=== PATIENT | male | born 1940 | race Caucasian/White ===

== ENCOUNTER 2021-12-01 11:57 | Emergency (ER) | payer OTHER, MEDICARE, SELFPAY ==
[2021-12-01 12:32] VITALS: BP 112/58; PULSE 70; RESP 20; TEMP 36.2; O2SAT 93
--- NOTE | 2021-12-01 13:30 | W.ED.WOUNDLC ---
HPI - Wound/Laceration General: Chief Complaint: Wound/Laceration Stated Complaint: BIG BOIL ON HIS BACK Time Seen by Provider: 12/01/21 14:09 History of Present Illness: HPI narrative: [facility] his back that is inflamed. Associated symptoms: Denies chills, fever(s), nausea or vomiting Review of Systems Const: Denies: fever(s), chills or body aches Eyes: Denies: change in vision or blurry vision ENMT: Denies: throat pain or nasal congestion Card: Denies: chest pain or dyspnea on exertion Resp: Denies: dyspnea, productive cough or non-productive cough GI: Denies: abdominal pain, nausea or vomiting : Denies: difficulty urinating Musc: Denies: extremity pain Skin/Breast: Reports: erythema, skin tenderness, skin swelling (Patient fell about 3 days ago striking left side his back and then cysts go) and other (Complaint cyst pain and drainage); Denies: rash Neuro: Denies: headache(s) Psych: Denies: anxiety or depression Hua/Lymph: Denies: easy bruising PFSH ED PFSH: Medical History DDD (degenerative disc disease) HTN (hypertension) Surgical History H/O colonoscopy 2020 H/O removal of cyst x 2 History of appendectomy Family History Father Cancer Mother Lung disease Denies family history of Anesthesia complication Bleeding disorder Social History Smoking and tobacco status: former smoker Quit status (tobacco): has quit using tobacco Year quit tobacco: 2020 - 2PPD x 70 Years Alcohol intake: never Lives independently: Yes Household members: children Marital status: / service: Yes Current occupational status: retired and disabled History of recent travel: No Current gender identity: Male Physical Exam Const: COMMON NORMALS: no acute distress GENERAL APPEARANCE: cooperative Resp: COMMON NORMALS: normal respiratory effort Extremity: COMMON NORMALS: full ROM Skin: OTHER: I&D of sebaceous cyst left upper back after lidocaine and sterile Betadine prep large amount of cystic material was drained from the wound and packed with 1 inch gauze. Cellulitis extends down to the left upper arm and is tender. Procedures Abscess I/D Site: upper extremity Side (if applicable): left Local Anesthetic: lidocaine 1% Amount of anesthesia used (mL): 4 Technique: incised with #11 blade Amount of fluid expressed (mL): 12 Irrigation: Yes Packing used?: iodoform Course Vital Signs: Vital signs: Vital Signs Temperature 97.1 F L 12/01/21 12:32 Pulse Rate 70 12/01/21 12:32 Respiratory Rate 20 H 12/01/21 12:32 Blood Pressure 112/58 12/01/21 12:32 Pulse Oximetry 93 12/01/21 12:32 MDM - Wound/Laceration MDM Narrative: Medical decision making narrative: Brief history and physical exam was performed as part of the triage process. Due to current ED wait time patient will be placed in waiting room until a room becomes available. Explained to patient he/she will be seen in order of severity. Patient is currently safe to wait in the waiting room until we can get them placed. Patient informed that if condition worsens at any time to please let the front end loader driver know. Discharge Plan Discharge Patient Disposition: Home Clinical Impression: Abscess Condition: Stable Prescriptions: New clindamycin HCl 300 mg capsule 300 mg PO Q8H 7 Days Qty: 21 RF: 0 hydrocodone-acetaminophen 5-325 mg tablet 1 tab PO TID PRN (Reason: pain) Qty: 14 RF: 0 No Action cetirizine [Zyrtec] 10 mg tablet 10 mg PO DAILY RF: 0 cyclobenzaprine 10 mg tablet 10 mg PO TID PRN (Reason: muscle spasm) RF: 0 gabapentin 300 mg capsule 300 mg PO TID PRN (Reason: pain) RF: 0 ghsruexj-soigue-YQ-thonzonium 3.3-3-10-0.5 mg/mL drops,suspension 4 drop EAR-BOTH TID RF: 0 lisinopril-hydrochlorothiazide 10-12.5 mg tablet 1 tab PO DAILY RF: 0 metformin 500 mg tablet 500 mg PO DAILY RF: 0 simvastatin 80 mg tablet 80 mg PO DAILY RF: 0 tamsulosin 0.4 mg capsule 0.4 mg PO DAILY RF: 0 varenicline 1 mg tablet 1 mg PO BID RF: 0 fluticasone propionate 50 mcg/actuation spray,suspension 1 spray INTRANASAL DAILY RF: 0 aspirin [Adult Aspirin Regimen] 81 mg tablet,delayed release (DR/EC) 81 mg PO TID PRN (Reason: pain) RF: 0 acetaminophen [Tylenol Extra Strength] 500 mg tablet 500 mg PO Q6H PRNRF: 0 Spiriva with HandiHaler 18 mcg capsule, w/inhalation device 1 cap INHALATION DAILY 30 Days Qty: 60 RF: 3 cephalexin [Keflex] 500 mg capsule 500 mg PO TID Qty: 21 RF: 0 Discharge Orders: Discharge ED (Routine); Ordered 12/01/21 Ordered By: Davidson Olmedo Referrals: Yara Phelps MD [Primary Care Provider] - Discharge Diet: Usual diet Discharge Activity: Resume usual activity Patient Instructions: Abscess Incision and Drainage (DC) Activity Restrictions/Additional Instructions: Follow-up with medical provider as directed. Take medications as prescribed. Return to the ER or your medical provider if condition worsens. Please read and understand discharge instructions. If any questions ask please. Pull out packing in 2 days. Return here to the ER if worsening symptoms. Coding Level of Care Code ED Ceramics Engineer for April Maagna
[2021-12-01] MEDS: lidocaine 1% INJ 20 mL INTRADERMA (14:13)
[2021-12-01] MEDS: HYDROcodone-acetaminophen 5-325 mg Tablet 1 TAB PO (14:33)
== END 2021-12-01 14:39 | disposition home or self-care (01) ==
PROVIDERS: Emergency Provider Nurse Practitioner Family; PCP Family Medicine
DX: L02.212 Cutaneous abscess of back [any part, except buttock and flank] (principal); Z79.84 Long term (current) use of oral hypoglycemic drugs; Z79.82 Long term (current) use of aspirin
CPT/HCPCS: 10060; 99283

== ENCOUNTER → 2021-12-22 08:15 | Outpatient (BNVA) | payer OTHER, MEDICARE, SELFPAY | PROVIDERS: PCP Family Medicine; Referring Provider Family Medicine; Visit Provider Internal Medicine | DX: E11.9 Type 2 diabetes mellitus without complications (principal); D35.00 Benign neoplasm of unspecified adrenal gland; I10 Essential (primary) hypertension; Z87.891 Personal history of nicotine dependence; Z79.84 Long term (current) use of oral hypoglycemic drugs | CPT/HCPCS: 99204 ==

== ENCOUNTER 2023-05-24 08:09 | Outpatient (CLI) | payer OTHER, SELFPAY ==
--- NOTE | 2023-05-24 08:17 | CT_ITS ---
WS: [id number] CT ABDOMEN AND PELVIS WITH CONTRAST HISTORY: PAIN IN LOWER ABDOMEN/possible hernia. TECHNIQUE: Imaging performed of the abdomen and pelvis with IV contrast. Single phase imaging of the abdomen. Coronal and sagittal reformats are submitted. All CT scans at [facility] use at [address] one of these dose optimization techniques: automated exposure control; mA and/or kV adjustment per patient size (includes targeted exams where dose is matched to clinical indication); or iterative re construction. IV CONTRAST: Omnipaque 350; 100 mL IV. Oral contrast: Yes. DLP: 800.37 mGy.cm COMPARISON: 09/19/[address] Lower thorax: Lung bases are clear. Heart is normal size. No hiatal hernia. Liver/biliary system: Normal size with no intrahepatic dilatation. Gallbladder: Normal. No gallstones or wall thickening. No pericholecystic fluid. Pancreas: Normal size pancreas and pancreatic duct. No adjacent inflammation. Spleen: Normal size spleen. No mass or infarct. Adrenal glands: Normal RIGHT adrenal gland. Mild thickening and lobulation of the LEFT adrenal gland similar to prior studies. Right kidney: Normal. Left kidney: Normal size kidney. Nonobstructing calcification in the superior pole. Superior pole 14 mm cyst. Aorta: Atherosclerosis. No aneurysm. Mild atherosclerosis at the origin of the SMA and celiac axis wi th no stenosis. Lymphadenopathy: None. Free fluid: None. GI tract: Normal stomach and small bowel. Mild diffuse constipation. Tortuous loops of colon with no obstruction. Prior appendectomy. Mild distal diverticula burden without acute diverticulitis. Abdominal wall: Mild thinning of the abdominal wall musculature. There is a very small fat-containing umbilical hernia. No inguinal hernia. There is a small soft tissue nodule measuring 11 mm in the pos terior inferior RIGHT lower thorax. Probably a small sebaceous cyst or epidermoid. No additional subc utaneous nodules. Pelvis: No free fluid or adenopathy within the pelvis. Bones: Osteopenia. CT/CT abdomen pelvis w con* [id number] IMPRESSION: 1. No acute abdominal or pelvic abnormalities. 2. Small fat-containing umbilical hernia. 3. Mild diffuse constipation with no obstruction. 4. Mild diverticular burden without acute diverticulitis. 5. Stable mild thickening of the LEFT adrenal gland superior pole LEFT renal c yst. 6. Prior appendectomy.
[2023-05-24] MEDS: iohexol 350 mg/mL 500 mL Btl (per mL) PO (09:30)
[2023-05-24] MEDS: iohexol 350 mg/mL 500 mL Btl (per mL) IV (09:45)
== END 2023-05-24 08:10 | disposition home or self-care (01) ==
PROVIDERS: PCP Family Medicine; Visit Provider Family Medicine
DX: K42.9 Umbilical hernia without obstruction or gangrene (principal); K59.09 Other constipation; R59.0 Localized enlarged lymph nodes; Z90.89 Acquired absence of other organs
CPT/HCPCS: 74177; Q9967

== ENCOUNTER → 2023-08-03 14:40 | Outpatient (BNVA) | payer OTHER, SELFPAY | PROVIDERS: PCP Family Medicine; Referring Provider Family Medicine; Visit Provider Dermatology | DX: L81.4 Other melanin hyperpigmentation (principal); D18.01 Hemangioma of skin and subcutaneous tissue; L57.8 Other skin changes due to chronic exposure to nonionizing radiation; D48.5 Neoplasm of uncertain behavior of skin; L57.0 Actinic keratosis; L72.0 Epidermal cyst; D17.1 Benign lipomatous neoplasm of skin and subcutaneous tissue of trunk | CPT/HCPCS: 11102; 17000; 99203 ==

== ENCOUNTER 2023-09-01 16:16 | Emergency (ER) | payer OTHER, SELFPAY ==
[2023-09-01 16:26] VITALS: BP 154/77; PULSE 55; RESP 16; TEMP 36.3; O2SAT 93
--- NOTE | 2023-09-01 16:46 | XR_ITS ---
WS: [id number] EXAMINATION: XR hip RT 2-3V wo/w pel* [id number] REASON FOR EXAM: pain COMPARISON: None available. ORDER DATE: 09/01/2023 4:46 PM TECHNIQUE: Frontal internal/external rotation views of the right hip were obtained. X-RAY FINDINGS: There are no fractures or dislocations. Normal motion with internal/external rotation is present. Mild degenerative changes with symmetric appearing joint space narrowing of each hip.. IMPRESSION: 1. No fractures or dislocations of the right hip. 2. Normal motion with internal/external rotation.
[2023-09-01 16:51] VITALS: BP 126/76; PULSE 65; RESP 18; O2SAT 92
--- NOTE | 2023-09-01 17:04 | W.ED.EXTPRO ---
Documented by User: Shlomo Peres DO 09/02/23 16:31 HPI - Extremity Problem General: Chief complaint: Extremity Injury, Lower Stated complaint: right hip pain Time Seen by Provider: 09/01/23 16:39 Source: patient Mode of arrival: ambulatory History of Present Illness: 83-year-old male presents emergency room complaining of right hip pain he bent over and felt a posterior right hip popping sensation with pain he denies any fevers sweats or chills. No fall no specific injury. He states pain radiates into his groin at times. Not had any fever sweats chills no dysuria urgency or frequency. He was seen for to the [place] clinic and given steroids. MD Complaint: joint pain Onset (ago): minute(s) Pain Consistency: constant Location: right Quality: sharp Relieving factors: nothing Exacerbating factors: nothing Associated symptoms: Deny chest pain, fever(s) or rash Review of Systems Const: Denies: fever(s), chills, body aches, change in appetite, fatigue or malaise ENMT: Denies: throat pain, ear or mastoid pain, nasal discharge or nasal congestion Card: Denies: chest pain, edema, dyspnea on exertion or orthopnea Resp: Denies: dyspnea, productive cough or non-productive cough GI: Denies: abdominal pain, nausea, vomiting, hematemesis, coffee ground emesis, diarrhea, constipation, bloating, hematochezia or melena : Denies: flank pain, dysuria, urinary frequency or urinary urgency Musc: Reports: joint pain Skin/Breast: Denies: rash or pruritus PFSH ED PFSH: Medical History DDD (degenerative disc disease) HTN (hypertension) Surgical History H/O colonoscopy 2020 H/O removal of cyst x 2 History of appendectomy Family History Father Cancer Mother Lung disease Denies family history of Anesthesia complication Bleeding disorder Social History Smoking and tobacco status: former smoker Quit status (tobacco): has quit using tobacco Year quit tobacco: 2019 - 2PPD x 70 Years Alcohol intake: never Substance/Drug Use: never Lives independently: Yes Household members: children Marital status: / service: Yes Current occupational status: retired and disabled Do you think of yourself as: Straight/Heterosexual Current gender identity: Male Physical Exam Const: GENERAL APPEARANCE: cooperative and comfortable ORIENTATION/CONSCIOUSNESS: Yes awake, Yes oriented to person, Yes oriented to place and Yes oriented to time HENMT: COMMON NORMALS: normocephalic, atraumatic and hearing grossly normal bilaterally HEAD & SCALP: normocephalic and atraumatic Resp: COMMON NORMALS: normal respiratory effort, No retractions, No use of accessory muscles and clear to auscultation bilaterally AUSCULTATION: clear to auscultation bilaterally Cardio: COMMON NORMALS: regular rate, regular rhythm and No murmurs present (Cardio) RATE: regular rate RHYTHM: regular rhythm GI: COMMON NORMALS: Soft to palpation and No hepatosplenomegaly present AUSCULTATION: Yes normoactive bowel sounds PALPATION: Yes Soft to palpation, No Tenderness to palpation present (GI), No Guarding due to palpation present (GI) and Yes No hepatosplenomegaly present Extremity: COMMON NORMALS: normal to inspection, capillary refill normal, no clubbing, cyanosis or edema, no calf tenderness and no pedal edema Neuro: SENSORIUM/ORIENTATION: Yes oriented to person, Yes oriented to place and Yes oriented to time Skin: COMMON NORMALS: no rashes or lesions noted GENERAL SKIN EXAM: no rashes or lesions noted Course Vital Signs: Vital signs: Vital Signs Temperature 97.4 F L 09/01/23 16:26 Pulse Rate 50 L 09/01/23 19:15 Respiratory Rate 16 09/01/23 19:15 Blood Pressure 159/109 09/01/23 19:15 Pulse Oximetry 92 09/01/23 19:15 Oxygen Delivery Me thod Room Air 09/01/23 17:05 MDM - Extremity (Nontraumatic) Medical Decision Making Leukocytosis due to the oral steroids. He is complaining of pain whenever he walks x-rays not show any acute fracture we will CT hip laboratory tests are otherwise unremarkable. Care signed out to Dr. Minor at change of shift. See final notes for diagnosis and disposition. Medical Records I reviewed the patient's medical records. Lab Data I reviewed the patient's lab results. 09/01/23 17:00 09/01/23 17:[address] 09/01/23 18:14 IMPRESSION: No acute bony abnormalities. Laboratory Results WBC 13.48 10^3/uL (3.29-11.43) H 09/01/23 17:00 RBC 4.75 10^6/uL (3.85-5.65) 09/01/23 17:00 Hgb 14.30 g/dL (11.27-16.99) 09/01/23 17:00 Hct 43.3 % (37-53) 09/01/23 17:00 MCV 91.2 fl (82-101) 09/01/23 17:00 MCH 30.1 pg (27-33) 09/01/23 17:00 MCHC 33.0 g/dL (30-55) 09/01/23 17:00 RDW 14.0 % (12.1-15.1) 09/01/23 17:00 Plt Count 171 10^3/cmm (157-399) 09/01/23 17:00 MPV 12.8 fL (7.4-10.4) H 09/01/23 17:00 Neut % (Auto) 78.5 % 09/01/23 17:00 Lymph % (Auto) 12.8 % 09/01/23 17:00 [place] % (Auto) 5.8 % 09/01/23 17:00 Eos % (Auto) 2.1 % 09/01/23 17:00 Baso % (Auto) 0.4 % 09/01/23 17:00 Neut # (Auto) 10.59 10^3/uL (1.8-7.7) H 09/01/23 17:00 Lymph # (Auto) 1.7 10^3/uL (0.8-4.8) 09/01/23 17:00 [place] # (Auto) 0.8 10^3/uL (0.2-0.9) 09/01/23 17:00 Eos # (Auto) 0.3 10^3/uL (0.0-0.8) 09/01/23 17:00 Baso # (Auto) 0.1 10^3/uL (0.0-0.1) 09/01/23 17:00 Nucleated RBC % (auto) 0 % 09/01/23 17:00 Nucleated RBCs # 0.0 /100WBC 09/01/23 17:00 Sodium 138 mmol/L (136-145) 09/01/23 17:00 Potassium 4.6 mmol/L (3.5-5.1) 09/01/23 17:00 Chloride 103 mmol/L (98-107) 09/01/23 17:00 Carbon Dioxide 23 mmol/L (22-29) 09/01/23 17:00 Anion Gap 16.6 (5-19) 09/01/23 17:00 BUN 32 mg/dL (8-23) H 09/01/23 17:00 Creatinine 1.5 mg/dL (0.7-1.2) H 09/01/23 17:00 GFR Calculation Not Reportable 09/01/23 17:00 Glucose 115 mg/dL (65-115) 09/01/23 17:00 Calculated Osmolality 294 mOsm/kg (285-295) 09/01/23 17:00 Calcium 8.7 mg/dL (8.5-10.5) 09/01/23 17:00 Total Bilirubin 0.3 mg/dL (0.15-1.2) 09/01/23 17:00 AST 11 U/L (0-40) 09/01/23 17:00 ALT 14 U/L (0-41) 09/01/23 17:00 Alkaline Phosphatase 46 U/L (40-130) 09/01/23 17:00 Total Protein 6.6 g/dL (6.6-8.7) 09/01/23 17:00 Albumin 4.1 g/dL (3.5-5.2) 09/01/23 17:00 Globulin 2.5 g/dL (1.3-4.6) 09/01/23 17:00 Discharge Plan Discharge Patient Disposition: Home Clinical Impression: Hip pain, right Condition: Stable Prescriptions: New hydrocodone-acetaminophen 5-325 mg tablet 1 tab PO Q6H PRN (Reason: pain) Qty: 14 0RF No Action cetirizine [Zyrtec] 10 mg tablet 10 mg PO DAILY cyclobenzaprine 10 mg tablet 10 mg PO TID PRN (Reason: muscle spasm) gabapentin 300 mg capsule 300 mg PO TID PRN (Reason: pain) cxyimehh-ouslbq-SF-thonzonium 3.3-3-10-0.5 mg/mL drops,suspension 4 drop EAR-BOTH TID lisinopril-hydrochlorothiazide 10-12.5 mg tablet 1 tab PO DAILY metformin 500 mg tablet 500 mg PO DAILY tamsulosin 0.4 mg capsule 0.4 mg PO DAILY varenicline 1 mg tablet 1 mg PO BID fluticasone propionate 50 mcg/actuation spray,suspension 1 spray INTRANASAL DAILY Rx Instructions: administer into each nostril acetaminophen [Tylenol Extra Strength] 500 mg tablet 500 mg PO Q6H PRN Spiriva with HandiHaler 18 mcg capsule, w/inhalation device 1 cap INHALATION DAILY 30 Days Qty: 60 3RF Rx Instructions: puncture 1 cap using device; one dose = 2 inhalations aspirin [Adult Aspirin Regimen] 81 mg tablet,delayed release (DR/EC) 81 mg PO DAILY simvastatin 80 mg tablet 40 mg PO DAILY cephalexin [Keflex] 500 mg capsule 500 mg PO TID Qty: 21 0RF hydrocodone-acetaminophen 5-325 mg tablet 1 tab PO TID PRN (Reason: pain) Qty: 14 0RF Discharge Orders: Discharge ED (Routine); Ordered 09/01/23 Ordered By: Marce Minor Referrals: Yara Phelps MD [Primary Care Provider] - Discharge Diet: Advance as tolerated Discharge Activity: Resume usual activity Patient Instructions: Hip Pain (ED) Coding Level of Care Code ED School Boat Driver for Chg Fwd Documented by User: Marce Minor MD 09/01/23 19:24 HPI - Extremity Problem General: Chief complaint: Extremity Injury, Lower Stated complaint: right hip pain Time Seen by Provider: 09/01/23 16:39 PFSH ED PFSH: Medical History DDD (degenerative disc disease) HTN (hypertension) Surgical History H/O colonoscopy 2019 H/O removal of cyst x 2 History of appendectomy Family History Father Cancer Mother Lung disease Denies family history of Anesthesia complication Bleeding disorder Social History Smoking and tobacco status: former smoker Quit status (tobacco): has quit using tobacco Year quit tobacco: 2019 - 2PPD x 70 Years Alcohol intake: never Substance/Drug Use: never Lives independently: Yes Household members: children Marital status: / service: Yes Current occupational status: retired and disabled Do you think of yourself as: Straight/Heterosexual Current gender identity: Male Course Vital Signs: Vital signs: Vital Signs Temperature 97.4 F L 09/01/23 16:26 Pulse Rate 50 L 09/01/23 19:15 Respiratory Rate 16 09/01/23 19:15 Blood Pressure 159/109 09/01/23 19:15 Pulse Oximetry 92 09/01/23 19:15 Oxygen Delivery Me thod Room Air 09/01/23 17:05 MDM - Extremity (Nontraumatic) Medical Decision Making Leukocytosis due to the oral steroids. He is complaining of pain whenever he walks x-rays not show any acute fracture we will CT hip laboratory tests are otherwise unremarkable. Care signed out to Dr. Minor at change of shift. See final notes for diagnosis and disposition. Patient CT scan here is normal he has been ambulatory he is stable for discharge he is to follow-up his PCP and return if worsening he understands agrees with plan. Lab Data 09/01/23 17:00 09/01/23 17:[address] 09/01/23 18:14 IMPRESSION: No acute bony abnormalities. Laboratory Results WBC 13.48 10^3/uL (3.29-11.43) H 09/01/23 17:00 RBC 4.75 10^6/uL (3.85-5.65) 09/01/23 17:00 Hgb 14.30 g/dL (11.27-16.99) 09/01/23 17:00 Hct 43.3 % (37-53) 09/01/23 17:00 MCV 91.2 fl (82-101) 09/01/23 17:00 MCH 30.1 pg (27-33) 09/01/23 17:00 MCHC 33.0 g/dL (30-55) 09/01/23 17:00 RDW 14.0 % (12.1-15.1) 09/01/23 17:00 Plt Count 171 10^3/cmm (157-399) 09/01/23 17:00 MPV 12.8 fL (7.4-10.4) H 09/01/23 17:00 Neut % (Auto) 78.5 % 09/01/23 17:00 Lymph % (Auto) 12.8 % 09/01/23 17:00 [place] % (Auto) 5.8 % 09/01/23 17:00 Eos % (Auto) 2.1 % 09/01/23 17:00 Baso % (Auto) 0.4 % 09/01/23 17:00 Neut # (Auto) 10.59 10^3/uL (1.8-7.7) H 09/01/23 17:00 Lymph # (Auto) 1.7 10^3/uL (0.8-4.8) 09/01/23 17:00 [place] # (Auto) 0.8 10^3/uL (0.2-0.9) 09/01/23 17:00 Eos # (Auto) 0.3 10^3/uL (0.0-0.8) 09/01/23 17:00 Baso # (Auto) 0.1 10^3/uL (0.0-0.1) 09/01/23 17:00 Nucleated RBC % (auto) 0 % 09/01/23 17:00 Nucleated RBCs # 0.0 /100WBC 09/01/23 17:00 Sodium 138 mmol/L (136-145) 09/01/23 17:00 Potassium 4.6 mmol/L (3.5-5.1) 09/01/23 17:00 Chloride 103 mmol/L (98-107) 09/01/23 17:00 Carbon Dioxide 23 mmol/L (22-29) 09/01/23 17:00 Anion Gap 16.6 (5-19) 09/01/23 17:00 BUN 32 mg/dL (8-23) H 09/01/23 17:00 Creatinine 1.5 mg/dL (0.7-1.2) H 09/01/23 17:00 GFR Calculation Not Reportable 09/01/23 17:00 Glucose 115 mg/dL (65-115) 09/01/23 17:00 Calculated Osmolality 294 mOsm/kg (285-295) 09/01/23 17:00 Calcium 8.7 mg/dL (8.5-10.5) 09/01/23 17:00 Total Bilirubin 0.3 mg/dL (0.15-1.2) 09/01/23 17:00 AST 11 U/L (0-40) 09/01/23 17:00 ALT 14 U/L (0-41) 09/01/23 17:00 Alkaline Phosphatase 46 U/L (40-130) 09/01/23 17:00 Total Protein 6.6 g/dL (6.6-8.7) 09/01/23 17:00 Albumin 4.1 g/dL (3.5-5.2) 09/01/23 17:00 Globulin 2.5 g/dL (1.3-4.6) 09/01/23 17:00 All radiology interpretation(s) finalized by discharge Discharge Plan Discharge Patient Disposition: Home Clinical Impression: Hip pain, right Condition: Stable Prescriptions: New hydrocodone-acetaminophen 5-325 mg tablet 1 tab PO Q6H PRN (Reason: pain) Qty: 14 0RF No Action cetirizine [Zyrtec] 10 mg tablet 10 mg PO DAILY cyclobenzaprine 10 mg tablet 10 mg PO TID PRN (Reason: muscle spasm) gabapentin 300 mg capsule 300 mg PO TID PRN (Reason: pain) kzworjad-ezimkp-SU-thonzonium 3.3-3-10-0.5 mg/mL drops,suspension 4 drop EAR-BOTH TID lisinopril-hydrochlorothiazide 10-12.5 mg tablet 1 tab PO DAILY metformin 500 mg tablet 500 mg PO DAILY tamsulosin 0.4 mg capsule 0.4 mg PO DAILY varenicline 1 mg tablet 1 mg PO BID fluticasone propionate 50 mcg/actuation spray,suspension 1 spray INTRANASAL DAILY Rx Instructions: administer into each nostril acetaminophen [Tylenol Extra Strength] 500 mg tablet 500 mg PO Q6H PRN Spiriva with HandiHaler 18 mcg capsule, w/inhalation device 1 cap INHALATION DAILY 30 Days Qty: 60 3RF Rx Instructions: puncture 1 cap using device; one dose = 2 inhalations aspirin [Adult Aspirin Regimen] 81 mg tablet,delayed release (DR/EC) 81 mg PO DAILY simvastatin 80 mg tablet 40 mg PO DAILY cephalexin [Keflex] 500 mg capsule 500 mg PO TID Qty: 21 0RF hydrocodone-acetaminophen 5-325 mg tablet 1 tab PO TID PRN (Reason: pain) Qty: 14 0RF Discharge Orders: Discharge ED (Routine); Ordered 09/01/23 Ordered By: Marce Minor Referrals: Yara Phelps MD [Primary Care Provider] - Discharge Diet: Advance as tolerated Discharge Activity: Resume usual activity Patient Instructions: Hip Pain (ED) Coding Level of Care Code ED School Boat Driver for April Magana
[2023-09-01 17:05] VITALS: BP 126/76; PULSE 59; RESP 18; O2SAT 95
[2023-09-01 18:01] LABS: Basophils # 0.1 10^3/uL (0.0-0.1); Basophils % 0.4 %; Eosinophils # 0.3 10^3/uL (0.0-0.8); Eosinophils % 2.1 %; Hematocrit 43.3 % (37-53); Lymphocytes # 1.7 10^3/uL (0.8-4.8); Lymphocytes % 12.8 %; Mean Corpuscular Hemoglobin 30.1 pg (27-33); Mean Corpuscular Volume 91.2 fl (82-101); Mean Platelet Volume 12.8 fL (7.4-10.4); Monocytes # 0.8 10^3/uL (0.2-0.9); Monocytes % 5.8 %; Neutrophils # 10.59 10^3/uL (1.8-7.7); Neutrophils % 78.5 %; Nucleated Red Blood Cells % 0 %; Platelet Count 171 10^3/cmm (157-399); Red Blood Count 4.75 10^6/uL (3.85-5.65); White Blood Count 13.48 10^3/uL (3.29-11.43)
[2023-09-01 18:12] LABS: Alanine Aminotransferase 14 U/L (0-41); Albumin Level 4.1 g/dL (3.5-5.2); Alkaline Phosphatase 46 U/L (40-130); Anion Gap 16.6 (5-19); Aspartate Amino Transferase 11 U/L (0-40); Blood Urea Nitrogen 32 mg/dL (8-23); Calcium 8.7 mg/dL (8.5-10.5); Carbon Dioxide 23 mmol/L (22-29); Chloride 103 mmol/L (98-107); Globulin 2.5 g/dL (1.3-4.6); Glucose 115 mg/dL (65-115); Osmolality Calculated 294 mOsm/kg (285-295); Potassium 4.6 mmol/L (3.5-5.1); Sodium 138 mmol/L (136-145); Total Bilirubin 0.3 mg/dL (0.15-1.2); Total Protein 6.6 g/dL (6.6-8.7)
--- NOTE | 2023-09-01 18:14 | CTR_ITS ---
PROCEDURE INFORMATION: Exam: CT Right Lower Extremity Without Contrast, Hip Exam date and time: 09/01/2023 6:22 PM Age: 83 years old Clinical indication: Pain; Hip; Right TECHNIQUE: Imaging protocol: CT of the right lower extremity without contrast was performed. Exam focused on the hip. Radiation optimization: All CT scans at this facility use at least one of these dose optimization techniques: automated exposure control; mA and/or kV adjustment per patient size (includes targeted exams where dose is matched to clinical indication); or iterative reconstruction. REPORTING DATA: Count of CT and Cardiac NM exams in prior 12 months: This patient has received [address] and 0 known cardiac nuclear medicine studies in the 12 months prior to the current study. COMPARISON: CR XR hip RT 2-3V wo/w pel* [id number] 09/01/2023 5:01 PM RADIATION DOSE METRICS: Total DLP (mGy-cm): 553.43 FINDINGS: Bones/joints: Normal. No acute fracture or dislocation. Joint surfaces are fairly well preserved. No malalignment. Soft tissues: No significant joint effusion or soft tissue swelling.. Other findings: Small fat containing right inguinal hernia. CT/CT hip RT wo con* [id number] IMPRESSION: No acute bony abnormalities.
[2023-09-01] MEDS: HYDROcodone-acetaminophen 5-325 mg Tablet 1 TAB PO (18:29)
[2023-09-01 19:15] VITALS: BP 159/109; PULSE 50; RESP 16; O2SAT 92
== END 2023-09-01 19:20 | disposition home or self-care (01) ==
PROVIDERS: Family Medicine; Emergency Provider Emergency Medicine; PCP Family Medicine
DX: M25.551 Pain in right hip (principal); Z79.82 Long term (current) use of aspirin; Z79.84 Long term (current) use of oral hypoglycemic drugs; I10 Essential (primary) hypertension; Z87.891 Personal history of nicotine dependence
CPT/HCPCS: 73502; 73700; 80053; 85025; 99284

== ENCOUNTER → 2023-09-07 09:23 | Outpatient (BNVA) | payer OTHER, SELFPAY | PROVIDERS: PCP Family Medicine; Referring Provider Family Medicine; Visit Provider Specialist | DX: R22.31 Localized swelling, mass and lump, right upper limb | CPT/HCPCS: 20612; 73110; 99203 ==

== ENCOUNTER → 2023-09-27 14:05 | Outpatient (BNVA) | payer OTHER, SELFPAY | PROVIDERS: PCP Family Medicine; Visit Provider Orthopaedic Surgery | DX: M51.36 Other intervertebral disc degeneration, lumbar region (principal); M43.26 Fusion of spine, lumbar region | CPT/HCPCS: 72110; 99204 ==

== ENCOUNTER 2023-10-05 10:33 | Outpatient (CLI) | payer OTHER, SELFPAY ==
--- NOTE | 2023-10-05 11:00 | MR_ITS ---
WS: [id number] EXAMINATION: MR wrist RT wo con* [id number] ORDER DATE: 10/05/2023 10:54 AM COMPARISON: None. HISTORY: cyst on right wrist CONTRAST: None. TECHNIQUE: Axial T1, axial T2 fat sat, coronal T1, coronal proton density fat sat, coronal STIR, noel nal 3D, and sagittal T1 performed. FINDINGS: Some images degraded by motion artifact. Palpable marker along the radial styloid. No suspicious lesions directly deep to the palpable marker. However, adjacent to the palpable marker along the dorsal wrist there is an ovoid subcutaneous lipom a along the dorsal distal radius measuring 1.7 x 1.6 x 1.5 cm. Normal bone marrow signal in the underlying radial styloid. No distal radial fractures. Subchondral c ystic change along the carpal bones. Normal scapholunate interval. Normal carpal tunnel. 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 Moderate degenerative arthritis at the fi rst [facility]MC and STT. Normal scaphoid. Normal lunate. No acute carpal fractures. IMPRESSION: 1. Ovoid subcutaneous lipoma along the dorsal distal radius directly adjacent to the palpable porsha er measuring 1.7 x 1.6 x 1.5 cm. 2. No other suspicious lesions near the palpable marker. 3. No other acute findings.
== END 2023-10-05 10:34 | disposition home or self-care (01) ==
LOC: RAD 10:33
PROVIDERS: PCP Family Medicine; Visit Provider Specialist
DX: D17.21 Benign lipomatous neoplasm of skin and subcutaneous tissue of right arm (principal)
CPT/HCPCS: 73221

== ENCOUNTER → 2023-10-12 08:47 | Outpatient (BNVA) | payer OTHER, SELFPAY | PROVIDERS: PCP Family Medicine; Visit Provider Specialist | DX: R22.31 Localized swelling, mass and lump, right upper limb (principal) | CPT/HCPCS: 99213 ==

== ENCOUNTER 2024-01-02 16:57 | Emergency (ER) | payer OTHER, SELFPAY ==
[2024-01-02 17:04] VITALS: BP 148/75; PULSE 57; RESP 16; TEMP 36.5; O2SAT 95; BMI 34.0
--- NOTE | 2024-01-02 19:00 | XRR_ITS ---
PROCEDURE INFORMATION: Exam: XR Chest Exam date and time: 01/02/2024 7:04 PM Age: 83 years old Clinical indication: Other: Bradycardia TECHNIQUE: Imaging protocol: Radiologic exam of the chest. Views: 1 view. COMPARISON: CT lung screening [id number] 07/22/2020 8:44 AM FINDINGS: Lungs: Both lungs demonstrate chronic interstitial coarsening. No lung mass or infiltrate. Pleural spaces: Unremarkable. No pleural effusion. No pneumothorax. Pleural calcifications are noted in the right base. Heart/Mediastinum: Unremarkable. No cardiomegaly. Bones/joints: Unremarkable. XR/XR chest 1V portable [id number] IMPRESSION: I see no acute abnormality.
--- NOTE | 2024-01-02 19:30 | W.ED.WEAKNES ---
HPI - Weakness General: Chief complaint: Weakness Stated complaint: sent over by [place], swollen legs and feet Time Seen by Provider: 01/02/24 19:01 History of Present Illness: Patient presents to the ER with complaints of bilateral lower extremity swelling. Patient was sent over here from the [place] for swelling in his heart. Patient is on sure why. Patient had an EKG over to [place] that showed sinus bradycardia with incomplete right bundle branch block. Patient says his feet been swelling for about 2 weeks now the first couple days they would go down at night but be swollen throughout the day but here lately they have not been going down at all. Patient denies being on any diuretic or having any heart problems. Patient does admit to smoking about a half a pack per day for about the last 70+ years. Review of Systems General: Reports: 10 or more systems reviewed and unremarkable except in HPI and below PFSH ED PFSH: Medical History HTN (hypertension) DDD (degenerative disc disease) Surgical History H/O removal of cyst x 2 H/O colonoscopy 2019 History of appendectomy Family History Father Cancer Mother Lung disease Denies family history of Anesthesia complication Bleeding disorder Social History Smoking and tobacco/nicotine status: current every day tobacco/nicotine user Quit status (tobacco/nicotine): has quit using Year quit tobacco: 2020 - 2PPD x 70 Years Alcohol intake: never Substance/Drug Use: never Lives independently: Yes Household members: children Marital status: / service: Yes Current occupational status: retired and disabled Do you think of yourself as: Straight/Heterosexual Current gender identity: Male Physical Exam Const: COMMON NORMALS: no acute distress, average body habitus, patient oriented x3, no limitations, healthy appearing, alert and well nourished HENMT: COMMON NORMALS: normocephalic, atraumatic, hearing grossly normal bilaterally, external ears normal, moist oral mucous membranes and oropharynx normal HEAD & SCALP: normocephalic and atraumatic EXTERNAL EAR: Yes external ears normal Neck/C-Spine: COMMON NORMALS: full ROM, no lymphadenopathy, supple, no meningeal signs, no JVD and Thyroid normal THYROID: Thyroid normal Chest: COMMONS NORMALS: normal inspection of the chest and normal palpation of entire chest wall Resp: COMMON NORMALS: normal respiratory effort, No retractions, No use of accessory muscles and clear to auscultation bilaterally AUSCULTATION: clear to auscultation bilaterally Cardio: COMMON NORMALS: no JVD, regular rate, regular rhythm, S1 normal heart sound present, S2 normal heart sound present, No gallops present (Cardio), No clicks present (Cardio), No murmurs present (Cardio) and No rub (Cardio) RATE: regular rate RHYTHM: regular rhythm HEART SOUNDS: S1 normal heart sound present and S2 normal heart sound present GI: COMMON NORMALS: Normal to inspection, nondistended, normoactive bowel sounds present, Soft to palpation, non-tender and No hepatosplenomegaly present PALPATION: Yes Soft to palpation and Yes No hepatosplenomegaly present Extremity: NARRATIVE EXTREMITY EXAM: 1-2+ pitting edema bilateral lower extremities Neuro: COMMON NORMALS: patient oriented x3 SENSORIUM/ORIENTATION: Yes alert MENINGEAL SIGNS: Yes no meningeal signs Course Vital Signs: Vital signs: Vital Signs Temperature 97.7 F 01/02/24 21:12 Pulse Rate 53 L 01/02/24 21:12 Respiratory Rate 16 01/02/24 21:12 Blood Pressure 152/69 01/02/24 21:12 Pulse Oximetry 94 01/02/24 21:12 Oxygen Delivery Me thod Room Air 01/02/24 17:04 MDM - Weakness Medical Decision Making Lab work was obtained that included CBC CMP magnesium phosphorus BNP urinalysis. All of which were essentially benign. Chest x-ray showed no acute abnormality. Patient was given 20 mg Lasix p.o. which diuresed the patient well. Patient be discharged home on 20 mg Lasix for the next 5 days. Patient should follow-up with his PCP within the next 7 to 10 days for further evaluation and treatment. Differential Diagnosis Unlikely acute myocardial infarction, anemia, hypoglycemia, hypothyroidism, rhabdomyolysis, sepsis or dehydration Medical Records I reviewed the patient's medical records. Lab Data I reviewed the patient's lab results. 01/02/24 19:13 01/02/24 19:13 Radiology Impressions Chest X-Ray 01/02/24 19:00 IMPRESSION: I see no acute abnormality. Laboratory Results WBC 10.88 10^3/uL (3.29-11.43) 01/02/24 19:13 RBC 4.38 10^6/uL (3.85-5.65) 01/02/24 19:13 Hgb 13.20 g/dL (11.27-16.99) 01/02/24 19:13 Hct 42.1 % (37-53) 01/02/24 19:13 MCV 96.1 fl (82-101) 01/02/24 19:13 MCH 30.1 pg (27-33) 01/02/24 19:13 MCHC 31.4 g/dL (30-55) 01/02/24 19:13 RDW 13.4 % (12.1-15.1) 01/02/24 19:13 Plt Count 167 10^3/cmm (157-399) 01/02/24 19:13 MPV 13.1 fL (7.4-10.4) H 01/02/24 19:13 Neut % (Auto) 68.2 % 01/02/24 19:13 Lymph % (Auto) 20.7 % 01/02/24 19:13 [place] % (Auto) 7.5 % 01/02/24 19:13 Eos % (Auto) 2.8 % 01/02/24 19:13 Baso % (Auto) 0.5 % 01/02/24 19:13 Neut # (Auto) 7.43 10^3/uL (1.8-7.7) 01/02/24 19:13 Lymph # (Auto) 2.3 10^3/uL (0.8-4.8) 01/02/24 19:13 [place] # (Auto) 0.8 10^3/uL (0.2-0.9) 01/02/24 19:13 Eos # (Auto) 0.3 10^3/uL (0.0-0.8) 01/02/24 19:13 Baso # (Auto) 0.1 10^3/uL (0.0-0.1) 01/02/24 19:13 Nucleated RBC % (auto) 0 % 01/02/24 19:13 Nucleated RBCs # 0.0 /100WBC 01/02/24 19:13 Sodium 141 mmol/L (136-145) 01/02/24 19:13 Potassium 4.7 mmol/L (3.5-5.1) 01/02/24 19:13 Chloride 105 mmol/L (98-107) 01/02/24 19:13 Carbon Dioxide 25 mmol/L (22-29) 01/02/24 19:13 Anion Gap 15.7 (5-19) 01/02/24 19:13 BUN 26 mg/dL (8-23) H 01/02/24 19:13 Creatinine 1.2 mg/dL (0.7-1.2) 01/02/24 19:13 GFR Calculation Not Reportable 01/02/24 19:13 Glucose 107 mg/dL (65-115) 01/02/24 19:13 Calculated Osmolality 297 mOsm/kg (285-295) H 01/02/24 19:13 Calcium 9.0 mg/dL (8.5-10.5) 01/02/24 19:13 Phosphorus 4.2 mg/dL (2.5-4.5) 01/02/24 19:13 Magnesium 2.2 mg/dL (1.7-2.3) 01/02/24 19:13 Total Bilirubin 0.2 mg/dL (0.15-1.2) 01/02/24 19:13 AST 15 U/L (0-40) 01/02/24 19:13 ALT 14 U/L (0-41) 01/02/24 19:13 Alkaline Phosphatase 51 U/L (40-130) 01/02/24 19:13 NT-Pro-B Natriuret Pep 99 pg/mL (0-450) 01/02/24 19:13 Total Protein 6.8 g/dL (6.6-8.7) 01/02/24 19:13 Albumin 3.9 g/dL (3.5-5.2) 01/02/24 19:13 Globulin 2.9 g/dL (1.3-4.6) 01/02/24 19:13 Urine Color Yellow (Yellow) 01/02/24 20:17 Urine Appearance Clear (CLEAR) 01/02/24 20:17 Urine pH 5 (5-7) 01/02/24 20:17 Ur Specific [place] 1.020 (1.005-1.030) 01/02/24 20:17 Urine Protein Neg (Negative) 01/02/24 20:17 Urine Glucose (UA) Norm (Normal) 01/02/24 20:17 Urine Ketones Negative (Negative) 01/02/24 20:17 Urine Blood Neg (Negative) 01/02/24 20:17 Urine Nitrate Negative (Negative) 01/02/24 20:17 Urine Bilirubin Neg (Negative) 01/02/24 20:17 Urine Urobilinogen Neg mg/dL (Negative) 01/02/24 20:17 Ur Leukocyte Esterase Negative (Negative) 01/02/24 20:17 All radiology interpretation(s) finalized by discharge Discharge Plan Discharge Patient Disposition: Home Clinical Impression: Bilateral edema of lower extremity Condition: Stable Prescriptions: New Lasix 20 mg tablet 20 mg PO DAILY Qty: 5 0RF No Action cetirizine [Zyrtec] 10 mg tablet 10 mg PO DAILY cyclobenzaprine 10 mg tablet 10 mg PO TID PRN (Reason: muscle spasm) gabapentin 300 mg capsule 300 mg PO TID PRN (Reason: pain) [id number]-[id number]-DI-thonzonium 3.3-3-10-0.5 mg/mL drops,suspension 4 drop EAR-BOTH TID lisinopril-hydrochlorothiazide 10-12.5 mg tablet 1 tab PO DAILY metformin 500 mg tablet 500 mg PO DAILY tamsulosin 0.4 mg capsule 0.4 mg PO DAILY varenicline 1 mg tablet 1 mg PO BID fluticasone propionate 50 mcg/actuation spray,suspension 1 spray INTRANASAL DAILY Rx Instructions: administer into each nostril acetaminophen [Tylenol Extra Strength] 500 mg tablet 500 mg PO Q6H PRN Spiriva with HandiHaler 18 mcg capsule, w/inhalation device 1 cap INHALATION DAILY 30 Days Qty: 60 3RF Rx Instructions: puncture 1 cap using device; one dose = 2 inhalations aspirin [Adult Aspirin Regimen] 81 mg tablet,delayed release (DR/EC) 81 mg PO DAILY simvastatin 80 mg tablet 40 mg PO DAILY hydrocodone-acetaminophen 5-325 mg tablet 1 tab PO Q6H PRN (Reason: pain) Qty: 14 0RF Discharge Orders: Discharge ED (Routine); Ordered 01/02/24 Ordered By: Fernando De La Fuente Referrals: Yara Phelps MD [Primary Care Provider] - 1 week Patient Instructions: Leg Edema (ED) Activity Restrictions/Additional Instructions: Your workup in ER did not show any acute cause of your edema, it showed your kidneys and your heart are doing well. You were given Lasix which is a diuretic to help you urinate off the excess fluid. Please take 1 pill every day for the next 5 days. Please follow-up with your family practice physician within the next 7 to 10 days for further evaluation and treatment. Coding Level of Care Code ED Bed Bug Exterminator for April Magana
[2024-01-02 19:54] LABS: Basophils # 0.1 10^3/uL (0.0-0.1); Basophils % 0.5 %; Eosinophils # 0.3 10^3/uL (0.0-0.8); Eosinophils % 2.8 %; Hematocrit 42.1 % (37-53); Lymphocytes # 2.3 10^3/uL (0.8-4.8); Lymphocytes % 20.7 %; Mean Corpuscular HGB Conc 31.4 g/dL (30-55); Mean Corpuscular Hemoglobin 30.1 pg (27-33); Mean Corpuscular Volume 96.1 fl (82-101); Mean Platelet Volume 13.1 fL (7.4-10.4); Monocytes # 0.8 10^3/uL (0.2-0.9); Monocytes % 7.5 %; Neutrophils # 7.43 10^3/uL (1.8-7.7); Neutrophils % 68.2 %; Nucleated Red Blood Cells % 0 %; Platelet Count 167 10^3/cmm (157-399); Red Blood Count 4.38 10^6/uL (3.85-5.65); Red Cell Distribution Width 13.4 % (12.1-15.1); White Blood Count 10.88 10^3/uL (3.29-11.43)
[2024-01-02 20:07] LABS: Alanine Aminotransferase 14 U/L (0-41); Albumin Level 3.9 g/dL (3.5-5.2); Alkaline Phosphatase 51 U/L (40-130); Anion Gap 15.7 (5-19); Aspartate Amino Transferase 15 U/L (0-40); Blood Urea Nitrogen 26 mg/dL (8-23); Carbon Dioxide 25 mmol/L (22-29); Chloride 105 mmol/L (98-107); Globulin 2.9 g/dL (1.3-4.6); Glucose 107 mg/dL (65-115); Magnesium 2.2 mg/dL (1.7-2.3); NT Pro B Type Natriuretic Pept 99 pg/mL (0-450); Osmolality Calculated 297 mOsm/kg (285-295); Phosphorus 4.2 mg/dL (2.5-4.5); Potassium 4.7 mmol/L (3.5-5.1); Sodium 141 mmol/L (136-145); Total Bilirubin 0.2 mg/dL (0.15-1.2); Total Protein 6.8 g/dL (6.6-8.7)
[2024-01-02] MEDS: FUROsemide 20 mg Tablet PO (20:23)
[2024-01-02 20:25] VITALS: BP 152/69; PULSE 53; RESP 16; O2SAT 94
[2024-01-02 20:39] LABS: Add Urine Microscopic? NO; Charge for UA Resulting for Rev
[2024-01-02 20:49] LABS: Bilirubin Urine Neg (Negative); Blood Urine Neg (Negative); Glucose Urine UA Norm (Normal); Ketones Urine Negative (Negative); Leukocyte Esterase Urine Negative (Negative); Nitrate Urine Negative (Negative); Protein Urine Neg (Negative); Urine Appearance Clear (CLEAR); Urine Color Yellow (Yellow); Urobilinogen Urine Neg (Negative); pH Urine 5 (5-7)
[2024-01-02 21:12] VITALS: BP 152/69; PULSE 53; RESP 16; TEMP 36.5; O2SAT 94
== END 2024-01-02 21:13 | disposition home or self-care (01) ==
PROVIDERS: Emergency Medicine; Emergency Provider Emergency Medicine; PCP Family Medicine
DX: R60.0 Localized edema (principal); Z79.82 Long term (current) use of aspirin; Z79.84 Long term (current) use of oral hypoglycemic drugs; I10 Essential (primary) hypertension; Z72.0 Tobacco use
CPT/HCPCS: 36415; 71045; 80053; 81003; 83735; 83880; 84100; 85025; 99284

== ENCOUNTER 2024-02-03 10:07 | Outpatient (CLI) | payer OTHER, SELFPAY ==
--- NOTE | 2024-02-03 10:18 | USCV_ITS ---
Brandon Villareal Age: 83 Gender: M : 1940 Exam Date: 02/03/2024 10:45 Ordering Phys: Radha Tsang APRN Technologist: Guillermo Benitez [place]am Location[place] [facility] [place]: edema BP: 136 / 72 HR: Rhythm: Sinus Technical Quality: Poor MEASUREMENTS (Male / Female) Normal Values 2D ECHO LVOT Diameter 2.1 cm LV Ejection Fraction MOD 2C 66.4 % LV Ejection Fraction 2C AL 65.3 % LA Diameter 3.9 cm RA Systolic Volume 4C AL 27.9 ml RA Systolic Volume 4C MOD 27.6 ml Aorta at Sinotubular Diameter 2.6 cm IVC Diameter 1.8 cm M-MODE LA Ao Ratio MM 0.7 AV Cusp Separation MM 3.1 cm DOPPLER AV Peak Velocity 181.0 cm/s LVOT Peak Velocity 173.0 cm/s AV Area Cont Eq vti 2.9 cm squared AV Area Cont Eq pk 3.2 cm squared MV Peak Velocity 96.0 cm/s MV Area PHT 2.5 cm squared Mitral E to A Ratio 0.7 TV Peak Velocity 144.0 cm/s TR Peak Velocity 160.0 cm/s TR Peak Gradient 10.2 mmHg TR Mean Velocity 122.0 cm/s TR Mean Gradient 6.5 mmHg TR Velocity Time Integral 26.5 cm PV Peak Velocity 98.0 cm/s RV Ejection Time 0.3 s FINDINGS Left Ventricle Poor quality study. Apical view is the only reasonable view. The ventricle appears normal in size and function in this view. Ejection fraction is probably within normal limits. No obvious wall motion disturbances noted in the apical view. Grade 1 diastolic dysfunction. Right Ventricle Normal right ventricular size and systolic function. Normal right ventricular systolic pressure. Right Atrium The right atrium is normal in size. Left Atrium The left atrium is normal in size. Mitral Valve Mitral valve not well visualized. No mitral valve regurgitation. Aortic Valve Structurally normal trileaflet aortic valve. Aortic valve not well visualized. Mild aortic valve regurgitation. No aortic valve stenosis. Tricuspid Valve Tricuspid valve not well visualized. Pulmonic Valve Pulmonic valve not well visualized. Pericardium Small pericardial effusion. Echocardiographic findings suggest a non hemodynamically significant pericardial effusion. Aorta Aorta not well visualized. IVC Inferior vena cava not visualized. CONCLUSIONS Poor quality study. Apical view is the only reasonable view. The ventricle appears normal in size and function in this view. Ejection fraction is probably within normal limits. No obvious wall motion disturbances noted in the apical view. Grade 1 diastolic dysfunction. Structurally normal trileaflet aortic valve. Aortic valve not well visualized. Mild aortic valve regurgitation. No aortic valve stenosis. Small pericardial effusion. Echocardiographic findings suggest a non hemodynamically significant pericardial effusion. Previous study June 07, 2017. 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 Otherwise no change. Dr. Richar Torres MD (Electronically Signed) Final Date: 03 February 2024 14:52 S
== END 2024-02-03 10:08 | disposition home or self-care (01) ==
LOC: RAD 10:07
PROVIDERS: PCP Family Medicine; Visit Provider Nurse Practitioner Family
DX: I35.1 Nonrheumatic aortic (valve) insufficiency (principal); R60.0 Localized edema
CPT/HCPCS: 93306

== ENCOUNTER 2024-05-02 08:33 | Inpatient (IN) | payer OTHER, SELFPAY ==
[2024-05-02] VITALS (10 sets, daily range): BP systolic 94–147; BP diastolic 50–75; PULSE 62–98; RESP 8–18; TEMP 36.7–36.8; O2SAT 93–96; BMI 34.0; BMI 31.9
--- NOTE | 2024-05-02 09:10 | PC.PHAR ---
PT IS [facility] FOR MED LIST 05/02/24 9:10AM
--- NOTE | 2024-05-02 09:12 | ED_ITS ---
HPI - GI Bleed 2 General: Chief complaint: GI Bleed Stated complaint: discolored stool Time Seen by Provider: 05/02/24 08:59 Source: patient Mode of arrival: ambulatory Limitations: no limitations History of Present Illness: This patient comes to the emergency department from his home this morning because he is concerned about dark tarry stools. He states he did a stupid thing over the weekend. He states his sciatic nerve and lower back were acting up and he states he took a handful of Aleve and acetaminophen and gabapentin took improve his symptoms. He states he was [facility] yesterday and was given a prescription for steroids but he has not taken those until this morning. He denies any history of taking any blood thinners or anticoagulants. He denies any bleeding disorders in the past. He denies any stomach issues. He states this morning he had dark black sticky stool. He denies any nausea vomiting lightheadedness chest pain shortness of breath etc. He does not use tobacco. Associated symptoms: Denies abdominal pain, chills, easy bruising, fever(s), headache(s), nausea, rash, syncope or vomiting Review of Systems 2 Const: Denies: fever(s) or chills ENMT: Denies: throat pain Card: Denies: chest pain, palpitations, syncope or pre-syncope Resp: Denies: dyspnea, productive cough or non-productive cough GI: Reports: melena; Denies: abdominal pain, nausea or vomiting : Denies: flank pain, difficulty urinating or dysuria Musc: Reports: back pain; Denies: neck pain, extremity pain or extremity swelling Skin/Breast: Denies: rash Neuro: Denies: headache(s), numbness in extremities or weakness in extremities Hua/Lymph: Denies: easy bruising or easy bleeding PFSH ED 2 PFSH: Medical History HTN (hypertension) DDD (degenerative disc disease) Surgical History H/O removal of cyst x 2 H/O colonoscopy 2020 History of appendectomy Family History Father Cancer Mother Lung disease Denies family history of Anesthesia complication Bleeding disorder Social History Smoking and tobacco/nicotine status: current every day tobacco/nicotine user Quit status (tobacco/nicotine): has quit using Year quit tobacco: 2020 - 2PPD x 70 Years Alcohol intake: never Substance/Drug Use: never Lives independently: Yes Household members: children Marital status: / service: Yes Current occupational status: retired and disabled Do you think of yourself as: Straight/Heterosexual Current gender identity: Male Physical Exam 2 Narrative: EXAM NARRATIVE: He is alert appears to be in no acute distress. Appears to be stated age. He is cooperative Const: COMMON NORMALS: no acute distress and patient oriented x3 GENERAL APPEARANCE: cooperative and comfortable NUTRITIONAL APPEARANCE: overweight HENMT: COMMON NORMALS: normocephalic, Normal nasal mucous membranes and turbinates present, moist oral mucous membranes and oropharynx normal HEAD & SCALP: normocephalic FACE & SINUS: normal facial exam, sinuses nontender and face symmetric NOSE: Normal nasal mucous membranes and turbinates present Eye: COMMON NORMALS: Equal, round and reactive pupils present, EOMs intact bilaterally and conjunctivae normal CONJUNCTIVA: Yes conjunctivae normal P UPIL: Yes Equal, round and reactive pupils present Neck/C-Spine: COMMON NORMALS: full ROM, no lymphadenopathy and no JVD Chest: COMMONS NORMALS: normal inspection of the chest Resp: COMMON NORMALS: normal respiratory effort, No retractions and No use of accessory muscles AUSCULTATION: wheezes (A few scattered expiratory wheezes) Cardio: COMMON NORMALS: no JVD, regular rate, No murmurs present (Cardio) and Peripheral pulses 2+ throughout RATE: regular rate PERIPHERAL PULSES: P eripheral pulses 2+ throughout GI: COMMON NORMALS: Normal to inspection, nondistended, normoactive bowel sounds present, Soft to palpation and non-tender INSPECTION: Yes central obesity PALPATION: Yes Soft to palpation RECTAL EXAM: Yes visual inspection normal, Yes Abnormal stool present Abnormal stool details: black stool and Yes heme positive stool : COMMON NORMALS: Yes no CVA tenderness BLADDER/KIDNEY EXAM: Yes no CVA tenderness Back/Pelvis: COMMON NORMALS: no CVA tenderness, thoracic and lumbar spine normal to inspection, no thoracic nor lumbar tenderness and thoraco-lumbar ROM normal Extremity: COMMON NORMALS: normal to inspection, full ROM and no pedal edema Neuro: COMMON NORMALS: patient oriented x3, moves all extremities, no focal motor deficits and no sensory deficits noted Skin: COMMON NORMALS: no rashes or lesions noted and turgor normal GENERAL SKIN EXAM: no rashes or lesions noted and turgor normal Course 2 Reevaluation(s): Reevaluation #1: Patient has dropped his hemoglobin from his usual baseline. He also has a leukocytosis which is unclear as to etiology. Will go ahead and obtain chest x- ray and urinalysis but the patient is afebrile and has no complaints and suggest acute infection at this time. It could represent demargination but will do due diligence. Time: 10:30 Consultations: Consultation #1: Discussed with Dr. Jaramillo who agrees patient will be placed in a observation status Time: 10:31 Consultation #2: Spoke with Dr. Odell for endoscopy support and he agrees to consult Time: 10:34 Vital Signs: Vital signs: Vital Signs Temperature 98.1 F 05/02/24 08:53 Pulse Rate 62 05/02/24 09:29 Respiratory Rate 8 L 05/02/24 08:53 Blood Pressure 122/52 05/02/24 09:29 Pulse Oximetry 93 05/02/24 09:29 Oxygen Delivery Me thod Room Air 05/02/24 09:29 MDM - GI Bleed Medical Decision Making This patient presented to the emergency department because of concerns about possible bleeding from his stomach. He states he took Aleve over the weekend because of low back pain and then he noted dark tarry stools this morning. No prior history of gastrointestinal bleed. No antiplatelet agents or anticoagulants at this time. He smokes cigarettes but does not use alcohol. Clinical examination reveals me and hemodynamically stable and in no acute distress. His clinical exam was otherwise remarkable for some mild wheezing but nontender abdomen his rectal examination revealed melanotic stool which was guaiac positive. Laboratories and an blood banking were obtained and he was given proton pump inhibitors. It was noted that his hemoglobin had fallen from his usual level of hemoglobin down to a level of 10.8. Not requiring acute transfusion but will need to be placed in observation for serial hemoglobins, continue proton pump inhibitors, possible upper endoscopy. Medical Records I reviewed the patient's medical records. Prior hemoglobin and renal function Lab Data I reviewed the patient's lab results. 05/02/24 09:30 05/02/24 09:30 Laboratory Results WBC 19.03 10^3/uL (3.29-11.43) H 05/02/24 09:30 RBC 3.51 10^6/uL (3.85-5.65) L 05/02/24 09:30 Hgb 10.80 g/dL (11.27-16.99) L 05/02/24 09:30 Hct 33.6 % (37-53) L 05/02/24 09:30 MCV 95.7 fl (82-101) 05/02/24 09:30 MCH 30.8 pg (27-33) 05/02/24 09:30 MCHC 32.1 g/dL (30-55) 05/02/24 09:30 RDW 14.8 % (12.1-15.1) 05/02/24 09:30 Plt Count 166 10^3/cmm (157-399) 05/02/24 09:30 MPV 13.3 fL (7.4-10.4) H 05/02/24 09:30 Neut % (Auto) 87.4 % 05/02/24 09:30 Lymph % (Auto) 7.5 % 05/02/24 09:30 [place] % (Auto) 3.8 % 05/02/24 09:30 Eos % (Auto) 0.2 % 05/02/24 09:30 Baso % (Auto) 0.3 % 05/02/24 09:30 Neut # (Auto) 16.61 10^3/uL (1.8-7.7) H 05/02/24 09:30 Lymph # (Auto) 1.4 10^3/uL (0.8-4.8) 05/02/24 09:30 [place] # (Auto) 0.7 10^3/uL (0.2-0.9) 05/02/24 09:30 Eos # (Auto) 0.0 10^3/uL (0.0-0.8) 05/02/24 09:30 Baso # (Auto) 0.1 10^3/uL (0.0-0.1) 05/02/24 09:30 Nucleated RBC % (auto) 0 % 05/02/24 09:30 Nucleated RBCs # 0.0 /100WBC 05/02/24 09:30 Sodium 139 mmol/L (136-145) 05/02/24 09:30 Potassium 4.5 mmol/L (3.5-5.1) 05/02/24 09:30 Chloride 104 mmol/L (98-107) 05/02/24 09:30 Carbon Dioxide 24 mmol/L (22-29) 05/02/24 09:30 Anion Gap 15.5 (5-19) 05/02/24 09:30 BUN 60 mg/dL (8-23) H 05/02/24 09:30 Creatinine 1.2 mg/dL (0.7-1.2) 05/02/24 09:30 GFR Calculation Not Reportable 05/02/24 09:30 Glucose 184 mg/dL (65-115) H 05/02/24 09:30 Calculated Osmolality 310 mOsm/kg (285-295) H 05/02/24 09:30 Calcium 9.7 mg/dL (8.5-10.5) 05/02/24 09:30 Total Bilirubin 0.3 mg/dL (0.15-1.2) 05/02/24 09:30 AST 19 U/L (0-40) 05/02/24 09:30 ALT 12 U/L (0-41) 05/02/24 09:30 Alkaline Phosphatase 62 U/L (40-130) 05/02/24 09:30 Total Protein 6.4 g/dL (6.6-8.7) L 05/02/24 09:30 Albumin 3.7 g/dL (3.5-5.2) 05/02/24 09:30 Globulin 2.7 g/dL (1.3-4.6) 05/02/24 09:30 XR interpretation done by ED provider, pending radiology final review Discharge Plan Discharge Patient Disposition: Placed in Observation Clinical Impression: Upper gastrointestinal hemorrhage Condition: Stable Prescriptions: No Action cetirizine [Zyrtec] 10 mg tablet 10 mg PO DAILY gabapentin 300 mg capsule 600 mg PO TID PRN (Reason: pain) lisinopril-hydrochlorothiazide 10-12.5 mg tablet 1 tab PO DAILY metformin 500 mg tablet 500 mg PO DAILY tamsulosin 0.4 mg capsule 0.4 mg PO DAILY fluticasone propionate 50 mcg/actuation spray,suspension 1 spray INTRANASAL DAILY Rx Instructions: administer into each nostril acetaminophen [Tylenol Extra Strength] 500 mg tablet 500 mg PO Q6H PRN (Reason: Pain) Spiriva with HandiHaler 18 mcg capsule, w/inhalation device 1 cap INHALATION DAILY 30 Days Qty: 60 3RF Rx Instructions: puncture 1 cap using device; one dose = 2 inhalations aspirin [Adult Aspirin Regimen] 81 mg tablet,delayed release (DR/EC) 81 mg PO DAILY simvastatin 80 mg tablet 40 mg PO DAILY methocarbamol 500 mg Tablet 500 mg PO TID Advair Diskus 100-50 mcg/dose Blister With Device 1 inh INHALATION BID methylprednisolone 4 mg tablets,dose pack See Rx Instructions .ROUTE .COMPLEX Rx Instructions: TAKE PER PACKAGE INSTRUCTIONS albuterol sulfate 90 mcg/actuation Hfa Aerosol Inhaler 1 inh INHALATION QID PRN (Reason: Shortness Of Breath) cholecalciferol (vitamin D3) 25 mcg (1,000 unit) Tablet 25 mcg PO DAILY Referrals: Yara Phelps MD [Primary Care Provider] - Coding Level of Care Code ED Machine Operator Picker for April Magana
[2024-05-02 09:45] LABS: Basophils # 0.1 10^3/uL (0.0-0.1); Basophils % 0.3 %; Eosinophils % 0.2 %; Hematocrit 33.6 % (37-53); Lymphocytes # 1.4 10^3/uL (0.8-4.8); Lymphocytes % 7.5 %; Mean Corpuscular HGB Conc 32.1 g/dL (30-55); Mean Corpuscular Hemoglobin 30.8 pg (27-33); Mean Corpuscular Volume 95.7 fl (82-101); Mean Platelet Volume 13.3 fL (7.4-10.4); Monocytes # 0.7 10^3/uL (0.2-0.9); Monocytes % 3.8 %; Neutrophils # 16.61 10^3/uL (1.8-7.7); Neutrophils % 87.4 %; Nucleated Red Blood Cells % 0 %; Platelet Count 166 10^3/cmm (157-399); Red Blood Count 3.51 10^6/uL (3.85-5.65); Red Cell Distribution Width 14.8 % (12.1-15.1); White Blood Count 19.03 10^3/uL (3.29-11.43)
[2024-05-02 09:59] LABS: Slide Review Slide Review Perform
[2024-05-02] MEDS: pantoprazole 40 mg SDV IVP ×3 (09:59→20:59)
[2024-05-02 10:09] LABS: Alanine Aminotransferase 12 U/L (0-41); Albumin Level 3.7 g/dL (3.5-5.2); Alkaline Phosphatase 62 U/L (40-130); Anion Gap 15.5 (5-19); Aspartate Amino Transferase 19 U/L (0-40); Blood Urea Nitrogen 60 mg/dL (8-23); Calcium 9.7 mg/dL (8.5-10.5); Carbon Dioxide 24 mmol/L (22-29); Chloride 104 mmol/L (98-107); Creatinine Clr Calc Pharmacy 57.4638; Globulin 2.7 g/dL (1.3-4.6); Glucose 184 mg/dL (65-115); Osmolality Calculated 310 mOsm/kg (285-295); Potassium 4.5 mmol/L (3.5-5.1); Sodium 139 mmol/L (136-145); Total Bilirubin 0.3 mg/dL (0.15-1.2); Total Protein 6.4 g/dL (6.6-8.7)
--- NOTE | 2024-05-02 10:29 | XR_ITS ---
WS: [id number] XR chest 1V portable [id number] REASON FOR EXAM: leukocytosis FINDINGS: The chest is unchanged compared to 01/02/2024. Moderate tortuosity of the thoracic aorta. The heart is at the upper limits of normal in size. Calcified granulomas disease in both hemithoraces. No acute pulmonary parenchymal or pleural abnormality. 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 Moderate degenerative spondylosis in the mid and l ower thoracic spine. XR/XR chest 1V portable [id number] IMPRESSION: Stable chest with no acute abnormality.
--- NOTE | 2024-05-02 11:23 | P.HP_ITS ---
Providers/Chief Complaint 2 Admitting Physician: Abdullahi Jaramillo MD, hospitalist Primary Care Provider: Yara Phelps MD Chief Complaint: discolored stool History of Present Illness Brandon Villareal is a 83 year old male presenting to the emergency department with complaints of dark tarry stool this morning. He reports he has had abdominal pain over the last 24 hours mainly in his epigastric area. It seems a little bit better after pain medicine. For the last 4 to 5 days he was having sciatic pain in his back radiating down his right leg. He has had this before, and has been taking some Aleve for this. He reports he has been nauseous but not vomited. He reports no bright red blood in his stool. He denies any prior history of GI bleed. He denies any cough, fever, dysuria. Review of Systems 2 General: Reports: 10 or more systems reviewed and unremarkable except in HPI and below Card: Denies: chest pain Resp: Denies: dyspnea GI: Reports: abdominal pain, nausea and melena; Denies: vomiting or hematochezia Medications/Allergies Home Medications Medication Instructions Recorded Confirmed Last Taken Type acetaminophen 500 mg tablet 500 mg PO Q6H PRN Pain 09/25/20 05/02/24 Unknown History (Tylenol Extra Strength) cetirizine 10 mg tablet (Zyrtec) 10 mg PO DAILY 09/25/20 05/02/24 05/02/24 History fluticasone propionate 50 1 spray intranasal DAILY 09/25/20 05/02/24 05/02/24 History mcg/actuation nasal spray,suspension gabapentin 300 mg capsule 600 mg PO TID PRN pain 09/25/20 05/02/24 Unknown History lisinopril 10 1 tab PO DAILY 09/25/20 05/02/24 05/02/24 History mg-hydrochlorothiazide 12.5 mg tablet metformin 500 mg tablet 500 mg PO DAILY 09/25/20 05/02/24 05/02/24 History tamsulosin 0.4 mg capsule 0.4 mg PO DAILY 09/25/20 05/02/24 05/02/24 History tiotropium bromide 18 mcg capsule 1 cap inhalation DAILY 30 days #60 09/25/20 05/02/24 05/01/24 Rx with inhalation device (Spiriva inhalations with HandiHaler) aspirin 81 mg tablet,delayed 81 mg PO DAILY pain 12/22/21 05/02/24 05/02/24 History release (Adult Aspirin Regimen) simvastatin 80 mg tablet 40 mg PO DAILY 12/22/21 05/02/24 05/01/24 History albuterol sulfate 90 mcg/actuation 1 inh inhalation QID PRN Shortness 05/02/24 05/02/24 Unknown History aerosol inhaler Of Breath cholecalciferol (vitamin D3) 25 25 mcg PO DAILY 05/02/24 05/02/24 05/02/24 History mcg (1,000 unit) tablet fluticasone 100 mcg-salmeterol 50 1 inh inhalation BID 05/02/24 05/02/24 05/02/24 History mcg/dose blistr powdr for inhalation (Advair Diskus) methocarbamol 500 mg tablet 500 mg PO TID 05/02/24 05/02/24 05/02/24 History methylprednisolone 4 mg tablets in See Rx Instructions .Route .COMPLEX 05/02/24 05/02/24 05/02/24 History a dose pack Allergies Allergy/AdvReac Type Severity Reaction Status Date / Time metoprolol Allergy Unknown Verified 01/02/24 17:04 shrimp Allergy ALGY-Anaphy Verified 01/02/24 17:04 laxis PFSH Acute 2 PFSH: Medical History (Updated 05/02/24 @ 11:36 by Abdullahi Jaramillo MD) BPH (benign prostatic hyperplasia) Hyperlipidemia Chronic back pain COPD (chronic obstructive pulmonary disease) Diabetes type 2, controlled HTN (hypertension) DDD (degenerative disc disease) Surgical History H/O removal of cyst x 2 H/O colonoscopy 2019 History of appendectomy Family History Father Cancer Mother Lung disease Denies family history of Anesthesia complication Bleeding disorder Social History Smoking and tobacco/nicotine status: current every day tobacco/nicotine user Quit status (tobacco/nicotine): has quit using Year quit tobacco: 2020 - 2PPD x 70 Years Alcohol intake: never Substance/Drug Use: never Lives independently: Yes Household members: children Marital status: / service: Yes Current occupational status: retired and disabled Do you think of yourself as: Straight/Heterosexual Current gender identity: Male Vitals/I&O/Wt Last Vital Signs Temp 98.1 F 05/02/24 08:53 Pulse 62 05/02/24 09:29 Resp 8 L 05/02/24 08:53 BP 122/52 05/02/24 09:29 Pulse Ox 93 05/02/24 09:29 O2 Del Method Room Air 05/02/24 09:29 Weight last 48 hrs Weight 104.326 kg Physical Exam 2 Narrative: General exam demonstrates white male, complaining of some upper abdominal pain, in no distress HEENT: Atraumatic normocephalic. Oropharynx clear. Neck is supple no lymphadenopathy thyromegaly Cardiovascular regular in rhythm without murmur Lungs diffuse bilateral expiratory wheezes Abdomen is tender epigastric area and upper abdomen. No obvious rebound. Positive bowel sounds. exam was deferred Extremities trace edema bilaterally Skin no rash Neuro no obvious focal deficits. Data 05/02/24 09:30 05/02/24 09:30 Other Labs: LFTs are normal Albumin and calcium are normal I have ordered a lipase Urinalysis has been ordered Have ordered a CT abdomen and pelvis with contrast Chest x-ray reviewed no obvious infiltrate. A&P Assessment and plan (1) GI bleed: Patient with significant GI bleed. Hemoglobin is dropped 2 points from baseline. Protonix 40 mg IV every 12 hours Surgery consult for possible endoscopy Fluid hydration Secondary to abdominal pain and leukocytosis check CT abdomen pelvis with contrast Repeat hemoglobin in 4 hours N.p.o. except medications initially Hold antihypertensives (2) Acute blood loss anemia: See above (3) Leukocytosis: Patient with significant leukocytosis Check chest x-ray and urinalysis May be secondary to GI bleeding but will also check CT abdomen pelvis secondary to pain Repeat CBC tomorrow (4) COPD (chronic obstructive pulmonary disease): Encourage not smoking Budesonide twice daily DuoNeb as needed Plan Diabetes mellitus. Sliding scale insulin. Other medical problems as outlined the past medical history Full code SCDs for DVT prophylaxis. Anticoagulation contraindicated secondary to GI bleed Attestations 2 Medical Necessity Statement*: Will require greater than 2 midnight stay for evaluation and treatment of GI bleeding with acute blood loss anemia and significant leukocytosis Coding Level of Care Code Acute Code for [facility] Fwd Diagnoses GI bleed K92.2 Acute blood loss anemia D62 Leukocytosis D72.829 COPD (chronic obstructive pulmonary disease) J44.9
--- NOTE | 2024-05-02 11:23 | CT_ITS ---
WS: [id number] CT ABDOMEN AND PELVIS WITH CONTRAST HISTORY: abdominal pain, GI bleed, leukocytosis TECHNIQUE: Imaging performed of the abdomen and pelvis with IV contrast. Single phase imaging of the abdomen. Coronal and sagittal reformats are submitted. All CT scans at [facility] use at [address] one of these dose optimization techniques: automated exposure control; mA and/or kV adjustment per patient size (includes targeted exams where dose is matched to clinical indication); or iterative re construction. IV CONTRAST: Omnipaque 350; 100 mL IV. Oral contrast: Yes DLP: 932.89 mGy.cm COMPARISON: 05/24/2023 Lower thorax: Lung bases are clear. Pleural plaque along the RIGHT diaphragm. Heart is normal size. N o hiatal hernia. Liver/biliary system: Normal size with no intrahepatic dilatation. Normal portal vein. Gallbladder: Normal. No gallstones or wall thickening. No pericholecystic fluid. Pancreas: Normal size pancreas. No duct dilatation. There are a few calcifications at the uncinate pr ocess related to prior episodes of pancreatitis most likely. Spleen: Normal size spleen. No mass or infarct. Adrenal glands: Normal RIGHT adrenal gland. Mildly lobulated thickened LEFT adrenal gland measures 12 x 21 mm most consistent with an adenoma. Similar findings noted on a prior CT of 05/24/2023. Right kidney: Normal. Left kidney: No obstruction. Cortical cyst 1.2 cm upper pole. Nonobstructing 5 mm calcification super ior renal pelvis. Mild perinephric stranding with no obstruction. Aorta: Moderate atherosclerosis small amount of calcification at the origin of the mesenteric arterie s. No thrombus in the mesenteric arteries. Lymphadenopathy: Small benign-appearing central mesenteric lymph nodes. Free fluid: None. GI tract: Normally distended stomach. Abnormal duodenal C-loop. There is marked wall thickening with narrowing of the lumen through the first and second portions of the duodenum. Asymmetric edema in the wall of the lumen appears greatest along the medial curvature. There is a small amount of adjacent f at stranding. There is a small ulceration in the second portion of the duodenum. There is no perforat ion evident. No abscess. Remaining small bowel is negative. Prior appendectomy. A few scattered diver ticula. No blush like area of enhancement to suggest an area of active extravasation. There is increa sed density within portions of the GI tract which may be medicinal. Abdominal wall: Fat containing umbilical hernia. Pelvis: No free fluid or adenopathy within the pelvis. Patent inguinal canals containing fat only. Bones: Osteopenia. No destructive bone lesions. CT/CT abdomen pelvis w con* [id number] IMPRESSION: 1. Abnormal first and second portions of the duodenum. Narrowing of the lumen with a focal ulceration and submucosal edema. Consistent with an acute duodenal ulcer. No perforation or free fluid. 2. No active GI tract extravasation or active hemorrhage. 3. No obstruction. 4. RIGHT diaphragmatic pleural plaque. 5. LEFT adrenal adenoma.
[2024-05-02] MEDS: iohexol 350 mg/mL 500 mL Btl (per mL) IV (11:41)
[2024-05-02 11:48] LABS: Add Urine Microscopic? NO; Charge for UA Resulting for Rev
[2024-05-02 12:04] LABS: Bilirubin Urine Neg (Negative); Blood Urine Neg (Negative); Glucose Urine UA Norm (Normal); Ketones Urine Negative (Negative); Leukocyte Esterase Urine Negative (Negative); Nitrate Urine Negative (Negative); Protein Urine Neg (Negative); Specific Gravity, Urine 1.015 (1.005-1.030); Urine Appearance Clear (CLEAR); Urine Color Yellow (Yellow); Urobilinogen Urine Norm (Negative); pH Urine 5 (5-7)
[2024-05-02 12:24] LABS: Lipase 50 U/L (13-60); Thyroid Stimulating Hormone 1.75 uIU/mL (0.27-4.20)
[2024-05-02 13:16] LABS: Hematocrit 32.6 % (37-53)
[2024-05-02] MEDS: sodium chloride 0.9% 1,000 ML 100 ML IV ×2 (13:21→23:33)
[2024-05-02 13:25] LABS: Glucose Point of Care 151 mg/dL (70-110)
[2024-05-02] MEDS: methocarbamol 500 mg Tablet PO ×2 (15:56→20:50)
[2024-05-02 17:09] LABS: Glucose Point of Care 139 mg/dL (70-110)
--- NOTE | 2024-05-02 17:52 | P.CONIM_ITS ---
Providers/Reason For Consult 2 Consulting Physician/Specialty*: Dr. Masoud Odell, DO/General surgery Reason for Consult*: Acute blood loss anemia, melena Attending Physician: Abdullahi Jaramillo MD Primary Care Provider: Yara Phelps MD History of Present Illness History of Present Illness Brandon Villareal is a 83 year old male who presented to the hospital with a 1 day history of black tarry stools. He reports that he was having some mild periumbilical abdominal pain earlier that did not radiate. Nothing seems to make the pain better or worse. That pain has resolved. He occasionally gets heartburn but does not take any medication for this at home. He does endorse some nausea but no emesis. Denies any hematochezia. Current hemoglobin is below his baseline Review of Systems 2 General: Reports: 10 or more systems reviewed and unremarkable except in HPI and below Medications/Allergies Home Medications Medication Instructions Recorded Confirmed Last Taken Type acetaminophen 500 mg tablet 500 mg PO Q6H PRN Pain 09/25/20 05/02/24 Unknown History (Tylenol Extra Strength) cetirizine 10 mg tablet (Zyrtec) 10 mg PO DAILY 09/25/20 05/02/24 05/02/24 History fluticasone propionate 50 1 spray intranasal DAILY 09/25/20 05/02/24 05/02/24 History mcg/actuation nasal spray,suspension gabapentin 300 mg capsule 600 mg PO TID PRN pain 09/25/20 05/02/24 Unknown History lisinopril 10 1 tab PO DAILY 09/25/20 05/02/24 05/02/24 History mg-hydrochlorothiazide 12.5 mg tablet metformin 500 mg tablet 500 mg PO DAILY 09/25/20 05/02/24 05/02/24 History tamsulosin 0.4 mg capsule 0.4 mg PO DAILY 09/25/20 05/02/24 05/02/24 History tiotropium bromide 18 mcg capsule 1 cap inhalation DAILY 30 days #60 09/25/20 05/02/24 05/01/24 Rx with inhalation device (Spiriva inhalations with HandiHaler) aspirin 81 mg tablet,delayed 81 mg PO DAILY pain 12/22/21 05/02/24 05/02/24 History release (Adult Aspirin Regimen) simvastatin 80 mg tablet 40 mg PO DAILY 01/05/02/24 05/01/24 History albuterol sulfate 90 mcg/actuation 1 inh inhalation QID PRN Shortness 05/02/24 05/02/24 Unknown History aerosol inhaler Of Breath cholecalciferol (vitamin D3) 25 25 mcg PO DAILY 05/02/24 05/02/24 05/02/24 History mcg (1,000 unit) tablet fluticasone 100 mcg-salmeterol 50 1 inh inhalation BID 05/02/24 05/02/24 05/02/24 History mcg/dose blistr powdr for inhalation (Advair Diskus) methocarbamol 500 mg tablet 500 mg PO TID 05/02/24 05/02/24 05/02/24 History methylprednisolone 4 mg tablets in See Rx Instructions .Route .COMPLEX 05/02/24 05/02/24 05/02/24 History a dose pack Allergies Allergy/AdvReac Type Severity Reaction Status Date / Time hydrocortisone Allergy ADR-Numbnes Verified 05/02/24 16:26 s metoprolol Allergy Unknown Verified 01/02/24 17:04 oxycodone Allergy ADR-Numbnes Verified 05/02/24 16:26 s shrimp Allergy ALGY-Anaphy Verified 01/02/24 17:04 laxis Current Medications Generic Name Dose Route Start Last Admin Trade Name Freq PRN Reason Stop Dose Admin Sodium Chloride 1,000 mls @ 100 mls/hr 05/02/24 12:43 05/02/24 13:21 Sodium Chloride 0.9% IV 100 mls/hr .Q10H STEFANI Administration Insulin Human Lispro 0 unit 05/02/24 12:43 05/02/24 13:22 Insulin Lispro 100 Unit/1 Ml SUBCUT Not Given WM&BEDTIME STEFANI Protocol Methocarbamol 500 mg 05/02/24 15:00 05/02/24 15:56 Methocarbamol 500 Mg Tablet PO 500 mg TID STEFANI Administration PFSH Acute 2 PFSH: Medical History BPH (benign prostatic hyperplasia) Hyperlipidemia Chronic back pain COPD (chronic obstructive pulmonary disease) Diabetes type 2, controlled HTN (hypertension) DDD (degenerative disc disease) Surgical History H/O removal of cyst x 2 H/O colonoscopy 2020 History of appendectomy Family History Father Cancer Mother Lung disease Denies family history of Anesthesia complication Bleeding disorder Social History Smoking and tobacco/nicotine status: current every day tobacco/nicotine user Quit status (tobacco/nicotine): has quit using Year quit tobacco: 2020 - 2PPD x 70 Years Alcohol intake: never Substance/Drug Use: never Lives independently: Yes Household members: children Marital status: / service: Yes Current occupational status: retired and disabled Do you think of yourself as: Straight/Heterosexual Current gender identity: Male Vitals/I&O/Wt Last Vital Signs Temp 98.3 F 05/02/24 16:00 Pulse 98 05/02/24 16:00 Resp 16 05/02/24 16:00 BP 109/56 05/02/24 16:00 Pulse Ox 93 05/02/24 16:00 O2 Del Method Room Air 05/02/24 16:00 Weight last 48 hrs Weight 220 lb Weight 230 lb Physical Exam 2 Narrative: General : Patient is well developed , no acute distress, oriented x3 Head : Normal cephalic, a-traumatic. Ears : Pinnae and external canal are normal. Hearing is normal. Eyes : PERRLA, Sclera and injection are normal. No conjunctival discharge. Nose : Mucous membranes are without erythema. Throat : buccal mucosa is normal, gums are without significant recession or hypertrophy. Lungs : Equal chest rise bilaterally, no use of accessory muscles, trachea is midline. Cor : Rate and rhythm are normal. Abdomen : Soft, ND, NT, no g/r/m Extremities : No edema, no cyanosis or clubbing, dorsalis pedis pulses are present bilaterally, non-tender to palpation of calves. Upper extremities are normal bilaterally. Back : non-tender to palpation, no CVA tenderness. Neuro : CN II - XII intact, Upper and lower extremities have equal and full strength Data 05/03/24 03:18 05/03/24 03:18 A&P Assessment and plan (1) Upper gastrointestinal hemorrhage: (2) Acute blood loss anemia: Plan IV Protonix twice daily N.p.o. after midnight Possible endoscopy tomorrow. Dr. Benalcazar will be covering and therefore taking over care May add sucralfate after possible endoscopy Medical management per hospitalist Coding Level of Care Code 71335 Diagnoses Upper gastrointestinal hemorrhage K92.2 Acute blood loss anemia D62
[2024-05-02] MEDS: budesonide 0.5 mg/2 mL Neb INHALATION (19:49)
[2024-05-02 20:37] LABS: Glucose Point of Care 114 mg/dL (70-110)
[2024-05-02] MEDS: HYDROcodone-acetaminophen 5-325 mg Tablet 1 TAB PO (20:47)
[2024-05-03] VITALS (33 sets, daily range): BP systolic 73–116; BP diastolic 37–70; PULSE 66–93; RESP 12–27; TEMP 36.1–36.6; O2SAT 2–100
[2024-05-03 02:29] LABS: Glucose Point of Care 154 mg/dL (70-110)
[2024-05-03 03:27] LABS: Basophils % 0.2 %; Eosinophils # 0.1 10^3/uL (0.0-0.8); Eosinophils % 0.8 %; Lymphocytes # 1.8 10^3/uL (0.8-4.8); Lymphocytes % 10.5 %; Mean Corpuscular HGB Conc 31.4 g/dL (30-55); Mean Corpuscular Hemoglobin 30.8 pg (27-33); Mean Corpuscular Volume 98.2 fl (82-101); Mean Platelet Volume 12.7 fL (7.4-10.4); Monocytes # 1.1 10^3/uL (0.2-0.9); Monocytes % 6.4 %; Neutrophils # 13.49 10^3/uL (1.8-7.7); Neutrophils % 80.8 %; Nucleated Red Blood Cells % 0 %; Platelet Count 134 10^3/cmm (157-399); Red Blood Count 2.24 10^6/uL (3.85-5.65)
[2024-05-03 03:48] LABS: Alanine Aminotransferase 10 U/L (0-41); Albumin Level 2.7 g/dL (3.5-5.2); Alkaline Phosphatase 33 U/L (40-130); Anion Gap 16.2 (5-19); Aspartate Amino Transferase 9 U/L (0-40); Carbon Dioxide 21 mmol/L (22-29); Chloride 112 mmol/L (98-107); Globulin 1.8 g/dL (1.3-4.6); Glucose 129 mg/dL (65-115); Magnesium 1.8 mg/dL (1.7-2.3); Osmolality Calculated 326 mOsm/kg (285-295); Potassium 5.2 mmol/L (3.5-5.1); Sodium 144 mmol/L (136-145); Total Bilirubin 0.2 mg/dL (0.15-1.2); Total Protein 4.5 g/dL (6.6-8.7)
[2024-05-03 03:50] LABS: Creatinine Clr Calc Pharmacy 44.9799
[2024-05-03 03:51] LABS: Blood Urea Nitrogen 86 mg/dL (8-23)
[2024-05-03] MEDS: sodium chloride 0.9% 100 mL Bag 50 ML IV ×3 (04:38→12:13)
[2024-05-03 06:25] LABS: Glucose Point of Care 166 mg/dL (70-110)
[2024-05-03] MEDS: pantoprazole 40 mg SDV IVP (08:10)
[2024-05-03] MEDS: ipratropium-albuterol 3 mL Neb INHALATION (08:14)
[2024-05-03] MEDS: budesonide 0.5 mg/2 mL Neb INHALATION (08:14)
[2024-05-03] MEDS: sodium chloride 0.9% 250 ML 999 ML IV (08:31)
--- NOTE | 2024-05-03 08:33 | CT_ITS ---
WS: [id number] CT ABDOMEN AND PELVIS NONCONTRAST HISTORY: abdominal pain, bleeding TECHNIQUE: Imaging performed through the abdomen and pelvis. Coronal and sagittal reformats are submi tted. All CT scans at [facility] use at least one of these dose optimization techniques: auto mated exposure control; mA and/or kV adjustment per patient size (includes targeted exams where dose is matched to clinical indication); or iterative reconstruction. DLP: 969.85 mGy.cm COMPARISON: 05/02/2024 Lower thorax: RIGHT diaphragmatic calcification and pleural plaque. Heart remains normal size with in creased pericardial fat. Liver: Normal size liver. No mass or bile duct dilatation. Gallbladder: Increased attenuation about the gallbladder from vicarious excretion of contrast obtaine d on the prior day. No bile duct dilatation. Pancreas: Normal size and attenuation. Normal pancreatic duct. No pancreatitis or mass. Spleen: Normal. Adrenal glands: Normal RIGHT adrenal gland. Lobulated LEFT adrenal gland is stable. Right kidney: Mild perinephric stranding. No obstruction. Left kidney: Mild perinephric stranding with no obstruction. Nonobstructing calcification and upper p ole cyst are stable. Aorta: Mild atherosclerosis abdominal aorta with no aneurysm. No free fluid, intraperitoneal air or significant lymphadenopathy. GI tract: Reidentified is a first and second duodenal wall edema with luminal narrowing and adjacent inflammation. There is a small focal ulceration. No perforation. The lumen does appear slightly more narrow there may be slightly more edema centrally. There is no adjacent fluid collection or perforati on. Numerous distal colonic diverticula. There are areas of scattered increased density within the co cherri which may be from prior medicinal tablets. No obvious areas of increased attenuation suggesting a cute blood. Abdominal wall: Negative. No hernia. Pelvis: No free fluid or adenopathy. Patent inguinal canals. Osseous structures: Osteopenia. CT/CT abdomen pelvis wo con [id number] IMPRESSION: 1. No peritoneal free air or perforation of the recently described duodenal ul cer. 2. Continued edema with luminal narrowing involving the first and second porti ons of the duodenum. 3. Sigmoid diverticulosis without acute diverticulitis.
--- NOTE | 2024-05-03 09:04 | PC.NURSE ---
Pt here from Med Surg. IV noted to the left AC.
--- NOTE | 2024-05-03 09:23 | PM.MISC ---
Miscellaneous Note Purpose of Documentation: Update on patient care Note: Patient showing downtrending the hemoglobin and also hemodynamic changes including low blood pressure, has received blood transfusion of 2 units. Abdominal pain slightly increased but abdominal examination remains benign. A CT scan of the abdomen pelvis was obtained this morning to rule out perforation. He is negative for free air in the abdomen. With these findings my recommendation will be urgent transfer to higher level of care for IR embolization of possible bleeding from the GDA at the level of the duodenum, as this will be extremely challenging to do endoscopically without the availability of a GI team and a therapeutic endoscope.
--- NOTE | 2024-05-03 10:17 | PC.NURSE ---
son at bedside updated on status and plans to ship. son took walker and belongings with him.
[2024-05-03 10:25] LABS: Hematocrit 22.6 % (37-53)
[2024-05-03] MEDS: sodium chloride 0.9% 1,000 ML 125 ML IV (10:42)
[2024-05-03 10:47] LABS: Anion Gap 17.1 (5-19); Calcium 7.8 mg/dL (8.5-10.5); Carbon Dioxide 20 mmol/L (22-29); Chloride 113 mmol/L (98-107); Creatinine Clr Calc Pharmacy 40.0205; Glucose 191 mg/dL (65-115); Osmolality Calculated 336 mOsm/kg (285-295); Potassium 5.1 mmol/L (3.5-5.1); Sodium 145 mmol/L (136-145)
[2024-05-03] MEDS: piperacillin-tazobactam 3.375 GM in sodium chloride 0.9% (plus) 50 ML IV (10:49)
--- NOTE | 2024-05-03 10:54 | PC.NURSE ---
belongings found left in the cafeteria (this includes walker, clothing, phone, and operator vacuum) the belongings were returned to the patient room in ICU
[2024-05-03 10:56] LABS: Blood Urea Nitrogen 98 mg/dL (8-23)
[2024-05-03] MEDS: norepinephrine 4 MG/250 ML BAG 7.5 MG IV (11:14)
--- NOTE | 2024-05-03 11:38 | PM.TDS ---
Transfer Summary Providers Date of Admission: 05/02/24 11:27 Date of Discharge/Transfer: 05/03/24 Attending Provider at Admission: Abdullahi Jaramillo MD Attending Provider at Transfer: Abdullahi Jaramillo MD Primary Care Provider: Yara Phelps MD Transfer Plans: Anticipated date of transfer: 05/03/24. Diagnoses at Discharge Discharge Diagnosis (1) Upper gastrointestinal hemorrhage: Status: Acute (2) Acute blood loss anemia: Status: Acute Reason for Visit Reason for Visit discolored stool Hospital Course Hospital Course Patient is an 83-year-old white male who presented to the hospital with GI bleeding originally black and tarry stools and a hemoglobin of 10.8. He had previously been taking some naproxen for chronic back pain. He had abdominal pain and a CT was done demonstrating a likely duodenal ulcer with possible edema versus stricture in the first and second portions of the duodenum. He was given Protonix 80 mg IV, placed on the floor for serial hemoglobins and close monitoring. Surgery was consulted for possible EGD. Repeat hemoglobin was around 10.5, and patient remained stable until that night when her reports that he started having more stool, dark with blood around it. Repeat hemoglobin was 6.9. Patient was noted to be hypotensive. When I visited the patient in the morning he was having more abdominal pain. He had received 1 unit of packed red blood cells. I ordered another unit of blood. Hemoglobin was 7.1 in between the first and second unit of blood. I gave him a bolus of fluids and moved into the ICU. I initiated Zosyn as white count was elevated and he was having more abdominal pain. Repeat noncontrast CT demonstrated no perforation. Norepinephrine initiated for significant hypotension. I discussed with surgery his clinical course and they recommended transfer for GI services for possible complicated intervention for bleeding, possible need for interventional radiology. I discussed the case with Dr. Virgil Garcia who graciously accepted patient in transfer. I discussed risks of transfer with the patient. Plan on transfusing another unit of blood and route for transfer. Patient's questions were answered, and he agreed with the plan. Physical Exam Narrative: General exam no distress Neck is supple Cardiovascular regular rate and rhythm, occasional premature beat Lungs a few expiratory wheezes Abdomen is soft but tender in the epigastric area. Extremities no sinus clubbing edema. TS Data Studies Completed and Pending Pending at discharge Category Date Time Status Leukocyte Reduced RBC Routine Lab 05/03/24 04:12 Results Type and Screen Routine Lab 05/02/24 09:30 Results Completed Studies During Hospitalization Category Date Time Status CT abdomen pelvis w con* [id number] Stat Cat Scan 05/02/24 11:[address] abdomen pelvis wo con [id number] Stat Cat Scan 05/03/24 08:33 Completed XR chest 1V portable [id number] Stat Exams 05/02/24 10:29 Completed Laboratory Last Values WBC 16.70 10^3/uL (3.29-11.43) H 05/03/24 03:18 RBC 2.24 10^6/uL (3.85-5.65) L 05/03/24 03:18 Hgb 7.10 g/dL (11.27-16.99) L 05/03/24 09:55 Hct 22.6 % (37-53) L 05/03/24 09:55 MCV 98.2 fl (82-101) 05/03/24 03:18 MCH 30.8 pg (27-33) 05/03/24 03:18 MCHC 31.4 g/dL (30-55) 05/03/24 03:18 RDW 15.0 % (12.1-15.1) 05/03/24 03:18 Plt Count 134 10^3/cmm (157-399) L 05/03/24 03:18 MPV 12.7 fL (7.4-10.4) H 05/03/24 03:18 Neut % (Auto) 80.8 % 05/03/24 03:18 Lymph % (Auto) 10.5 % 05/03/24 03:18 [place] % (Auto) 6.4 % 05/03/24 03:18 Eos % (Auto) 0.8 % 05/03/24 03:18 Baso % (Auto) 0.2 % 05/03/24 03:18 Neut # (Auto) 13.49 10^3/uL (1.8-7.7) H 05/03/24 03:18 Lymph # (Auto) 1.8 10^3/uL (0.8-4.8) 05/03/24 03:18 [place]ard # (Auto) 1.1 10^3/uL (0.2-0.9) H 05/03/24 03:18 Eos # (Auto) 0.1 10^3/uL (0.0-0.8) 05/03/24 03:18 Baso # (Auto) 0.0 10^3/uL (0.0-0.1) 05/03/24 03:18 Nucleated RBC % (auto) 0 % 05/03/24 03:18 Nucleated RBCs # 0.0 /100WBC 05/03/24 03:18 PT 15.60 SECONDS (12.1-14.9) H 05/03/24 09:55 INR 1.20 (0.8-1.2) 05/03/24 09:55 Sodium 145 mmol/L (136-145) 05/03/24 09:55 Potassium 5.1 mmol/L (3.5-5.1) 05/03/24 09:55 Chloride 113 mmol/L (98-107) H 05/03/24 09:55 Carbon Dioxide 20 mmol/L (22-29) L 05/03/24 09:55 Anion Gap 17.1 (5-19) 05/03/24 09:55 BUN 98 mg/dL (8-23) H* 05/03/24 09:55 Creatinine 1.7 mg/dL (0.7-1.2) H 05/03/24 09:55 GFR Calculation Not Reportable 05/03/24 09:55 Glucose 191 mg/dL (65-115) H 05/03/24 09:55 POC Glucose 166 mg/dL (70-110) H 05/03/24 06:22 Calculated Osmolality 336 mOsm/kg (285-295) H 05/03/24 09:55 Calcium 7.8 mg/dL (8.5-10.5) L 05/03/24 09:55 Magnesium 1.8 mg/dL (1.7-2.3) 05/03/24 03:18 Total Bilirubin 0.2 mg/dL (0.15-1.2) 05/03/24 03:18 AST 9 U/L (0-40) 05/03/24 03:18 ALT 10 U/L (0-41) 05/03/24 03:18 Alkaline Phosphatase 33 U/L (40-130) L 05/03/24 03:18 Total Protein 4.5 g/dL (6.6-8.7) L D 05/03/24 03:18 Albumin 2.7 g/dL (3.5-5.2) L 05/03/24 03:18 Globulin 1.8 g/dL (1.3-4.6) 05/03/24 03:18 Lipase 50 U/L (13-60) 05/02/24 09:30 TSH 1.75 uIU/mL (0.27-4.20) 05/02/24 09:30 Urine Color Yellow (Yellow) 05/02/24 11:35 Urine Appearance Clear (CLEAR) 05/02/24 11:35 Urine pH 5 (5-7) 05/02/24 11:35 Ur Specific [place] 1.015 (1.005-1.030) 05/02/24 11:35 Urine Protein Neg (Negative) 05/02/24 11:35 Urine Glucose (UA) Norm (Normal) 05/02/24 11:35 Urine Ketones Negative (Negative) 05/02/24 11:35 Urine Blood Neg (Negative) 05/02/24 11:35 Urine Nitrate Negative (Negative) 05/02/24 11:35 Urine Bilirubin Neg (Negative) 05/02/24 11:35 Urine Urobilinogen Norm mg/dL (Negative) 05/02/24 11:35 Ur Leukocyte Esterase Negative (Negative) 05/02/24 11:35 Blood Type A Positive 05/02/24 09:30 Rho(D) Type Rh positive 05/02/24 09:30 Antibody Screen Negative 05/02/24 09:30 Crossmatch See Detail 05/02/24 09:30 Radiology Impressions Chest X-Ray 05/02/24 10:29 IMPRESSION: Stable chest with no acute abnormality. Abdomen/Pelvis CT 05/03/24 08:33 IMPRESSION: 1. No peritoneal free air or perforation of the recently described duodenal ulcer. 2. Continued edema with luminal narrowing involving the first and second portions of the duodenum. 3. Sigmoid diverticulosis without acute diverticulitis. Recent Clincial Data Last Vital Signs Temp 97.7 F 05/03/24 10:17 Pulse 74 05/03/24 11:15 Resp 21 H 05/03/24 11:15 BP 74/48 05/03/24 11:15 Pulse Ox 98 05/03/24 11:15 O2 Del Method Nasal Cannula 05/03/24 11:15 O2 Flow Rate 3 05/03/24 11:15 Vital Signs Temp Pulse Resp BP Pulse Ox O2 Del Method O2 Flow Rate 05/03/24 11:15 74 21 H 74/48 98 Nasal Cannula 3 05/03/24 11:00 76 18 97/37 98 Nasal Cannula 3 05/03/24 10:45 79 13 81/41 98 Nasal Cannula 3 05/03/24 10:30 81 22 H 85/52 94 Nasal Cannula 3 05/03/24 10:17 97.7 F 71 22 H 81/41 96 05/03/24 10:15 85 19 H 73/51 97 Nasal Cannula 3 05/03/24 10:02 97.3 F L 90 19 H 73/51 95 05/03/24 10:01 97.3 F L 90 19 H 73/51 95 05/03/24 10:00 93 27 H 84/39 95 Nasal Cannula 3 05/03/24 09:46 97.0 F L 86 84/39 05/03/24 09:45 81 12 77/38 95 Nasal Cannula 3 05/03/24 09:30 97.0 F L 84 18 78/60 97 Nasal Cannula 3 05/03/24 09:15 83 19 H 101/49 95 Room Air 05/03/24 09:05 91 15 101/49 98 Room Air 05/03/24 08:00 97.9 F 83 16 95/59 96 Nasal Cannula 05/03/24 08:00 91 18 96 Nasal Cannula 2 05/03/24 07:15 97.9 F 86 20 H 95/59 95 05/03/24 06:15 97.8 F 78 20 H 93/64 2 L 05/03/24 05:15 979 F H 91 116/70 94 05/03/24 05:00 97.7 F 77 20 H 100/63 05/03/24 04:40 97.9 F 75 18 104/65 95 05/03/24 04:00 97.6 F 76 18 97/59 95 05/03/24 02:40 98/56 05/03/24 02:00 102/56 05/02/24 23:50 102/50 Intake & Output/Weight 05/01/24 05/02/24 05/03/24 05/04/24 06:59 06:59 06:59 06:59 Intake Total 1240 / 1240 1600.000 / 1600.000 Output Total 500 / 500 Balance 740 / 740 1600.000 / 1600.000 Weight 101.514 kg Vitals Last Vital Signs Temp 97.7 F 05/03/24 10:17 Pulse 74 05/03/24 11:15 Resp 21 H 05/03/24 11:15 BP 74/48 05/03/24 11:15 Pulse Ox 98 05/03/24 11:15 O2 Del Method Nasal Cannula 05/03/24 11:15 O2 Flow Rate 3 05/03/24 11:15 TS Medications Medications Hydrocodone Bitart/Acetaminophen (Hydrocodone-Acetaminophen 5-325 Mg Tablet) 1 tab PO Q6H PRN PRN Reason: MODERATE PAIN Last Admin: 05/02/24 20:47 Dose: 1 tab Albuterol/Ipratropium (Ipratropium-Albuterol 3 Ml Neb) 3 ml INHALATION Q6H.RESP PRN PRN Reason: SHORTNESS OF BREATH Last Admin: 05/03/24 08:14 Dose: 3 ml Atorvastatin Calcium (Atorvastatin 40 Mg Tablet) 20 mg PO DAILY STEFANI Last Admin: 05/03/24 10:11 Dose: Not Given Budesonide (Budesonide 0.5 Mg/2 Ml Neb) 0.5 mg INHALATION BID.RESPIRATORY STEFANI Last Admin: 05/03/24 08:14 Dose: 0.5 mg Cetirizine HCl (Cetirizine 10 Mg Tablet) 10 mg PO DAILY STEFANI Last Admin: 05/03/24 10:11 Dose: Not Given Glucagon (Glucagon 1 Mg/Ml Kit 1 Ml) 1 mg IM ONCE PRN; Protocol PRN Reason: Adult Acute Hypoglycemia Nursing Prot. Dextrose (D5w) 500 mls @ 0 mls/hr IV ONCE PRN; Protocol PRN Reason: Adult Acute Hypoglycemia Prot Dextrose (D10w) 125 mls @ 750 mls/hr IV PRN PRN; Protocol PRN Reason: Adult Acute Hypoglycemia Nursing Protocol Dextrose (D10w) 250 mls @ 1,000 mls/hr IV PRN PRN; Protocol PRN Reason: Adult Acute Hypoglycemia Nursing Protocol Sodium Chloride (Sodium Chloride 0.9%) 1,000 mls @ 125 mls/hr IV .Q8H STEFANI Last Admin: 05/03/24 10:42 Dose: 125 mls/hr Sodium Chloride (Sodium Chloride 0.9%) 1,000 mls @ 30 mls/hr IV .Q24H ONE Stop: 05/04/24 06:29 Last Admin: 05/03/24 10:43 Dose: Not Given Piperacillin Sod/Tazobactam (Sod 3.375 gm/ Sodium Chloride) 50 mls @ 12.5 mls/hr IV Q8H [facility] Last Admin: 05/03/24 10:49 Dose: 12.5 mls/hr Norepinephrine Bitartrate (Levophed) 4 mg in 250 mls @ 0 mls/hr IV .Q0M [facility]; Protocol Last Admin: 05/03/24 11:14 Dose: 2 mcg/min, 7.5 mls/hr Insulin Human Lispro (Insulin Lispro 100 Unit/1 Ml) 0 unit SUBCUT WM&BEDTIME [facility]; Protocol Last Admin: 05/03/24 07:48 Dose: Not Given Methocarbamol (Methocarbamol 500 Mg Tablet) 500 mg PO TID [facility] Last Admin: 05/03/24 08:12 Dose: Not Given Morphine Sulfate (Morphine 4 Mg/Ml Sdv 1 Ml) 2 mg IVP Q4H PRN PRN Reason: SEVERE PAIN Ondansetron HCl (Ondansetron 2 Mg/Ml Sdv 2 Ml) 4 mg IVP Q6H PRN PRN Reason: vomiting, or N/V if npo Pantoprazole Sodium (Pantoprazole 40 Mg Sdv) 40 mg IVP Q12H [facility] Last Admin: 05/03/24 08:10 Dose: 40 mg Sodium Chloride (Sodium Chloride 0.9% 100 Ml Bag) 50 ml IV PRN PRN PRN Reason: Blood transfusion prime and flush Stop: 05/04/24 08:22 Tamsulosin HCl (Tamsulosin 0.4 Mg Capsule) 0.4 mg PO DAILY [facility] Last Admin: 05/03/24 10:12 Dose: Not Given Discontinued Medications Piperacillin Sod/Tazobactam (Sod / Sodium Chloride) 50 mls @ 0 mls/hr [id number] CONT [facility]; Protocol Sodium Chloride (Sodium Chloride 0.9%) 250 mls @ 999 mls/hr IV .Q16M [facility] Last Admin: 05/03/24 09:32 Dose: Not Given Sodium Chloride (Sodium Chloride 0.9% (100 Ml)) Confirm Administered Dose 100 mls @ as directed .ROUTE .STK-MED ONE Stop: 05/03/24 09:43 Last Admin: 05/03/24 10:54 Dose: Not Given Iohexol (Iohexol 350 Mg/Ml 500 Ml Btl (Per Ml)) 0 ml IV ONCE ONE Stop: 05/02/24 11:42 Last Admin: 05/02/24 11:41 Dose: 100 ml Lidocaine HCl (Lidocaine 1% Inj 10 Ml (Per Ml)) 0.1 ml INTRADERMA ONCE ONE Stop: 05/03/24 06:46 Last Admin: 05/03/24 10:12 Dose: Not Given Oxycodone HCl (Oxycodone 5 Mg Ir Tab/Cap) 5 mg PO Q6H PRN PRN Reason: SEVERE PAIN Pantoprazole Sodium (Pantoprazole 40 Mg Sdv) 40 mg IVP ONCE ONE Stop: 05/02/24 09:10 Last Admin: 05/02/24 09:59 Dose: 40 mg Pantoprazole Sodium (Pantoprazole 40 Mg Sdv) 40 mg IVP ONCE ONE Stop: 05/02/24 10:37 Last Admin: 05/02/24 11:35 Dose: 40 mg Sodium Chloride (Sodium Chloride 0.9% 100 Ml Bag) 50 ml IV PRN PRN PRN Reason: Blood transfusion prime and flush Stop: 05/04/24 04:12 Last Admin: 05/03/24 10:49 Dose: 50 ml Allergies hydrocortisone Allergy (Verified 05/02/24 16:26) ADR-Numbness metoprolol Allergy (Verified 01/02/24 17:04) Unknown oxycodone Allergy (Verified 05/02/24 16:26) ADR-Numbness shrimp Allergy (Verified 01/02/24 17:04) ALGY-Anaphylaxis Home Medications acetaminophen 500 mg tablet (Tylenol Extra Strength) 500 mg PO Q6H PRN Pain 09/25/20 [History Confirmed 05/02/24] cetirizine 10 mg tablet (Zyrtec) 10 mg PO DAILY 09/25/20 [History Confirmed 05/02/24] fluticasone propionate 50 mcg/actuation nasal spray,suspension 1 spray intranasal DAILY 09/25/20 [History Confirmed 05/02/24] gabapentin 300 mg capsule 600 mg PO TID PRN pain 09/25/20 [History Confirmed 05/02/24] lisinopril 10 mg-hydrochlorothiazide 12.5 mg tablet 1 tab PO DAILY 09/25/20 [History Confirmed 05/02/24] metformin 500 mg tablet 500 mg PO DAILY 09/25/20 [History Confirmed 05/02/24] tamsulosin 0.4 mg capsule 0.4 mg PO DAILY 09/25/20 [History Confirmed 05/02/24] tiotropium bromide 18 mcg capsule with inhalation device (Spiriva with HandiHaler) 1 cap inhalation DAILY 30 days #60 inhalations 09/25/20 [Rx Confirmed 05/02/24] aspirin 81 mg tablet,delayed release (Adult Aspirin Regimen) 81 mg PO DAILY pain 12/22/21 [History Confirmed 05/02/24] simvastatin 80 mg tablet 40 mg PO DAILY 12/22/21 [History Confirmed 05/02/24] albuterol sulfate 90 mcg/actuation aerosol inhaler 1 inh inhalation QID PRN Shortness Of Breath 05/02/24 [History Confirmed 05/02/24] cholecalciferol (vitamin D3) 25 mcg (1,000 unit) tablet 25 mcg PO DAILY 05/02/24 [History Confirmed 05/02/24] fluticasone 100 mcg-salmeterol 50 mcg/dose blistr powdr for inhalation (Advair Diskus) 1 inh inhalation BID 05/02/24 [History Confirmed 05/02/24] methocarbamol 500 mg tablet 500 mg PO TID 05/02/24 [History Confirmed 05/02/24] methylprednisolone 4 mg tablets in a dose pack See Rx Instructions .Route .COMPLEX 05/02/24 [History Confirmed 05/02/24] Discharge Plan Discharge Condition: Stable Prescriptions: No Action cetirizine [Zyrtec] 10 mg tablet 10 mg PO DAILY gabapentin 300 mg capsule 600 mg PO TID PRN (Reason: pain) lisinopril-hydrochlorothiazide 10-12.5 mg tablet 1 tab PO DAILY metformin 500 mg tablet 500 mg PO DAILY tamsulosin 0.4 mg capsule 0.4 mg PO DAILY fluticasone propionate 50 mcg/actuation spray,suspension 1 spray INTRANASAL DAILY Rx Instructions: administer into each nostril acetaminophen [Tylenol Extra Strength] 500 mg tablet 500 mg PO Q6H PRN (Reason: Pain) Spiriva with HandiHaler 18 mcg capsule, w/inhalation device 1 cap INHALATION DAILY 30 Days Qty: 60 3RF Rx Instructions: puncture 1 cap using device; one dose = 2 inhalations aspirin [Adult Aspirin Regimen] 81 mg tablet,delayed release (DR/EC) 81 mg PO DAILY simvastatin 80 mg tablet 40 mg PO DAILY methocarbamol 500 mg Tablet 500 mg PO TID Advair Diskus 100-50 mcg/dose Blister With Device 1 inh INHALATION BID methylprednisolone 4 mg tablets,dose pack See Rx Instructions .ROUTE .COMPLEX Rx Instructions: TAKE PER PACKAGE INSTRUCTIONS albuterol sulfate 90 mcg/actuation Hfa Aerosol Inhaler 1 inh INHALATION QID PRN (Reason: Shortness Of Breath) cholecalciferol (vitamin D3) 25 mcg (1,000 unit) Tablet 25 mcg PO DAILY Discharge Orders: Transfer Out of Facility (Order); Ordered 05/03/24 Ordered By: Abdullahi Jaramillo Referrals: Yara Phelps MD [Primary Care Provider] - Patient Instructions: GI Discharge Instructions, Opioid Safety Transfer Attestations Time Spent in Transfer Care: critical care time Critical Care Time (min): 77 Quality Metrics Clinical Quality Measures [ No reported AMI, CVA or VTE this stay] Coding Level of Care Code Critical Care >/= 30 minutes Critical care time (in minutes): 77 The high probability of a clinically significant, sudden or life threatening deterioration, as referenced in this documentation, required my full and direct attention, intervention and personal management. The critical care time shown is in addition to time spent performing any reported separately billable procedures and includes the following: [x] Data and vital sign review and interpretation [x] Patient assessment, examination and intervention [x] Medication orders and management [x] Patient/Family updates as able [x] Care Coordination and Documentation. Diagnoses Upper gastrointestinal hemorrhage K92.2 Acute blood loss anemia D62
--- NOTE | 2024-05-03 11:54 | PC.NURSE ---
report called to Radha Rodriguez to Peter Francisco RN. 2nd unit prbc complete.
[2024-05-03 12:22] LABS: Glucose Point of Care 176 mg/dL (70-110)
--- NOTE | 2024-05-03 12:35 | PC.NURSE ---
pt transferred to [facility] via air [facility]. 1 unit prbc is currently infusing and 1 unit was sent with the patient in cooler. Levophed running at 2 mcg at this time.
--- NOTE | 2024-05-03 12:39 | PC.NURSE ---
Peter at [facility] updated on pt leaving. v/s and current status reported.
--- NOTE | 2024-05-03 12:53 | PC.NURSE ---
pt transferred to [facility]
== END 2024-05-03 12:45 | disposition short-term general hospital (02) | DRG 378 ==
LOC: ER 10:36 → MEDSURG 11:56 → ICU 05-03 09:02
PROVIDERS: Anesthesiology; Admitting Provider Internal Medicine; Emergency Provider Emergency Medicine; PCP Family Medicine; Visit Provider Internal Medicine
DX: K92.2 Gastrointestinal hemorrhage, unspecified (principal); D62 Acute posthemorrhagic anemia; M54.9 Dorsalgia, unspecified; G89.29 Other chronic pain; Z79.1 Long term (current) use of non-steroidal anti-inflammatories (NSAID); I95.9 Hypotension, unspecified; D72.829 Elevated white blood cell count, unspecified; N40.0 Benign prostatic hyperplasia without lower urinary tract symptoms; E78.5 Hyperlipidemia, unspecified; J44.9 Chronic obstructive pulmonary disease, unspecified; E11.9 Type 2 diabetes mellitus without complications; Z79.84 Long term (current) use of oral hypoglycemic drugs; I10 Essential (primary) hypertension; Z72.0 Tobacco use; Z79.82 Long term (current) use of aspirin
CPT/HCPCS: 36415; 36416; 36430; 71045; 74176; 74177; 80048; 80053; 81003; 82962; 83690; 83735; 84443; 85014; 85018; 85025; 85610; 86850; 86900; 86920; 94640; 96374; 96376; 99285; C9113; J2543; J7030; J7050; J7626; P9016; Q9967

== ENCOUNTER → 2024-05-08 09:14 | Outpatient (BNVA) | payer OTHER, SELFPAY | PROVIDERS: PCP Family Medicine; Visit Provider Podiatrist Foot & Ankle Surgery | DX: E11.42 Type 2 diabetes mellitus with diabetic polyneuropathy; G62.9 Polyneuropathy, unspecified; Q82.8 Other specified congenital malformations of skin; Z79.84 Long term (current) use of oral hypoglycemic drugs | CPT/HCPCS: 73630; 99203 ==

== ENCOUNTER → 2024-08-03 09:26 | Outpatient (BNVA) | payer OTHER, SELFPAY | PROVIDERS: PCP Family Medicine; Visit Provider Nurse Practitioner Family | DX: D18.01 Hemangioma of skin and subcutaneous tissue (principal); L81.4 Other melanin hyperpigmentation; L57.8 Other skin changes due to chronic exposure to nonionizing radiation; L72.0 Epidermal cyst; L57.0 Actinic keratosis | CPT/HCPCS: 17000; 99213 ==

== ENCOUNTER 2025-04-20 17:13 | Emergency (ER) | payer OTHER, SELFPAY ==
[2025-04-20 17:22] VITALS: BP 126/55; PULSE 51; RESP 20; TEMP 36.6; O2SAT 96
--- NOTE | 2025-04-20 17:35 | CTR_ITS ---
PROCEDURE INFORMATION: Exam: CT Lumbar Spine Without Contrast Exam date and time: 04/20/2025 5:42 PM Age: 84 years old Clinical indication: Low back pain; Additional info: Lower back pain TECHNIQUE: Imaging protocol: Computed tomography of the lumbar spine without contrast. Radiation optimization: All CT scans at this facility use at least one of these dose optimization techniques: automated exposure control; mA and/or kV adjustment per patient size (includes targeted exams where dose is matched to clinical indication); or iterative reconstruction. COMPARISON: CR XR lumbar spine min 4V [id number] 27/09/2023 14:06 RADIATION DOSE METRICS: Total DLP (mGy-cm): 923.7 FINDINGS: Bones/joints: Diffuse generalized decreased bone density is seen consistent with osteopenia. No discrete compressive changes or discrete linear areas of decreased density as to indicate fracture. Note is made of exuberant bridging spurring along the right anterolateral aspect of the lower visualized thoracolumbar region. Coronal reconstructions best demonstrate minimal convexity of the lumbar spine being directed to the right. Sagittal reconstructions demonstrate relative alignment. L1-L2: Mild generalized posterior disc bulging with slight preservation of posterior disc concavity. Disc prominence is slightly greater on the right than the left but does not appear to involve the right L1 root at the foraminal level. Mild degenerative facet changes result in mild canal narrowing at this level. L2-L3: Mild bilateral degenerative facet changes with mild bwsl-ymdgzxy-ewwu-right posterior disc bulging result in mild canal narrowing here. The foramina are relatively intact/patent. L3-L4: Moderate broad-based disc/spur is seen slightly eccentric to the left with [id number] bilateral degenerative facet changes resulting in saqjsuqw-dv-pyszxp canal stenosis. Moderate bilateral foraminal narrowing due degenerative changes is present. L4-L5: Markedly severe central posterior spur/disc and degenerative facet findings resulting in markedly severe canal stenosis. Suspected right lateral disc protrusion is present which would involve the right L4 root. This is noted to best effect on image 93 of series 3. L5-S1: Mild posterior disc bulging is seen with moderate degenerative facet changes and mild generalized canal and bilateral foraminal narrowing. Soft tissues: Right pleural-based calcification consistent with remote pleurisy. Punctate left upper pole renal calcification with no evidence of obstruction. Additional abdominopelvic changes as described in the abdominopelvic CT report from this day. CT/CT lumbar spine wo con* [id number] IMPRESSION: 1. Right L4-L5 disc protrusion involving the right L4 root. 2. No acute osseous CT findings; however, due to the presence of prominent osteopenia (see also below) if difficulties persist an MRI is suggested for your consideration to exclude occult compressive changes. 3. Generalized decreased bone density and rare fine trabecular density likely due to osteopenia; however, a myelomatous process can not be excluded and correlation to exclude proteinuria is suggested. 4. 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
--- NOTE | 2025-04-20 17:35 | CTR_ITS ---
PROCEDURE INFORMATION: Exam: CT Abdomen And Pelvis Without Contrast Exam date and time: 04/20/2025 5:42 PM Age: 84 years old Clinical indication: Pain; Other: Low back, tay flank; Additional info: Lower back pain, eval for stone TECHNIQUE: Imaging protocol: Computed tomography of the abdomen and pelvis without contrast. Radiation optimization: All CT scans at this facility use at least one of these dose optimization techniques: automated exposure control; mA and/or kV adjustment per patient size (includes targeted exams where dose is matched to clinical indication); or iterative reconstruction. COMPARISON: CT abdomen pelvis wo con [id number] 05/03/2024 08:46 RADIATION DOSE METRICS: Total DLP (mGy-cm): 923.7 FINDINGS: Diaphragm: Lower chest: Again seen is a prominent pleural-based area of calcification most suggestive of remote pleurisy. Lobulation of the diaphragm is also seen bilaterally. Liver: Normal and unchanged. No mass. Gallbladder and biliary ducts: Normal. No calcified stones. No ductal dilation. Pancreas: Mildly atrophic. No ductal dilation. Spleen: Unchanged in configuration. No splenomegaly. Adrenal glands: Right adrenal gland is normal. Slight lobulated prominence of the left adrenal gland unchanged compared to 05/03/2025. No mass. Kidneys and ureters: Right kidney unchanged no evidence of obstruction. Left kidney upper pole 3.5 mm calcification, unchanged. Left kidney cortical renal cyst smaller in size than prior study. No hydronephrosis. Stomach and bowel: Resolution of the previously seen edema involving the 1st and 2nd portions of the duodenal sweep. No obstruction. No mucosal thickening. Appendix: The appendix is not visualized. There are no pericecal inflammatory changes present. Intraperitoneal space: Unremarkable. No free air. No significant fluid collection. Vasculature: Moderately prominent atherosclerotic calcifications of the great vessels of the abdomen and pelvis.. No abdominal aortic aneurysm. Lymph nodes: Unremarkable. No enlarged lymph nodes. Urinary bladder: Mild thickening of the bladder wall is noted. Reproductive: Unremarkable as visualized. Bones/joints: Multilevel osteoarthritic spinal canal stenosis markedly prominent at L4-L5 followed by to lesser degrees at L3-L4 and L5-S1 (please see LS spine CT report). No acute fracture. Soft tissues: Mild bilateral inguinal hernias containing only normal lipomatous soft tissue CT/CT abdomen pelvis wo con [id number] IMPRESSION: 1. Unchanged left upper pole renal stone with no evidence of obstruction. 2. Nonspecific mild bladder wall thickening question chronic change versus cystitis. 3. Diverticulosis with no radiographic evidence of diverticulitis. 4. Marked osteoarthritic/degenerative LS spine changes with significant multilevel degrees of canal stenoses (please see LS spine CT report). 5. Additional chronic changes, as described above.
[2025-04-20 17:55] VITALS: RESP 18; O2SAT 98
[2025-04-20] MEDS: ketorolac 30 mg/mL INJ IM (17:55)
[2025-04-20] MEDS: morphine 4 mg/mL SDV 1 mL IM ×2 (17:55→21:15)
--- NOTE | 2025-04-20 17:56 | PC.NURSE ---
pt wants to hold on Methocarbamol 1,500mg until able to sit up
[2025-04-20 17:58] VITALS: BP 127/46; PULSE 68; RESP 25; O2SAT 99
[2025-04-20] MEDS: methocarbamol 750 mg Tablet 1500 MG PO (18:12)
[2025-04-20 18:41] LABS: Bilirubin Urine Negative (Negative); Blood Urine Negative (Negative); Glucose Urine UA Negative (Normal); Ketones Urine Negative (Negative); Leukocyte Esterase Urine Negative (Negative); Nitrate Urine Negative (Negative); Protein Urine Negative (Negative); Specific Gravity, Urine 1.022 (1.005-1.030); Urine Appearance Clear (CLEAR); Urine Color Yellow (Yellow); Urobilinogen Urine 0.2 mg/dL (Negative)
[2025-04-20 18:46] LABS: Bacteria Urine None Seen /hpf; Hyaline Casts Urine 1.21 /lpf; RBC Urine 0-2 /hpf (0-2); Squamous Epithelial Cell Urine 0-5 /hpf (0-5); WBC Urine 0-5 /hpf (0-5)
--- NOTE | 2025-04-20 19:38 | W.ED.BACK ---
HPI - Back Pain/Injury General: Chief Complaint: Back Pain/Injury Stated Complaint: back & right hip pain Time Seen by Provider: 04/20/25 17:28 History of Present Illness: 84-year-old male with chronic DJD of the spine is presenting with 2 weeks of lower back pain rating to his right lower extremity, he states he has seen chiropractor multiple times for this pain, yesterday he [facility] who presents with persistent pain. He denies any fevers or chills he denies any numbness or motor weakness bowel or bladder incontinence. He states he has chronic pain and this is similar to his chronic pain but worse over the last couple of weeks, he also reports some radiation of pain to bilateral testicles. He denies any abdominal pain no urinary symptoms no nausea no vomiting no hematuria. No previous history of kidney stones. He takes Tylenol at home. He was prescribed steroids yesterday as well. Related Data Home Medications ?Medication ?Instructions ?Recorded ?Confirmed acetaminophen 500 mg tablet 500 mg PO Q6H PRN Pain 09/25/20 09/17/24 (Tylenol Extra Strength) cetirizine 10 mg tablet (Zyrtec) 10 mg PO DAILY 09/25/20 09/17/24 fluticasone propionate 50 1 spray intranasal DAILY 09/25/20 09/17/24 mcg/actuation nasal spray,suspension gabapentin 300 mg capsule 600 mg PO TID PRN pain 09/25/20 09/17/24 lisinopril 10 1 tab PO DAILY 09/25/20 09/17/24 mg-hydrochlorothiazide 12.5 mg tablet metformin 500 mg tablet 500 mg PO DAILY 09/25/20 09/17/24 tamsulosin 0.4 mg capsule 0.4 mg PO DAILY 09/25/20 09/17/24 aspirin 81 mg tablet,delayed 81 mg PO DAILY pain 12/22/21 09/17/24 release (Adult Aspirin Regimen) simvastatin 80 mg tablet 40 mg PO DAILY 12/22/21 09/17/24 albuterol sulfate 90 mcg/actuation 1 inh inhalation QID PRN Shortness 05/02/24 09/17/24 aerosol inhaler Of Breath cholecalciferol (vitamin D3) 25 25 mcg PO DAILY 05/02/24 09/17/24 mcg (1,000 unit) tablet fluticasone 100 mcg-salmeterol 50 1 inh inhalation BID 05/02/24 09/17/24 mcg/dose blistr powdr for inhalation (Advair Diskus) methocarbamol 500 mg tablet 500 mg PO TID 05/02/24 09/17/24 methylprednisolone 4 mg tablets in See Rx Instructions .Route .COMPLEX 05/02/24 09/17/24 a dose pack Previous Rx's ?Medication ?Instructions ?Recorded tiotropium bromide 18 mcg capsule 1 cap inhalation DAILY 30 days #60 09/25/20 with inhalation device (Spiriva inhalations with HandiHaler) diabetic shoes w/ custom inserts #1 ea 05/23/24 diabetic shoes with 3 inserts #1 ea 09/17/24 methocarbamol 500 mg tablet 500 mg PO QID #30 tabs 04/20/25 Allergies Allergy/AdvReac Type Severity Reaction Status Date / Time hydrocortisone Allergy ADR-Numbnes Verified 09/17/24 10:24 s metoprolol Allergy Unknown Verified 09/17/24 10:24 oxycodone Allergy ADR-Numbnes Verified 09/17/24 10:24 s shrimp Allergy ALGY-Anaphy Verified 09/17/24 10:24 laxis Review of Systems Narrative: Const: no fever, no chills Skin: no rashes Eyes: denies blurry vision ENMT: denies nasal congestion, throat pain Card: no chest pain, no palpitations, no edema Resp: no shortness of breath, no cough GI: no abdominal pain, no nausea, no vomiting, no diarrhea : no urinary frequency, no urgency, no dysuria, no flank pain Musc: no neck pain, + back pain, no extremity pain Neuro: no headache(s), no confusion, no numbness, no motor weakness PFSH ED PFSH: Medical History BPH (benign prostatic hyperplasia) Hyperlipidemia Chronic back pain COPD (chronic obstructive pulmonary disease) Diabetes type 2, controlled HTN (hypertension) DDD (degenerative disc disease) Surgical History H/O removal of cyst x 2 H/O colonoscopy 2020 History of appendectomy Family History Father Cancer Mother Lung disease Denies family history of Anesthesia complication Bleeding disorder Social History Smoking and tobacco/nicotine status: current every day tobacco/nicotine user Quit status (tobacco/nicotine): has quit using Year quit tobacco: 2020 - 2PPD x 70 Years Alcohol intake: never Substance/Drug Use: never Lives independently: Yes Household members: children Marital status: / service: Yes Current occupational status: retired and disabled Do you think of yourself as: Straight/Heterosexual Current gender identity: Male Physical Exam Narrative: EXAM NARRATIVE: GEN: well-appearing, in no acute distress Head: normocephalic, atraumatic Eyes: pupils, equal, round and reactive to light, extraocular movements are intact, no conjunctival redness or discharge. Ears: external ears are normal. Nose: Normal nares. Mouth and throat: MMM. Normal gums, mucosa, palate. NECK: Supple, with no masses. CV: RRR, no m/r/g. LUNGS: CTAB, no w/r/c. ABD: Soft, NT/ND, NBS, no masses or organomegaly. : Normal penile and testicular and scrotal exam no testicular tenderness, no groin masses or skin changes. SKIN: Warm, well perfused. No skin rashes or abnormal lesions. MSK: No CVA tenderness bilaterally, no midline C or T spine tenderness, bilateral straight leg raise is negative, extremity exam unremarkable including distally and neurovascularly intact with good DP PT pulses cap refill and warmth no skin changes and otherwise MSK exam is unremarkable, no deformity, no tenderness, normal ROM, no edema NEURO: alert and oriented x 3, normal speech, no motor or sensory deficits, no focal neuro deficits. PSYCH: Good Judgment. Pleasant, cooperative. appropriate mood. Course Vital Signs: Vital signs: Vital Signs Temperature 97.8 F 04/20/25 17:22 Pulse Rate 68 04/20/25 17:58 Respiratory Rate 25 H 04/20/25 17:58 Blood Pressure 127/46 04/20/25 17:58 Pulse Oximetry 99 04/20/25 17:58 Oxygen Delivery Me thod Room Air 04/20/25 17:22 MDM - Back Pain/Injury Medical Decision Making Patient is presenting with acute on chronic lower back pain consistent with musculoskeletal etiology and likely sciatica with likely associated muscle spasm. Given radiation of pain to scrotum will evaluate for possible kidney stone. CT scan was performed that demonstrates no renal stone disease no ureterolithiasis no obstruction, there is some bladder wall thickening however urinalysis is negative no UTI. CT further demonstrates chronic DJD changes but no acute bony pathology. Patient was reexamined after being administered IM Toradol, Robaxin for pain he feels markedly improved and is now comfortable. States the pain is almost completely resolved. He is stable and comfortable with discharge and outpatient follow-up. Return precautions discussed. Labs Radiology Impressions Abdomen/Pelvis CT 04/20/25 17:35 IMPRESSION: 1. Unchanged left upper pole renal stone with no evidence of obstruction. 2. Nonspecific mild bladder wall thickening question chronic change versus cystitis. 3. Diverticulosis with no radiographic evidence of diverticulitis. 4. Marked osteoarthritic/degenerative LS spine changes with significant multilevel degrees of canal stenoses (please see LS spine CT report). 5. Additional chronic changes, as described above. Lumbar Spine CT 04/20/25 17:35 IMPRESSION: 1. Right L4-L5 disc protrusion involving the right L4 root. 2. No acute osseous CT findings; however, due to the presence of prominent osteopenia (see also below) if difficulties persist an MRI is suggested for your consideration to exclude occult compressive changes. 3. Generalized decreased bone density and rare fine trabecular density likely due to osteopenia; however, a myelomatous process can not be excluded and correlation to exclude proteinuria is suggested. 4. 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 Laboratory Results Urine Color Yellow (Yellow) 04/20/25 18:31 Urine Appearance Clear (CLEAR) 04/20/25 18:31 Urine pH 5.0 (5-7) 04/20/25 18:31 Ur Specific [place] 1.022 (1.005-1.030) 04/20/25 18:31 Urine Protein Negative (Negative) 04/20/25 18:31 Urine Glucose (UA) Negative (Normal) 04/20/25 18:31 Urine Ketones Negative (Negative) 04/20/25 18:31 Urine Blood Negative (Negative) 04/20/25 18:31 Urine Nitrate Negative (Negative) 04/20/25 18:31 Urine Bilirubin Negative (Negative) 04/20/25 18:31 Urine Urobilinogen 0.2 mg/dL (Negative) 04/20/25 18:31 Ur Leukocyte Esterase Negative (Negative) 04/20/25 18:31 Urine RBC 0-2 /hpf (0-2) 04/20/25 18:31 Urine WBC 0-5 /hpf (0-5) 04/20/25 18:31 Ur Squamous Epith Cells 0-5 /hpf (0-5) 04/20/25 18:31 Amorphous Sediment Not Reportable 04/20/25 18:31 Urine Bacteria None seen /hpf (NONE) 04/20/25 18:31 Hyaline Casts 1.21 /lpf 04/20/25 18:31 All radiology interpretation(s) finalized by discharge Discharge Plan Discharge Patient Disposition: Home Clinical Impression: Lumbar radiculopathy Condition: Stable Prescriptions: New methocarbamol 500 mg tablet 500 mg PO QID Qty: 30 0RF No Action cetirizine [Zyrtec] 10 mg tablet 10 mg PO DAILY gabapentin 300 mg capsule 600 mg PO TID PRN (Reason: pain) lisinopril-hydrochlorothiazide 10-12.5 mg tablet 1 tab PO DAILY metformin 500 mg tablet 500 mg PO DAILY tamsulosin 0.4 mg capsule 0.4 mg PO DAILY fluticasone propionate 50 mcg/actuation spray,suspension 1 spray INTRANASAL DAILY Rx Instructions: administer into each nostril acetaminophen [Tylenol Extra Strength] 500 mg tablet 500 mg PO Q6H PRN (Reason: Pain) Spiriva with HandiHaler 18 mcg capsule, w/inhalation device 1 cap INHALATION DAILY 30 Days Qty: 60 3RF Rx Instructions: puncture 1 cap using device; one dose = 2 inhalations aspirin [Adult Aspirin Regimen] 81 mg tablet,delayed release (DR/EC) 81 mg PO DAILY simvastatin 80 mg tablet 40 mg PO DAILY (DME) diabetic shoes with 3 inserts See Rx Instructions .Route .MEDSUPPLY Qty: 1 0RF Rx Instructions: As directed to the anika lester (KEN) diabetic shoes w/ custom inserts See Rx Instructions .Route .MEDSUPPLY Qty: 1 0RF Rx Instructions: As directed by the anika lester [id number] methocarbamol 500 mg Tablet 500 mg PO TID Advair Diskus 100-50 mcg/dose Blister With Device 1 inh INHALATION BID methylprednisolone 4 mg tablets,dose pack See Rx Instructions .ROUTE .COMPLEX Rx Instructions: TAKE PER PACKAGE INSTRUCTIONS albuterol sulfate 90 mcg/actuation Hfa Aerosol Inhaler 1 inh INHALATION QID PRN (Reason: Shortness Of Breath) cholecalciferol (vitamin D3) 25 mcg (1,000 unit) Tablet 25 mcg PO DAILY Discharge Orders: Discharge ED (Routine); Ordered 04/20/25 Ordered By: Matthew Prater Referrals: Yara Phelps MD [Primary Care Provider, Family Practice] Patient Instructions: Sciatica (ED) Print Language: Occitan Coding Level of Care Code ED Government Documents Librarian for April Magana
[2025-04-20 21:15] VITALS: RESP 18
[2025-04-20 21:27] VITALS: BP 133/63; PULSE 45; RESP 18; O2SAT 95
== END 2025-04-20 21:27 | disposition home or self-care (01) ==
PROVIDERS: Emergency Provider Emergency Medicine; PCP Family Medicine
DX: M54.16 Radiculopathy, lumbar region (principal); M47.9 Spondylosis, unspecified
CPT/HCPCS: 72131; 74176; 81001; 96372; 99284; J1885; J2270; J9999

== ENCOUNTER → 2025-05-14 10:45 | Outpatient (BNVA) | payer OTHER, SELFPAY | PROVIDERS: PCP Family Medicine; Visit Provider Podiatrist Foot & Ankle Surgery | DX: E11.42 Type 2 diabetes mellitus with diabetic polyneuropathy (principal); L60.3 Nail dystrophy; E11.8 Type 2 diabetes mellitus with unspecified complications; G62.9 Polyneuropathy, unspecified; Q82.8 Other specified congenital malformations of skin; R60.9 Edema, unspecified; Z79.84 Long term (current) use of oral hypoglycemic drugs | CPT/HCPCS: 11721; 99213 ==

== ENCOUNTER 2025-06-12 19:14 | Emergency (ER) | payer OTHER, SELFPAY ==
--- OUTSIDE RECORDS SUMMARY | 2025-06-12 06:45 | XMS_ITS | Continuity of Care Document ---
Author Name [facility] Organization [facility] Care Team Providers Care Services Tech Name Role Phone [facility] Unavailable Unavailable Problems Combined list of problems from Department of Defense and Veterans Affairs facilities. It does not include entries that were removed or entered in error. Problem Status Onset Date Problem Type Date of Resolution Comments Source Abdominal pain Active Condition Apr Entered By: BARBRA REYES Comment: Constipation and musculoskeletal strain.Jul 13, 2023 Entered By: BARBRA REYES Comment: ct scan negative 04/2023 [place] [facility] Acute blood loss anemia Active Condition [place] [facility] Benign essential hypertension (SNOMED CT 1338832) Active Condition [place] [facility] Chronic kidney disease Active Condition Jan 30, 2024 Entered By: BARBRA REYES Comment: nephrologyFeb 10, 2024 Entered By: BARBRA REYES Comment: gladis declines nephrology consult [place] [facility] Chronic low back pain Active Condition [place] [facility] COPD - Chronic Obstructive Pulmonary Disease (SCT 60071761) Active Condition [place] [facility] Current every day smoker (SNOMED CT 330701659) Active Condition Jul 15, 2021 Entered By: BARBRA REYES Comment: ct screeng = copd, no masses 06/2021 [place] [facility] Diabetes Mellitus Type 2 ([facility] [id number]) Active Condition [place] [facility] Dysuria Active Condition [place] [facility] Foot pain Active Condition [place] [facility] Ganglion of wrist Active Condition Se p 2022 Entered By: BARBRA REYES Comment: Right [place] [facility] Gout Active Condition [facility] Hearing loss (SNOMED CT 39361783) Active Condition [place] [facility] Herpes zoster (SNOMED CT 2379215) Active Condition [place] [facility] History of appendectomy Active Condition [place] [facility] HLD - Hyperlipidemia (SNOMED CT 81059402) Active Condition [place] [facility] Low Back Pain (SCT 582216692) Active Condition Aug 26, 2023 Entered By: BARBRA REYES Comment: ct scan negative 04/2023Oct 2022 Entered By: BARBRA REYES Comment: chronic pain declined [place] [facility] Lumbosacral Radiculopathy (SCT 4703441) Active Condition Mar 16, 2021 Entered By: BARBRA REYES Comment: bilateral lower extremities a disabilityApr 2020 Entered By: BARBRA REYES Comment: stenosis of spine radiculopathy, degenerative disc disease lumbar spine and sacroiliac jointsApr 2020 Entered By: BARBRA REYES Comment: abnormal gait guarded so leans to the right side uses four-legged cane, antalgic gait, slow deliberate guarded movementsApr 2020 Entered By: BARBRA REYES Comment: sciatic nerve partial paralysis bilaterally.Mar 16, 2021 Entered By: BARBRA REYES Comment: peripheral nerve condition neuropathy [place] [facility] Osteoarthritis (SCT [id number]) - Osteoarthrosis, unspecified whether generalized Active Condition April 12, 2023 Entered By: BARBRA REYES Comment: ciprodex 0.3% - 0.1% ear drops suspension, 4 gtts to affected ear bid 7 to 10 days, may use prn for swelling / drainage [place] [facility] Otitis Externa (SCT 0466242) Active Condition April 12, 2023 Entered By: BARBRA REYES Comment: right - consult entMay 2022 Entered By: BARBRA REYES Comment: per ENT 02/23/2022 = chroninc bilateral otits externa = triamcinolone cream for eczematous otits externa flaresMay 2022 Entered By: BARBRA REYES Comment: to use ciprodex to right ear as prescribed and also use PRN if canals swelling flares in future, and fu PRN [place] [facility] Peripheral arterial occlusive disease Active Condition Jul 15 Entered By: BARBRA REYES Comment: us gabriela 04/2021 [place] [facility] Peripheral neuropathy Active Condition [place] [facility] Right hip pain Active Condition Aug 282022 Entered By: BARBRA REYES Comment: seen in ED....hydrocodone [place] [facility] Standard chest X-ray abnormal Active Condition May 05, 2023 Entered By: BARBRA REYES Comment: Calcifications hemidiaphragm possible asbestos exposure , suspect overlap pulmonary vessel versus mild possible infiltrate. Will get repeat chest x-rayMay 24, 2025 Entered By: BARBRA REYES Comment: same again seen [place] [facility] Thoracic aortic aneurysm without rupture Active Condition Oct 18, 2022 Entered By: BARBRA REYES Comment: Descending 3.5 cm, on LDCT 06/2022. [place] [facility] Upper GI hemorrhage Active Condition May 21, 2024 Entered By: BARBRA REYES Comment: bleeding ulcer [place] [facility] Verruca plantaris Active Condition 2023 Entered By: BARBRA REYES Comment: biltaeral [place] [facility] Diagnosis: ICD-10-CM Z02.89 Encounter for other administrative examinations Active Diagnosis [facility] Diagnosis: ICD-10-CM M54.50 Low back pain, unspecified Active Diagnosis [facility] Diagnosis: ICD-10-CM R60.9 Edema, unspecified Active Diagnosis [facility] Diagnosis: ICD-10-CM J44.1 Chronic obstructive pulmonary disease w (acute) exacerbation Active Diagnosis [facility] Diagnosis: ICD-10-CM J44.9 Chronic obstructive pulmonary disease, unspecified Active Diagnosis [facility] Diagnosis: ICD-10-CM M54.17 Radiculopathy, lumbosacral region Active Diagnosis [facility] Diagnosis: ICD-10-CM J01.10 Acute frontal sinusitis, unspecified Active Diagnosis [facility] Diagnosis: ICD-10-CM J01.90 Acute sinusitis, unspecified Active Diagnosis [facility] Diagnosis: ICD-10-CM M54.59 Other low back pain Active Diagnosis [facility] Diagnosis: ICD-10-CM Z13.5 Encounter for screening for eye and ear disorders Active Diagnosis [place] [facility] Diagnosis: ICD-10-CM Z00.01 Encounter for general adult medical exam w abnormal findings Active Diagnosis [place] [facility] Diagnosis: ICD-10-CM Z23 Encounter for immunization Active Diagnosis [place] [facility] Diagnosis: ICD-10-CM L08.9 Local infection of the skin and subcutaneous tissue, unsp Active Diagnosis [facility] [place] Diagnosis: ICD-10-CM L02.212 Cutaneous abscess of back [any part, except buttock] Active Diagnosis [place] [place] [facility] Diagnosis: ICD-10-CM L72.3 Sebaceous cyst Active Diagnosis [place] [place] [facility] Diagnosis: ICD-10-CM M79.604 Pain in right leg Active Diagnosis [facility] [place] Diagnosis: ICD-10-CM M54.16 Radiculopathy, lumbar region Active Diagnosis [place] [place] [facility] Diagnosis: ICD-10-CM R51.9 Headache, unspecified Active Diagnosis [facility] Diagnosis: ICD-10-CM R06.00 Dyspnea, unspecified Active Diagnosis [facility] Diagnosis: ICD-10-CM L98.9 Disorder of the skin and subcutaneous tissue, unspecified Active Diagnosis [facility] [place] [facility] Diagnosis: ICD-10-CM B07.9 Viral wart, unspecified Active Diagnosis [facility] Diagnosis: ICD-10-CM M10.9 Gout, unspecified Active Diagnosis [place] [place] [facility] Diagnosis: ICD-10-CM M79.674 Pain in right toe(s) Active Diagnosis [facility] [place] Diagnosis: ICD-10-CM Z01.30 Encounter for exam of blood pressure w/o abnormal findings Active Diagnosis [facility] [place] Diagnosis: ICD-10-CM R60.0 Localized edema Active Diagnosis [facility] [place] Diagnosis: ICD-10-CM R21 Rash and other nonspecific skin eruption Active Diagnosis [facility] [place] Diagnosis: ICD-10-CM N49.2 Inflammatory disorders of scrotum Active Diagnosis [facility] Diagnosis: ICD-10-CM M79.644 Pain in right finger(s) Active Diagnosis [facility] Medications Combined list of outpatient medications from Department of Defense and Veterans Affairs facilities.Medications provided include 1) outpatient medications from the last 15 months, and 2) patient-reported medications. Medication Details Route Status Patient Instructions Prescription Expires Prescription Number Last Dispense Date Ordering Provider Order Date Order Qty Source ACETAMINOPH EN 500MG TAB TAKE TWO TABLETS BY MOUTH THREE TIMES A DAY NEEDED ORAL ACTIVE MICHAEL REYES 2020 [place] [facility] ALBUTEROL 100MCG/IPRA TROPIUM BR 20MCG/SPRAY INHALER,ORA L,4GM INHALE 1 PUFF BY ORAL INHALATI ON FOUR TIMES A DAY DIRECTED FOR COPD RESPIR ATORY (INHAL ATION) ACTIVE 04/16/2026 [id number] 5 LAMAR LUNDBERG [address] [place] [address] [facility] ALBUTEROL SO4 90MCG/ACTUA T (CFC-F) INHL,ORAL,8 .5GM INHALE 1 PUFF BY ORAL INHALATI ON FOUR TIMES A DAY NEEDED FOR COPD SHAKE WELL. RINSE MOUTHPIE CE FREQUENT LY TO PREVENT CLOGGING . RESPIR ATORY (INHAL ATION) ACTIVE 01/16/2026 [id number] 5 MICHAEL REYES [address] [place] [address] [facility] ALLOPURINOL 100MG TAB TAKE ONE-HALF TABLET BY MOUTH ONCE A DAY FOR GOUT TAKE WITH PLENTY OF WATER. ORAL ACTIVE 05/02/2026 [id number] 5 LAMAR LUNDBERGTEMarina G [address] [place] [address] [facility] ALLOPURINOL 100MG TAB TAKE ONE-HALF TABLET BY MOUTH ONCE A DAY FOR GOUT TAKE WITH PLENTY OF WATER. ORAL DISCONT INUED 02/28/2025 [id number] 5 LAMAR LUNDBERGTEMarina Bey [address] [place] [address] [facility] ASPIRIN 81MG TAB,CHEWABL E CHEW AND SWALLOW FOUR TABLETS BY MOUTH ONCE A DAY ORAL ACTIVE MICHAEL REYES 2020 [place] [facility] AZELASTINE HCL 137MCG/SPRA Y INHL,NASAL, 30ML SPRAY 1 SPRAY IN NOSTRIL( S) TWICE A DAY FOR ALLERGIC RHINITIS *PRIME BEFORE USE* NASAL ACTIVE 04/16/2026 [id number] 5 LAMAR LUNDBERG [address] [place] [address] [place] [facility] CETIRIZINE HCL 10MG TAB TAKE ONE TABLET BY MOUTH ONCE A DAY FOR ALLERGY SYMPTOMS . ORAL DISCONT INUED BY PROVIDE R 10/16/2025 [id number] MICHAEL REYES [address] [place] [address] [facility] CETIRIZINE HCL 10MG TAB TAKE ONE TABLET BY MOUTH ONCE A DAY FOR ALLERGY SYMPTOMS . ORAL DISCONT INUED 09/19/2025 [id number] 4 MICHAEL REYES R [address] [place] [address] [facility] CETIRIZINE HCL 10MG TAB TAKE ONE TABLET BY MOUTH ONCE A DAY FOR ALLERGY SYMPTOMS . ORAL DISCONT INUED 10/17/2024 [id number] 4 MICHAEL REYES [address] [place] [address] [facility] CHOLECALCIF CORNELIUS 25MCG (1,000UNIT) TAB TAKE THREE TABLETS BY MOUTH ONCE A DAY FOR VITAMIN D DEFICIEN CY ORAL SUSPEND ED 09/08/2025 [id number] 5 MICHAEL REYES [address] [place] [address] [facility] CHOLECALCIF CORNELIUS 25MCG (1,000UNIT) TAB TAKE THREE TABLETS BY MOUTH ONCE A DAY FOR VITAMIN D DEFICIEN CY ORAL DISCONT INUED 08/12/2025 [id number] 5 MICHAEL REYES [address] [place] [address] [facility] CHOLECALCIF CORNELIUS 25MCG (1,000UNIT) TAB TAKE THREE TABLETS BY MOUTH ONCE A DAY FOR VITAMIN D DEFICIEN CY ORAL DISCONT INUED 06/04/2025 [id number] 5 MICHAEL REYES [address] [place] [address] [place] [facility] CHOLECALCIF CORNELIUS 25MCG (1,000UNIT) TAB TAKE THREE TABLETS BY MOUTH ONCE A DAY FOR VITAMIN D DEFICIEN CY ORAL DISCONT INUED 04/08/2025 [id number] 5 MICHAEL REYES [address] [place] [address] [facility] CHOLECALCIF CORNELIUS 25MCG (1,000UNIT) TAB TAKE THREE TABLETS BY MOUTH ONCE A DAY FOR VITAMIN D DEFICIEN CY ORAL DISCONT INUED 01/08/2025 [id number] 4 AMYMICHAEL Erin Negron 2023 300 [facility] CHOLECALCIF CORNELIUS 25MCG (1,000UNIT) TAB TAKE THREE TABLETS BY MOUTH ONCE A DAY FOR VITAMIN D DEFICIEN CY ORAL DISCONT INUED 07/01/2024 [id number] 4 MICHAEL REYES 2023 300 [facility] CIPROFLOXAC IN HCL 0.3%/DEXAME THASONE 0.1% SUSP,OTIC INSTILL 4 DROPS IN TO AFFECTED EAR(S) TWICE A DAY FOR BACTERIA L INFECTIO N SHAKE WELL. FOR USE IN THE EAR(S) ONLY. AURICU LAR (OTIC) ACTIVE 11/01/2025 [id number] 4 MICHAEL REYES 2023 7.5 [facility] FEXOFENADIN E HCL 180MG TAB TAKE ONE TABLET BY MOUTH EVERY MORNING FOR ALLERGIC RHINITIS ORAL SUSPEND ED 10/18/2025 [id number] 5 AMYMICHAEL Erin Negron 2023 90 [facility] FLUTICASONE 100MCG/SALM ETEROL 50MCG INHL,ORAL,D ISKUS,60 INHALE 1 INHALATI ON ORAL INHALATI ON TWICE A DAY FOR COPD (OPEN DISKUS; CLICK ONLY ONCE; MAY INHALE TWICE TO COMPLETE DOSE; CLOSE WHEN FINISHED ) RINSE MOUTH AND SPIT AFTER EACH USE. RESPIR ATORY (INHAL ATION) DISCONT INUED (EDIT) 10/18/2025 [id number] 4 AMYMICHAEL Erin Negron 2023 3 [place] [facility] FLUTICASONE 250MCG/SALM ETEROL 50MCG INHL,ORAL,D ISKUS,60 INHALE 1 INHALATI ON BY ORAL INHALATI ON TWICE A DAY FOR COPD (OPEN DISKUS; CLICK ONLY ONCE; MAY INHALE TWICE TO COMPLETE DOSE; CLOSE WHEN FINISHED ) RINSE MOUTH AND SPIT AFTER EACH USE. RESPIR ATORY (INHAL ATION) ACTIVE 04/16/2026 [id number] 5 LUNDBERG,LAMAR ISTEL G 2024 3 [facility] FLUTICASONE PROPIONATE 50MCG/SPRAY SOLN,NASAL, 16GM INSTILL 1 SPRAY IN NOSTRIL( S) ONCE A DAY FOR ALLERGIE S (MUST BE USED DIRECTED FOR MINIMUM OF 21 DAYS TO PROVIDE ADEQUATE BENEFITS ) NASAL ACTIVE 10/24/2025 [id number] 5 MICHAEL REYES 2024 3 [facility] FLUTICASONE PROPIONATE 50MCG/SPRAY SOLN,NASAL, 16GM INSTILL 1 SPRAY IN NOSTRIL( S) ONCE A DAY FOR ALLERGIE S (MUST BE USED DIRECTED FOR MINIMUM OF 21 DAYS TO PROVIDE ADEQUATE BENEFITS ) NASAL DISCONT INUED 12/19/2024 [id number] 4 MICHAEL REYES 2023 3 [facility] FUROSEMIDE 20MG TAB TAKE ONE TABLET BY MOUTH EVERY MORNING FOR FLUID RETENTIO N (EDEMA) ORAL ACTIVE 12/19/2025 [id number] 5 LAMAR LUNDBERG ISTEL G 2024 90 [facility] FUROSEMIDE 20MG TAB TAKE ONE TABLET BY MOUTH EVERY MORNING FOR FLUID RETENTIO N (EDEMA) ORAL DISCONT INUED 01/09/2025 [id number] LAMAR LUNDBERG ISTEL G 2023 90 [facility] GABAPENTIN 300MG CAP TAKE THREE CAPSULES BY MOUTH THREE TIMES A DAY FOR NERVE PAIN ORAL DISCONT INUED BY PROVIDE R 10/18/2025 [id number] 5 MICHAEL REYES 2023 810 [facility] GABAPENTIN 300MG CAP TAKE TWO CAPSULES BY MOUTH THREE TIMES A DAY FOR PAIN ORAL DISCONT INUED (EDIT) 07/06/2025 [id number] 4 MICHAEL REYES 2023 540 [facility] HYDROCHLORO THIAZIDE 12.5MG/KANDIS NOPRIL 10MG TAB TAKE 1 TABLET BY MOUTH EVERY MORNING FOR HEART OR BLOOD PRESSURE ORAL ACTIVE 07/07/2025 [id number] 5 MICHAEL REYES 2023 90 [facility] HYDROCHLORO THIAZIDE 12.5MG/KANDIS NOPRIL 10MG TAB TAKE 1 TABLET BY MOUTH EVERY MORNING FOR HEART OR BLOOD PRESSURE ORAL DISCONT INUED 06/13/2024 [id number] 4 MICHAEL REYES 2022 90 [facility] HYDROPHILIC (EQV AQUAPHOR) OINT,TOP APPLY LIGHTLY TO AFFECTED AREA(S) ONCE A DAY FOR SKIN CARE (EXTERNA L USE ONLY) TOPICA L ACTIVE 04/16/2026 [id number] TOÑOKR ISTEL G 2024 454 [facility] IPRATROPIUM BR 0.03% SOLN,SPRAY, NASAL USE 1 SPRAY INTO NOSTRIL( S) THREE TIMES A DAY FOR ALLERGIC RHINITIS NASAL ACTIVE 10/18/2025 [id number] 4 MICHAEL REYES 2023 30 [facility] LIDOCAINE 5% OINT,TOP APPLY SPARINGL Y TO AFFECTED AREA(S) THREE TIMES A DAY NEEDED FOR PAIN TOPICA L PROVIDE R HOLD 10/18/2025 [id number] 5 MICHAEL REYES 2023 105 [facility] LIDOCAINE 5% PATCH APPLY 1 PATCH TO SKIN SITE ONCE A DAY NEEDED FOR LOCAL ANESTHES IA APPLY PATCH AND PRESS FIRMLY FOR 10-15 SECONDS. KEEP ON FOR 12 HOURS THEN REMOVE PATCH FOR 12 HOURS. TRANSD ERMAL ACTIVE 05/28/2026 [id number] 5 MICHAEL REYES 2024 30 [facility] MENTHOL/MET HYL SALICYLATE (10-15%) LOW CONC. CREAM,TOP APPLY SPARINGL Y TO AFFECTED AREA(S) THREE TIMES A DAY FOR PAIN (EXTERNA L USE ONLY) TOPICA L ACTIVE 10/18/2025 [id number] 4 MICHAEL REYES 2023 270 [facility] METFORMIN HCL 500MG 24HR TAB,SA TAKE ONE TABLET BY MOUTH ONCE A DAY FOR BLOOD SUGAR CONTROL. TAKE WITH FOOD. AVOID ALCOHOL. DISCONTI NUE BEFORE GETTING XRAY DYE. ORAL ACTIVE 05/16/2026 [id number] MICHAEL REYES 2024 90 [facility] METFORMIN HCL 500MG 24HR TAB,SA TAKE ONE TABLET BY MOUTH ONCE A DAY FOR BLOOD SUGAR CONTROL. TAKE WITH FOOD. AVOID ALCOHOL. DISCONTI NUE BEFORE GETTING XRAY DYE. ORAL DISCONT INUED 01/30/2026 [id number] 5 MICHAEL REYES R 2024 30 [facility] METFORMIN HCL 500MG 24HR TAB,SA TAKE ONE TABLET BY MOUTH ONCE A DAY FOR BLOOD SUGAR CONTROL. TAKE WITH FOOD. AVOID ALCOHOL. DISCONTI NUE BEFORE GETTING XRAY DYE. ORAL DISCONT INUED 01/17/2025 [id number] 5 MICHAEL REYES 2024 30 [facility] METFORMIN HCL 500MG 24HR TAB,SA TAKE ONE TABLET BY MOUTH ONCE A DAY FOR BLOOD SUGAR CONTROL. TAKE WITH FOOD. AVOID ALCOHOL. DISCONTI NUE BEFORE GETTING XRAY DYE. ORAL DISCONT INUED 11/16/2024 [id number] 4 MICHAEL REYES 2023 30 [facility] METFORMIN HCL 500MG 24HR TAB,SA TAKE ONE TABLET BY MOUTH ONCE A DAY FOR BLOOD SUGAR CONTROL. TAKE WITH FOOD. AVOID ALCOHOL. DISCONTI NUE BEFORE GETTING XRAY DYE. ORAL DISCONT INUED 11/14/2024 [id number] 4 MICHAEL REYES 2023 30 [facility] METFORMIN HCL 500MG 24HR TAB,SA TAKE ONE TABLET BY MOUTH ONCE A DAY FOR BLOOD SUGAR CONTROL. TAKE WITH FOOD. AVOID ALCOHOL. DISCONTI NUE BEFORE GETTING XRAY DYE. ORAL DISCONT INUED 10/17/2024 [id number] 4 MICHAEL REYES 2023 30 [facility] METHOCARBAM OL 500MG TAB TAKE 1 TABLET BY MOUTH THREE TIMES A DAY NEEDED FOR MUSCLE SPASM ORAL DISCONT INUED (EDIT) 10/17/2024 [id number] 4 MICHAEL REYES 2022 90 [place] [facility] METHOCARBAM OL 750MG TAB TAKE 2 TABLETS BY MOUTH THREE TIMES A DAY NEEDED FOR MUSCLE SPASM ORAL ACTIVE 06/11/2026 [id number] 5 LUNDBERG,LAMAR ISTEL G 2024 90 [facility] METHOCARBAM OL 750MG TAB TAKE 1 TABLET BY MOUTH THREE TIMES A DAY NEEDED FOR MUSCLE SPASM ORAL DISCONT INUED (EDIT) 04/25/2026 [id number] 5 MICHAEL REYES R [address] [place] [address] [facility] METHOCARBAM OL 750MG TAB TAKE 1 TABLET BY MOUTH THREE TIMES A DAY NEEDED FOR MUSCLE SPASM ORAL DISCONT INUED BY PROVIDE R 05/01/2025 [id number] MICHAEL REYES R [address] [place] [address] [facility] MICONAZOLE NITRATE 2% PWDR,TOP APPLY LIBERALL Y TO AFFECTED AREA(S) THREE TIMES A DAY FOR INFECTIO N. FOR TOPICAL USE ONLY. TOPICA L 01/18/2025 [id number] 4 FLORENTINO ENAMORADO 2023 180 [facility] MONTELUKAST NA 10MG TAB TAKE ONE TABLET BY MOUTH EVERY EVENING FOR ALLERGIC RHINITIS ORAL SUSPEND ED 04/16/2026 [id number] 5 LUNDBERGLAMAR ISTEL G [address] [place] [address] [facility] PANTOPRAZOL E NA 40MG TAB,EC TAKE ONE TABLET BY MOUTH EVERY MORNING BEFORE A MEAL FOR GASTROES OPHAGEAL REFLUX DISEASE TAKE 30 MINUTES BEFORE MEAL(S) ORAL DISCONT INUED BY PROVIDE R 06/07/2025 [id number] 4 MICHAEL REYES R 2023 90 [facility] POTASSIUM CHLORIDE 20MEQ TAB,SA (DISPERSIBL E) TAKE ONE TABLET BY MOUTH EVERY OTHER DAY FOR POTASSIU M SUPPLEME NTATION TAKE WITH FOOD ORAL ACTIVE 10/18/2025 [id number] 5 MICHAEL REYES R 2023 45 [facility] POTASSIUM CHLORIDE 20MEQ TAB,SA (DISPERSIBL E) TAKE ONE TABLET BY MOUTH ONCE A DAY FOR CELSO Handy SUPPLEME NTATION TAKE WITH FOOD ORAL DISCONT INUED (EDIT) 01/09/2025 [id number] 4 LAMAR LUNDBERGMarina G 2023 90 [facility] PREGABALIN 100MG CAP,ORAL TAKE ONE CAPSULE BY MOUTH TWICE A DAY FOR NERVE PAIN *MAY CAUSE DROWSINE SS* ORAL ACTIVE 11/09/2025 [id number] 5 MICHAEL REYES 2024 60 [facility] SILDENAFIL CITRATE 50MG TAB TAKE ONE-HALF TABLET BY MOUTH ONE HOUR PRIOR TO SEXUAL ACTIVITY FOR ERECTILE DYSFUNCT ION NEEDED - LIMIT 6 DOSES PER 30 DAYS ORAL ACTIVE 05/14/2026 [id number] 5 MICHAEL REYES 2024 9 [facility] SIMVASTATIN 80MG TAB TAKE ONE-HALF TABLET BY MOUTH EVERY EVENING TO LOWER CHOLESTE ROL (REPORT ANY MUSCLE PAIN OR WEAKNESS ) THIS TABLET IS TO BE CUT IN HALF FOR YOUR DOSE ORAL ACTIVE 10/16/2025 [id number] MICHAEL REYES 2023 45 [facility] SIMVASTATIN 80MG TAB TAKE ONE-HALF TABLET BY MOUTH EVERY EVENING TO LOWER CHOLESTE ROL (REPORT ANY MUSCLE PAIN OR WEAKNESS ) THIS TABLET IS TO BE CUT IN HALF FOR YOUR DOSE ORAL DISCONT INUED 07/07/2025 [id number] 4 MICHAEL REYES 2023 45 [facility] SIMVASTATIN 80MG TAB TAKE ONE-HALF TABLET BY MOUTH EVERY EVENING TO LOWER CHOLESTE ROL (REPORT ANY MUSCLE PAIN OR WEAKNESS ) THIS TABLET IS TO BE CUT IN HALF FOR YOUR DOSE ORAL DISCONT INUED 06/13/2024 [id number] 4 MICHAEL REYES 2022 45 [facility] TAMSULOSIN HCL 0.4MG CAP TAKE TWO CAPSULES BY MOUTH ONCE A DAY APPROXIM ATELY 30 MINUTES AFTER THE SAME MEAL EACH DAY (FOR PROSTATE ) ORAL ACTIVE 06/11/2026 [id number] 5 MICHAEL REYES 2024 180 [facility] TAMSULOSIN HCL 0.4MG CAP TAKE TWO CAPSULES BY MOUTH ONCE A DAY APPROXIM ATELY 30 MINUTES AFTER THE SAME MEAL EACH DAY (FOR PROSTATE ) ORAL DISCONT INUED 05/26/2025 [id number] 5 MICHAEL REYES R 2023 180 [facility] TRAMADOL HCL 50MG TAB TAKE 2 TABLETS BY MOUTH ONCE A DAY FOR PAIN ORAL SUSPEND ED 12/11/2025 [id number] LAMAR LUNDBERG ISTEMarina G 2024 60 [facility] TRAMADOL HCL 50MG TAB TAKE 1 TABLET BY MOUTH ONCE A DAY NEEDED TO USE FOR SEVERE PAIN ONLY ORAL DISCONT INUED 11/09/2025 [id number] 5 MICHAEL REYES 2024 30 [facility] TRAMADOL HCL 50MG TAB TAKE 2 TABLETS BY MOUTH ONCE A DAY FOR PAIN ORAL DISCONT INUED (EDIT) 12/11/2025 [id number] 5 LAMAR LUNDBERG ISTEL G 2024 90 [facility] Allergies, Adverse Reactions, Alerts Combined list of allergies from Department of Defense and Veterans Affairs facilities. It does not include entries that were removed or entered in error. Substance Category Reaction Severity Reaction type Status Date Reported Comments Source INFLUENZA VACCINE Propensity to adverse reactions to drug (finding) Dizziness, Syncope active 6 [facility] METOPROLOL Propensity to adverse reactions to drug (finding) Swollen ankle region MODERATE active 6 [facility] SHELLFISH Propensity to adverse reactions to food (finding) Anaphylaxis active 1 [facility] Immunizations Combined list of available immunizations from the Department of Defense and Veterans Affairs facilities. Immunization Series Date Given Administered By Site Reaction Lot Number CVX Code Drug Assistant Plant Controller Status Comments Source INFLUENZA, HIGH-DOSE, TRIVALENT, PF 2023 NAKIA MORA LEFT DELTO ID [id number] 135 complet ed [facility] INFLUENZA, HIGH-DOSE, QUADRIVALENT, PF 2 2022 197 complet ed HISTORICA L INFORMATI ON - FROM OTHER REGISTRY, [facility] COVID-19 (MODERNA), MRNA, LNP-S, BIVALENT, PF, 50 MCG/0.5 ML OR 25MCG/0.25 ML DOSE 3 2021 229 complet ed HISTORICA L INFORMATI ON - FROM OTHER REGISTRY, [facility] INFLUENZA VACCINE, QUADRIVALENT, ADJUVANTED 2021 205 complet ed [facility] PNEUMOCOCCAL POLYSACCHARID E PPV23 2 2021 33 complet ed HISTORICA L INFORMATI ON - FROM OTHER REGISTRY, [facility] TDAP 2 2021 115 complet ed HISTORICA L INFORMATI ON - FROM OTHER REGISTRY, [facility] COVID-19 (MODERNA), MRNA, LNP-S, PF, 100 MCG/0.5ML DOSE OR 50 MCG/0.25ML DOSE 2 2021 207 complet ed HISTORICA [facility]I ON - FROM OTHER REGISTRY, [facility] COVID-19 (MODERNA), MRNA, LNP-S, PF, 100 MCG/0.5ML DOSE OR 50 MCG/0.25ML DOSE 1 2020 207 complet ed [facility]FORMATI ON - FROM OTHER REGISTRY, [facility] INFLUENZA, SPLIT VIRUS, TRIVALENT, PRESERVATIVE 1 2020 141 complet ed [facility] INFORMATI ON - FROM OTHER REGISTRY, [facility] COVID-19 (MODERNA), MRNA, LNP-S, PF, 100 MCG OR 50 MCG DOSE [address] [facility] COVID-19 (MODERNA), MRNA, LNP-S, PF, 100 MCG OR 50 MCG DOSE 1 2020 207 complet ed [facility] INFLUENZA, INJECTABLE, QUADRIVALENT, PRESERVATIVE FREE 2019 150 complet ed [facility] INFLUENZA, INJECTABLE, QUADRIVALENT, PRESERVATIVE FREE 2018 150 complet ed [facility] INFLUENZA, INJECTABLE, QUADRIVALENT, PRESERVATIVE FREE 2017 150 complet ed [facility] TDAP 1 2015 115 complet ed HISTORICA L INFORMATI ON - FROM OTHER REGISTRY, [facility] INFLUENZA, SEASONAL, INJECTABLE, PRESERVATIVE FREE 2015 140 complet ed [place] [facility] PNEUMOCOCCAL CONJUGATE PCV 13 1 2015 133 complet ed HISTORICA L INFORMATI ON - FROM OTHER REGISTRY, [facility] INFLUENZA, SEASONAL, INJECTABLE, PRESERVATIVE FREE 2014 140 complet ed [place] [facility] INFLUENZA, SEASONAL, INJECTABLE, PRESERVATIVE FREE 2013 140 complet ed [facility] INFLUENZA, UNSPECIFIED FORMULATION [address] marr office [facility] TDAP [address] [facility] Results Combined list of recent chemistry, hematology and other laboratory results from Department of [employer] and [employer], ranging from 15 months to all on record, depending upon the facility. Order Name Results Value Reference Range Date Interpretation Specimen Comments Source DRUG SCREEN URINE-inh ouse (PB) METHADONE [PRESENCE] IN URINE Negative 05/09 Specimen Type: URINE No comment entered. Ordering Provider: BARBRA REYES Report Released Date/Time: May 09, 2025 03:17 PM Reporting Lab: [place] [facility] [address] [place] [address] Performing Lab: [place] [facility] [address] [place] [address] [facility] DRUG SCREEN URINE-inh ouse (PB) OPIATES [PRESENCE] IN URINE BY SCREEN METHOD Negative 05/09 Specimen Type: URINE No comment entered. Ordering Provider: BARBRA REYES Report Released Date/Time: May 09, 2025 03:17 PM Reporting Lab: [place] [facility] [address] [place] [address] Performing Lab: [place] [facility] [address] [place] [address] [facility] DRUG SCREEN URINE-inh ouse (PB) COCAINE [PRESENCE] IN URINE Negative 05/09 Specimen Type: URINE No comment entered. Ordering Provider: BARBRA REYES Report Released Date/Time: May 09, 2025 03:17 PM Reporting Lab: [place] [facility] [address] [place] [address] Performing Lab: [place] [facility] [address] [place] [address] [facility] DRUG SCREEN URINE-inh ouse (PB) TETRAHYDROC ANNABINOL [PRESENCE] IN URINE BY SCREEN METHOD Negative 05/09 Specimen Type: URINE No comment entered. Ordering Provider: BARBRA REYES Report Released Date/Time: May 09, 2025 03:17 PM Reporting Lab: [place] [facility] [address] [place] [address] Performing Lab: [place] [facility] [address] [place] [address] [facility] DRUG SCREEN URINE-inh ouse (PB) BENZODIAZEP DULCE [PRESENCE] IN URINE BY SCREEN METHOD Negative 05/09 Specimen Type: URINE No comment entered. Ordering Provider: BARBRA REYES Report Released Date/Time: May 09, 2025 03:17 PM Reporting Lab: [place] [facility] [address] [place] [address] Performing Lab: [place] [facility] [address] [place] [address] [facility] DRUG SCREEN URINE-inh ouse (PB) AMPHETAMINE [PRESENCE] IN URINE BY SCREEN METHOD Negative 05/09 Specimen Type: URINE No comment entered. Ordering Provider: BARBRA REYES Report Released Date/Time: May 09, 2025 03:17 PM Reporting Lab: [place] [facility] [address] [place] [address] Performing Lab: [place] [facility] [address] [place] [address] [facility] DRUG SCREEN URINE-inh ouse (PB) CREATININE [MASS/VOLUM E] IN URINE 94.88 mg/dL 05/09 Specimen Type: URINE No comment entered. Ordering Provider: BARBRA REYES Report Released Date/Time: May 09, 2025 03:17 PM Reporting Lab: [place] [facility] [address] [place] [address] Performing Lab: [place] [facility] [address] [place] [address] [facility] DRUG SCREEN URINE-inh ouse (PB) OXYCODONE CUTOFF [MASS/VOLUM E] IN URINE FOR SCREEN METHOD Negative 05/09 Specimen Type: URINE No comment entered. Ordering Provider: BARBRA REYES Report Released Date/Time: May 09, 2025 03:17 PM Reporting Lab: [place] [facility] [address] [place] [address] Performing Lab: [place] [facility] [address] [place] [address] [facility] DRUG SCREEN URINE-inh ouse (PB) BUPRENORPHI NE [PRESENCE] IN URINE Negative ng/mL 05/09 Specimen Type: URINE No comment entered. Ordering Provider: BARBRA REYES Report Released Date/Time: May 09, 2025 03:17 PM Reporting Lab: [place] [facility] [address] [place] [address] Performing Lab: [place] [facility] [address] [place] [address] [facility] DRUG SCREEN URINE-inh ouse (PB) ETHANOL [MASS/VOLUM E] IN URINE <10mg/dL 0 - 20 05/09 L Specimen Type: URINE No comment entered. Ordering Provider: BARBRA REYES Report Released Date/Time: May 09, 2025 03:17 PM Reporting Lab: [place] [facility] [address] [place] [phone] Performing Lab: [place] [facility] [address] [place] [address] [place] [address] [facility] DRUG SCREEN URINE-inh ouse (PB) FENTANYL [PRESENCE] IN URINE Negative ng/mL 05/09 Specimen Type: URINE No comment entered. Ordering Provider: BARBRA REYES Report Released Date/Time: May 09, 2025 03:17 PM Reporting Lab: [place] [facility] [address] [facility] [address] Performing Lab: [place] [facility] [address] [facility] [address] [facility] CYSTATIN C EGFR PANELS (STL-PB-M A) CYSTATIN C [MASS/VOLUM E] IN SERUM OR PLASMA 2.12 mg/L 0.57 - 1.80 10/17 H Specimen Type: PLASMA Comment: Choice of which of the reported eGFR values to use depends on the clinical situation. For example, for patients with severe muscle wasting or reduced muscle mass, eGFR calculated using the 2011 cystatin equation may be preferred. Ordering Provider: BARBRA REYES Report Released Date/Time: Oct 18, 2024 12:49 PM Reporting Lab: [facility] [address] [facility] [address] Performing Lab: [place] [address] [facility] [address] [facility] CYSTATIN C EGFR PANELS (STL-PB-M A) CKD-EPI CYSTATIN C (2011) 26.2 60 10/17 Specimen Type: PLASMA Comment: Choice of which of the reported eGFR values to use depends on the clinical situation. For example, for patients with severe muscle wasting or reduced muscle mass, eGFR calculated using the 2011 cystatin equation may be preferred. Ordering Provider: BARBRA REYES Report Released Date/Time: Oct 18, 2024 12:49 PM Reporting Lab: [facility] [address] [facility] [address] Performing Lab: [facility] [address] [facility] [address] [facility] CYSTATIN C EGFR PANELS (STL-PB-M A) CKD-EPI CREAT-CYSC (2020) 36.7 60 10/17 Specimen Type: PLASMA Comment: Choice of which of the reported eGFR values to use depends on the clinical situation. For example, for patients with severe muscle wasting or reduced muscle mass, eGFR calculated using the 2011 cystatin equation may be preferred. Ordering Provider: BARBRA REYES Report Released Date/Time: Oct 18, 2024 12:49 PM Reporting Lab: [facility] [address] [facility] [address] Performing Lab: [facility] [address] [facility] [address] [place] [address] CYSTATIN C EGFR PANELS (STL-PB-M A) CREATININE [MASS/VOLUM E] IN SERUM OR PLASMA 1.36 mg/dL 0.7 - 1.3 10/17 H Specimen Type: PLASMA Comment: Choice of which of the reported eGFR values to use depends on the clinical situation. For example, for patients with severe muscle wasting or reduced muscle mass, eGFR calculated using the 2012 cystatin equation may be preferred. Ordering Provider: BARBRA REYES Report Released Date/Time: Oct 18, 2024 12:49 PM Reporting Lab: [place] [address] [place] [id number] Performing Lab: [place] [address] [facility] [id number] [place] [address] B12 COBALAMIN (VITAMIN B12) [MASS/VOLUM E] IN SERUM OR PLASMA 429 pg/mL 213 - 816 10/17 Specimen Type: SERUM No comment entered. Ordering Provider: BARBRA REYES Report Released Date/Time: Oct 17, 2024 06:33 AM Reporting Lab: [place] [facility] [address] [place] [facility] [address] Performing Lab: [place] [facility] [address] [place] [address] [facility] CBC LEUKOCYTES [#/VOLUME] IN BLOOD BY AUTOMATED COUNT 11.7 10*3/uL 3.6 - 11.2 10/17 H Specimen Type: BLOOD Comment: MPV Suspect Result. Interpret result with other clinical findings. See PLT Smear Estimate. Ordering Provider: BARBRA REYES Report Released Date/Time: Oct 17, 2024 06:33 AM Reporting Lab: [place] [facility] [address] [place] [address] Performing Lab: [place] [facility] [address] [place] [address] [facility] CBC ERYTHROCYTE S [#/VOLUME] IN BLOOD BY AUTOMATED COUNT 4.60 10*6/uL 4.10 - 5.70 10/17 Specimen Type: BLOOD Comment: MPV Suspect Result. Interpret result with other clinical findings. See PLT Smear Estimate. Ordering Provider: BARBRA REYES Report Released Date/Time: Oct 17, 2024 06:33 AM Reporting Lab: [place] [facility] [address] [place] [address] Performing Lab: [place] [facility] [address] [place] [address] [facility] CBC HEMOGLOBIN [MASS/VOLUM E] IN BLOOD 13.1 g/dL 13.1 - 16.8 10/17 Specimen Type: BLOOD Comment: MPV Suspect Result. Interpret result with other clinical findings. See PLT Smear Estimate. Ordering Provider: BARBAR REYES Report Released Date/Time: Oct 17, 2024 06:33 AM Reporting Lab: [place] [facility] [address] [place] [phone] Performing Lab: [place] [facility] [address] [place] [address] [facility] CBC HEMATOCRIT [VOLUME FRACTION] OF BLOOD 42.5 38.2 - 48.4 10/17 Specimen Type: BLOOD Comment: MPV Suspect Result. Interpret result with other clinical findings. See PLT Smear Estimate. Ordering Provider: BARBRA REYES Report Released Date/Time: Oct 17, 2024 06:33 AM Reporting Lab: [place] [facility] [address] [place] [address] Performing Lab: [place] [facility] [address] [place] [phone] [facility] CBC MCV [ENTITIC VOLUME] BY AUTOMATED COUNT 92.4 fL 80.0 - 100.0 10/17 Specimen Type: BLOOD Comment: MPV Suspect Result. Interpret result with other clinical findings. See PLT Smear Estimate. Ordering Provider: BARBRA REYES Report Released Date/Time: Oct 17, 2024 06:33 AM Reporting Lab: [place] [facility] [address] [place] [address] Performing Lab: [place] [facility] [address] [place] [address] [facility] CBC MCH [ENTITIC MASS] BY AUTOMATED COUNT 28.5 pg 27.0 - 34.0 10/17 Specimen Type: BLOOD Comment: MPV Suspect Result. Interpret result with other clinical findings. See PLT Smear Estimate. Ordering Provider: BARBRA REYES Report Released Date/Time: Oct 17, 2024 06:33 AM Reporting Lab: [place] [facility] [address] [place] [address] Performing Lab: [place] [facility] [address] [place] [phone] [facility] CBC MCHC [MASS/VOLUM E] BY AUTOMATED COUNT 30.8 g/dL 33.0 - 36.0 10/17 L Specimen Type: BLOOD Comment: MPV Suspect Result. Interpret result with other clinical findings. See PLT Smear Estimate. Ordering Provider: BARBRA REYES Report Released Date/Time: Oct 17, 2024 06:33 AM Reporting Lab: [place] [facility] [address] [place] [address] Performing Lab: [place] [facility] [address] [place] [id number] [facility] CBC PLATELETS [#/VOLUME] IN BLOOD BY AUTOMATED COUNT 169 10*3/uL 150 - 400 10/17 Specimen Type: BLOOD Comment: MPV Suspect Result. Interpret result with other clinical findings. See PLT Smear Estimate. Ordering Provider: BARBRA REYES Report Released Date/Time: Oct 17, 2024 06:33 AM Reporting Lab: [place] [facility] [address] [place] [address] Performing Lab: [place] [facility] [address] [place] [address] [facility] CBC PLATELET MEAN VOLUME [ENTITIC VOLUME] IN BLOOD BY AUTOMATED COUNT >13.0fL 7.5 - 11.2 10/17 H Specimen Type: BLOOD Comment: MPV Suspect Result. Interpret result with other clinical findings. See PLT Smear Estimate. Ordering Provider: BARBRA REYES Report Released Date/Time: Oct 17, 2024 06:33 AM Reporting Lab: [place] [facility] [address] [place] [address] Performing Lab: [place] [facility] [address] [place] [address] [facility] CBC ERYTHROCYTE DISTRIBUTIO N WIDTH [RATIO] BY AUTOMATED COUNT 16.9 11.8 - 15.1 10/17 H Specimen Type: BLOOD Comment: MPV Suspect Result. Interpret result with other clinical findings. See PLT Smear Estimate. Ordering Provider: BARBRA REYES Report Released Date/Time: Oct 17, 2024 06:33 AM Reporting Lab: [place] [facility] [address] [place] [address] Performing Lab: [place] [facility] [address] [place] [address] [facility] CBC LYMPHOCYTES /100 LEUKOCYTES IN BLOOD BY AUTOMATED COUNT 15.0 10/17 Specimen Type: BLOOD Comment: MPV Suspect Result. Interpret result with other clinical findings. See PLT Smear Estimate. Ordering Provider: BARBRA REYES Report Released Date/Time: Oct 17, 2024 06:33 AM Reporting Lab: [place] [facility] [address] [place] [address] Performing Lab: [place] [facility] [address] [place] [address] [facility] CBC MONOCYTES/1 00 LEUKOCYTES IN BLOOD BY AUTOMATED COUNT 5.9 10/17 Specimen Type: BLOOD Comment: MPV Suspect Result. Interpret result with other clinical findings. See PLT Smear Estimate. Ordering Provider: BARBRA REYES Report Released Date/Time: Oct 17, 2024 06:33 AM Reporting Lab: [place] [facility] [address] [place] [address] Performing Lab: [place] [facility] [address] [place] [address] [facility] CBC NEUTROPHILS /100 LEUKOCYTES IN BLOOD BY AUTOMATED COUNT 75.7 10/17 Specimen Type: BLOOD Comment: MPV Suspect Result. Interpret result with other clinical findings. See PLT Smear Estimate. Ordering Provider: BARBRA REYES Report Released Date/Time: Oct 17, 2024 06:33 AM Reporting Lab: [place] [facility] [address] [place] [address] Performing Lab: [place] [facility] [address] [place] [address] [facility] CBC EOSINOPHILS /100 LEUKOCYTES IN BLOOD BY AUTOMATED COUNT 2.7 10/17 Specimen Type: BLOOD Comment: MPV Suspect Result. Interpret result with other clinical findings. See PLT Smear Estimate. Ordering Provider: BARBRA REYES Report Released Date/Time: Oct 17, 2024 06:33 AM Reporting Lab: [place] [facility] [address] [place] [address] Performing Lab: [place] [facility] [address] [place] [address] [facility] CBC BASOPHILS/1 00 LEUKOCYTES IN BLOOD BY AUTOMATED COUNT 0.4 10/17 Specimen Type: BLOOD Comment: MPV Suspect Result. Interpret result with other clinical findings. See PLT Smear Estimate. Ordering Provider: BARBRA REYES Report Released Date/Time: Oct 17, 2024 06:33 AM Reporting Lab: [place] [facility] [address] [place] [address] Performing Lab: [place] [facility] [address] [place] [address] [facility] CBC LYMPHOCYTES [#/VOLUME] IN BLOOD BY AUTOMATED COUNT 1.75 10*3/uL 0.77 - 4.50 10/17 Specimen Type: BLOOD Comment: MPV Suspect Result. Interpret result with other clinical findings. See PLT Smear Estimate. Ordering Provider: BARBRA REYES Report Released Date/Time: Oct 17, 2024 06:33 AM Reporting Lab: [place] [facility] [address] [place] [address] Performing Lab: [place] [facility] [address] [place] [address] [facility] CBC MONOCYTES [#/VOLUME] IN BLOOD BY AUTOMATED COUNT 0.69 10*3/uL 0.19 - 0.8 10/17 Specimen Type: BLOOD Comment: MPV Suspect Result. Interpret result with other clinical findings. See PLT Smear Estimate. Ordering Provider: BARBRA REYES Report Released Date/Time: Oct 17, 2024 06:33 AM Reporting Lab: [place] [facility] [address] [place] [address] Performing Lab: [place] [facility] [address] [place] [address] [facility] CBC NEUTROPHILS [#/VOLUME] IN BLOOD BY AUTOMATED COUNT 8.85 10*3/uL 2.10 - 8.00 10/17 H Specimen Type: BLOOD Comment: MPV Suspect Result. Interpret result with other clinical findings. See PLT Smear Estimate. Ordering Provider: BARBRA REYES Report Released Date/Time: Oct 17, 2024 06:33 AM Reporting Lab: [place] [facility] [address] [place] [address] Performing Lab: [place] [facility] [address] [place] [address] [facility] CBC EOSINOPHILS [#/VOLUME] IN BLOOD BY AUTOMATED COUNT 0.32 10*3/uL 0.00 - 0.60 10/17 Specimen Type: BLOOD Comment: MPV Suspect Result. Interpret result with other clinical findings. See PLT Smear Estimate. Ordering Provider: ABRBRA REYES Report Released Date/Time: Oct 17, 2024 06:33 AM Reporting Lab: [place] [facility] [address] [place] [phone] Performing Lab: [place] [facility] [address] [place] [address] [facility] CBC BASOPHILS [#/VOLUME] IN BLOOD BY AUTOMATED COUNT 0.05 10*3/uL 0.00 - 0.20 10/17 Specimen Type: BLOOD Comment: MPV Suspect Result. Interpret result with other clinical findings. See PLT Smear Estimate. Ordering Provider: BARBRA REYES Report Released Date/Time: Oct 17, 2024 06:33 AM Reporting Lab: [place] [facility] [address] [place] [address] Performing Lab: [place] [facility] [address] [place] [address] [facility] CBC PLATELETS RETICULATED /100 PLATELETS IN BLOOD BY AUTOMATED COUNT 16.2 1.0 - 7.0 10/17 H Specimen Type: BLOOD Comment: MPV Suspect Result. Interpret result with other clinical findings. See PLT Smear Estimate. Ordering Provider: BARBRA REYES Report Released Date/Time: Oct 17, 2024 06:33 AM Reporting Lab: [place] [facility] [address] [place] [phone] Performing Lab: [place] [facility] [address] [place] [address] [facility] CBC IMMATURE GRANULOCYTE S/100 LEUKOCYTES IN BLOOD BY AUTOMATED COUNT 0.3 10/17 Specimen Type: BLOOD Comment: MPV Suspect Result. Interpret result with other clinical findings. See PLT Smear Estimate. Ordering Provider: BARBRA REYES Report Released Date/Time: Oct 17, 2024 06:33 AM Reporting Lab: [place] [facility] [address] [place] [phone] Performing Lab: [place] [facility] [address] [place] [address] [facility] CBC IMMATURE GRANULOCYTE S [#/VOLUME] IN BLOOD BY AUTOMATED COUNT 0.04 10*3/uL 0.00 - 0.05 10/17 Specimen Type: BLOOD Comment: MPV Suspect Result. Interpret result with other clinical findings. See PLT Smear Estimate. Ordering Provider: BARBRA REYES Report Released Date/Time: Oct 17, 2024 06:33 AM Reporting Lab: [place] [facility] [address] [place] [phone] Performing Lab: [place] [facility] [address] [place] [address] [facility] CHOLESTER OL PANEL (PB) CHOLESTEROL [MASS/VOLUM E] IN SERUM OR PLASMA 130 mg/dL 0 - 200 10/17 Specimen Type: PLASMA No comment entered. Ordering Provider: BARBRA REYES Report Released Date/Time: Oct 17, 2024 06:33 AM Reporting Lab: [place] [facility] [address] [place] [address] Performing Lab: [place] [facility] [address] [place] [address] [facility] CHOLESTER OL PANEL (PB) TRIGLYCERID E [MASS/VOLUM E] IN SERUM OR PLASMA 144 mg/dL 0 - 150 10/17 Specimen Type: PLASMA No comment entered. Ordering Provider: BARBRA REYES Report Released Date/Time: Oct 17, 2024 06:33 AM Reporting Lab: [place] [facility] [address] [place] [address] Performing Lab: [place] [facility] [address] [place] [address] [facility] CHOLESTER OL PANEL (PB) CHOLESTEROL IN LDL [MASS/VOLUM E] IN SERUM OR PLASMA BY CALCULATION 67.2 mg/dL 10/17 Specimen Type: PLASMA No comment entered. Ordering Provider: BARBRA REYES Report Released Date/Time: Oct 17, 2024 06:33 AM Reporting Lab: [place] [facility] [address] [place] [address] Performing Lab: [place] [facility] [address] [place] [id number] [facility] CHOLESTER OL PANEL (PB) CHOLESTEROL IN HDL [MASS/VOLUM E] IN SERUM OR PLASMA 34.0 mg/dL 40 10/17 L Specimen Type: PLASMA No comment entered. Ordering Provider: BARBRA REYES Report Released Date/Time: Oct 17, 2024 06:33 AM Reporting Lab: [place] [facility] [address] [place] [address] Performing Lab: [place] [facility] [address] [place] [address] [facility] CHOLESTER OL PANEL (PB) CHOLESTEROL IN HDL/CHOLEST CORNELIUS.TOTAL [MASS RATIO] IN SERUM OR PLASMA 26.2 25 10/17 Specimen Type: PLASMA No comment entered. Ordering Provider: BARBRA REYES Report Released Date/Time: Oct 17, 2024 06:33 AM Reporting Lab: [place] [facility] [address] [place] [address] Performing Lab: [place] [facility] [address] [place] [address] [facility] COMPREHEN SIVE METABOLIC PANEL CREATININE [MASS/VOLUM E] IN SERUM OR PLASMA 1.42 mg/dL 0.7 - 1.3 10/17 H Specimen Type: PLASMA No comment entered. Ordering Provider: BARBRA REYES Report Released Date/Time: Oct 17, 2024 06:33 AM Reporting Lab: [place] [facility] [address] [place] [address] Performing Lab: [place] [facility] [address] [place] [address] [facility] COMPREHEN SIVE METABOLIC PANEL UREA NITROGEN [MASS/VOLUM E] IN SERUM OR PLASMA 38 mg/dL 9 - 25 10/17 H Specimen Type: PLASMA No comment entered. Ordering Provider: BARBRA REYES Report Released Date/Time: Oct 17, 2024 06:33 AM Reporting Lab: [place] [facility] [address] [place] [id number] Performing Lab: [place] [facility] [address] [place] [address] [facility] COMPREHEN SIVE METABOLIC PANEL GLUCOSE [MASS/VOLUM E] IN SERUM OR PLASMA 151 mg/dL 72 - 99 10/17 H Specimen Type: PLASMA No comment entered. Ordering Provider: BARBRA REYES Report Released Date/Time: Oct 17, 2024 06:33 AM Reporting Lab: [place] [facility] [address] [place] [id number] Performing Lab: [place] [facility] [address] [place] [address] [facility] COMPREHEN SIVE METABOLIC PANEL SODIUM [MOLES/VOLU ME] IN SERUM OR PLASMA 139 meq/L 136 - 145 10/17 Specimen Type: PLASMA No comment entered. Ordering Provider: BARBRA REYES Report Released Date/Time: Oct 17, 2024 06:33 AM Reporting Lab: [place] [facility] [address] [place] [address] Performing Lab: [place] [facility] [address] [place] [address] [facility] COMPREHEN SIVE METABOLIC PANEL POTASSIUM [MOLES/VOLU ME] IN SERUM OR PLASMA 4.4 meq/L 3.5 - 5 10/17 Specimen Type: PLASMA No comment entered. Ordering Provider: BARBRA REYES Report Released Date/Time: Oct 17, 2024 06:33 AM Reporting Lab: [place] [facility] [address] [place] [address] Performing Lab: [place] [facility] [address] [place] [address] [facility] COMPREHEN SIVE METABOLIC PANEL CHLORIDE [MOLES/VOLU ME] IN SERUM OR PLASMA 105 meq/L 98 - 107 10/17 Specimen Type: PLASMA No comment entered. Ordering Provider: BARBRA REYES Report Released Date/Time: Oct 17, 2024 06:33 AM Reporting Lab: [place] [facility] [address] [place] [address] Performing Lab: [place] [facility] [address] [place] [address] [facility] COMPREHEN SIVE METABOLIC PANEL CARBON DIOXIDE, TOTAL [MOLES/VOLU ME] IN SERUM OR PLASMA 24 meq/L 22 - 31 10/17 Specimen Type: PLASMA No comment entered. Ordering Provider: BARBRA REYES Report Released Date/Time: Oct 17, 2024 06:33 AM Reporting Lab: [place] [facility] [address] [place] [address] Performing Lab: [place] [facility] [address] [place] [address] [facility] COMPREHEN SIVE METABOLIC PANEL CALCIUM [MASS/VOLUM E] IN SERUM OR PLASMA 9.0 mg/dL 8.4 - 10.4 10/17 Specimen Type: PLASMA No comment entered. Ordering Provider: BARBRA REYES Report Released Date/Time: Oct 17, 2024 06:33 AM Reporting Lab: [place] [facility] [address] [place] [address] Performing Lab: [place] [facility] [address] [place] [address] [facility] COMPREHEN SIVE METABOLIC PANEL PROTEIN [MASS/VOLUM E] IN SERUM OR PLASMA 6.8 g/dL 6 - 8.6 10/17 Specimen Type: PLASMA No comment entered. Ordering Provider: BARBRA REYES Report Released Date/Time: Oct 17, 2024 06:33 AM Reporting Lab: [place] [facility] [address] [place] [address] Performing Lab: [place] [facility] [address] [place] [address] [facility] COMPREHEN SIVE METABOLIC PANEL ALBUMIN [MASS/VOLUM E] IN SERUM OR PLASMA 4.0 g/dL 3.4 - 5 10/17 Specimen Type: PLASMA No comment entered. Ordering Provider: BARBRA REYES Report Released Date/Time: Oct 17, 2024 06:33 AM Reporting Lab: [place] [facility] [address] [place] [address] Performing Lab: [place] [facility] [address] [place] [address] [facility] COMPREHEN SIVE METABOLIC PANEL BILIRUBIN.T OTAL [MASS/VOLUM E] IN SERUM OR PLASMA 0.4 mg/dL 0.2 - 1.2 10/17 Specimen Type: PLASMA No comment entered. Ordering Provider: BARBRA REYES Report Released Date/Time: Oct 17, 2024 06:33 AM Reporting Lab: [place] [facility] [address] [place] [address] Performing Lab: [place] [facility] [address] [place] [address] [facility] COMPREHEN SIVE METABOLIC PANEL ALKALINE PHOSPHATASE [ENZYMATIC ACTIVITY/VO LUME] IN SERUM OR PLASMA 64 U/L 40 - 150 10/17 Specimen Type: PLASMA No comment entered. Ordering Provider: BARBRA REYES Report Released Date/Time: Oct 17, 2024 06:33 AM Reporting Lab: [place] [facility] [address] [place] [address] Performing Lab: [place] [facility] [address] [place] [address] [facility] COMPREHEN SIVE METABOLIC PANEL ASPARTATE AMINOTRANSF ERASE [ENZYMATIC ACTIVITY/VO LUME] IN SERUM OR PLASMA 19 U/L 5 - 34 10/17 Specimen Type: PLASMA No comment entered. Ordering Provider: BARBRA REYES Report Released Date/Time: Oct 17, 2024 06:33 AM Reporting Lab: [place] [facility] [address] [place] [address] Performing Lab: [place] [facility] [address] [place] [address] [facility] COMPREHEN SIVE METABOLIC PANEL ALANINE AMINOTRANSF ERASE [ENZYMATIC ACTIVITY/VO LUME] IN SERUM OR PLASMA 21 U/L 8 - 40 10/17 Specimen Type: PLASMA No comment entered. Ordering Provider: BARBRA REYES Report Released Date/Time: Oct 17, 2024 06:33 AM Reporting Lab: [place] [facility] [address] [place] [address] Performing Lab: [place] [facility] [address] [place] [address] [facility] COMPREHEN SIVE METABOLIC PANEL GLOMERULAR FILTRATION RATE/1.73 SQ M.PREDICTED [VOLUME RATE/AREA] IN SERUM, PLASMA OR BLOOD BY CREATININE- BASED FORMULA (CKD-EPI 2020) 49 10/17 Specimen Type: PLASMA No comment entered. Ordering Provider: BARBRA REYES Report Released Date/Time: Oct 17, 2024 06:33 AM Reporting Lab: [place] [facility] [address] [place] [address] Performing Lab: [place] [facility] [address] [place] [address] [facility] HGA1C HEMOGLOBIN A1C/HEMOGLO BIN.TOTAL IN BLOOD 6.8 4.0 - 6.0 10/17 H Specimen Type: BLOOD No comment entered. Ordering Provider: BARBRA REYES Report Released Date/Time: Oct 17, 2024 06:33 AM Reporting Lab: [place] [facility] [address] [place] [address] Performing Lab: [place] [facility] [address] [place] [address] [facility] TSH (MA-PB) THYROTROPIN [UNITS/VOLU ME] IN SERUM OR PLASMA 0.909 u[IU]/mL 0.47 - 5 10/17 Specimen Type: SERUM No comment entered. Ordering Provider: BARBRA REYES Report Released Date/Time: Oct 17, 2024 06:33 AM Reporting Lab: [place] [facility] [address] [place] [address] Performing Lab: [place] [facility] [address] [place] [address] [facility] URIC ACID URATE [MASS/VOLUM E] IN SERUM OR PLASMA 8.4 mg/dL 3.5 - 7.2 10/17 H Specimen Type: PLASMA No comment entered. Ordering Provider: BARBRA REYES Report Released Date/Time: Oct 17, 2024 06:33 AM Reporting Lab: [place] [facility] [address] [place] [address] Performing Lab: [place] [facility] [address] [place] [address] [facility] VITAMIN D, 25-HYDROX Y 25-HYDROXYV ITAMIN D3 [MASS/VOLUM E] IN SERUM OR PLASMA 100.4 ng/mL 30 - 96 10/17 H Specimen Type: SERUM No comment entered. Ordering Provider: BARBRA REYES Report Released Date/Time: Oct 17, 2024 06:33 AM Reporting Lab: [place] [facility] [address] [place] [address] Performing Lab: [place] [facility] [address] [place] [id number] [facility] Vital Signs Combined list of inpatient and outpatient Vital Signs from Department of Defense and Veterans Affairs, ranging from 12 months to all on record, depending upon the facility. Vital Sign Value Date Comments Source SYSTOLIC BLOOD PRESSURE 117 06/10/2025 10:52:00 [place] [facility] DIASTOLIC BLOOD PRESSURE 71 06/10/2025 10:52:00 [facility] [place] [facility] TEMPERATURE 97.9 06/10/2025 10:52:00 [place] [facility] PULSE 74 06/10/2025 10:52:00 [place] [facility] SYSTOLIC BLOOD PRESSURE 115 06/05/2025 10:09:00 [facility] [place] [facility] DIASTOLIC BLOOD PRESSURE 66 06/05/2025 10:09:00 [place] [facility] PULSE OXIMETRY 93 % 06/05/2025 10:09:00 [facility] [place] [facility] WEIGHT 227.0 06/05/2025 10:09:00 [place] [facility] BMI 33 kg/m2 06/05/2025 10:09:00 [place] [facility] PAIN 5 06/05/2025 10:09:00 [place] [facility] TEMPERATURE 97.8 06/05/2025 10:09:00 [place] [facility] PULSE 67 06/05/2025 10:09:00 [place] [facility] RESPIRATION 18 06/05/2025 10:09:00 [place] [facility] SYSTOLIC BLOOD PRESSURE 128 05/24/2025 15:40:00 [place] [facility] DIASTOLIC BLOOD PRESSURE 61 05/24/2025 15:40:00 [place] [facility] TEMPERATURE 97.5 05/24/2025 15:40:00 [place] [facility] PULSE 66 05/24/2025 15:40:00 [place] [facility] SYSTOLIC BLOOD PRESSURE 94 05/09/2025 13:59:46 [place] [facility] DIASTOLIC BLOOD PRESSURE 60 05/09/2025 13:59:46 [place] [facility] PULSE OXIMETRY 94 05/09/2025 13:59:46 [facility] [place] [facility] WEIGHT 223.1 05/09/2025 13:59:46 [place] [facility] BMI 32 kg/m2 05/09/2025 13:59:46 [place] [facility] TEMPERATURE 97.5 05/09/2025 13:59:46 [place] [facility] PULSE 110 05/09/2025 13:59:46 [place] [facility] RESPIRATION 22 05/09/2025 13:59:46 [place] [facility] SYSTOLIC BLOOD PRESSURE 96 05/07/2025 12:17:25 [place] [facility] DIASTOLIC BLOOD PRESSURE 56 05/07/2025 12:17:25 [facility] PULSE OXIMETRY 95 05/07/2025 12:17:25 [facility] [place] [facility] WEIGHT 221.7 05/07/2025 12:17:25 [place] [facility] BMI 32 kg/m2 05/07/2025 12:17:25 [place] [facility] TEMPERATURE 98.5 05/07/2025 12:17:25 [place] [facility] PULSE 88 05/07/2025 12:17:25 [facility] RESPIRATION 18 05/07/2025 12:17:25 [facility] Encounters Combined list of: 1) Encounters from Department of Veterans Affairs facilities going backup to the last 18 months, not all VA inpatient encounters are included; 2) Encounters from the Department of Defense facilities going backup to 280 months. Location Location Details Encounter Type Encounter Number Reason For Visit Attending Provider ADM Date DC Date Status Disposition Source [facility] OFF/OP EST MARCH X REQ PHY/QHP [id number] Diagnos is: ICD-10- CM M79.644 Pain in right finger( s) CUSTRED,TO RRI J 12/22 [facility] Outpatient Encounter [id number] 01/02 [facility] OFF/OP EST MARCH X REQ PHY/QHP [id number] Diagnos is: ICD-10- CM R60.0 Localiz ed edema CUSTRED,TO RRI J 01/02 [facility] OFFICE O/P EST MOD 30 MIN [id number] Diagnos is: ICD-10- CM R60.0 Localiz ed edema SAM LUNDBERG G 01/02 [facility] OFF/OP EST MAY X REQ PHY/QHP [id number] Diagnos is: ICD-10- CM R60.9 Edema, unspeci fied MORA,AN VANDANA D 01/03 [facility] OFFICE O/P EST MOD 30 MIN [id number] Diagnos is: ICD-10- CM J44.9 Chronic obstruc tive pulmona ry disease , unspeci fied SAM LUNDBERG G 01/03 [facility] Outpatient Encounter [id number] ALLIE,AP RIL L 01/03 [facility] OFF/OP EST MAY X REQ PHY/QHP [id number] Diagnos is: ICD-10- CM R60.9 Edema, unspeci fied CUSTRED,TO RRI J 01/09 [facility] Outpatient Encounter [id number] 01/17 [facility] [place] [facility] Outpatient Encounter [id number] EFRAIN,TIN A F 01/18 [place] [facility] OFF/OP EST MAY X REQ PHY/QHP [id number] Diagnos is: ICD-10- CM N49.2 Inflamm atory disorde rs of scrotum MORA,AN VANDANA D 01/20 [facility] OFFICE O/P EST MOD 30 MIN [id number] Diagnos is: ICD-10- CM R21 Rash and other nonspec ific skin eruptio n SAM LUNDBERG G 01/20 [facility] OFF/OP EST MAY X REQ PHY/QHP [id number] Diagnos is: ICD-10- CM R60.0 Localiz ed edema MORA,AN VANDANA D 01/23 [facility] Outpatient Encounter [id number] [facility] OFF/OP EST MAY X REQ PHY/QHP [id number] Diagnos is: ICD-10- CM Z01.30 Encount er for exam of blood pressur e w/o abnorma l finding s CUSTRED,TO RRI J 02/01 [facility] Outpatient Encounter [id number] 02/02 [facility] Out[facility] Encounter [id number] 02/06 [facility] [place] [facility] Outpatient Encounter [id number] 02/14 [place] [facility] Outpatient Encounter [id number] 02/16 [facility] Outpatient Encounter [id number] 02/20 [facility] [place] [facility] Outpatient Encounter [id number] 02/20 [place] [facility] EST MAY X REQ PHY/QHP [id number] Diagnos is: ICD-10- CM M79.674 Pain in right toe(s) CUSTRED,TO RRI J 02/27 [facility] Outpatient Encounter [id number] CUSTRED,TO I J 02/27 [facility] OFFICE O/P EST LOW 20 MIN [id number] Diagnos is: ICD-10- CM M10.9 Gout, unspeci fied SAM LUNDBERG G 02/27 [facility] Outpatient Encounter [id number] 03/07 [facility] Outpatient Encounter [id number] 03/09 [facility] EST MAY X REQ PHY/QHP [id number] Diagnos is: ICD-10- CM B07.9 Viral wart, unspeci fied TANESHA JOHN 04/17 [facility] OFF/OP EST MAY X REQ PHY/QHP [id number] Diagnos is: ICD-10- CM M54.50 Low back pain, unspeci fied CUSTRED,TO RRI J 04/30 [facility] Outpatient Encounter [id number] 05/02 [facility] En[facility] [id number] HEENA KELLEY 05/02 [facility] JENNIFER MARCOS [facility] Outpatient Encounter [id number] TRUDY COOPER 05/07 DEBORAHErin AGNES AR [facility] Outpatient Encounter [id number] 05/08 [facility]OP EST MARCH X REQ PHY/QHP [id number] Diagnos is: ICD-10- CM L98.9 Disorde r of the skin and subcuta neous tissue, unspeci fied [facility]ING 05[facility]09 [facility] OFF/OP EST MARCH X REQ PHY/QHP [id number] Diagnos is: ICD-10- CM R06.00 Dyspnea , unspeci fied CUSTRED,TO RRI J 05/17 [facility] OFF/OP EST MARCH X REQ PHY/QHP [id number] Diagnos is: ICD-10- CM R51.9 Headach e, unspeci fied CUSTRED,TO RRI J 05/23 [facility] OFF/OP EST MARCH X REQ PHY/QHP [id number] Diagnos is: ICD-10- CM M54.50 Low back pain, unspeci fied CUSTRED,TO RRI J 05/30 [facility] OFFICE O/P NEW LOW 30 MIN [id number] [id number] Diagnos is: ICD-10- CM M54.16 Radicul opathy, lumbar region SOULEYMANE CERDA 06/25 [facility] Outpatient Encounter [id number] 07/25 [facility]J 3-4 [place] [id number] Diagnos is: ICD-10- CM M54.59 Other low back pain SOULEYMANE CERDA ASE TALIB 07/27 [facility] Outpatient Encounter [id number] 08/02 [facility] Outpatient Encounter [id number] 08/03 [facility] MANJ 3-4 [place] [id number] Diagnos is: ICD-10- CM M54.59 Other low back pain SOULEYMANE CERDA ASE TALIB 08/10 [facility] Outpatient Encounter [id number] 08[facility]21 [facility] X REQ PHY/QHP [id number] Diagnos is: ICD-10- CM M79.604 Pain in right leg CUSTRED,TO RRI J 08/22 [facility] Outpatient Encounter [id number] BARBRA REYES 08/25 [facility] Outpatient Encounter [id number] 08/27 [facility] OFF[facility]OP EST MAY X REQ PHY/QHP [id number] Diagnos is: ICD-10- CM L72.3 Sebaceo us cyst CUSTRED,TO RRI J 08/30 [facility] [place] [facility] Outpatient Encounter [id number] 09/03 [place] [facility] OFF/OP EST MAY X REQ PHY/QHP [id number] Diagnos is: ICD-10- CM L72.3 Sebaceo us cyst CUSTRED,TO RRI J 09/07 [facility] OFFICE O/P EST SF 10 MIN [id number] Diagnos is: ICD-10- CM L02.212 Cutaneo us abscess of back [any part, except buttock ] Paige ENAMORADO 09/07 [facility] Outpatient Encounter [id number] 09/07 [facility] REQ PHY/QHP [id number] Diagnos is: ICD-10- CM L08.9 Local infecti on of the skin and subcuta neous tissue, unsp MORA,AN VANDANA D 09/11 [facility] OFFICE O/P EST MOD 30 MIN [id number] Diagnos is: ICD-10- CM L08.9 Local infecti on of the skin and subcuta neous tissue, unsp SAM LUNDBERG G 09/11 [facility]ER [facility] Outpatient Encounter [id number] 09/13 NICA ALARCON [facility] Outpatient Encounter [id number] 09/13 [facility] OFF/OP EST MARCH X REQ PHY/QHP [id number] Diagnos is: ICD-10- CM Z23 Encount er for immuniz ation MORA,AN VANDANA D 09[facility]13 [facility] MOD 30 MIN [id number] Diagnos is: ICD-10- CM Z00.01 Encount er for general adult medical exam w abnorma l finding s BARBRA REYES R 10/17 [facility] FEE [id number] Diagnos is: ICD-10- CM Z00.01 Encount er for general adult medical exam w abnorma l finding s BARBRA REYES R 10/17 [facility] FUNDUS PHOTOGRAPH Y W/I&R [id number] Diagnos is: ICD-10- CM Z13.5 Encount er for screeni ng for eye and ear disorde rs ROSARI RENETTA M 10/17 [facility] [place] [facility] IMG RTA DETC/MNTR DS PHY/QHP [id number] [id number] Diagnos is: ICD-10- CM Z13.5 Encount er for screeni ng for eye and ear disorde rs JITENDRA MILTON N 10/17 [place] [facility] Outpatient Encounter [id number]18 [facility] Outpatient Encounter [id number] 10/26 [facility] Out[facility] Encounter [id number] 10/29 [facility] Outpatient Encounter [id number] 11/22 [facility] Outpatient Encounter [id number] 12/17 [facility] [place] [facility] Outpatient Encounter [id number] 01/14 [place] [facility] Outpatient Encounter [id number] 01/16 [facility] [place] [facility] Outpatient Encounter [id number] 01/29 [place] [facility] CHIROPRACT MANJ XTRSPINL 1/> [id number] Diagnos is: ICD-10- CM M54.59 Other low back pain SOULEYMANE CERDA ASE TALIB 04/05 [facility] OFF/OP EST MARCH X REQ PHY/QHP [id number] Diagnos is: ICD-10- CM J01.90 Acute sinusit is, unspeci fied CUSTRED,TO RRI J 04/15 [facility] OFFICE O/P EST MOD 30 MIN [id number] Diagnos is: ICD-10- CM J01.10 Acute frontal sinusit is, unspeci fied SAM LUNDBERG G 04/15 [facility] OFF/OP EST MARCH X REQ PHY/QHP [id number] 119 Diagnos is: ICD-10- CM M54.50 Low back pain, unspeci fied MORA,AN VANDANA D 04/19 [facility] OFFICE O/P EST MOD 30 MIN [id number] Diagnos is: ICD-10- CM M54.17 Radicul opathy, lumbosa cral region SAM LUNDBERG G 04[facility]19 [facility]/O NJX 1 OR 2 [facility] [id number] 395 Diagnos is: ICD-10- CM M54.50 Low back pain, unspeci fied BERNIE,NICOLE CHRISTIANO A 04/19 [facility] Outpatient Encounter [id number] 04/23 [facility] [place] [facility] Outpatient Encounter [id number] [id number] 04/23 [place] [facility] Outpatient Encounter [id number] HEENA KELLEY RIL L 04/23 [facility] [place] [facility] Outpatient Encounter [id number] [id number] 04/24 [place] [facility] [place] [facility] Outpatient Encounter [id number] 04/24 [place] [facility] Outpatient Encounter [id number] LINDSEY PARIKH IE L 04/25 [facility] Outpatient Encounter [id number] [id number] 04/25 [facility] OFF/OP EST MAY X REQ PHY/QHP 20680-0.65 [id number] Diagnos is: ICD-10- CM M54.50 Low back pain, unspeci fied BERNARDO RENTERIA R 05/02 [facility] OFFICE O/P EST LOW 20 MIN [id number] Diagnos is: ICD-10- CM M54.50 Low back pain, unspeci fied HERR,LAISHA ER E III 05/02 [facility] OFF/OP EST MAY X REQ PHY/QHP [id number] Diagnos is: ICD-10- CM M54.17 Radicul opathy, lumbosa cral region Jessica KING COLLIN 05/07 [facility] OFF[facility] O/P EST HI 40 MIN [id number] Diagnos is: ICD-10- CM M54.17 Radicul opathy, lumbosa cral region BARBRA REYES 05/09 [place] [facility] [place] [facility] MTMS BY PHARM APPLICATIONS CONSULTANT 15 MIN [id number] [id number] Diagnos is: ICD-10- CM M54.50 Low back pain, unspeci fied LEON GREGORIO 05/14 [place] [facility] OFF/OP EST MAY X REQ PHY/QHP [id number] Diagnos is: ICD-10- CM J44.9 Chronic obstruc tive pulmona ry disease , unspeci fied CUSTRED,TO RRI J 05/24 [facility] OFFICE O/P EST MOD 30 MIN [id number] Diagnos is: ICD-10- CM J44.1 Chronic obstruc tive pulmona ry disease w (acute) exacerb ation SAM LUNDBERG G 05/24 [facility] [facility] OFFICE O/P EST MOD 30 MIN [id number] Diagnos is: ICD-10- CM M54.50 Low back pain, unspeci fied SAM LUNDBERGL G 06/05 [facility] OFF/OP EST MAY X REQ PHY/QHP [id number] Diagnos is: ICD-10- CM R60.9 Edema, unspeci fied CUSTRED,TO RRI J 06/10 [place] [facility] [place] [facility] OFF[place] O/P EST LOW 20 MIN [id number] Diagnos is: ICD-10- CM M54.50 Low back pain, unspeci fiSAM Gutierrez G 06/10 [facility] Outpatient Encounter [id number] 06/10 [facility] [place] [facility] Outpatient Encounter [id number] 06/10 [place] [facility] FAC[facility] FEE [id number] Diagnos is: ICD-10- CM Z02.89 Encount er for other adminis trative examANNIE Soto 06/11 [facility] Outpatient Encounter [id number] Diagnos is: ICD-10- CM Z02.89 Encount er for other adminis trative examANNIE Soto 06/11 [facility] Social History Combined list of available smoking, tobacco, and other social history from Department of Defense and Veterans Affairs facilities. Social History Type Response Date Comment Sourc e Tobacco smoking status NHIS VA-TOBACCO USE EVERY DAY CIGARETTES 10/17/2024 [facility] History of tobacco use VA-TOBACCO NEVER USED OTHER TYPE 10/17/2024 [facility] History of tobacco use VA-TOBACCO USER E VERY DAY 10/17/2023 [facility] History of tobacco use TOBACCO MEDS OFFE RED BUT DECLINED 10/18/2022 [facility] History of tobacco use VA-TOBACCO FORMER USER 04/19/2022 [facility] History of tobacco use TOBACCO MEDS OFFE RED BUT DECLINED 04/21/2021 [facility] History of tobacco use VA-TOBACCO USER E VERY DAY 01/19/2021 [facility] History of tobacco use TOBACCO MEDS OFFE RED BUT DECLINED 06/10/2020 [facility] History of tobacco use VA-TOBACCO QUIT < 1 YEAR 04/16/2019 [facility] History of tobacco use TOBACCO USER OFFE RED MEDS 08/22/2018 [facility] History of tobacco use TOBACCO USER OFFE RED MEDS 11/10/2017 [facility] History of tobacco use TOBACCO OFFERED [facility] 11/11/2016 [facility] History of tobacco use TOBACCO OFFERED P T MEDS (PROVIDER) 05/10/2016 [facility] History of tobacco use TOBACCO OFFERED P T MEDS (PROVIDER) 12/11/2015 [facility] History of tobacco use TOBACCO OFFERED P T MEDS (PROVIDER) 05/14/2015 [facility] History of tobacco use TOBACCO OFFERED P T MEDS (PROVIDER) 08/19/2014 [facility] History of tobacco use TOBACCO OFFERED P T MEDS (PROVIDER) 09/11/2013 [facility] Plan of Care List of future care activities from [facility] facilities. Additional future care activities may be listed in the Assessment and Plan section. Date/Time Care Activity Care Activity Detail Facili ty 06/27/2025 AMBULATORY - MEDICINE AMBULATORY - MEDICI JOYCE UNGER [facility] Advance Directives List of completed, amended, or rescinded Advance Directives on record at [facility] facilities. An actual copy of the Directive is not included. Date Advance Directive Provider Source 09/13/2013 ADVANCE DIRECTIVE DISCUSSION JENNY MENESES [facility]
--- OUTSIDE RECORDS SUMMARY | 2025-06-12 08:27 | XMS_ITS ---
Author Name [facility] [place] Organization [facility] [place] Address [address] [place] [address] Care Team Providers Care Playground Director Name Role Phone LUTHERMICHAEL WayE Primary Care Provider Unavailabl e Insurance Providers: All historical and current Section Date Range: From patient's date of to the date document was created. This section includes the names of all active insurance providers for the patient. Insurance Provider Type of Coverage Plan Name Start of Policy Coverage End of Policy Coverage Group Number Member ID Insurance Provider's Telephone Number Policy Wasserman's Name Patient's Relationship to Policy Wasserman MEDICARE (WNR) MEDICARE (M) PART A Apr 28, 2007 PART A [id number] LENABERNARDO MUELLER PATIENT MEDICARE (WNR) MEDICARE (M) PART B Apr 28, 2007 PART B [id number] LENABERNARDO MUELLER PATIENT MEDICARE (WNR) MEDICARE (M) PART A Apr 28, 2007 PART A [id number] LENACHUNG MUELLER SR PATIENT MEDICARE (WNR) MEDICARE (M) PART A Apr 28, 2007 PART A [id number] [phone] LENABERNARDO MUELLER PATIENT MEDICARE (WNR) MEDICARE (M) PART B Apr 28, 2007 PART B [id number] [phone] LENAERVINBERNARDO KODAK PATIENT MEDICARE (WNR) MEDICARE (M) PART A Apr 28, 2007 PART A [id number] [phone] BERNARDO BRISCOE PATIENT MEDICARE (WNR) MEDICARE (M) PART B Apr 28, 2007 PART B [id number] [phone] BERNARDO BRISCOE PATIENT Selected Encounter This section includes the information on record at [place] for the Encounter. Date/Time Encounter Type Encounter Description Reason Pro vider Source Jun 12, 2025 01:27 PM Outpatient Encounter ADMIN PAT ACTIVTIES (MASNONCT) IHE Encounter Template Text not used by [place] Plan of Treatment: Future Appointments (+ 6 months) and Future Tests (+/- 45 days) The Plan of Treatment section includes future care activities for the patient from all [place] treatmentfacilities. This section includes future appointments and future orders which are active, pending or scheduled. Future Appointments This section includes appointments that were scheduled to occur 6 months from the date of the Encounter, up to a maximum of 20 appointments. The data comes from all [place] treatment [facility]. Appointment Date/Time Appointment Type Appointme nt Facility Name Jun 27, 2025 12:30 PM AMBULATORY - MEDICINE [facility] [facility] Oct 02, 2025 09:00 AM AMBULATORY - MEDICINE [facility] Oct 16, 2025 10:00 AM AMBULATORY - MEDICINE [facility] Oct 16, 2025 10:01 AM AMBULATORY - MEDICINE [facility] Active, Pending, and Scheduled Orders This section includes a listing of several types of active, pending, and scheduled orders, including clinic medications orders, diagnostic test orders, procedure orders and consult orders; where the start date of the order is 45 days before the date of the Encounter or 45 days after the date of theEncounter. The data comes from all [facility]. Test Date/Time Test Type Test Details Facility Name Jun 10, 2025 07:47 AM Consult Order PROSTHETIC S REQUEST - OUTPT [id number] Cons Insurance Claims Adjuster's Choice [facility] Advance Directives: All historical and current Section Date Range: From patient's date of to the date document was created. This section includes ALL of a patient's completed or amended [place] Advance and Rescinded Directives. The entries below indicate that a directive exists for the patient, but an actual copy is not included with this document. The data comes from all [place] facilities. Date Advance Directives Provider Source Sep 13, 2013 ADVANCE DIRECTIVE DISCUSSION JENNY MENESES [facility] Radiology Reports: +/- 30 days of the encounter Radiology Reports For cases when an order for radiology services may have been completed prior to the date of the Encounter, the report list includes the Radiology Reports that were completed up to 30 days before dateof the Encounter. For cases when an order for radiology services may have been completed after the date of the Encounter, the report list also includes the Radiology Reports that were completed up to30 days after date of the Encounter. The data comes from all [place] treatment facilities. Date/Time Radiology Report Provider Source May 24, 2025 03:28 PM CHEST X-RAY, 2 VIE WS: CHUNG BRISCOE [id number] -[id number] M Exm Date: MAY 24, 2025@15:28 Req Phys: DESIREE LUNDBERG Pat Loc: [facility] PACT DELTA MARY (Req'g L Img Loc: [facility] [place] Service: [place] [address] (Case [id number] COMPLETE) CHEST X-RAY, 2 VIEWS (RAD Detailed) CPT:13687 Reason for Study: crackles throughout lung pimentel Clinical History: Report Status: Verified Date Reported: MAY 24, 2025 Date Verified: MAY 24, 2025 Incubator Machine Operator E-Sig: Report: Chest 2 views. HISTORY: Crackles throughout lung pimentel, woke up today with increased shortness of breath, smoker DATE: 05/24/2025 COMPARISON: 04/13/2017 FINDINGS: Lungs hyperinflated with emphysematous changes. Scarring both lower lung pimentel and lung bases similar previous study. No definite infiltrates. There are no effusions. 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 There is mild bilateral pleural thickening heart at the upper limits of normal in size. Plaque thoracic aorta. Degenerative changes thoracic spine. Impression: 1. COPD with mild bilateral pleural thickening 2. Scarring both lower lung pimentel and lung bases 3. 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 Findings similar to previous study Primary Interpreting Staff: ISMAEL DALAL, RADIOLOGIST (Incubator Machine Operator, no e-sig) /ISMAEL Walker [facility] Encounter Notes: All associated encounter notes This section contains the clinical notes associated to the Encounter. Date/Time Encounter Note(s) Provider Source Jun 12, 2025 01:27 PM ADMINISTRATIVE NOT E: LOCAL TITLE: ADMINISTRATIVE NOTE PB STANDARD TITLE: ADMINISTRATIVE NOTE DATE OF NOTE: JUN 12, 2025@13:27 ENTRY DATE: JUN 12, 2025@13:27:09 AUTHOR: SUYAPA TRACEY EXP COSIGNER: URGENCY: STATUS: COMPLETED [place] cancelled appointment on 06/12/25 with [facility]. Attempted to contact [place] by phone to reschedule. There was no answer, left voicemail requesting return call. Mailed letter. /rosemary/ Rhina Lopez [facility] Signed: 06/12/2025 13:28 SUYAPA TRACEY [facility]
[2025-06-12 19:26] VITALS: BP 99/50; PULSE 71; RESP 18; TEMP 36.6; O2SAT 91; BMI 32.8
--- OUTSIDE RECORDS SUMMARY | 2025-06-12 19:30 | XMS_ITS | Clinical Summary ---
[facility] Organization [facility] Address [address] Attn: Epic Prelude ADT [place] [id number] Care Team Providers Care Teacher Assistant Name Role Phone Yara Phelps MD Primary Care Provider [phone] Allergies Active Allergy Reactions Criticality Noted Date Comments Hydrocortisone Other (See Comments) 05/03/2024 numbness Metoprolol Unknown 05/03/2024 Oxycodone Other (See Comments) 05/03/2024 numbness Shrimp Anaphylaxis High 05/03/2024 Medications pantoprazole (PROTONIX) 40 mg Tablet, Delayed Release (E.C.) Take 1 Tablet (40 mg) by mouth daily. 30 Tablet 1 05/06/2024 Active Active Problems Problem Noted Date Diagnosed Date DEMETRIS (acute kidney injury) 05/04/2024 COPD (chronic obstructive pulmonary disease) 05/2024 Hemorrhagic shock 05/04/2024 Acute blood loss anemia 05/03/2024 GI bleed 05/03/2024 Encounters Date Type Department Care Team Description 04/30/2025 External Device Data [facility] ABSTRACTION Provider, Abstract from Last 3 Months Social History Tobacco Use Types Packs/Day Years Used Date Smoking Tobacco: Never Assessed Sex and Gender Information Value Date Recorded Sex Assigned at Not on file Legal Sex Male 12:07 PM REHABILITATION LIAISON Gender Identity Not on file Sexual Orientation Not on file Last Filed Vital Signs Vital Sign Reading Time Taken Comments Blood Pressure 128/49 05/06/2024 8:15 AM CDT Pulse 81 05/06/2024 8:25 AM CDT Temperature 36.5 C (97.7 F) 05/06/2024 8:15 AM CDT Respiratory Rate 20 05/06/2024 8:25 AM CDT Oxygen Saturation 98% 05/06/2024 8:25 AM CDT Inhaled Oxygen Concentration - - Weight 104.6 kg (230 lb 8 oz) 05/06/2024 4:00 AM CDT Height 176.5 cm (5' 9.5 ) 05/03/2024 1:00 PM CDT Body Mass Index 33.55 05/03/2024 1:00 PM CDT Plan of Treatment Health Maintenance Due Date Last Done Comments DIABETES ANNUAL FOOT EXAM 1960 DIABETES ANNUAL RETINAL EXAM 1960 DIABETES MICROALBUMIN ANNUAL SCREEN 1960 LDL CHOLESTEROL ANNUAL 1960 ZOSTER VACCINE (1 of 2) 1992 RSV VACCINE (60+ or ) (1 - 1-dose 75+ series) 2017 COVID-19 Vaccine (2023-2 5 season) 2024 11/03/2022, 04/14/2022, 09/24/2021, Additional history exists DIABETES HBA1C Q 6 MONTHS 10/18/2024 04/17/2024 INFLUENZA VACCINE (#1) 2025 3, 09/10/2022, 09/04/2021, Additional history exists DTAP/TDAP/TD VACCINES (4 - T d or Tdap) 04/19/2032 04/19/2022, 10/19/2016, 09/06/2011 PNEUMOCOCCAL VACCINE 50+ YEARS Completed 04/19/2022 , 05/10/2016 Insurance ACCESS [facility] [place] [employer] Advance Directives For more information, please contact: [phone] * Full Code (Latest Code Status on File) Date Activated Date Inactivated Comments 05/03/2024 2:10 PM 05/06/2024 3:09 PM * Default Full Code - Needs Discussion Date Activated Date Inactivated Comments 05/03/2024 1:43 PM 05/03/2024 2:10 PM Care Teams Teacher Assistant Relationship Specialty Start Date End Date Yara Phelps MD [address] [place] [phone] PCP - General Family Practice 05/07/24
--- NOTE | 2025-06-12 19:31 | ECG_ITS ---
[facility]: 2025-06-12 Pat Name: Brandon Villareal Department: Room: Gender: Male Cargo Bracer: : 1940 Requested By: Gemma Gray Order Number: [id number] Julio MD: Pancho Wilson M.D. Measurements Intervals [place] Rate: 67 P: 85 HI: 203 QRS: -66 QRSD: 101 T: 85 QT: 367 QTc: 388 Interpretive Statements SINUS RHYTHM WITH OCCASIONAL VENTRICULAR PREMATURE COMPLEXES LEFT AXIS DEVIATION [QRS AXIS < -30] LOW QRS VOLTAGE IN PRECORDIAL LEADS [QRS DEFLECTION < 1.0 mV IN CHEST LEADS] PATTERN CONSISTENT WITH PULMONARY DISEASE No previous ECG available for comparison Electronically Signed On 06-15-2025 14:14:40 CDT by Pancho Wilson M.D. [email or web address]
[2025-06-12 20:13] LABS: Hematocrit 40.4 % (37-53); Hemoglobin 13.10 g/dL (11.27-16.99); Mean Corpuscular HGB Conc 32.4 g/dL (30-55); Mean Corpuscular Hemoglobin 30.4 pg (27-33); Mean Corpuscular Volume 93.7 fl (82-101); Nucleated Red Blood Cells % 0 %; Platelet Count 133 10^3/cmm (157-399); Red Blood Count 4.31 10^6/uL (3.85-5.65); White Blood Count 13.81 10^3/uL (3.29-11.43)
[2025-06-12 20:37] LABS: Alanine Aminotransferase 17 U/L (0-41); Albumin Level 3.6 g/dL (3.5-5.2); Alkaline Phosphatase 63 U/L (40-130); Anion Gap 21.7 (5-19); Aspartate Amino Transferase 14 U/L (0-40); Blood Urea Nitrogen 64 mg/dL (8-23); Calcium 8.7 mg/dL (8.5-10.5); Carbon Dioxide 23 mmol/L (22-29); Chloride 98 mmol/L (98-107); Creatinine Clr Calc Pharmacy 34.4580; Globulin 2.6 g/dL (1.3-4.6); Glucose 170 mg/dL (65-115); Lipase 78 U/L (13-60); Osmolality Calculated 310 mOsm/kg (285-295); Potassium 3.7 mmol/L (3.5-5.1); Sodium 139 mmol/L (136-145); Total Protein 6.2 g/dL (6.6-8.7)
[2025-06-12 20:38] LABS: Lactic Sepsis W/Reflex 3.4 mmol/L (0.5-2.2)
[2025-06-12 21:00] LABS: Slide Review Slide Review Perform
[2025-06-12 21:29] VITALS: BP 121/50; PULSE 62; RESP 18; O2SAT 91
[2025-06-12 21:50] LABS: Reflex Lactate Order REFLEX LACTIC ORDERD
[2025-06-12 22:00] VITALS: BP 107/54; PULSE 57; O2SAT 93
--- NOTE | 2025-06-12 22:10 | CTR_ITS ---
PROCEDURE INFORMATION: Exam: CT Abdomen And Pelvis Without Contrast Exam date and time: 06/12/2025 11:02 PM Age: 85 years old Clinical indication: Abdominal pain; Localized; Right lower quadrant (rlq); Prior surgery; Surgery date: 6+ months; Surgery type: Appendectomy, bleeding ulcer repair; Additional info: Rlq pain, HX of appendectomy, ann TECHNIQUE: Imaging protocol: Computed tomography of the abdomen and pelvis without contrast. Radiation optimization: All CT scans at this facility use at least one of these dose optimization techniques: automated exposure control; mA and/or kV adjustment per patient size (includes targeted exams where dose is matched to clinical indication); or iterative reconstruction. COMPARISON: CT abdomen pelvis con [id number] 04/20/2025 5:42 PM RADIATION DOSE METRICS: Total DLP (mGy-cm): 845.8 FINDINGS: Lungs: Redemonstration of right lung base pleural-based calcification. Liver: Normal. No mass. Gallbladder and biliary ducts: Normal. No calcified stones. No ductal dilation. Pancreas: Normal. No ductal dilation. Spleen: Normal. No splenomegaly. Adrenal glands: Normal. No mass. Kidneys and ureters: Nonobstructing calculus in the superior pole of the left kidney. No hydronephrosis. Stomach and bowel: Colonic diverticulosis. No bowel obstruction. Appendix: No secondary signs of acute appendicitis. Intraperitoneal space: Unremarkable. No free air. No significant fluid collection. Vasculature: Abdominal aorta atherosclerosis without evidence of aneurysm. Lymph nodes: Unremarkable. No enlarged lymph nodes. Urinary bladder: Unremarkable as visualized. Reproductive: Unremarkable as visualized. Bones/joints: Degenerative changes of the visualized spine. Soft tissues: Fat containing inguinal hernias. Small fat containing umbilical hernia. CT/CT abdomen pelvis con [id number] IMPRESSION: No acute intra-abdominal or intrapelvic process. Incidental/chronic findings as above.
[2025-06-12 22:15] LABS: Glucose Urine UA Negative (Normal); Nitrate Urine Negative (Negative); Specific Gravity, Urine 1.010 (1.005-1.030)
[2025-06-12 22:30] VITALS: BP 105/64; PULSE 62; O2SAT 94
[2025-06-12 23:15] VITALS: BP 98/55; PULSE 60; O2SAT 90
--- NOTE | 2025-06-12 23:25 | W.ED.ABDPA2 ---
HPI - Abdominal Pain General: Chief Complaint: Abdominal Pain Stated Complaint: Light headed Pain in R middle ABD Time Seen by Provider: 06/12/25 21:23 History of Present Illness: 85-yo M with prior bleeding ulcer and remote appendectomy presents with 2 days of abdominal bloating and RLQ ?pop? followed by two black, tarry stools. Onset was after overeating white beans; abdomen became distended ?like a basketball? and pain was severe until two self-limited episodes of emesis. Currently denies pain, nausea, or need for analgesia/anti-emetics. Reports transient RLQ pain while traveling home today that improved with manual pressure. No reported inability to pass flatus. Denies anticoagulant use except daily baby ASA. No known recent trauma or hospitalization. Waiting 2 days to seek care due to other appointments. Review of systems otherwise negative. Related Data Home Medications ?Medication ?Instructions ?Recorded ?Confirmed acetaminophen 500 mg tablet 500 mg PO Q6H PRN Pain 09/25/20 05/14/25 (Tylenol Extra Strength) cetirizine 10 mg tablet (Zyrtec) 10 mg PO DAILY 09/25/20 05/14/25 fluticasone propionate 50 1 spray intranasal DAILY 09/25/20 05/14/25 mcg/actuation nasal spray,suspension gabapentin 300 mg capsule 600 mg PO TID PRN pain 09/25/20 05/14/25 lisinopril 10 1 tab PO DAILY 09/25/20 05/14/25 mg-hydrochlorothiazide 12.5 mg tablet metformin 500 mg tablet 500 mg PO DAILY 09/25/20 05/14/25 tamsulosin 0.4 mg capsule 0.4 mg PO DAILY 09/25/20 05/14/25 aspirin 81 mg tablet,delayed 81 mg PO DAILY pain 12/22/21 05/14/25 release (Adult Aspirin Regimen) simvastatin 80 mg tablet 40 mg PO DAILY 12/22/21 05/14/25 albuterol sulfate 90 mcg/actuation 1 inh inhalation QID PRN Shortness 05/02/24 05/14/25 aerosol inhaler Of Breath cholecalciferol (vitamin D3) 25 25 mcg PO DAILY 05/02/24 05/14/25 mcg (1,000 unit) tablet fluticasone 100 mcg-salmeterol 50 1 inh inhalation BID 05/02/24 05/14/25 mcg/dose blistr powdr for inhalation (Advair Diskus) methocarbamol 500 mg tablet 500 mg PO TID 05/02/24 05/14/25 methylprednisolone 4 mg tablets in See Rx Instructions .Route .COMPLEX 05/02/24 05/14/25 a dose pack Previous Rx's ?Medication ?Instructions ?Recorded tiotropium bromide 18 mcg capsule 1 cap inhalation DAILY 30 days #60 09/25/20 with inhalation device (Spiriva inhalations with HandiHaler) diabetic shoes w/ custom inserts #1 ea 05/23/24 diabetic shoes with 3 inserts #1 ea 09/17/24 methocarbamol 500 mg tablet 500 mg PO QID #30 tabs 04/20/25 hydrocodone 5 mg-acetaminophen 325 1 tab PO Q6H PRN pain #14 tabs 04/23/25 mg tablet Diabetic Shoes with 3 pairs of #1 ea 05/14/25 inserts Allergies Allergy/AdvReac Type Severity Reaction Status Date / Time hydrocortisone Allergy ADR-Numbnes Verified 06/12/25 19:32 s metoprolol Allergy Unknown Verified 06/12/25 19:32 oxycodone Allergy ADR-Numbnes Verified 06/12/25 19:32 s shrimp Allergy ALGY-Anaphy Verified 06/12/25 19:32 laxis PFSH ED PFSH: Medical History (Updated 06/13/25 @ 03:05 by Brandon Da Silva MD) BPH (benign prostatic hyperplasia) Hyperlipidemia Chronic back pain COPD (chronic obstructive pulmonary disease) Diabetes type 2, controlled HTN (hypertension) DDD (degenerative disc disease) Surgical History H/O removal of cyst x 2 H/O colonoscopy 2019 History of appendectomy Family History Father Cancer Mother Lung disease Denies family history of Anesthesia complication Bleeding disorder Social History Smoking and tobacco/nicotine status: never used tobacco/nicotine Quit status (tobacco/nicotine): has quit using Year quit tobacco: 2020 - 2PPD x 70 Years Alcohol intake: never Substance/Drug Use: never Lives independently: Yes Household members: children Marital status: / service: Yes Current occupational status: retired and disabled Do you think of yourself as: Straight/Heterosexual Current gender identity: Male Physical Exam Const: COMMON NORMALS: no acute distress, patient oriented x3 and alert HENMT: COMMON NORMALS: normocephalic and atraumatic HEAD & SCALP: normocephalic and atraumatic Eye: COMMON NORMALS: Equal, round and reactive pupils present, EOMs intact bilaterally and no scleral icterus PUPIL: Yes Equal, round and reactive pupils present Resp: COMMON NORMALS: normal respiratory effort and No retractions Cardio: COMMON NORMALS: regular rate, regular rhythm and No murmurs present (Cardio) RATE: regular rate RHYTHM: regular rhythm GI: COMMON NORMALS: Normal to inspection, nondistended, normoactive bowel sounds present, Soft to palpation and non-tender PALPATION: Yes Soft to palpation Neuro: COMMON NORMALS: patient oriented x3 SENSORIUM/ORIENTATION: Yes alert Skin: COMMON NORMALS: no rashes or lesions noted GENERAL SKIN EXAM: no rashes or lesions noted Course Vital Signs: Vital signs: Vital Signs Temperature 97.9 F 06/12/25 19:26 Pulse Rate 52 L 06/13/25 03:13 Respiratory Rate 18 06/13/25 03:13 Blood Pressure 108/54 06/13/25 03:13 Pulse Oximetry 92 06/13/25 03:13 Oxygen Delivery Me thod Nasal Cannula 06/13/25 01:14 Oxygen Flow Rate 2 06/13/25 01:14 MDM - Abdominal Pain Medical Decision Making In summary, patient is a generally well-appearing 85-year-old male from home seen for abdominal pain, nausea, and vomiting. CT scan shows nothing acute and labs are largely unremarkable. I suspect viral ideology which has already run its course as he is now able to eat and drink and has no pain at the time of my exam. As such, he will be discharged home in stable and improved condition. Lab Data 06/12/25 19:45 06/12/25 19:45 Labs/Radiology: Radiology Impressions Abdomen/Pelvis CT 06/12/25 22:10 IMPRESSION: No acute intra-abdominal or intrapelvic process. Incidental/chronic findings as above. Laboratory Results WBC 13.81 10^3/uL (3.29-11.43) H 06/12/25 19:45 RBC 4.31 10^6/uL (3.85-5.65) 06/12/25 19:45 Hgb 13.10 g/dL (11.27-16.99) 06/12/25 19:45 Hct 40.4 % (37-53) 06/12/25 19:45 MCV 93.7 fl (82-101) 06/12/25 19:45 MCH 30.4 pg (27-33) 06/12/25 19:45 MCHC 32.4 g/dL (30-55) 06/12/25 19:45 RDW 13.8 % (12.1-15.1) 06/12/25 19:45 Plt Count 133 10^3/cmm (157-399) L 06/12/25 19:45 MPV 13.2 fL (7.4-10.4) H 06/12/25 19:45 Neut % (Auto) 75.3 % 06/12/25 19:45 Lymph % (Auto) 15.8 % 06/12/25 19:45 [place] % (Auto) 7.3 % 06/12/25 19:45 Eos % (Auto) 1.0 % 06/12/25 19:45 Baso % (Auto) 0.2 % 06/12/25 19:45 Neut # (Auto) 10.39 10^3/uL (1.8-7.7) H 06/12/25 19:45 Lymph # (Auto) 2.2 10^3/uL (0.8-4.8) 06/12/25 19:45 [place] # (Auto) 1.0 10^3/uL (0.2-0.9) H 06/12/25 19:45 Eos # (Auto) 0.1 10^3/uL (0.0-0.8) 06/12/25 19:45 Baso # (Auto) 0.0 10^3/uL (0.0-0.1) 06/12/25 19:45 Nucleated RBC % (auto) 0 % 06/12/25 19:45 Nucleated RBCs # 0.0 /100WBC 06/12/25 19:45 Sodium 139 mmol/L (136-145) 06/12/25 19:45 Potassium 3.7 mmol/L (3.5-5.1) 06/12/25 19:45 Chloride 98 mmol/L (98-107) 06/12/25 19:45 Carbon Dioxide 23 mmol/L (22-29) 06/12/25 19:45 Anion Gap 21.7 (5-19) H 06/12/25 19:45 BUN 64 mg/dL (8-23) H 06/12/25 19:45 Creatinine 1.9 mg/dL (0.7-1.2) H 06/12/25 19:45 GFR Calculation Not Reportable 06/12/25 19:45 Glucose 170 mg/dL (65-115) H 06/12/25 19:45 Calculated Osmolality 310 mOsm/kg (285-295) H 06/12/25 19:45 Lactic Acid 3.4 mmol/L (0.5-2.2) H 06/12/25 19:45 Lactic Acid (Sepsis) 1.1 mmol/L (0.5-2.2) 06/13/25 00:01 Calcium 8.7 mg/dL (8.5-10.5) 06/12/25 19:45 Total Bilirubin 0.3 mg/dL (0.15-1.2) 06/12/25 19:45 AST 14 U/L (0-40) 06/12/25 19:45 ALT 17 U/L (0-41) 06/12/25 19:45 Alkaline Phosphatase 63 U/L (40-130) 06/12/25 19:45 C-Reactive Protein 10.0 mg/L (0.0-4.9) H 06/12/25 19:45 Total Protein 6.2 g/dL (6.6-8.7) L 06/12/25 19:45 Albumin 3.6 g/dL (3.5-5.2) 06/12/25 19:45 Globulin 2.6 g/dL (1.3-4.6) 06/12/25 19:45 Lipase 78 U/L (13-60) H 06/12/25 19:45 Urine Color Yellow (Yellow) 06/12/25 22:09 Urine Appearance Clear (CLEAR) 06/12/25 22:09 Urine pH 5.5 (5-7) 06/12/25 22:09 Ur Specific [place] 1.010 (1.005-1.030) 06/12/25 22:09 Urine Protein Negative (Negative) 06/12/25 22:09 Urine Glucose (UA) Negative (Normal) 06/12/25 22:09 Urine Ketones Negative (Negative) 06/12/25 22:09 Urine Blood Negative (Negative) 06/12/25 22:09 Urine Nitrate Negative (Negative) 06/12/25 22:09 Urine Bilirubin Negative (Negative) 06/12/25 22:09 Urine Urobilinogen 0.2 mg/dL (Negative) 06/12/25 22:09 Ur Leukocyte Esterase Negative (Negative) 06/12/25 22:09 Amorphous Sediment Not Reportable 06/12/25 22:09 All radiology interpretation(s) finalized by discharge Discharge Plan Discharge Patient Disposition: Home Clinical Impression: Abdominal pain, Nausea & vomiting Condition: Stable Prescriptions: No Action cetirizine [Zyrtec] 10 mg tablet 10 mg PO DAILY gabapentin 300 mg capsule 600 mg PO TID PRN (Reason: pain) lisinopril-hydrochlorothiazide 10-12.5 mg tablet 1 tab PO DAILY metformin 500 mg tablet 500 mg PO DAILY tamsulosin 0.4 mg capsule 0.4 mg PO DAILY fluticasone propionate 50 mcg/actuation spray,suspension 1 spray INTRANASAL DAILY Rx Instructions: administer into each nostril acetaminophen [Tylenol Extra Strength] 500 mg tablet 500 mg PO Q6H PRN (Reason: Pain) Spiriva with HandiHaler 18 mcg capsule, w/inhalation device 1 cap INHALATION DAILY 30 Days Qty: 60 3RF Rx Instructions: puncture 1 cap using device; one dose = 2 inhalations aspirin [Adult Aspirin Regimen] 81 mg tablet,delayed release (DR/EC) 81 mg PO DAILY simvastatin 80 mg tablet 40 mg PO DAILY (DME) diabetic shoes with 3 inserts See Rx Instructions .Route .MEDSUPPLY Qty: 1 0RF Rx Instructions: As directed to the anika lester ([facility]) Diabetic Shoes with 3 pairs of inserts See Rx Instructions .Route .MEDSUPPLY Qty: 1 0RF Rx Instructions: As directed by the anika MARTIN PATIENT (DME) diabetic shoes w/ custom inserts See Rx Instructions .Route .MEDSUPPLY Qty: 1 0RF Rx Instructions: As directed by the anika lester [id number] methocarbamol 500 mg tablet 500 mg PO QID Qty: 30 0RF hydrocodone-acetaminophen 5-325 mg tablet 1 tab PO Q6H PRN (Reason: pain) Qty: 14 0RF methocarbamol 500 mg Tablet 500 mg PO TID Advair Diskus 100-50 mcg/dose Blister With Device 1 inh INHALATION BID methylprednisolone 4 mg tablets,dose pack See Rx Instructions .ROUTE .COMPLEX Rx Instructions: TAKE PER PACKAGE INSTRUCTIONS albuterol sulfate 90 mcg/actuation Hfa Aerosol Inhaler 1 inh INHALATION QID PRN (Reason: Shortness Of Breath) cholecalciferol (vitamin D3) 25 mcg (1,000 unit) Tablet 25 mcg PO DAILY Discharge Orders: Discharge ED (Routine); Ordered 06/13/25 Ordered By: Brandon Da Silva Referrals: Yara Phelps MD [Primary Care Provider, [facility]] Discharge Diet: Advance as tolerated Discharge Activity: Increase activity as tolerated Patient Instructions: Abdominal Pain (ED), Patient Portal & Gael Instructions Activity Restrictions/Additional Instructions: your blood tests and CT scan are reassuring with no evidence of emergencies requiring hospitalization or surgery. It is safe to gently advance your diet and eat and drink and follow-up with your primary care doctor as you normally would. Print Language: Japanese Coding Level of Care Code ED Stave Log Ripsaw Operator for April Magana
[2025-06-13 00:55] LABS: Lactic Acid level (Lactate) 1.1 mmol/L (0.5-2.2)
[2025-06-13 01:14] VITALS: BP 142/65; PULSE 59; RESP 18; O2SAT 93
--- NOTE | 2025-06-13 03:05 | W.ED.ABDPA2 ---
HPI - Abdominal Pain General: Chief Complaint: Abdominal Pain Stated Complaint: Light headed Pain in R middle ABD Time Seen by Provider: 06/12/25 21:23 History of Present Illness: 85-yo M with prior bleeding ulcer and remote appendectomy presents with 2 days of abdominal bloating and RLQ ?pop? followed by two black, tarry stools. Onset was after overeating white beans; abdomen became distended ?like a basketball? and pain was severe until two self-limited episodes of emesis. Currently denies pain, nausea, or need for analgesia/anti-emetics. Reports transient RLQ pain while traveling home today that improved with manual pressure. No reported inability to pass flatus. Denies anticoagulant use except daily baby ASA. No known recent trauma or hospitalization. Waiting 2 days to seek care due to other appointments. Review of systems otherwise negative. Related Data Home Medications ?Medication ?Instructions ?Recorded ?Confirmed acetaminophen 500 mg tablet 500 mg PO Q6H PRN Pain 09/25/20 05/14/25 (Tylenol Extra Strength) cetirizine 10 mg tablet (Zyrtec) 10 mg PO DAILY 09/25/20 05/14/25 fluticasone propionate 50 1 spray intranasal DAILY 09/25/20 05/14/25 mcg/actuation nasal spray,suspension gabapentin 300 mg capsule 600 mg PO TID PRN pain 09/25/20 05/14/25 lisinopril 10 1 tab PO DAILY 09/25/20 05/14/25 mg-hydrochlorothiazide 12.5 mg tablet metformin 500 mg tablet 500 mg PO DAILY 09/25/20 05/14/25 tamsulosin 0.4 mg capsule 0.4 mg PO DAILY 09/25/20 05/14/25 aspirin 81 mg tablet,delayed 81 mg PO DAILY pain 12/22/21 05/14/25 release (Adult Aspirin Regimen) simvastatin 80 mg tablet 40 mg PO DAILY 12/22/21 05/14/25 albuterol sulfate 90 mcg/actuation 1 inh inhalation QID PRN Shortness 05/02/24 05/14/25 aerosol inhaler Of Breath cholecalciferol (vitamin D3) 25 25 mcg PO DAILY 05/02/24 05/14/25 mcg (1,000 unit) tablet fluticasone 100 mcg-salmeterol 50 1 inh inhalation BID 05/02/24 05/14/25 mcg/dose blistr powdr for inhalation (Advair Diskus) methocarbamol 500 mg tablet 500 mg PO TID 05/02/24 05/14/25 methylprednisolone 4 mg tablets in See Rx Instructions .Route .COMPLEX 05/02/24 05/14/25 a dose pack Previous Rx's ?Medication ?Instructions ?Recorded tiotropium bromide 18 mcg capsule 1 cap inhalation DAILY 30 days #60 09/25/20 with inhalation device (Spiriva inhalations with HandiHaler) diabetic shoes w/ custom inserts #1 ea 05/23/24 diabetic shoes with 3 inserts #1 ea 09/17/24 methocarbamol 500 mg tablet 500 mg PO QID #30 tabs 04/20/25 hydrocodone 5 mg-acetaminophen 325 1 tab PO Q6H PRN pain #14 tabs 04/23/25 mg tablet Diabetic Shoes with 3 pairs of #1 ea 05/14/25 inserts Allergies Allergy/AdvReac Type Severity Reaction Status Date / Time hydrocortisone Allergy ADR-Numbnes Verified 06/12/25 19:32 s metoprolol Allergy Unknown Verified 06/12/25 19:32 oxycodone Allergy ADR-Numbnes Verified 06/12/25 19:32 s shrimp Allergy ALGY-Anaphy Verified 06/12/25 19:32 laxis PFSH ED PFSH: Medical History (Updated 06/13/25 @ 03:05 by Brandon Da Silva MD) BPH (benign prostatic hyperplasia) Hyperlipidemia Chronic back pain COPD (chronic obstructive pulmonary disease) Diabetes type 2, controlled HTN (hypertension) DDD (degenerative disc disease) Surgical History H/O removal of cyst x 2 H/O colonoscopy 2019 History of appendectomy Family History Father Cancer Mother Lung disease Denies family history of Anesthesia complication Bleeding disorder Social History Smoking and tobacco/nicotine status: never used tobacco/nicotine Quit status (tobacco/nicotine): has quit using Year quit tobacco: 2020 - 2PPD x 70 Years Alcohol intake: never Substance/Drug Use: never Lives independently: Yes Household members: children Marital status: / service: Yes Current occupational status: retired and disabled Do you think of yourself as: Straight/Heterosexual Current gender identity: Male Physical Exam Const: COMMON NORMALS: no acute distress, patient oriented x3 and alert HENMT: COMMON NORMALS: normocephalic and atraumatic HEAD & SCALP: normocephalic and atraumatic Eye: COMMON NORMALS: Equal, round and reactive pupils present, EOMs intact bilaterally and no scleral icterus PUPIL: Yes Equal, round and reactive pupils present Resp: COMMON NORMALS: normal respiratory effort and No retractions Cardio: COMMON NORMALS: regular rate, regular rhythm and No murmurs present (Cardio) RATE: regular rate RHYTHM: regular rhythm GI: COMMON NORMALS: Normal to inspection, nondistended, normoactive bowel sounds present, Soft to palpation and non-tender PALPATION: Yes Soft to palpation Neuro: COMMON NORMALS: patient oriented x3 SENSORIUM/ORIENTATION: Yes alert Skin: COMMON NORMALS: no rashes or lesions noted GENERAL SKIN EXAM: no rashes or lesions noted Course Vital Signs: Vital signs: Vital Signs Temperature 97.9 F 06/12/25 19:26 Pulse Rate 59 L 06/13/25 01:14 Respiratory Rate 18 06/13/25 01:14 Blood Pressure 142/65 06/13/25 01:14 Pulse Oximetry 93 06/13/25 01:14 Oxygen Delivery Me thod Nasal Cannula 06/13/25 01:14 Oxygen Flow Rate 2 06/13/25 01:14 MDM - Abdominal Pain Medical Decision Making Patient remained hemodynamically stable throughout ED course. It seems that his symptoms have spontaneously resolved with time. Abdomen is soft and nonperitoneal with normal bowel sounds. CT scan shows nothing acute. Labs do not show evidence of acute process and I do not feel he would benefit from hospitalization or further workup. He will be discharged home in stable and improved condition. Lab Data 06/12/25 19:45 06/12/25 19:45 Labs/Radiology: Radiology Impressions Abdomen/Pelvis CT 06/12/25 22:10 IMPRESSION: No acute intra-abdominal or intrapelvic process. Incidental/chronic findings as above. Laboratory Results WBC 13.81 10^3/uL (3.29-11.43) H 06/12/25 19:45 RBC 4.31 10^6/uL (3.85-5.65) 06/12/25 19:45 Hgb 13.10 g/dL (11.27-16.99) 06/12/25 19:45 Hct 40.4 % (37-53) 06/12/25 19:45 MCV 93.7 fl (82-101) 06/12/25 19:45 MCH 30.4 pg (27-33) 06/12/25 19:45 MCHC 32.4 g/dL (30-55) 06/12/25 19:45 RDW 13.8 % (12.1-15.1) 06/12/25 19:45 Plt Count 133 10^3/cmm (157-399) L 06/12/25 19:45 MPV 13.2 fL (7.4-10.4) H 06/12/25 19:45 Neut % (Auto) 75.3 % 06/12/25 19:45 Lymph % (Auto) 15.8 % 06/12/25 19:45 [place] % (Auto) 7.3 % 06/12/25 19:45 Eos % (Auto) 1.0 % 06/12/25 19:45 Baso % (Auto) 0.2 % 06/12/25 19:45 Neut # (Auto) 10.39 10^3/uL (1.8-7.7) H 06/12/25 19:45 Lymph # (Auto) 2.2 10^3/uL (0.8-4.8) 06/12/25 19:45 [place] # (Auto) 1.0 10^3/uL (0.2-0.9) H 06/12/25 19:45 Eos # (Auto) 0.1 10^3/uL (0.0-0.8) 06/12/25 19:45 Baso # (Auto) 0.0 10^3/uL (0.0-0.1) 06/12/25 19:45 Nucleated RBC % (auto) 0 % 06/12/25 19:45 Nucleated RBCs # 0.0 /100WBC 06/12/25 19:45 Sodium 139 mmol/L (136-145) 06/12/25 19:45 Potassium 3.7 mmol/L (3.5-5.1) 06/12/25 19:45 Chloride 98 mmol/L (98-107) 07/16/25 19:45 Carbon Dioxide 23 mmol/L (22-29) 06/12/25 19:45 Anion Gap 21.7 (5-19) H 06/12/25 19:45 BUN 64 mg/dL (8-23) H 06/12/25 19:45 Creatinine 1.9 mg/dL (0.7-1.2) H 06/12/25 19:45 GFR Calculation Not Reportable 06/12/25 19:45 Glucose 170 mg/dL (65-115) H 06/12/25 19:45 Calculated Osmolality 310 mOsm/kg (285-295) H 06/12/25 19:45 Lactic Acid 3.4 mmol/L (0.5-2.2) H 06/12/25 19:45 Lactic Acid (Sepsis) 1.1 mmol/L (0.5-2.2) 06/13/25 00:01 Calcium 8.7 mg/dL (8.5-10.5) 06/12/25 19:45 Total Bilirubin 0.3 mg/dL (0.15-1.2) 06/12/25 19:45 AST 14 U/L (0-40) 06/12/25 19:45 ALT 17 U/L (0-41) 06/12/25 19:45 Alkaline Phosphatase 63 U/L (40-130) 06/12/25 19:45 C-Reactive Protein 10.0 mg/L (0.0-4.9) H 06/12/25 19:45 Total Protein 6.2 g/dL (6.6-8.7) L 06/12/25 19:45 Albumin 3.6 g/dL (3.5-5.2) 06/12/25 19:45 Globulin 2.6 g/dL (1.3-4.6) 06/12/25 19:45 Lipase 78 U/L (13-60) H 06/12/25 19:45 Urine Color Yellow (Yellow) 06/12/25 22:09 Urine Appearance Clear (CLEAR) 06/12/25 22:09 Urine pH 5.5 (5-7) 06/12/25 22:09 Ur Specific [place] 1.010 (1.005-1.030) 06/12/25 22:09 Urine Protein Negative (Negative) 06/12/25 22:09 Urine Glucose (UA) Negative (Normal) 06/12/25 22:09 Urine Ketones Negative (Negative) 06/12/25 22:09 Urine Blood Negative (Negative) 06/12/25 22:09 Urine Nitrate Negative (Negative) 06/12/25 22:09 Urine Bilirubin Negative (Negative) 06/12/25 22:09 Urine Urobilinogen 0.2 mg/dL (Negative) 06/12/25 22:09 Ur Leukocyte Esterase Negative (Negative) 06/12/25 22:09 Amorphous Sediment Not Reportable 06/12/25 22:09 All radiology interpretation(s) finalized by discharge Discharge Plan Discharge Patient Disposition: Home Clinical Impression: Abdominal pain, Nausea & vomiting Condition: Stable Prescriptions: No Action cetirizine [Zyrtec] 10 mg tablet 10 mg PO DAILY gabapentin 300 mg capsule 600 mg PO TID PRN (Reason: pain) lisinopril-hydrochlorothiazide 10-12.5 mg tablet 1 tab PO DAILY metformin 500 mg tablet 500 mg PO DAILY tamsulosin 0.4 mg capsule 0.4 mg PO DAILY fluticasone propionate 50 mcg/actuation spray,suspension 1 spray INTRANASAL DAILY Rx Instructions: administer into each nostril acetaminophen [Tylenol Extra Strength] 500 mg tablet 500 mg PO Q6H PRN (Reason: Pain) Spiriva with HandiHaler 18 mcg capsule, w/inhalation device 1 cap INHALATION DAILY 30 Days Qty: 60 3RF Rx Instructions: puncture 1 cap using device; one dose = 2 inhalations aspirin [Adult Aspirin Regimen] 81 mg tablet,delayed release (DR/EC) 81 mg PO DAILY simvastatin 80 mg tablet 40 mg PO DAILY (DME) diabetic shoes with 3 inserts See Rx Instructions .Route .MEDSUPPLY Qty: 1 0RF Rx Instructions: As directed to the anika lester ([place]) Diabetic Shoes with 3 pairs of inserts See Rx Instructions .Route .MEDSUPPLY Qty: 1 0RF Rx Instructions: As directed by the anika lester- [place] PATIENT (DME) diabetic shoes w/ custom inserts See Rx Instructions .Route .MEDSUPPLY Qty: 1 0RF Rx Instructions: As directed by the anika lester [id number] methocarbamol 500 mg tablet 500 mg PO QID Qty: 30 0RF hydrocodone-acetaminophen 5-325 mg tablet 1 tab PO Q6H PRN (Reason: pain) Qty: 14 0RF methocarbamol 500 mg Tablet 500 mg PO TID Advair Diskus 100-50 mcg/dose Blister With Device 1 inh INHALATION BID methylprednisolone 4 mg tablets,dose pack See Rx Instructions .ROUTE .COMPLEX Rx Instructions: TAKE PER PACKAGE INSTRUCTIONS albuterol sulfate 90 mcg/actuation Hfa Aerosol Inhaler 1 inh INHALATION QID PRN (Reason: Shortness Of Breath) cholecalciferol (vitamin D3) 25 mcg (1,000 unit) Tablet 25 mcg PO DAILY Discharge Orders: Discharge ED (Routine); Ordered 06/13/25 Ordered By: Brandon Da Silva Referrals: Yara Phelps MD [Primary Care Provider, [facility]] Discharge Diet: Advance as tolerated Discharge Activity: Increase activity as tolerated Patient Instructions: Abdominal Pain (ED), Patient Portal & Gael Instructions Activity Restrictions/Additional Instructions: your blood tests and CT scan are reassuring with no evidence of emergencies requiring hospitalization or surgery. It is safe to gently advance your diet and eat and drink and follow-up with your primary care doctor as you normally would. Print Language: Nigerien Coding Level of Care Code ED Federal Aid Coordinator for April Magana
[2025-06-13 03:13] VITALS: BP 108/54; PULSE 52; RESP 18; O2SAT 92
== END 2025-06-13 03:14 | disposition home or self-care (01) ==
PROVIDERS: Emergency Medicine; Emergency Provider Student in an Organized Health Care Education/Training Program; PCP Family Medicine
DX: R10.31 Right lower quadrant pain (principal); R11.2 Nausea with vomiting, unspecified; E78.5 Hyperlipidemia, unspecified; J44.9 Chronic obstructive pulmonary disease, unspecified; E11.9 Type 2 diabetes mellitus without complications; I10 Essential (primary) hypertension; Z79.899 Other long term (current) drug therapy; Z79.84 Long term (current) use of oral hypoglycemic drugs; Z79.82 Long term (current) use of aspirin; Z87.891 Personal history of nicotine dependence
CPT/HCPCS: 36415; 74176; 80053; 81001; 83605; 83690; 85025; 86140; 87040; 93005; 99284

== ENCOUNTER → 2025-07-08 15:28 | Outpatient (BNVA) | payer OTHER, SELFPAY | PROVIDERS: PCP Family Medicine; Visit Provider Nurse Practitioner | DX: M17.11 Unilateral primary osteoarthritis, right knee (principal); G89.29 Other chronic pain | CPT/HCPCS: 73560; 73565; 99204 ==

== ENCOUNTER 2025-08-05 11:50 | Emergency (ER) | payer OTHER, SELFPAY ==
--- OUTSIDE RECORDS SUMMARY | 2025-08-05 11:54 | XMS_ITS | Clinical Summary ---
Author Organization [facility] [employer] [facility] Address [address] [place] [address] Phone Care Team Providers Care Personal Development Educator Name Role Phone Yara Phelps MD Primary Care Provider [phone] Allergies Active Allergy Reactions Criticality Noted Date Comments Influenza Vaccines 06/02/2022 Metoprolol 06/02/2022 Shellfish-Derived Products 2 Medications albuterol HFA (PROVENTIL HFA;VENTOLIN HFA) 108 (90 Base) MCG/ACT inhaler Inhale 2 puffs 4 (four) times a day if needed for wheezing Active Cholecalciferol (Vitamin D) 25 MCG (1000 UT) tablet Take by mouth 1 (one) time each day Active clotrimazole (LOTRIMIN) 1 % cream Apply topically 2 (two) times a day Active cyclobenzaprine (FLEXERIL) 10 MG tablet Take 10 mg by mouth 3 (three) times a day if needed for muscle spasms Active fluticasone (FLONASE) 50 MCG/ACT nasal spray Administer 1 spray into each nostril 1 (one) time each day Active gabapentin (NEURONTIN) 300 MG capsule 300 mg 1 (one) time each day Take 2 capsules by mouth 3 times daily Active metFORMIN (GLUCOPHAGE) 500 MG tablet Take 500 mg by mouth 1 (one) time each day with breakfast Active tamsulosin (FLOMAX) 0.4 MG 24 hr capsule 0.4 mg Take 2 capsules by mouth daily Active acetaminophen (TYLENOL) 500 MG tablet Take by mouth 3 (three) times a day if needed for mild pain Active aspirin (ST BRANDON) 81 MG EC tablet Take 81 mg by mouth 1 (one) time each day Active cetirizine (ZyrTEC) 10 MG tablet Take 10 mg by mouth 1 (one) time each day Active simvastatin (ZOCOR) 40 MG tablet Take 40 mg by mouth every night Active ciprofloxacin-d examethasone (CIPRODEX) otic suspension 4 drops 3 (three) times a day if needed Active lisinopril 10 MG tablet Take 10 mg by mouth 1 (one) time each day Active Active Problems No known active problems Family History Medical History Relation Comments Cancer Father Kidney disease Sibling Relation Status Comments Father Mother Sibling Alive Social History Tobacco Use Types Packs/Day Years Used Date Smoking Tobacco: Former Cigarettes Q uit: 12/29/2022 Smokeless Tobacco: Never Tobacco Cessation:Counseling Given: Not Answered Alcohol Use Standard Drinks/Week Comments Not Currently 0 (1 standard drink = 0.6 oz pur e alcohol) Sex and Gender Information Value Date Recorded Sex Assigned at Not on file Legal Sex Male 12:40 PM EDT Gender Identity Not on file Sexual Orientation Not on file Last Filed Vital Signs Vital Sign Reading Time Taken Comments Blood Pressure 126/74 01/05/2023 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 Pulse 60 01/05/2023 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 Temperature - - Respiratory Rate - - Oxygen Saturation - - Inhaled Oxygen Concentration - - Weight 108 kg (237 lb 6.4 oz) 01/05/2023 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 Height 170.2 cm (5' 7 ) 01/05/2023 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 Body Mass Index 37.18 01/05/2023 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 Plan of Treatment Health Maintenance Due Date Last Done Comments Diabetes: Hemoglobin A1C 03/14/2025 Diabetes: Ophthalmology Exam 03/14/2025 Diabetes: Pedal Pulse Checked 03/14/2025 Diabetes: Sensory Foot Exam 03/14/2025 Diabetes: Visual Foot Exam 03/14/2025 Pneumococcal Vaccine: 50+ Years Completed 04/19/2022, 05/10/2016 Hepatitis B Vaccine Aged Out No longe r eligible based on patient's age to complete this topic Insurance [place] [address] [employer] 1,2,3 ([employer]) Care Teams Personal Development Educator Relationship Specialty Start Date End Date Yara Phelps MD [address] [place] [address] PCP - General Family Medicine 06/30/22
--- OUTSIDE RECORDS SUMMARY | 2025-08-05 11:54 | XMS_ITS | Encounter Summary ---
Author Organization [facility] [employer] Address [address] [place] [address] Phone Care Team Providers Care Guide Domestic Tour Name Role Phone Yara Phelps MD Primary Care Provider [phone] Encounter Details Date Type Department Care Team (Late st Contact Info) Description 04/29/2022 Orders Only [employer] [address] [facility] [place] [address] Stage 3 chronic kidney disease, not otherwise specified (HCC) Social History Tobacco Use Types Packs/Day Years Used Date Smoking Tobacco: Never Assessed Sex and Gender Information Value Date Recorded Sex Assigned at Not on file Legal Sex Male 12:40 PM EDT Gender Identity Not on file Sexual Orientation Not on file documented as of this encounter Plan of Treatment Not on file documented as of this encounter Visit Diagnoses Diagnosis Stage 3 chronic kidney disease, not otherwise specified (HCC) documented in this encounter Care Teams Guide Domestic Tour Relationship Specialty Start Date End Date Yara Phelps MD [address] [place] [address] PCP - General Family Medicine 06/30/22 documented as of this encounter
--- OUTSIDE RECORDS SUMMARY | 2025-08-05 11:54 | XMS_ITS | Clinical Summary ---
Author Organization [facility] Address [address] Attn: Epic Prelude ADT [place] [address] Care Team Providers Care Business Insight And Analytics Manager Name Role Phone Yara Phelps MD Primary Care Provider [phone] Allergies Active Allergy Reactions Criticality Noted Date [...] blood loss anemia 05/03/2024 GI bleed 05/03/2024 Social History Tobacco Use Types Packs/Day Years Used Date Smoking Tobacco: Never Assessed Feeling Safe Answer Date Recorded Are you in a relationship wi th someone who hurts you emotionally and/or physically? 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 Gender Identity Not on file Sexual Orientation [...] ) (1 - 1-dose 75+ series) 2017 DIABETES HBA1C Q 6 MONTHS 10/18/2024 04/17/2024 INFLUENZA VACCINE (#1) 2025 , 09/10/2022, 09/04/2021, Additional history exists COVID-19 Vaccine (2024-2 6 season) 2025 11/03/2022, 04/14/2022, 09/24/2021, Additional history exists DTAP/TDAP/TD VACCINES (4 - T d or Tdap) 04/19/2032 04/19/2022, 10/19/2016, 09/06/2011 PNEUMOCOCCAL VACCINE 50+ YEARS Completed 04/19/2022 , 05/10/2016 Insurance [facility] [employer] [facility] [place] [employer] Advance Directives For more information, please contact: [phone] * Full Code (Latest Code Status on File) Date Activated Date Inactivated Comments 05/03/2024 2:10 PM 05/06/2024 3:09 PM * Default Full Code - Needs Discussion Date Activated Date Inactivated Comments 05/03/2024 1:43 PM 05/03/2024 2:10 PM Care Teams Business Insight And Analytics Manager Relationship Specialty Start Date End Date Yara Phelps MD [address] [place] [address] PCP - General Family Practice 05/07/24
[2025-08-05 12:12] VITALS: BP 126/92; PULSE 63; TEMP 36.5; O2SAT 93
--- NOTE | 2025-08-05 13:41 | XR_ITS ---
WS: [id number] Right foot, 3 views, 08/05/2025 Clinical Data: injury/edema/bruising Comparison: Bilateral feet, 05/08/2024 Findings: No fractures or dislocations are seen. No bone destruction or erosion is noted. There is minimal osteoarthritis of the right first MTP joint. There is a small plantar spur and an Achilles spur. There is soft tissue swelling over the dorsum of the foot. XR/XR foot RT min 3V* [id number] Impression: 1. 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 2. Soft tissue swelling over the dorsum of the foot.
--- NOTE | 2025-08-05 13:41 | CT_ITS ---
WS: [id number] CT LUMBAR SPINE TECHNIQUE: Noncontrast CT of the lumbar spine with coronal and sagittal reformatted images. CLINICAL INFORMATION: back pain COMPARISON: 04/20/2025 DLP: 1048.[address] scans at [facility] use at least one of these dose optimization techniques: automated exposure control; mA and/or kV adjustment per patient size (includes targeted exams where dose is matched to clinical indication); or iterative reconstruction. FINDINGS: Osteopenia. No acute compression fractures. L1-L2: Mild disc bulge with mild central canal stenosis unchanged. Moderate facet arthropathy. L2-L3: Mild to moderate central canal stenosis unchanged. Moderate facet arthropathy and ligamentum flavum hypertrophy. L3-L4: Mild disc bulging with moderate central canal stenosis. Impingement on the subarticular recess bilaterally. This appears unchanged. Moderate facet arthropathy and ligamentum flavum hypertrophy. Mild RIGHT foraminal narrowing. L4-L5: Disc osteophyte complex with severe central canal stenosis. Central protruding osteophyte. This is similar in appearance compared to previous. Impingement on the traversing L5 nerve roots. Advanced facet arthropathy. Large RIGHT foraminal protrusion with severe RIGHT foraminal narrowing. Mild LEFT foraminal narrowing. RIGHT foraminal protrusion was present previously but appears progressed. L5-S1: Disc bulging with mild central canal stenosis. Impingement of traversing S1 nerve roots bilaterally. Moderate facet arthropathy. Mild RIGHT foraminal narrowing. Stable LEFT adrenal thickening/adenoma. CT/CT lumbar spine wo con* [id number] IMPRESSION: 1. Severe central canal stenosis L4-5 similar to previous with central disc os teophyte protrusion and impingement of traversing L5 nerve roots bilaterally. R ecommend spine surgery consultation. 2. Large RIGHT foraminal protrusion L4-5 appears slightly progressed with sabiha re RIGHT foraminal narrowing and impingement on the exiting RIGHT L4 nerve root . 3. No other changes compared to previous. 4. Moderate central canal stenosis L3-4 and mild to moderate L2-3. 5. Disc bulging L5-S1 impinges the traversing S1 nerve roots bilaterally.
--- NOTE | 2025-08-05 13:43 | W.ED.BACK ---
HPI - Back Pain/Injury General: Chief Complaint: Urogenital-Male Stated Complaint: lower back pain and broke toes Time Seen by Provider: 08/05/25 12:09 Source: patient Mode of arrival: wheelchair Limitations: no limitations History of Present Illness: Patient is a nice 85-year-old male presents to ED today with a complaint of low back pain as well as an injury to his right foot. He states he had a trip and fall 2 days ago and believes he broke the toes of his right foot. He states he has noticed swelling and bruising to the foot and toes. He is normally ambulatory with the help of his walker and has continued this at home. He states he has chronic back pain. He has seen Dr. Lofton previously and takes Tramadol. He states his pain over the past 2 days has been worse than his baseline. He states he has a history of sciatica and feels like it has flared up. He is not complaining of worsening leg numbness or weakness but states he has some degree of this normally. He is not having any saddle anesthesia. He does report some difficulty with urination and urinary retention to which he has a Beal for. He states this was secondary to his prostate and was recently placed on tamsulosin. He is not having any fecal incontinence or retention. MD elicited complaint: back pain Pertinent past history: prior back pain Onset (ago): day(s) Timing: constant Severity: severe Similar Symptoms Previously: Yes Location: lumbar spine Radiation: left leg below the knee and right leg below the knee Exacerbating factors: movement and walking Relieving factors: immobilization and other (lying down) Context: fall Associated symptoms: Reports difficulty walking (secondary to back pain); Deny abdominal pain, chills, dysuria, fatigue, fever(s) or hematuria Work related injury: No Related Data Home Medications ?Medication ?Instructions ?Recorded ?Confirmed acetaminophen 500 mg tablet 500 mg PO Q6H PRN Pain 09/25/20 07/08/25 (Tylenol Extra Strength) cetirizine 10 mg tablet (Zyrtec) 10 mg PO DAILY 09/25/20 07/08/25 fluticasone propionate 50 1 spray intranasal DAILY 09/25/20 07/08/25 mcg/actuation nasal spray,suspension gabapentin 300 mg capsule 600 mg PO TID PRN pain 09/25/20 07/08/25 lisinopril 10 1 tab PO DAILY 09/25/20 07/08/25 mg-hydrochlorothiazide 12.5 mg tablet metformin 500 mg tablet 500 mg PO DAILY 09/25/20 07/08/25 tamsulosin 0.4 mg capsule 0.4 mg PO DAILY 09/25/20 07/08/25 aspirin 81 mg tablet,delayed 81 mg PO DAILY pain 12/22/21 07/08/25 release (Adult Aspirin Regimen) simvastatin 80 mg tablet 40 mg PO DAILY 12/22/21 07/08/25 albuterol sulfate 90 mcg/actuation 1 inh inhalation QID PRN Shortness 05/02/24 07/08/25 aerosol inhaler Of Breath cholecalciferol (vitamin D3) 25 25 mcg PO DAILY 05/02/24 07/08/25 mcg (1,000 unit) tablet fluticasone 100 mcg-salmeterol 50 1 inh inhalation BID 05/02/24 07/08/25 mcg/dose blistr powdr for inhalation (Advair Diskus) methocarbamol 500 mg tablet 500 mg PO TID 05/02/24 07/08/25 methylprednisolone 4 mg tablets in See Rx Instructions .Route .COMPLEX 05/02/24 07/08/25 a dose pack Previous Rx's ?Medication ?Instructions ?Recorded tiotropium bromide 18 mcg capsule 1 cap inhalation DAILY 30 days #60 09/25/20 with inhalation device (Spiriva inhalations with HandiHaler) diabetic shoes w/ custom inserts #1 ea 05/23/24 diabetic shoes with 3 inserts #1 ea 09/17/24 methocarbamol 500 mg tablet 500 mg PO QID #30 tabs 04/20/25 hydrocodone 5 mg-acetaminophen 325 1 tab PO Q6H PRN pain #14 tabs 25 mg tablet Diabetic Shoes with 3 pairs of #1 ea 05/14/25 inserts cephalexin 500 mg capsule 500 mg PO Q6H 7 days #28 caps 08/05/25 hydrocodone 5 mg-acetaminophen 325 1 tab PO .q 4-6 PRN pain #20 tabs 08/05/25 mg tablet Allergies Allergy/AdvReac Type Severity Reaction Status Date / Time hydrocortisone Allergy ADR-Numbnes Verified 08/05/25 12:20 s metoprolol Allergy Unknown Verified 08/05/25 12:20 oxycodone Allergy ADR-Numbnes Verified 08/05/25 12:20 s shrimp Allergy ALGY-Anaphy Verified 08/05/25 12:20 laxis Review of Systems Const: Denies: fever(s), chills, body aches, fatigue or malaise Card: Denies: chest pain Resp: Denies: dyspnea GI: Denies: abdominal pain : Reports: difficulty urinating and difficulty starting urination; Denies: flank pain, dysuria, oliguria, urinary incontinence, hematuria or testicular pain Musc: Reports: back pain (acute on chronic); Denies: neck pain, extremity pain, extremity swelling, joint pain, joint swelling or joint redness Neuro: Reports: sensory changes and difficulty walking (secondary to back pain); Denies: headache(s), numbness in extremities or weakness in extremities PFSH ED PFSH: Medical History BPH (benign prostatic hyperplasia) Hyperlipidemia Chronic back pain COPD (chronic obstructive pulmonary disease) Diabetes type 2, controlled HTN (hypertension) DDD (degenerative disc disease) Surgical History H/O removal of cyst x 2 H/O colonoscopy 2019 History of appendectomy Family History Father Cancer Mother Lung disease Denies family history of Anesthesia complication Bleeding disorder Social History Smoking and tobacco/nicotine status: never used tobacco/nicotine Quit status (tobacco/nicotine): has quit using Year quit tobacco: 2020 - 2PPD x 70 Years Alcohol intake: never Substance/Drug Use: never Lives independently: Yes Household members: children Marital status: / service: Yes Current occupational status: retired and disabled Do you think of yourself as: Straight/Heterosexual Current gender identity: Male Physical Exam Const: COMMON NORMALS: no acute distress, average body habitus, patient oriented x3, no limitations, healthy appearing, alert and well nourished GENERAL APPEARANCE: cooperative ORIENTATION/CONSCIOUSNESS: Yes awake, Yes oriented to person, Yes oriented to place and Yes oriented to time OTHER: states he is not having much back discomfort at rest HENMT: COMMON NORMALS: normocephalic and atraumatic HEAD & SCALP: normal to inspection, normocephalic and atraumatic FACE & SINUS: normal facial exam Neck/C-Spine: COMMON NORMALS: full ROM CERVICAL SPINE: Yes cervical ROM normal and No Cervical spine tenderness Resp: COMMON NORMALS: normal respiratory effort and clear to auscultation bilaterally AUSCULTATION: clear to auscultation bilaterally Cardio: COMMON NORMALS: regular rate and regular rhythm RATE: regular rate RHYTHM: regular rhythm GI: COMMON NORMALS: Normal to inspection, nondistended, normoactive bowel sounds present, Soft to palpation, non-tender, No hepatosplenomegaly present and no masses PALPATION: Yes Soft to palpation and Yes No hepatosplenomegaly present : COMMON NORMALS: Yes no CVA tenderness BLADDER/KIDNEY EXAM: Yes no CVA tenderness Back/Pelvis: COMMON NORMALS: no CVA tenderness and thoracic and lumbar spine normal to inspection THORACIC SPINE/UPPER BACK: No thoracic spinal tenderness LUMBAR SPINE/LOWER BACK: Yes lumbar spinal tenderness and No paraspinal muscle tenderness PELVIS: Yes buttocks normal and Yes sciatic notch tenderness SACROILIAC JOINTS: Yes SI joint(s) abnormal SI joint details: tender to palpation SACRUM: no tenderness COCCYX: no tenderness Extremity: COMMON NORMALS: full ROM, capillary refill normal and no calf tenderness GENERAL: Yes normal exam except as noted RIGHT LOWER EXTREMITY: Yes foot & digits (edema/ecchymosis to dorsal R foot/toes) Right foot and digits: Yes neurovascular exam (normal) Neuro: COMMON NORMALS: patient oriented x3, moves all extremities, no focal motor deficits, no sensory deficits noted and deep tendon reflexes 2+ bilaterally SENSORIUM/ORIENTATION: Yes alert, Yes oriented to person, Yes oriented to place and Yes oriented to time SENSORY EXAM: Yes other (normal sensation noted to LEs) MOTOR EXAM: 5/5 motor strength present throughout OTHER: pt was ambulatory here in ED with help of his walker Skin: COMMON NORMALS: no rashes or lesions noted GENERAL SKIN EXAM: no rashes or lesions noted TRAUMA: no lacerations or abrasions Course Vital Signs: Vital signs: Vital Signs Temperature 97.7 F 08/05/25 12:12 Pulse Rate 55 L 08/05/25 14:50 Respiratory Rate 19 H 08/05/25 15:59 Blood Pressure 132/68 08/05/25 14:50 Pulse Oximetry 92 08/05/25 15:59 Oxygen Delivery Me thod Room Air 08/05/25 14:50 MDM - Back Pain/Injury Medical Decision Making Patient is a nice 85-year-old male here for acute on chronic low back pain. He has had a fall recently. Edema and ecchymosis noted to the right foot. No acute fractures noted here on XR. CT imaging of his lumbar spine obtained showing severe chronic findings. He has severe central canal stenosis L4-L5 similar to previous exams with impingement of traversing L5 nerve roots bilaterally. He has a large right foraminal protrusion L4-L5 with severe right foraminal narrowing and impingement on the exiting right L4 nerve root. Patient states he has some degree of chronic weakness/paresthesias to his legs but these seem to be at baseline. Patient was ambulatory here in the emergency department with help of his walker. He has had some recent urinary retention to which he currently has a Beal. States this is secondary to BPH which he does have a history of. He is supposed to be following up with urology for this. His vital signs are stable. Blood work showing a white count of 15.3 although he always has some degree of leukocytosis. He has had thrombocytopenia since last year-stable. Patient has chronic kidney disease. His BUN/Cr today seems to be close to baseline. UA slightly suspicious for infection. Will culture. Will place on antibiotics. Will treat his back pain with hydrocodone as he states his tramadol is not helping. He will need to see Dr. Lofton and probably get outpatient MRI imaging. Return precautions given. Differential Diagnosis Likely lumbar radiculopathy and strain of lumbar region Medical Records I reviewed the patient's medical records. Labs I reviewed the patient's lab results. 08/05/25 14:39 08/05/25 14:39 Radiology Impressions Foot X-Ray 08/05/25 13:41 Impression: 1. 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 2. Soft tissue swelling over the dorsum of the foot. Lumbar Spine CT 08/05/25 13:41 IMPRESSION: 1. Severe central canal stenosis L4-5 similar to previous with central disc osteophyte protrusion and impingement of traversing L5 nerve roots bilaterally. Recommend spine surgery consultation. 2. Large RIGHT foraminal protrusion L4-5 appears slightly progressed with severe RIGHT foraminal narrowing and impingement on the exiting RIGHT L4 nerve root. 3. No other changes compared to previous. 4. Moderate central canal stenosis L3-4 and mild to moderate L2-3. 5. Disc bulging L5-S1 impinges the traversing S1 nerve roots bilaterally. Laboratory Results WBC 15.32 10^3/uL (3.29-11.43) H 08/05/25 14:39 RBC 3.97 10^6/uL (3.85-5.65) 08/05/25 14:39 Hgb 11.70 g/dL (11.27-16.99) 08/05/25 14:39 Hct 36.4 % (37-53) L 08/05/25 14:39 MCV 91.7 fl (82-101) 08/05/25 14:39 MCH 29.5 pg (27-33) 08/05/25 14:39 MCHC 32.1 g/dL (30-55) 08/05/25 14:39 RDW 13.9 % (12.1-15.1) 08/05/25 14:39 Plt Count 142 10^3/cmm (157-399) L 08/05/25 14:39 MPV 13.9 fL (7.4-10.4) H 08/05/25 14:39 Neut % (Auto) 89.3 % 08/05/25 14:39 Lymph % (Auto) 5.7 % 08/05/25 14:39 [place] % (Auto) 4.3 % 08/05/25 14:39 Eos % (Auto) 0.1 % 08/05/25 14:39 Baso % (Auto) 0.1 % 08/05/25 14:39 Neut # (Auto) 13.67 10^3/uL (1.8-7.7) H 08/05/25 14:39 Lymph # (Auto) 0.9 10^3/uL (0.8-4.8) 08/05/25 14:39 [place] # (Auto) 0.7 10^3/uL (0.2-0.9) 08/05/25 14:39 Eos # (Auto) 0.0 10^3/uL (0.0-0.8) 08/05/25 14:39 Baso # (Auto) 0.0 10^3/uL (0.0-0.1) 08/05/25 14:39 Nucleated RBC % (auto) 0 % 08/05/25 14:39 Nucleated RBCs # 0.0 /100WBC 08/05/25 14:39 Sodium 134 mmol/L (136-145) L 08/05/25 14:39 Potassium 4.9 mmol/L (3.5-5.1) 08/05/25 14:39 Chloride 94 mmol/L (98-107) L 08/05/25 14:39 Carbon Dioxide 25 mmol/L (22-29) 08/05/25 14:39 Anion Gap 19.9 (5-19) H 08/05/25 14:39 BUN 68 mg/dL (8-23) H 08/05/25 14:39 Creatinine 1.9 mg/dL (0.7-1.2) H 08/05/25 14:39 GFR Calculation Not Reportable 08/05/25 14:39 Glucose 140 mg/dL (65-115) H 08/05/25 14:39 Calculated Osmolality 300 mOsm/kg (285-295) H 08/05/25 14:39 Calcium 8.8 mg/dL (8.5-10.5) 08/05/25 14:39 Total Bilirubin 0.4 mg/dL (0.15-1.2) 08/05/25 14:39 AST 16 U/L (0-40) 08/05/25 14:39 ALT 10 U/L (0-41) 08/05/25 14:39 Alkaline Phosphatase 71 U/L (40-130) 08/05/25 14:39 Total Protein 6.7 g/dL (6.6-8.7) 08/05/25 14:39 Albumin 3.6 g/dL (3.5-5.2) 08/05/25 14:39 Globulin 3.1 g/dL (1.3-4.6) 08/05/25 14:39 Urine Color Yellow (Yellow) 08/05/25 13:26 Urine Appearance Cloudy (CLEAR) A 08/05/25 13:26 Urine pH 5.0 (5-7) 08/05/25 13:26 Ur Specific [place] 1.014 (1.005-1.030) 08/05/25 13:26 Urine Protein Trace (Negative) A 08/05/25 13:26 Urine Glucose (UA) Negative (Normal) 08/05/25 13:26 Urine Ketones Negative (Negative) 08/05/25 13:26 Urine Blood 3+ (Negative) A 08/05/25 13:26 Urine Nitrate Negative (Negative) 08/05/25 13:26 Urine Bilirubin Negative (Negative) 08/05/25 13:26 Urine Urobilinogen 0.2 mg/dL (Negative) 08/05/25 13:26 Ur Leukocyte Esterase 1+ (Negative) A 08/05/25 13:26 Urine RBC >100 /hpf (0-2) H 08/05/25 13:26 Urine WBC 11-20 /hpf (0-5) H 08/05/25 13:26 Ur Squamous Epith Cells 0-5 /hpf (0-5) 08/05/25 13:26 Amorphous Sediment Not Reportable 08/05/25 13:26 Urine Bacteria None seen /hpf (NONE) 08/05/25 13:26 Hyaline Casts 22.33 /lpf 08/05/25 13:26 All radiology interpretation(s) finalized by discharge Discharge Plan Discharge Patient Disposition: Home Clinical Impression: Central stenosis of spinal canal, Lumbar nerve root impingement, Acute UTI Condition: Stable Prescriptions: New hydrocodone-acetaminophen 5-325 mg tablet 1 tab PO .q 4-6 PRN (Reason: pain) Qty: 20 0RF cephalexin 500 mg capsule 500 mg PO Q6H 7 Days Qty: 28 0RF No Action cetirizine [Zyrtec] 10 mg tablet 10 mg PO DAILY gabapentin 300 mg capsule 600 mg PO TID PRN (Reason: pain) lisinopril-hydrochlorothiazide 10-12.5 mg tablet 1 tab PO DAILY metformin 500 mg tablet 500 mg PO DAILY tamsulosin 0.4 mg capsule 0.4 mg PO DAILY fluticasone propionate 50 mcg/actuation spray,suspension 1 spray INTRANASAL DAILY Rx Instructions: administer into each nostril acetaminophen [Tylenol Extra Strength] 500 mg tablet 500 mg PO Q6H PRN (Reason: Pain) Spiriva with HandiHaler 18 mcg capsule, w/inhalation device 1 cap INHALATION DAILY 30 Days Qty: 60 3RF Rx Instructions: puncture 1 cap using device; one dose = 2 inhalations aspirin [Adult Aspirin Regimen] 81 mg tablet,delayed release (DR/EC) 81 mg PO DAILY simvastatin 80 mg tablet 40 mg PO DAILY (DME) diabetic shoes with 3 inserts See Rx Instructions .Route .MEDSUPPLY Qty: 1 0RF Rx Instructions: As directed to the anika walkermateo [place] [place] Diabetic Shoes with 3 pairs of inserts See Rx Instructions .Route .MEDSUPPLY Qty: 1 0RF Rx Instructions: As directed by the anika lester- [place] PATIENT (DME) diabetic shoes w/ custom inserts See Rx Instructions .Route .MEDSUPPLY Qty: 1 0RF Rx Instructions: As directed by the anika lester [id number] methocarbamol 500 mg tablet 500 mg PO QID Qty: 30 0RF hydrocodone-acetaminophen 5-325 mg tablet 1 tab PO Q6H PRN (Reason: pain) Qty: 14 0RF methocarbamol 500 mg Tablet 500 mg PO TID Advair Diskus 100-50 mcg/dose Blister With Device 1 inh INHALATION BID methylprednisolone 4 mg tablets,dose pack See Rx Instructions .ROUTE .COMPLEX Rx Instructions: TAKE PER PACKAGE INSTRUCTIONS albuterol sulfate 90 mcg/actuation Hfa Aerosol Inhaler 1 inh INHALATION QID PRN (Reason: Shortness Of Breath) cholecalciferol (vitamin D3) 25 mcg (1,000 unit) Tablet 25 mcg PO DAILY Discharge Orders: Discharge ED (Routine); Ordered 08/05/25 Ordered By: Fatou Puente Referrals: Yara Phelps MD [Primary Care Provider, Family Practice] Patient Instructions: Opioid Safety, Pain Management, Patient Portal & Gael Instructions Activity Restrictions/Additional Instructions: As we discussed, you may use your pain medication sparingly as needed for significant discomfort. Please do not take the hydrocodone with tramadol. Do not take [id number] anti-inflammatories due to your kidney functions. Urinalysis was suspicious for a possible infection-we will culture your urine and put you on antibiotics. Case management should reach out to you to help set you up with your follow-up appointment with Dr. Lofton. You need to return to the emergency department for onset of worsening or uncontrollable back pain, fecal incontinence, leg weakness or loss of sensation, inability to ambulate, or any other concerns you may have. Print Language: Greenlandic Coding Level of Care Code ED Traveling Secretary for April Magana
[2025-08-05 14:17] LABS: Glucose Urine UA Negative (Normal); Nitrate Urine Negative (Negative); Specific Gravity, Urine 1.014 (1.005-1.030)
[2025-08-05 14:22] LABS: Add Urine Microscopic? YES
[2025-08-05 14:50] VITALS: BP 132/68; PULSE 55; O2SAT 97
[2025-08-05 15:00] LABS: Hematocrit 36.4 % (37-53); Hemoglobin 11.70 g/dL (11.27-16.99); Mean Corpuscular HGB Conc 32.1 g/dL (30-55); Mean Corpuscular Hemoglobin 29.5 pg (27-33); Mean Corpuscular Volume 91.7 fl (82-101); Nucleated Red Blood Cells % 0 %; Platelet Count 142 10^3/cmm (157-399); Red Blood Count 3.97 10^6/uL (3.85-5.65); White Blood Count 15.32 10^3/uL (3.29-11.43)
[2025-08-05 15:10] LABS: Slide Review Slide Review Perform
[2025-08-05 15:17] LABS: Alanine Aminotransferase 10 U/L (0-41); Albumin Level 3.6 g/dL (3.5-5.2); Alkaline Phosphatase 71 U/L (40-130); Anion Gap 19.9 (5-19); Aspartate Amino Transferase 16 U/L (0-40); Blood Urea Nitrogen 68 mg/dL (8-23); Calcium 8.8 mg/dL (8.5-10.5); Carbon Dioxide 25 mmol/L (22-29); Chloride 94 mmol/L (98-107); Creatinine Clr Calc Pharmacy 34.3067; Globulin 3.1 g/dL (1.3-4.6); Glucose 140 mg/dL (65-115); Osmolality Calculated 300 mOsm/kg (285-295); Potassium 4.9 mmol/L (3.5-5.1); Sodium 134 mmol/L (136-145); Total Protein 6.7 g/dL (6.6-8.7)
[2025-08-05] MEDS: ondansetron 2 mg/ML SDV 2 mL 4 MG IM (15:57)
[2025-08-05 15:59] VITALS: RESP 19; O2SAT 92
[2025-08-05] MEDS: morphine 4 mg/mL SDV 1 mL IM (15:59)
[2025-08-05 16:56] VITALS: BP 124/80; PULSE 60; O2SAT 94
--- NOTE | 2025-08-06 13:04 | DCPLANNER ---
Message sent to Ortho for follow up
== END 2025-08-05 16:58 | disposition home or self-care (01) ==
PROVIDERS: Emergency Provider Physician Assistant; PCP Family Medicine
DX: M54.16 Radiculopathy, lumbar region (principal); N39.0 Urinary tract infection, site not specified; Z87.891 Personal history of nicotine dependence; J44.9 Chronic obstructive pulmonary disease, unspecified; E78.5 Hyperlipidemia, unspecified; E11.9 Type 2 diabetes mellitus without complications
CPT/HCPCS: 36415; 72131; 73630; 80053; 81001; 85025; 87086; 96372; 99284; J1100; J2270; J2405

== ENCOUNTER 2025-10-31 16:50 | Emergency (ER) | payer OTHER, SELFPAY ==
[2025-10-31] VITALS (8 sets, daily range): BP systolic 84–123; BP diastolic 38–54; PULSE 79–96; RESP 16–18; TEMP 36.7; O2SAT 90–97; BMI 34.0
--- NOTE | 2025-10-31 17:17 | XRR_ITS ---
PROCEDURE INFORMATION: Exam: XR Abdomen Exam date and time: 10/31/2025 5:41 PM Age: 85 years old Clinical indication: Abdominal pain TECHNIQUE: Imaging protocol: Radiologic exam of the abdomen. Views: 2 Views. Upright and supine views. COMPARISON: CT abdomen pelvis con [id number] 06/12/2025 11:02 PM FINDINGS: Gastrointestinal tract: Normal. No bowel dilation. Intraperitoneal space: Normal. No free air. Bones/joints: Unremarkable for age. XR/XR abdomen min 2V [id number] IMPRESSION: No acute findings.
--- NOTE | 2025-10-31 17:20 | ED_ITS ---
HPI - Abdominal Pain 2 General: Chief Complaint: Abdominal Pain Stated Complaint: black, tarry stool Time Seen by Provider: 10/31/25 17:10 History of Present Illness: Patient is an 85-year-old gentleman history of DM, BPH, HLD, HTN, status post appendectomy, colonoscopy 07/17/2020 with polypectomy, presents to ED due to dark stools. Context: This started today. He has some epigastric discomfort. Mild nausea, without emesis. Patient states he has had ongoing lower extremity edema for 3 weeks, his doctor is trying to get under control with diuresis, and he stated he took 4 extra baby aspirin yesterday that could have caused the issue. No other NSAIDs per patient. No lightheadedness, dizziness, or palpitations. No chest discomfort. No history of previous GI bleed. Associated Symptoms: Reports melena and nausea; Denies chills, coffee ground emesis, dysuria, fever(s), hematuria and vomiting Related Data Home Medications ?Medication ?Instructions ?Recorded ?Confirmed acetaminophen 500 mg tablet 500 mg PO Q6H PRN Pain 07/08/25 (Tylenol Extra Strength) cetirizine 10 mg tablet (Zyrtec) 10 mg PO DAILY 07/08/25 fluticasone propionate 50 1 spray intranasal DAILY 07/08/25 mcg/actuation nasal spray,suspension gabapentin 300 mg capsule 600 mg PO TID PRN pain 09/2507/08/25 lisinopril 10 1 tab PO DAILY 09/25/2006/28 mg-hydrochlorothiazide 12.5 mg tablet metformin 500 mg tablet 500 mg PO DAILY 09/25/2010/22 tamsulosin 0.4 mg capsule 0.4 mg PO DAILY 09/25/2010/22 aspirin 81 mg tablet,delayed 81 mg PO DAILY pain 12/2207/08/25 release (Adult Aspirin Regimen) simvastatin 80 mg tablet 40 mg PO DAILY 12/22/2106/28 albuterol sulfate 90 mcg/actuation 1 inh inhalation QI D PRN Shortness 05/02/24 07/08/25 aerosol inhaler Of Breath cholecalciferol (vitamin D3) 25 25 mcg PO DAILY 07/08/25 mcg (1,000 unit) tablet fluticasone 100 mcg-salmeterol 50 1 inh inhalation BID 05/02/24 07/08/25 mcg/dose blistr powdr for inhalation (Advair Diskus) methocarbamol 500 mg tablet 500 mg PO TID 05/02/2410/22 methylprednisolone 4 mg tablets in See Rx Instructions .Route .COMPLEX 05/02/24 07/08/25 a dose pack Previous Rx's ?Medication ?Instructions ?Recorded tiotropium bromide 18 mcg capsule 1 cap inhalation DEIRDRE LY 30 days #60 09/25/20 with inhalation device (Spiriva inhalations with HandiHaler) diabetic shoes w/ custom inserts #1 ea 05/23/24 diabetic shoes with 3 inserts #1 ea 09/17/24 methocarbamol 500 mg tablet 500 mg PO QID #30 tabs hydrocodone 5 mg-acetaminophen 325 1 tab PO Q6H PRN pa in #14 tabs 04/23/25 mg tablet hydrocodone 5 mg-acetaminophen 325 1 tab PO .q 4-6 PRN pain #20 tabs 08/05/25 mg tablet Diabetic Shoes with 3 pairs of #1 ea 10/22/25 inserts pantoprazole 40 mg tablet,delayed 40 mg PO BID 14 days #28 tabs 10/31/25 release Allergies Allergy/AdvReac Type Severity Reaction Status Date / Time hydrocortisone Allergy ADR-Numbnes Verified 08/05/25 12:20 s metoprolol Allergy Unknown Verified 08/05/25 12:20 oxycodone Allergy ADR-Numbnes Verified 08/05/25 12:20 s shrimp Allergy ALGY-Anaphy Verified 08/05/25 12:20 laxis Review of Systems 2 General: Reports: 10 or more systems reviewed and unremarkable except in HPI and below Const: Denies: fever(s), chills, body aches, fatigue or malaise Eyes: Denies: change in vision or blurry vision ENMT: Denies: throat pain or mouth pain Card: Denies: chest pain Resp: Denies: dyspnea GI: Reports: abdominal pain, nausea and melena; Denies: vomiting, coffee ground emesis or dysphagia : Denies: flank pain, difficulty urinating, dysuria, difficulty starting urination, oliguria, urinary incontinence, hematuria or testicular pain Musc: Denies: neck pain, back pain, extremity pain, extremity swelling, joint pain, joint swelling or joint redness Neuro: Denies: headache(s), numbness in extremities or weakness in extremities Psych: Denies: anxiety or depression PFSH ED 2 PFSH: Medical History (Updated 10/31/25 @ 18:49 by SERAFIN Olguin) BPH (benign prostatic hyperplasia) Hyperlipidemia Chronic back pain COPD (chronic obstructive pulmonary disease) Diabetes type 2, controlled HTN (hypertension) DDD (degenerative disc disease) Surgical History H/O removal of cyst x 2 H/O colonoscopy 2019 History of appendectomy Family History Father Cancer Mother Lung disease Denies family history of Anesthesia complication Bleeding disorder Social History Smoking and tobacco/nicotine status: never used tobacco/nicotine Quit status (tobacco/nicotine): has quit using Year quit tobacco: 2020 - 2PPD x 70 Years Alcohol intake: never Substance/Drug Use: never Lives independently: Yes Household members: children Marital status: / service: Yes Current occupational status: retired and disabled Do you think of yourself as: Straight/Heterosexual Current gender identity: Male Physical Exam 2 Const: COMMON NORMALS: no acute distress, average body habitus, patient oriented x3, no limitations, healthy appearing, alert and well nourished G ENERAL APPEARANCE: cooperative ORIENTATION/CONSCIOUSNESS: Yes awake, Yes oriented to person, Yes oriented to place and Yes oriented to time HENMT: COMMON NORMALS: normocephalic and atraumatic HEAD & SCALP: normal to inspection, normocephalic and atraumatic FACE & SINUS: normal facial exam Neck/C-Spine: COMMON NORMALS: full ROM CERVICAL SPINE: Yes cervical ROM normal and No Cervical spine tenderness Resp: COMMON NORMALS: normal respiratory effort and clear to auscultation bilaterally AUSCULTATION: clear to auscultation bilaterally Cardio: COMMON NORMALS: regular rate and regular rhythm RATE: regular rate RHYTHM: regular rhythm GI: COMMON NORMALS: Normal to inspection, nondistended, normoactive bowel sounds present, Soft to palpation, No hepatosplenomegaly present and no masses PALPATION: Yes Soft to palpation, Yes Tenderness to palpation present (GI) (mild epigastrum) and Yes No hepatosplenomegaly present : COMMON NORMALS: Yes no CVA tenderness BLADDER/KIDNEY EXAM: Yes no CVA tenderness Back/Pelvis: COMMON NORMALS: no CVA tenderness and thoracic and lumbar spine normal to inspection THORACIC SPINE/UPPER BACK: No thoracic spinal tenderness LUMBAR SPINE/LOWER BACK: Yes normal to inspection, Yes lumbar ROM normal and No paraspinal muscle tenderness PELVIS: Yes buttocks normal SACRUM: no tenderness COCCYX: no tenderness Extremity: COMMON NORMALS: full ROM, capillary refill normal and no calf tenderness GENERAL: Yes normal exam except as noted Neuro: COMMON NORMALS: patient oriented x3, moves all extremities, no focal motor deficits, no sensory deficits noted and deep tendon reflexes 2+ bilaterally SENSORIUM/ORIENTATION: Yes alert, Yes oriented to person, Yes oriented to place and Yes oriented to time SENSORY EXAM: Yes other (normal sensation noted to LEs) MOTOR EXAM: 5/5 motor strength present throughout Skin: COMMON NORMALS: no rashes or lesions noted GENERAL SKIN EXAM: no rashes or lesions noted TRAUMA: no lacerations or abrasions Course 2 Vital Signs: Vital signs: Vital Signs Temperature 98.1 F 10/31/25 17:07 Pulse Rate 81 10/31/25 20:46 Respiratory Rate 16 10/31/25 19:13 Blood Pressure 93/54 10/31/25 20:46 Pulse Oximetry 95 10/31/25 20:46 Oxygen Delivery Me thod Room Air 10/31/25 19:13 MDM - Abdominal Pain Medical Decision Making Patient is a 5-year-old gentleman with DM, HTN, lower extremity edema, that took extra baby aspirin due to pain in the lower extremities. He had black dark stools today after and taking aspirin yesterday. No other NSAIDs. Will check routine labs, if stable, and x-ray does not show any free air under the diaphragm, we will plan on home with PPI and close follow-up, soft diet. Patient had dark stool x 1. Minimal lightheadedness, dizziness. No tachycardia. Blood pressure soft. Will hold lisinopril/HCTZ, given additional half liter of fluid, reevaluate patient, most likely send home with clear and full liquid precautions. Bladder scan is only 32 mL. Patient has had high BUN in the past, in the 90s, 98, and creatinine usually runs 1.8?2.0. This appears to be his baseline. He will open today is 10.5, previous 11.7. He is receiving another 500 mL of fluid, then will be discharged home. No nausea, vomiting, x-ray is benign. 117/56 bp after 500 mL Medical Records I reviewed the patient's medical records. Lab Data I reviewed the patient's lab results. 10/31/25 17:19 10/31/25 17:19 Labs/Radiology: Radiology Impressions Abdomen X-Ray 10/31/25 17:17 IMPRESSION: No acute findings. Laboratory Results WBC 13.81 10^3/uL (3.29-11.43) H 10/31/25 17:19 RBC 3.69 10^6/uL (3.85-5.65) L 10/31/25 17:19 Hgb 10.50 g/dL (11.27-16.99) L 10/31/25 17:19 Hct 33.4 % (37-53) L 10/31/25 17:19 MCV 90.5 fl (82-101) 10/31/25 17:19 MCH 28.5 pg (27-33) 10/31/25 17:19 MCHC 31.4 g/dL (30-55) 10/31/25 17:19 RDW 15.1 % (12.1-15.1) 10/31/25 17:19 Plt Count 178 10^3/cmm (157-399) 10/31/25 17:19 MPV 14.1 fL (7.4-10.4) H 10/31/25 17:19 Neut % (Auto) 76.6 % 10/31/25 17:19 Lymph % (Auto) 15.2 % 10/31/25 17:19 Steele % (Auto) 6.7 % 10/31/25 17:19 Eos % (Auto) 0.7 % 10/31/25 17:19 Baso % (Auto) 0.4 % 10/31/25 17:19 Neut # (Auto) 10.57 10^3/uL (1.8-7.7) H 10/31/25 17:19 Lymph # (Auto) 2.1 10^3/uL (0.8-4.8) 10/31/25 17:19 Steele # (Auto) 0.9 10^3/uL (0.2-0.9) 10/31/25 17:19 Eos # (Auto) 0.1 10^3/uL (0.0-0.8) 10/31/25 17:19 Baso # (Auto) 0.1 10^3/uL (0.0-0.1) 10/31/25 17:19 Nucleated RBC % (auto) 0 % 10/31/25 17:19 Nucleated RBCs # 0.0 /100WBC 10/31/25 17:19 PT 15.10 SECONDS (12.1-14.9) H 10/31/25 17:19 INR 1.11 (0.8-1.2) 10/31/25 17:19 APTT 29.6 SECONDS (23.9-36.7) 10/31/25 17:19 Sodium 140 mmol/L (136-145) 10/31/25 17:19 Potassium 5.0 mmol/L (3.5-5.1) 10/31/25 17:19 Chloride 99 mmol/L (98-107) 10/31/25 17:19 Carbon Dioxide 25 mmol/L (22-29) 10/31/25 17:19 Anion Gap 21.0 (5-19) H 10/31/25 17:19 BUN 93 mg/dL (8-23) H* 10/31/25 17:19 Creatinine 2.0 mg/dL (0.7-1.2) H 10/31/25 17:19 GFR Calculation Not Reportable 10/31/25 17:19 Glucose 147 mg/dL (65-115) H 10/31/25 17:19 Calculated Osmolality 321 mOsm/kg (285-295) H 10/31/25 17:19 Calcium 8.7 mg/dL (8.5-10.5) 10/31/25 17:19 Total Bilirubin 0.3 mg/dL (0.15-1.2) 10/31/25 17:19 AST 11 U/L (0-40) 10/31/25 17:19 ALT 8 U/L (0-41) 10/31/25 17:19 Alkaline Phosphatase 64 U/L (40-130) 10/31/25 17:19 Total Protein 6.2 g/dL (6.6-8.7) L 10/31/25 17:19 Albumin 3.6 g/dL (3.5-5.2) 10/31/25 17:19 Globulin 2.6 g/dL (1.3-4.6) 10/31/25 17:19 Urine Color Yellow (Yellow) 10/31/25 18:04 Urine Appearance Clear (CLEAR) 10/31/25 18:04 Urine pH 5.0 (5-7) 10/31/25 18:04 Ur Specific [place] 1.015 (1.005-1.030) 10/31/25 18:04 Urine Protein Negative (Negative) 10/31/25 18:04 Urine Glucose (UA) 1+ (Normal) H 10/31/25 18:04 Urine Ketones Negative (Negative) 10/31/25 18:04 Urine Blood Negative (Negative) 10/31/25 18:04 Urine Nitrate Negative (Negative) 10/31/25 18:04 Urine Bilirubin Negative (Negative) 10/31/25 18:04 Urine Urobilinogen 0.2 mg/dL (Negative) 10/31/25 18:04 Ur Leukocyte Esterase Trace (Negative) A 10/31/25 18:04 Urine RBC 0-2 /hpf (0-2) 10/31/25 18:04 Urine WBC 0-5 /hpf (0-5) 10/31/25 18:04 Ur Squamous Epith Cells 0-5 /hpf (0-5) 10/31/25 18:04 Amorphous Sediment Not Reportable 10/31/25 18:04 Urine Bacteria None seen /hpf (NONE) 10/31/25 18:04 Hyaline Casts 8.67 /lpf 10/31/25 18:04 XR interpretation done by ED provider, pending radiology final review ED provider radiology interpretation(s): No acute findings, nonspecific gas, fecal retention Discharge Plan Discharge Patient Disposition: Home Clinical Impression: Gastritis Qualifiers: Gastritis type: superficial Chronicity: acute Gastritis bleeding: with bleeding Qualified Code(s): K29.01 - Acute gastritis with bleeding Condition: Stable Prescriptions: New pantoprazole 40 mg tablet,delayed release (DR/EC) 40 mg PO BID 14 Days Qty: 28 0RF No Action cetirizine [Zyrtec] 10 mg tablet 10 mg PO DAILY gabapentin 300 mg capsule 600 mg PO TID PRN (Reason: pain) lisinopril-hydrochlorothiazide 10-12.5 mg tablet 1 tab PO DAILY metformin 500 mg tablet 500 mg PO DAILY tamsulosin 0.4 mg capsule 0.4 mg PO DAILY fluticasone propionate 50 mcg/actuation spray,suspension 1 spray INTRANASAL DAILY Rx Instructions: administer into each nostril acetaminophen [Tylenol Extra Strength] 500 mg tablet 500 mg PO Q6H PRN (Reason: Pain) Spiriva with HandiHaler 18 mcg capsule, w/inhalation device 1 cap INHALATION DAILY 30 Days Qty: 60 3RF Rx Instructions: puncture 1 cap using device; one dose = 2 inhalations aspirin [Adult Aspirin Regimen] 81 mg tablet,delayed release (DR/EC) 81 mg PO DAILY simvastatin 80 mg tablet 40 mg PO DAILY (DME) diabetic shoes with 3 inserts See Rx Instructions .Route .MEDSUPPLY Qty: 1 0RF Rx Instructions: As directed to the anika lester ([facility] [place] diabetic shoes w/ custom inserts See Rx Instructions .Route .MEDSUPPLY Qty: 1 0RF Rx Instructions: As directed by the anika lester [id number] ([facility] [place] Diabetic Shoes with 3 pairs of inserts See Rx Instructions .ROUTE .MEDSUPPLY Qty: 1 0RF Rx Instructions: As directed by the anika lester- [place] PATIENT methocarbamol 500 mg tablet 500 mg PO QID Qty: 30 0RF hydrocodone-acetaminophen 5-325 mg tablet 1 tab PO Q6H PRN (Reason: pain) Qty: 14 0RF hydrocodone-acetaminophen 5-325 mg tablet 1 tab PO .q 4-6 PRN (Reason: pain) Qty: 20 0RF methocarbamol 500 mg Tablet 500 mg PO TID Advair Diskus 100-50 mcg/dose Blister With Device 1 inh INHALATION BID methylprednisolone 4 mg tablets,dose pack See Rx Instructions .ROUTE .COMPLEX Rx Instructions: TAKE PER PACKAGE INSTRUCTIONS albuterol sulfate 90 mcg/actuation Hfa Aerosol Inhaler 1 inh INHALATION QID PRN (Reason: Shortness Of Breath) cholecalciferol (vitamin D3) 25 mcg (1,000 unit) Tablet 25 mcg PO DAILY Discharge Orders: Discharge ED (Routine); Ordered 10/31/25 Ordered By: Desiree Baker Referrals: Yara Phelps MD [Primary Care Provider, Family Practice] Discharge Diet: Clear Liquid and Full LIquid Discharge Activity: Resume usual activity and Use walker/crutches as instructed Patient Instructions: Gastritis (ED), Clear Liquid Diet (ED), Abdominal Pain (ED), Full Liquid Diet (DC), Patient Portal & Gael Instructions Activity Restrictions/Additional Instructions: - At the pharmacy: Pantoprazole. Take twice daily for 2 weeks. Obtain in the morning, start medication in the morning. - Do not take: Aspirin, NSAIDs which are naproxen/Aleve/ibuprofen, BC powder, Pepto-Bismol, or any anti-inflammatory containing medications or aspirin. - You may take: Tylenol - Lower extremities: Compress lower extremities. - Hold: Lisinopril/HCTZ until your blood pressure improves. This will most likely be after you see your doctor. Make sure you wear compressions to your lower extremities to help with both your blood pressure, pain and swelling. These can be obtained at any pharmacy area, or discount store. - Low-salt clear or full liquid diet - Tonight and tomorrow: Clear liquid diet only until supper. If you tolerate your clear liquids, you may advance to full liquid diet only. If you are tolerating this Tuesday evening, you may use a mechanical soft diet. - Tomorrow: Call for follow-up labs in the morning. This may be performed tomorrow, or Tuesday. - Return to ED: If you have lightheadedness, dizziness, gross black stools. Ongoing nausea, vomiting, bleeding per vomit. Thank you for choosing [facility] for your healthcare needs today. You have been screened and evaluated and felt safe for discharge. Health conditions do change or evolve sometimes and as such it is important that you follow up with your Primary Doctor to be re checked, 3-5 days is a general good time frame for follow up. You are always welcome to return to the ED for re assessment if your symptoms are worsening or you have new concerns Print Language: [place] Citizen Coding Level of Care Code ED Career Development Engineer for April Magana
[2025-10-31 18:12] LABS: Hematocrit 33.4 % (37-53); Hemoglobin 10.50 g/dL (11.27-16.99); Mean Corpuscular HGB Conc 31.4 g/dL (30-55); Mean Corpuscular Hemoglobin 28.5 pg (27-33); Mean Corpuscular Volume 90.5 fl (82-101); Nucleated Red Blood Cells % 0 %; Platelet Count 178 10^3/cmm (157-399); Red Blood Count 3.69 10^6/uL (3.85-5.65); White Blood Count 13.81 10^3/uL (3.29-11.43)
[2025-10-31 18:22] LABS: Glucose Urine UA 1+ (Normal); Nitrate Urine Negative (Negative); Specific Gravity, Urine 1.015 (1.005-1.030)
[2025-10-31 18:26] LABS: Add Urine Microscopic? YES; Universal Test for UA Present (0)
[2025-10-31 18:30] LABS: INR 1.11 (0.8-1.2); Prothrombin Time 15.10 SECONDS (12.1-14.9)
[2025-10-31 18:31] LABS: Partial Thromboplastin Time 29.6 SECONDS (23.9-36.7)
[2025-10-31 18:32] LABS: Slide Review Slide Review Perform
[2025-10-31 18:37] LABS: Alanine Aminotransferase 8 U/L (0-41); Albumin Level 3.6 g/dL (3.5-5.2); Alkaline Phosphatase 64 U/L (40-130); Anion Gap 21.0 (5-19); Aspartate Amino Transferase 11 U/L (0-40); Calcium 8.7 mg/dL (8.5-10.5); Carbon Dioxide 25 mmol/L (22-29); Chloride 99 mmol/L (98-107); Globulin 2.6 g/dL (1.3-4.6); Glucose 147 mg/dL (65-115); Osmolality Calculated 321 mOsm/kg (285-295); Potassium 5.0 mmol/L (3.5-5.1); Sodium 140 mmol/L (136-145); Total Protein 6.2 g/dL (6.6-8.7)
[2025-10-31 18:43] LABS: Blood Urea Nitrogen 93 mg/dL (8-23)
[2025-10-31] MEDS: pantoprazole 40 mg SDV 80 MG IVP (19:12)
== END 2025-10-31 20:47 | disposition home or self-care (01) ==
PROVIDERS: Family Medicine; Emergency Provider Physician Assistant; PCP Family Medicine
DX: K29.01 Acute gastritis with bleeding (principal); Z79.84 Long term (current) use of oral hypoglycemic drugs; Z79.82 Long term (current) use of aspirin; Z87.891 Personal history of nicotine dependence; E11.9 Type 2 diabetes mellitus without complications; J44.9 Chronic obstructive pulmonary disease, unspecified; E78.5 Hyperlipidemia, unspecified; I10 Essential (primary) hypertension
CPT/HCPCS: 36415; 51798; 74019; 80053; 81001; 85025; 85610; 85730; 96374; 99285; J2470; J7040; J7120

== ENCOUNTER 2025-10-31 22:13 | Observation (INO) | payer OTHER, SELFPAY ==
[2025-10-31 22:19] VITALS: BP 106/57; PULSE 97; RESP 20; TEMP 36.5; O2SAT 96; BMI 31.6
--- OUTSIDE RECORDS SUMMARY | 2025-10-31 22:24 | XMS_ITS | Patient Health Record ---
Author Organization [facility] Address [address] [place] [address] Care Team Providers Care Cat Tender Name Role Phone Yara Armstrong MD Primary Care Provider UnavailLaurita Galarza Unavailable [phone] Micheal Cano Unavailable [phone] Jose Guerrero Unavailable [phone] Giles Barbour Unavailable [phone] Allergies Allergen (clinical drug ingredient) Drug/Non Drug Allergy documented on EMR Reaction Allergy Type Onset Date Status shrimp allergenic extract Shrimp (Diagnostic) Unknown Drug Allergy Active Vaccine product containing Influenza virus antigen (medicinal product) Influenza Vaccines Unknown Drug Allergy Ac tive metoprolol Metoprolol Unknown Drug Allergy Activ e Shellfish (FN) Shellfish Protein-containing Drug Products Unknown Drug Allergy Active Results Component Value Reference Range Notes Schedule Confirmation Reviewed date:10/14/2025 01:53:27 PM Interpretation: Performing Lab: Notes/Report: US Venous Doppler Scan LE Bilat Schedule Confirmation Reviewed date:09/23/2025 07:14:13 AM Interpretation: Performing Lab: Notes/Report: US Venous Doppler Scan LE Bilat Fluoro for Needle Placement- [id number] (Not yet reviewed by provider) Interpretation: Performing Lab: Notes/Report: See Below For Report Fluoro for Needle Placement RIGHT L5/S1 NORM or RIGHT L5/S1 TFESI Read See Below For Report US Venous Doppler Scan LE Bi [id number] Reviewed date:10/14/2025 01:53:27 PM Interpretation: Performing Lab: Notes/Report: See Below For Report US Venous Doppler Scan LE Bilat Diagnosis Description: Other specified soft tissue disorders Read See Below For Report US Venous Doppler Scan LE Bi [id number] Reviewed date:10/14/2025 01:53:27 PM Interpretation: Performing Lab: Notes/Report: [id number] [employer] [place], [place] - [id number] Reviewed date:09/10/2025 08:31:00 AM Interpretation: Performing Lab: Notes/Report: Glucose 0 Bili 0 Ketones 0 Sp [place] 1.015 Blood 0 pH 6.0 Protein 0 Urobili 0 Nitrites 0 Leukocytes 0 Fluoro for Needle Placement- [id number] (Not yet reviewed by provider) Interpretation: Performing Lab: Notes/Report: [id number] Reason For Referral Reason low back pain Diagnosis 1 Acute bilateral low back pain, unspecified whether sciatica present (M54.50) Referred Organization [facility] [place] Referred Provider Micheal Cano Referred Address [address] [address],[place], [place],[address],[place] Referred Provider Specialty Neurological Surgery Referral Priority Routine Reason Retention of urine Diagnosis 1 Retention of urine, unspecified (R33.9) Referring Provider First Name [place] John ff Referring Provider Last Name [facility] Referring Provider [facility] Referred Organization [facility] Referred Provider Giles Barbour Referred Address [address],[place], [place],[address],[place] Referred Provider Specialty Urology Referral Priority Routine Reason L5/S1 NORM/inj as ind icated Diagnosis 1 Lumbar radiculopathy (M54.16) Referral Organization [facility] [place] Referring Provider First Name Micheal Referring Provider Last Name Jerome Referring Provider Speciality Neurologic al Surgery Referred Organization [facility] Referred Address [address],[facility],[place],[address],[place] Referral Priority Routine Reason Right knee- eval and treat Diagnosis 1 Lumbar radiculopathy (M54.16) Referral Organization [facility] [place] Referring Provider First Name Micheal Referring Provider Last Name Jerome Referring Provider Speciality Neurologic al Surgery Referred Organization [facility] Referred Provider Jose Guerrero Referred Address [address] [facility],[place],[address],[place] Referred Provider Specialty Orthopedic S urgery Referral Priority Routine Medications Medication SIG (Take, Route, Frequency, Duration) Notes Start Date End Date Status Aspirin 81 81 MG Tablet Delayed Release 1 tablet Orally Once a day Active Prevnar 20 0.5 ML Suspension Prefilled Syringe as directed Intramuscular Ac tive Asperflex 10-15 % Cream as directed Externally Active predniSONE 20 MG Tablet 2 tabs for 7 day s; 1 tab for 7 days; 1/2 tab for 7 days Orally Once a day Active Arexvy 120 MCG/0.5ML Suspension Reconstituted as directed Intramuscular Active Potassium Chloride ER 20 MEQ Tablet Extended Release 1 tablet with food Orally Once a day Active Allopurinol 100 MG Tablet 1 tablet Orall y Once a day Active Petroleum Jelly - Ointment as directed Externally Active Azelastine HCl 137 MCG/SPRAY Solution 2 puffs (1 spray in each nostril) Nasally Twice a day Active metFORMIN HCl 500 MG Tablet 1 tablet wit h a meal Orally Once a day Active Lisinopril 10 MG Tablet 1 tablet Orally Once a day Active Albuterol Sulfate HFA 108 (90 Base) MCG/ACT Aerosol Solution 1 puff as needed Inhalation every 4 hrs Active Omeprazole 20 MG Capsule Delayed Release 1 capsule 1/2 to 1 hour before morning meal Orally Once a day Active Nicotine 7 MG/24HR Patch 24 Hour 1 patch to skin Transdermal Once a day Active Montelukast Sodium 10 MG Tablet 1 tablet Orally Once a day Active MiraLax 17 GM/SCOOP Powder as directed Orally Active Lidocaine 5 % Ointment 1 application as needed Externally Three times a day Active Ipratropium [place] 0.03 % Solution 2 sprays in each nostril Nasally Twice a day Active HYDROcodone-Acetaminophen 5-325 MG Tablet 1 tablet as needed Orally every 6 hrs Active Gabapentin 300 MG Capsule 1 capsule Oral ly Once a day Active Lidocaine & Adhesive Sheets 5 % (Patch) Kit as directed Externally Ac tive Cholecalciferol 25 MCG (1000 UT) Capsule 1 capsule Orally Once a day Active traMADol HCl 50 MG Tablet 1 tablet as ne eded Orally every 8 hrs Active Tamsulosin HCl 0.4 MG Capsule 1 capsule Orally Once a day Active Simvastatin 40 MG Tablet 1 tablet in the evening Orally Once a day Active Furosemide 20 MG Tablet 1 tablet Orally Once a day Active Fexofenadine HCl 180 MG Tablet 1 tablet Swallow whole with water; do not take with fruit juices. Orally Once a day Active Dulcolax 10 MG Suppository 1 suppository as needed Rectal Once a day Active Tylenol 325 MG Tablet 1 tablet as needed Orally every 6 hrs Active Combivent Respimat 20-100 MCG/ACT Aerosol Solution 1 puff as needed Inhalation every 6 hrs Active Tubersol 5 UNIT/0.1ML Solution as directed Intradermal Acti ve Social History Tobacco Use: Social History Observation Description Date Details (start date - stop date) Former Smoker NA - NA Social History Tobacco Use: Social Info Question Answer Notes Tobacco Control (Standard) Tobacco use: Former smoker How long has it been since you last smoked? Less than 1 month Section Notes: caffeine- pos alcohol- neg caffeine- pos alcohol- neg Problems Problem Type SNOMED Code ICD Code Onset Dates Problem Status W/U Status Risk Notes Problem Chronic pain (19938375) Other chronic pain (G89.29) Active confirmed Problem Chronic pain syndrome (085295819) Chronic pain syndrome (G89.4) Active confirmed Problem Encounter for fitting and adjustment of urinary device (Z46.6) Active confirmed Problem Lumbar radiculopathy (622327633) Lumbar radiculopathy (M54.16) Active confirmed Problem Lumbar spondylosis (257186079) Lumbar spondylosis (M47.816) Active confirmed Problem Catheterization of urinary bladder (421248695) Beal catheter in place (Z92.89) Active confirmed Problem Benign prostatic hypertrophy with outflow obstruction (578653201) BPH loc w urin obs/LUTS (N40.1) Active confirmed Problem Stenosis of lateral recess of lumbar spine (716981127) 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 Vital Signs Heart Rate 68 /min 09/17/2025 Temperature 97.4 degrees Fahrenheit 09/17/2025 Respiratory Rate 18 /min 09/17/2025 Oximetry 93 % 09/17/2025 Height-cm 160.02 cm 09/17/2025 Blood pressure diastolic 62 mm Hg 09/17/2025 Weight-kg 99.79 kg 09/17/2025 Height 63 in 09/17/2025 Blood pressure systolic 136 mm Hg 09/17/2025 Weight 220 lbs 09/17/2025 BMI 38.97 kg/m2 09/17/2025 Procedures Procedure Date Ordered Date Performed Result Body Sit e PVR (Post Void Residual) 09/10/2025 09/10/2025 N/A Encounters Encounter Location Date Provider Diagnosis [facility] [place] [address] [place] [address] 09/17/2025 Micheal Sandraerman Lumbar radiculopathy M54.16 ; Lumbar spondylosis M47.816 ; Stenosis of lateral recess of lumbar spine M48.061 ; Pain in right knee M25.561 ; Other chronic pain G89.29 and Swelling of lower extremity M79.89 [facility] [address] [place] [address] [address] [place] [address] 09/10/2025 Laurita Ho Urinary retention R33.9 and BPH loc w urin obs/LUTS N40.1 [facility] [address] [place] [address] [address] [place] [address] 08/14/2025 Giles [facility] [address] [place] [address] 09/26/2025 Jose Guerrero [facility] [address] [place] [address] 09/09/2025 Giles Lunasay [facility] [address] [place] [address] 09/04/2025 Giles [facility] [address] [place] [address] 08/28/2025 Giles Barbour Assessments Encounter Date Diagnosis (ICD Code) Assessment Notes Treatment Notes Treatment Clinical Notes Section Notes 09/10/2025 Urinary retention (ICD-10 - R33.9) 09/10/2025 BPH loc w urin obs/LUTS (ICD-10 - N40.1) 09/17/2025 Lumbar radiculopathy (ICD-10 - M54.16) MRI lumbar spine -08/07/2025-multile quinn disc degeneration and spondylosis throughout the lumbar spine with severe disc degeneration L5-S1. At L3-4, there is bilateral lateral recess narrowing and mild to moderate central canal stenosis. At L4-5, there is moderate central canal stenosis with bilateral lateral recess stenosis causing compression of the bilateral L5 nerve roots. At L5-S1, there is additional bilateral lateral recess narrowing with some compression of the bilateral S1 nerve roots. There is right sided foraminal stenosis that is severe at L4 with what appears to be a lateral/foraminal disc bulge/herniation causing compression of the exiting right L4 nerve root. Additionally, there is right foraminal stenosis at L5-S1. Mr. Villareal returns to clinic for follow-up presumably for follow-up after being evaluated in the hospital for right lower extremity radiculopathy. He was seen 08/07/2025 inpatient for right L5/S1 type distributional radiculopathy. MRI of the lumbar spine showed bilateral lateral recess stenosis and right sided foraminal stenosis at L4-5 and L5-S1. Options were given for possible surgical intervention with lumbar decompression versus epidural steroid injection with interventional radiology. He opted for L5-S1 epidural steroid injection. He reports great relief in right lower extremity radicular complaints. He denies radicular complaints at this time. He is unsure why he has a clinic appointment today. He does report that he was told his steroid injection would wear off soon. We again discussed L5-S1 epidural steroid injection with pain management outpatient. We also discussed possible surgical intervention. He reports he was told by the neurosurgeon in the hospital that I am too old for surgery . He also reports that he does not want surgical intervention anyway. After extensive discussion, he wishes to pursue possible additional spinal injections with pain management. We will provide a referral for spinal injections as indicated with pain management. 09/17/2025 Lumbar spondylosis (ICD-10 - M47.816) 09/17/2025 Stenosis of lateral recess of lumbar spine (ICD-10 - M48.061) 09/17/2025 Pain in right knee (ICD-10 - M25.561) He complains of chronic right knee pain. He denies any evaluation of this. We will obtain right knee radiographs and provide a referral to orthopedic surgery for evaluation and treatment of right knee pain. 09/17/2025 Other chronic pain (ICD-10 - G89.29) 09/17/2025 Swelling of lower extremity (ICD-10 - M79.89) He also complains of right> left lower extremity swelling. He has tenderness palpation over the posterior aspect of the calves and bilateral popliteal fossa. Tenderness is worse in the right lower extremity. We will obtain bilateral lower extremity ultrasound/duplex to rule out DVT. Pending results these come we will notify the patient/his PCP if results demonstrate any abnormality. 09/10/2025 Other Patient to continue Tamsulosin 0.4 mg x 2 day Patient can follow up in 6 months with UA and PVR. He did not want to be at this appt. He can follow up earlier if he needs to. 09/17/2025 Other He will notify clinic if further evaluation is desired or needed. Otherwise he may follow-up with us if needed. I spent 45 minutes in the care of this patient including approximately 30 minutes of [id number] time for interview, examination, and discussion/certified travel counselor ing, as well as approximately 15 minutes in documentation and imaging review and documentation preparation. Plan Of Treatment Pending Test Test Name Order Date Fluoro for Needle Placement-67511 2024 Fluoro for Needle Placement-55324 2024 Next Appt Details Provider Name:Shaniqua Darnell, 11/11/2025 02:40:00 PM, [address] [place], [address], Provider Name:Laurita Mayo, 03/11/2026 09:50:00 AM, [address] , [place] [address], [place], [address], Insurance Providers Payer Name Payer Address Payer Phone Subscriber Number Group Number Insured Name Patient Relationship to Insured Coverage Start Date Coverage End Date [employer] [address] [place] [address] [phone] [id number] CHUNG VILLAREAL Self - patient is the insured [employer] [address] [place] [address] [phone] [id number] LENAHCUNG MUELLER Self - patient is the insured Medical (General) History Medical History History ICD Code High Blood Pressure type II diabetes Arthritis Surgical History Surgery Date(Month/Year) appendectomy Hospitalization History Reason Date(Month/Year) Faith trouble urinating with shot in th e back for nerve problem 06/2025
--- OUTSIDE RECORDS SUMMARY | 2025-10-31 22:24 | XMS_ITS | Clinical Summary ---
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 Gender Identity Not on file Sexual Orientation [...] 09/10/2022, 09/04/2021, Additional history exists COVID-19 Vaccine ( - 2024-2 6 season) 2025 11/03/2022, 04/14/2022, 09/24/2021, Additional history exists DTAP/TDAP/TD VACCINES (4 - T d or Tdap) 04/19/2032 04/19/2022, 10/19/2016, 09/06/2011 PNEUMOCOCCAL VACCINE 50+ YEARS Completed 04/19/2022 , 05/10/2016 Insurance [facility] OPEN ACCESS [facility] [place] [employer] Advance Directives For more information, please contact: [phone] * Full Code (Latest Code Status on File) Date Activated Date Inactivated Comments 05/03/2024 2:10 PM 05/06/2024 3:09 PM * Default Full Code - Needs Discussion Date Activated Date Inactivated Comments 05/03/2024 1:43 PM 05/03/2024 2:10 PM Care Teams Exhaust And Muffler Repairer Relationship Specialty Start Date End Date Yara Phelps MD [address] [place] [id number] PCP - General Family Practice 05/07/24
--- OUTSIDE RECORDS SUMMARY | 2025-10-31 22:24 | XMS_ITS | Continuity of Care Document ---
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 08/13/2025 Active Intervertebral disc disorders with radiculopathy, lumbar region M51.16 08/13/2025 Active Spondylolisthesis, lumbar region M43.16 08/13/2025 Active Gout, unspecified M10.9 08/13/2025 Act pelon Hyperlipidemia, unspecified E78.5 08/13/2025 Active Type 2 diabetes mellitus without complications E11.9 08/13/2025 Act pelon [facility] (current) use of oral hypoglycemic drugs Z79.84 08/13/2025 Active Retention of urine, unspecified R33.9 08/13/2025 Active Benign prostatic hyperplasia without lower urinary tract symptoms N40.0 08/13/2025 Ac tive Obesity, unspecified E66.9 08/13/2025 Active Gastro-esophageal reflux disease without esophagitis K21.9 08/13/2025 Active Difficulty in walking, not elsewhere classified R26.2 08/14/2025 Active Muscle weakness (generalized) M62.81 08/14/2025 Active Body mass index (BMI) 32.0-32.9, adult Z68.32 08/14/2025 Active Chronic obstructive pulmonary disease, unspecified J44.9 08/21/2025 Active Vitamin D deficiency, unspecified E55.9 09/05/2025 Active Results Test Result Date/Time Value / Unit Interp. Refere nce Range Tuberculosis reaction wheal[ 51685-4] Tuberculosis reaction wheal [51358-6] 08/29/2025 10:40 AM 0 mm NEG Tuberculosis reaction wheal[ 59909-0] Tuberculosis reaction wheal [30375-7] 08/29/2025 10:40 AM See note TB test Tuberculosis reaction wheal[ 86569-9] Tuberculosis reaction wheal [67964-8] 08/21/2025 05:00 PM 0 mm NEG Allergies, adverse reactions, alerts Substance Reaction Date Status Type Influenza Virus Vaccines 08/12/2025 Non Drug Shrimp 08/12/2025 Non Drug metoprolol succinate 08/12/2025 Non Drug Immunizations Vaccine Route Date Status COVID-19 Vaccine Unassigned Route of Administration Refused COVID-19 Vaccine Unassigned Route of Administration Completed COVID-19 Vaccine Unassigned Route of Administration Completed COVID-19 Vaccine Unassigned Route of Administration Completed Pneumococcal Vaccine Unassigned Route of Administratio n 08/16/2025 Completed Medications Medication Instructions Route Dosage Frequency Start Date Stop Date Indications Status Tylenol (acetaminophen) 325 mg tablet (Tylenol (acetaminophen) ) 2 tabs/650mg, oral, Every 6 Hours - PRN, as needed for PRN pain/increase d tempMay give rectally if necessary oral 1.0 6.0 h 09/12 Active Dulcolax (bisacodyl) (bisacodyl) 10 mg suppository (Dulcolax (bisacodyl) (bisacodyl)) 1 suppository, rectal, Once A Day - PRN, Give rectally if can't take p/o, if no results from [facility] rectal 1.0 1.0 d 09/12 Active albuterol sulfate 90 mcg/actuation HFA aerosol inhaler (albuterol sulfate) 1 inh, inhalation, Every 6 Hours - PRN, for sob or wheezing inhalation 1.0 6.0 h 09/12 Active allopurinol 100 mg tablet (allopurinol) 0.5 tab (50mg), oral, Once A Day oral 1.0 1.0 d 09/12 Active AsperFlex(m.chrissie icylat-menthol) (methyl salicylate-ment hol) 15-10 % cream (AsperFlex(m.sa licylat-menthol ) (methyl salicylate-ment hol)) 1 silvestre, topical, Three Times A Day topical 1.0 8.0 h 09/12 Active aspirin 81 mg tablet,delayed release (DR/EC) (aspirin) 2 tabs, oral, Once A Day oral 1.0 1.0 d 08/19 Active azelastine 137 mcg (0.1 %) spray,non-aeros ol (azelastine) 1 spray, nasal, Twice A Day, each nostril nasal 1.0 12.0 h 09/12 Active cholecalciferol (vitamin D3) 75 mcg (3,000 unit) tablet (cholecalcifero l (vitamin D3)) 1 tab, oral, Once A Day oral 1.0 1.0 d 08/20 Active Combivent Respimat (ipratropium-al buterol) 20-100 mcg/actuation mist (Combivent Respimat (ipratropium-al buterol)) 1 inh, inhalation, Four Times A Day - PRN, for sob or wheezing inhalation 1.0 6.0 h 09/12 Active fexofenadine 180 mg tablet (fexofenadine) 1 tab, oral, Once A Day oral 1.0 1.0 d 09/12 Active furosemide 20 mg tablet (furosemide) 1 tab, oral, Once A Day oral 1.0 1.0 d 09/12 Active gabapentin 300 mg capsule (gabapentin) 1 cap, oral, Three Times A Day oral 1.0 8.0 h 09/12 Active ipratropium bromide 21 mcg (0.03 %) spray,non-aeros ol (ipratropium bromide) 1 spray each nostril, nasal, Three Times A Day nasal 1.0 8.0 h 09/12 Active lidocaine 5 % ointment (lidocaine) 1 silvestre, topical, Three Times A Day - PRN, for pain topical 1.0 8.0 h 09/12 Active lidocaine 4 % adhesive patch,medicated (lidocaine) 1 patch, topical, Once A Day - PRN, for pain, when placed, nurse to enter one time order to remove in 12 hours - TI for 5% topical 1.0 1.0 d 09/12 Active lisinopril 10 mg tablet (lisinopril) 1 tab, oral, Once A Day oral 1.0 1.0 d 09/12 Active metformin 500 mg tablet extended release 24hr (metformin) 1 tab, oral, At Bedtime oral 1.0 09/12 Active montelukast 10 mg tablet (montelukast) 1 tab, oral, At Bedtime oral 1.0 09/12 Active omeprazole 20 mg capsule,delayed release(DR/EC) (omeprazole) 1 cap, oral, Once A Day, TI for pantoprazole oral 1.0 1.0 d 09/12 Active potassium chloride 20 mEq tablet extended release (potassium chloride) 1 tab, oral, Once A Day Every Other Day oral 1.0 1.0 d 09/05 Active petrolatum (mineral oil-hydrophil petrolat) - ointment (petrolatum (mineral oil-hydrophil petrolat)) 1 silvestre, topical, Once A Day topical 1.0 1.0 d 09/12 Active prednisone 20 mg tablet (prednisone) 2 tabs (40mg), oral, Once A Day oral 1.0 1.0 d 08/15 Active simvastatin 40 mg tablet (simvastatin) 1 tab, oral, At Bedtime oral 1.0 09/12 Active tamsulosin 0.4 mg capsule (tamsulosin) 2 caps, oral, Once A Day oral 1.0 1.0 d 09/12 Active tramadol 50 mg tablet (tramadol) 1 tab, oral, Every 6 Hours - PRN, pain exempt R52 oral 1.0 6.0 h 08/19 Active Tubersol (tuberculin ppd) 5 tub. unit /0.1 mL solution (Tubersol (tuberculin ppd)) 0.1ml, intradermal, Once - One Time, Administer the morning after admission intraderma l 1.0 08/13 Active Arexvy (PF) (rsvpref3 antigen-as01e (pf)) 120 mcg/0.5 mL suspension for reconstitution (Arexvy (PF) (rsvpref3 antigen-as01e (pf))) 0.5ml, intramuscular , Once - One Time intramuscu lar 1.0 08/15 Active Prevnar 20 (PF) (pneumoc 20-collin conj-dip cr(pf)) 0.5 mL syringe (Prevnar 20 (PF) (pneumoc 20-collin conj-dip cr(pf))) 0.5ml, intramuscular , Once - One Time intramuscu lar 1.0 08/15 Active Miralax (polyethylene glycol 3350) 17 gram/dose powder (Miralax (polyethylene glycol 3350)) 17 gram, oral, Once A Day, Mix with 8 oz of juice or water oral 1.0 1.0 d 09/12 Active prednisone 10 mg tablet (prednisone) 1, oral, Once A Day oral 1.0 1.0 d 08/17 Active prednisone 5 mg tablet (prednisone) 1, oral, Once A Day oral 1.0 1.0 d 08/20 Active hydrocodone-rafy taminophen 5-325 mg tablet (hydrocodone-ac etaminophen) 1, oral, Every 6 Hours - PRN, Clinical Indication: Pain oral 1.0 6.0 h 09/08 Active nicotine 14 mg/24 hr patch 24 hour (nicotine) 1 patch, transdermal, Once A Day, Apply 1 patch topically daily x 2wks, then decrease to 7mg patch daily x 2wks then stop. transderma l 1.0 1.0 d 09/02 Active cholecalciferol (vitamin D3) 25 mcg (1,000 unit) tablet (cholecalcifero l (vitamin D3)) 3 tabs (3,000 unit), oral, Once A Day oral 1.0 1.0 d 09/12 Active Tubersol (tuberculin ppd) 5 tub. unit /0.1 mL solution (Tubersol (tuberculin ppd)) 0.1ml, intradermal, Once - One Time, Administer on the day shift intraderma l 1.0 08/21 Active hydrocodone-rafy taminophen 5-325 mg tablet (hydrocodone-ac etaminophen) 1 tablet, oral, Once - One Time, Pulled from [employer] oral 1.0 08/21 Active hydrocodone-rafy taminophen 5-325 mg tablet (hydrocodone-ac etaminophen) 1 tab, oral, Once - One Time oral 1.0 08/22 Active Tubersol (tuberculin ppd) 5 tub. unit /0.1 mL solution (Tubersol (tuberculin ppd)) 0.1ml, intradermal, Once - One Time, Administer on the day shift intraderma l 1.0 08/29 Active nicotine 7 mg/24 hr patch 24 hour (nicotine) 1 patch, transdermal, Once A Day, Apply 1 14mg patch topically daily x 2wks, then decrease to 7mg patch daily x 2wks then stop. transderma l 1.0 1.0 d 09/17 Active furosemide 40 mg tablet (furosemide) 1, oral, Once A Day, Take with 20mg to equal 60mg x 3days oral 1.0 1.0 d 09/08 Active potassium chloride 20 mEq tablet extended release (potassium chloride) 1 tab, oral, Once A Day Every 3 Days oral 1.0 1.0 d 09/12 Active hydrocodone-rafy taminophen 5-325 mg tablet (hydrocodone-ac etaminophen) 1, oral, Every 6 Hours - PRN, Clinical Indication: Pain oral 1.0 6.0 h 09/12 Active Arexvy (PF) (rsvpref3 antigen-as01e (pf)) 120 mcg/0.5 mL suspension for reconstitution (Arexvy (PF) (rsvpref3 antigen-as01e (pf))) 0.5ml, intramuscular , Once - One Time intramuscu lar 1.0 09/12 Active furosemide 40 mg tablet (furosemide) 1, oral, Once A Day, Take with 20mg to equal 60mg x 3days oral 1.0 1.0 d 09/12 Active hydrocodone-rafy taminophen 5-325 mg tablet (hydrocodone-ac etaminophen) 1 tab, oral, Once - One Time, Pulled from [employer] oral 1.0 09/12 Active hydrocodone-rafy taminophen 5-325 mg tablet (hydrocodone-ac etaminophen) 1 tab, oral, Once - One Time oral 1.0 09/12 Active nicotine 14 mg/24 hr patch 24 hour (nicotine) 1 patch, transdermal, Once A Day, Apply 1 patch topically daily x 2wks, then decrease to 7mg patch daily x 2wks then stop. transderma l 1.0 1.0 d 09/12 Active nicotine 7 mg/24 hr patch 24 hour (nicotine) 1 patch, transdermal, Once A Day, Apply 1 14mg patch topically daily x 2wks, then decrease to 7mg patch daily x 2wks then stop. transderma l 1.0 1.0 d 09/12 Active prednisone 10 mg tablet (prednisone) 1, oral, Once A Day oral 1.0 1.0 d 09/12 Active prednisone 5 mg tablet (prednisone) 1, oral, Once A Day oral 1.0 1.0 d 09/12 Active Prevnar 20 (PF) (pneumoc 20-collin conj-dip cr(pf)) 0.5 mL syringe (Prevnar 20 (PF) (pneumoc 20-collin conj-dip cr(pf))) 0.5ml, intramuscular , Once - One Time intramuscu lar 1.0 09/12 Active Tubersol (tuberculin ppd) 5 tub. unit /0.1 mL solution (Tubersol (tuberculin ppd)) 0.1ml, intradermal, Once - One Time, Administer the morning after admission intraderma l 1.0 09/12 Active Tubersol (tuberculin ppd) 5 tub. unit /0.1 mL solution (Tubersol (tuberculin ppd)) 0.1ml, intradermal, Once - One Time, Administer on the day shift intraderma l 1.0 09/12 Active Tubersol (tuberculin ppd) 5 tub. unit /0.1 mL solution (Tubersol (tuberculin ppd)) 0.1ml, intradermal, Once - One Time, Administer on the day shift intraderma l 1.0 09/12 Active Vital Signs Date Vital Result Comment 08/13/2025 08:27 PM Temperature (8310-5) 98.2 [degF] Oxygen Saturation (07986-5) 95 % Respiratory Rate (9279-1) 18 /min Heart Rate (8867-4) 78 /min Blood Pressure Systolic (8480-6) 132 mm[Hg] Blood Pressure Diastolic (8462-4) 72 mm[Hg] 08/14/2025 04:45 PM Body mass index (BMI) [Ratio] (391 56-5) 0.0 kg/m2 Body Weight (41489-5) 219 [lb_av] Body Mass Index (56587-0) 32.34 kg/m2 08/14/2025 08:19 PM Temperature (8310-5) 96.8 [degF] Oxygen Saturation (16220-0) 94 % Respiratory Rate (9279-1) 20 /min Heart Rate (8867-4) 65 /min Blood Pressure Systolic (8480-6) 112 mm[Hg] Blood Pressure Diastolic (8462-4) 55 mm[Hg] 08/14/2025 05:46 PM Temperature (8310-5) 99 [degF] Oxygen Saturation (58791-7) 96 % Respiratory Rate (9279-1) 20 /min Heart Rate (8867-4) 80 /min Blood Pressure Systolic (8480-6) 120 mm[Hg] Blood Pressure Diastolic (8462-4) 84 mm[Hg] 08/15/2025 12:13 PM Body Weight (34063-9) 219.8 [lb_av ] Body Mass Index (22659-6) 32.46 kg/m2 08/15/2025 10:57 AM Body Height (8302-2) 69 [in_us] 08/15/2025 07:46 PM Temperature (8310-5) 97.5 [degF] Oxygen Saturation (59916-0) 93 % Respiratory Rate (9279-1) 17 /min Heart Rate (8867-4) 60 /min Blood Pressure Systolic (8480-6) 140 mm[Hg] Blood Pressure Diastolic (8462-4) 61 mm[Hg] 08/16/2025 03:04 PM Temperature (8310-5) 98.2 [degF] Oxygen Saturation (95457-2) 88 % Respiratory Rate (9279-1) 16 /min Heart Rate (8867-4) 51 /min Blood Pressure Systolic (8480-6) 139 mm[Hg] Blood Pressure Diastolic (8462-4) 64 mm[Hg] 08/16/2025 11:41 AM Temperature (8310-5) 98 [degF] 08/16/2025 08:30 PM Temperature (8310-5) 98.2 [degF] Oxygen Saturation (19462-3) 95 % Respiratory Rate (9279-1) 21 /min Heart Rate (8867-4) 56 /min Blood Pressure Systolic (8480-6) 128 mm[Hg] Blood Pressure Diastolic (8462-4) 56 mm[Hg] 08/17/2025 08:45 PM Temperature (8310-5) 98.6 [degF] Oxygen Saturation (24320-3) 98 % Respiratory Rate (9279-1) 18 /min Heart Rate (8867-4) 78 /min Blood Pressure Systolic (8480-6) 120 mm[Hg] Blood Pressure Diastolic (8462-4) 64 mm[Hg] 08/17/2025 05:53 PM Temperature (8310-5) 97.7 [degF] Oxygen Saturation (48337-1) 95 % Respiratory Rate (9279-1) 19 /min Heart Rate (8867-4) 60 /min Blood Pressure Systolic (8480-6) 109 mm[Hg] Blood Pressure Diastolic (8462-4) 60 mm[Hg] 08/18/2025 01:55 PM Temperature (8310-5) 97.6 [degF] Oxygen Saturation (37346-2) 94 % Respiratory Rate (9279-1) 18 /min Heart Rate (8867-4) 61 /min Blood Pressure Systolic (8480-6) 134 mm[Hg] Blood Pressure Diastolic (8462-4) 68 mm[Hg] 08/18/2025 09:01 PM Temperature (8310-5) 96.7 [degF] Oxygen Saturation (41436-2) 99 % Respiratory Rate (9279-1) 18 /min Heart Rate (8867-4) 65 /min Blood Pressure Systolic (8480-6) 117 mm[Hg] Blood Pressure Diastolic (8462-4) 63 mm[Hg] 08/19/2025 09:17 AM Temperature (8310-5) 98 [degF] Oxygen Saturation (17898-8) 98 % Respiratory Rate (9279-1) 17 /min Heart Rate (8867-4) 66 /min Blood Pressure Systolic (8480-6) 118 mm[Hg] Blood Pressure Diastolic (8462-4) 70 mm[Hg] 08/19/2025 07:34 PM Temperature (8310-5) 98.3 [degF] Oxygen Saturation (52894-7) 96 % Respiratory Rate (9279-1) 16 /min Heart Rate (8867-4) 69 /min Blood Pressure Systolic (8480-6) 134 mm[Hg] Blood Pressure Diastolic (8462-4) 66 mm[Hg] 08/20/2025 03:26 PM Temperature (8310-5) 98 [degF] Oxygen Saturation (11355-6) 96 % Respiratory Rate (9279-1) 17 /min Heart Rate (8867-4) 72 /min Blood Pressure Systolic (8480-6) 137 mm[Hg] Blood Pressure Diastolic (8462-4) 71 mm[Hg] 08/20/2025 07:11 PM Temperature (8310-5) 97.6 [degF] Oxygen Saturation (02781-5) 94 % Respiratory Rate (9279-1) 19 /min Heart Rate (8867-4) 85 /min Blood Pressure Systolic (8480-6) 155 mm[Hg] Blood Pressure Diastolic (8462-4) 82 mm[Hg] 08/21/2025 08:39 AM Temperature (8310-5) 98.6 [degF] Oxygen Saturation (34852-0) 93 % Respiratory Rate (9279-1) 17 /min Heart Rate (8867-4) 56 /min Blood Pressure Systolic (8480-6) 136 mm[Hg] Blood Pressure Diastolic (8462-4) 62 mm[Hg] 08/21/2025 01:01 PM Body Weight (42434-8) 212.4 [lb_av ] Body Mass Index (30501-6) 31.36 kg/m2 08/21/2025 07:02 PM Temperature (8310-5) 97.8 [degF] Oxygen Saturation (59632-8) 93 % Respiratory Rate (9279-1) 17 /min Heart Rate (8867-4) 72 /min Blood Pressure Systolic (8480-6) 122 mm[Hg] Blood Pressure Diastolic (8462-4) 62 mm[Hg] 08/22/2025 09:19 AM Temperature (8310-5) 98.7 [degF] Oxygen Saturation (97732-5) 91 % Respiratory Rate (9279-1) 19 /min Heart Rate (8867-4) 50 /min Blood Pressure Systolic (8480-6) 114 mm[Hg] Blood Pressure Diastolic (8462-4) 44 mm[Hg] 08/22/2025 06:36 PM Temperature (8310-5) 96.3 [degF] Oxygen Saturation (97091-0) 95 % Respiratory Rate (9279-1) 20 /min Heart Rate (8867-4) 63 /min Blood Pressure Systolic (8480-6) 137 mm[Hg] Blood Pressure Diastolic (8462-4) 55 mm[Hg] 08/23/2025 07:20 AM Temperature (8310-5) 97.3 [degF] Oxygen Saturation (87668-9) 90 % Respiratory Rate (9279-1) 17 /min Heart Rate (8867-4) 64 /min Blood Pressure Systolic (8480-6) 140 mm[Hg] Blood Pressure Diastolic (8462-4) 71 mm[Hg] 08/23/2025 06:58 PM Oxygen Saturation (95545-9) 98 % Respiratory Rate (9279-1) 17 /min Blood Pressure Systolic (8480-6) 130 mm[Hg] Blood Pressure Diastolic (8462-4) 74 mm[Hg] 08/23/2025 06:57 PM Temperature (8310-5) 97.7 [degF] Heart Rate (8867-4) 88 /min 08/24/2025 10:24 AM Temperature (8310-5) 98.6 [degF] Oxygen Saturation (67426-3) 98 % Respiratory Rate (9279-1) 18 /min Heart Rate (8867-4) 88 /min Blood Pressure Systolic (8480-6) 128 mm[Hg] Blood Pressure Diastolic (8462-4) 92 mm[Hg] 08/25/2025 08:22 AM Temperature (8310-5) 97.8 [degF] Oxygen Saturation (97263-1) 97 % Respiratory Rate (9279-1) 18 /min Heart Rate (8867-4) 61 /min Blood Pressure Systolic (8480-6) 118 mm[Hg] Blood Pressure Diastolic (8462-4) 69 mm[Hg] 08/25/2025 06:48 PM Temperature (8310-5) 97.6 [degF] Oxygen Saturation (54107-4) 93 % Respiratory Rate (9279-1) 18 /min Heart Rate (8867-4) 62 /min Blood Pressure Systolic (8480-6) 111 mm[Hg] Blood Pressure Diastolic (8462-4) 55 mm[Hg] 08/26/2025 09:06 AM Temperature (8310-5) 97.8 [degF] Oxygen Saturation (40842-4) 94 % Respiratory Rate (9279-1) 20 /min Heart Rate (8867-4) 60 /min Blood Pressure Systolic (8480-6) 142 mm[Hg] Blood Pressure Diastolic (8462-4) 70 mm[Hg] 08/26/2025 09:04 PM Temperature (8310-5) 95.6 [degF] Oxygen Saturation (50001-9) 91 % Respiratory Rate (9279-1) 19 /min Heart Rate (8867-4) 64 /min Blood Pressure Systolic (8480-6) 132 mm[Hg] Blood Pressure Diastolic (8462-4) 60 mm[Hg] 08/27/2025 11:53 AM Temperature (8310-5) 97.4 [degF] Oxygen Saturation (14502-9) 93 % Respiratory Rate (9279-1) 19 /min Heart Rate (8867-4) 68 /min Blood Pressure Systolic (8480-6) 140 mm[Hg] Blood Pressure Diastolic (8462-4) 73 mm[Hg] 08/27/2025 07:46 PM Temperature (8310-5) 97.9 [degF] Oxygen Saturation (13099-2) 98 % Respiratory Rate (9279-1) 16 /min Heart Rate (8867-4) 59 /min Blood Pressure Systolic (8480-6) 131 mm[Hg] Blood Pressure Diastolic (8462-4) 73 mm[Hg] 08/28/2025 01:36 PM Body Weight (99280-9) 212.8 [lb_av ] Body Mass Index (05818-5) 31.42 kg/m2 08/28/2025 11:28 AM Temperature (8310-5) 98.2 [degF] Oxygen Saturation (32264-5) 92 % Respiratory Rate (9279-1) 18 /min Heart Rate (8867-4) 90 /min Blood Pressure Systolic (8480-6) 135 mm[Hg] Blood Pressure Diastolic (8462-4) 88 mm[Hg] 08/29/2025 02:26 AM Temperature (8310-5) 97.8 [degF] Oxygen Saturation (25486-7) 95 % Respiratory Rate (9279-1) 20 /min Heart Rate (8867-4) 56 /min Blood Pressure Systolic (8480-6) 135 mm[Hg] Blood Pressure Diastolic (8462-4) 62 mm[Hg] 08/29/2025 12:19 PM Temperature (8310-5) 98.4 [degF] Oxygen Saturation (10626-8) 91 % Respiratory Rate (9279-1) 15 /min Heart Rate (8867-4) 64 /min Blood Pressure Systolic (8480-6) 134 mm[Hg] Blood Pressure Diastolic (8462-4) 56 mm[Hg] Body Weight (43369-7) 217.6 [lb_av] Body Mass Index (00963-2) 32.13 kg/m2 08/29/2025 07:24 PM Temperature (8310-5) 98.4 [degF] Oxygen Saturation (57820-2) 92 % Respiratory Rate (9279-1) 19 /min Heart Rate (8867-4) 60 /min Blood Pressure Systolic (8480-6) 137 mm[Hg] Blood Pressure Diastolic (8462-4) 68 mm[Hg] 08/30/2025 10:14 AM Body Weight (53981-0) 209.2 [lb_av ] Body Mass Index (77830-0) 30.89 kg/m2 08/30/2025 10:12 AM Temperature (8310-5) 97.5 [degF] Oxygen Saturation (84181-4) 93 % Respiratory Rate (9279-1) 20 /min Heart Rate (8867-4) 70 /min Blood Pressure Systolic (8480-6) 133 mm[Hg] Blood Pressure Diastolic (8462-4) 76 mm[Hg] 08/30/2025 09:06 PM Temperature (8310-5) 98.8 [degF] Oxygen Saturation (07103-4) 98 % Respiratory Rate (9279-1) 20 /min Heart Rate (8867-4) 67 /min Blood Pressure Systolic (8480-6) 126 mm[Hg] Blood Pressure Diastolic (8462-4) 68 mm[Hg] 08/31/2025 01:04 PM Body Weight (16681-5) 218.4 [lb_av ] Body Mass Index (92783-8) 32.25 kg/m2 08/31/2025 06:43 PM Temperature (8310-5) 97.9 [degF] Oxygen Saturation (27620-7) 92 % Respiratory Rate (9279-1) 18 /min Heart Rate (8867-4) 62 /min Blood Pressure Systolic (8480-6) 130 mm[Hg] Blood Pressure Diastolic (8462-4) 73 mm[Hg] 08/31/2025 11:41 PM Oxygen Saturation (88973-7) 94 % 08/31/2025 11:40 PM Temperature (8310-5) 97.8 [degF] Respiratory Rate (9279-1) 18 /min Heart Rate (8867-4) 75 /min Blood Pressure Systolic (8480-6) 121 mm[Hg] Blood Pressure Diastolic (8462-4) 69 mm[Hg] 09/01/2025 11:21 AM Body Weight (78837-6) 217.6 [lb_av ] Body Mass Index (28689-8) 32.13 kg/m2 09/01/2025 09:14 AM Temperature (8310-5) 97.6 [degF] Oxygen Saturation (93897-5) 97 % Respiratory Rate (9279-1) 18 /min Heart Rate (8867-4) 70 /min Blood Pressure Systolic (8480-6) 115 mm[Hg] Blood Pressure Diastolic (8462-4) 64 mm[Hg] 09/01/2025 08:11 PM Oxygen Saturation (38410-6) 98 % Respiratory Rate (9279-1) 18 /min Heart Rate (8867-4) 74 /min Blood Pressure Systolic (8480-6) 130 mm[Hg] Blood Pressure Diastolic (8462-4) 82 mm[Hg] 09/01/2025 08:10 PM Temperature (8310-5) 98.7 [degF] 09/02/2025 08:20 AM Temperature (8310-5) 97.5 [degF] Oxygen Saturation (91809-6) 93 % Respiratory Rate (9279-1) 18 /min Heart Rate (8867-4) 63 /min Blood Pressure Systolic (8480-6) 118 mm[Hg] Blood Pressure Diastolic (8462-4) 69 mm[Hg] 09/02/2025 07:30 PM Temperature (8310-5) 98.1 [degF] Oxygen Saturation (66978-1) 96 % Respiratory Rate (9279-1) 16 /min Heart Rate (8867-4) 66 /min Blood Pressure Systolic (8480-6) 129 mm[Hg] Blood Pressure Diastolic (8462-4) 74 mm[Hg] 09/03/2025 08:54 AM Temperature (8310-5) 97.8 [degF] Oxygen Saturation (91284-7) 93 % Respiratory Rate (9279-1) 18 /min Heart Rate (8867-4) 56 /min Blood Pressure Systolic (8480-6) 119 mm[Hg] Blood Pressure Diastolic (8462-4) 68 mm[Hg] 09/03/2025 07:54 AM Body Weight (08392-0) 219.6 [lb_av ] Body Mass Index (80439-3) 32.43 kg/m2 09/03/2025 07:51 PM Temperature (8310-5) 98.6 [degF] Oxygen Saturation (89121-9) 95 % Respiratory Rate (9279-1) 20 /min Heart Rate (8867-4) 57 /min Blood Pressure Systolic (8480-6) 143 mm[Hg] Blood Pressure Diastolic (8462-4) 63 mm[Hg] 09/04/2025 11:45 AM Body Weight (03589-1) 218.6 [lb_av ] Body Mass Index (85696-6) 32.28 kg/m2 09/04/2025 10:54 AM Temperature (8310-5) 97 [degF] Oxygen Saturation (72631-1) 91 % Respiratory Rate (9279-1) 20 /min Heart Rate (8867-4) 58 /min Blood Pressure Systolic (8480-6) 132 mm[Hg] Blood Pressure Diastolic (8462-4) 72 mm[Hg] 09/04/2025 06:52 PM Temperature (8310-5) 97.9 [degF] Oxygen Saturation (40741-1) 96 % Respiratory Rate (9279-1) 19 /min Heart Rate (8867-4) 74 /min Blood Pressure Systolic (8480-6) 132 mm[Hg] Blood Pressure Diastolic (8462-4) 70 mm[Hg] 09/05/2025 03:48 PM Temperature (8310-5) 98.9 [degF] Oxygen Saturation (02514-9) 97 % Respiratory Rate (9279-1) 21 /min Heart Rate (8867-4) 77 /min Blood Pressure Systolic (8480-6) 131 mm[Hg] Blood Pressure Diastolic (8462-4) 85 mm[Hg] Body Weight (86671-2) 220.4 [lb_av] Body Mass Index (12656-9) 32.54 kg/m2 09/05/2025 07:55 PM Body Weight (06950-5) 221 [lb_av] Body Mass Index (91077-3) 32.63 kg/m2 09/05/2025 07:25 PM Temperature (8310-5) 98.1 [degF] Oxygen Saturation (41190-7) 95 % Respiratory Rate (9279-1) 20 /min Heart Rate (8867-4) 63 /min Blood Pressure Systolic (8480-6) 149 mm[Hg] Blood Pressure Diastolic (8462-4) 59 mm[Hg] 09/06/2025 11:59 AM Body Weight (63742-2) 219.8 [lb_av ] Body Mass Index (65675-7) 32.46 kg/m2 09/06/2025 08:34 PM Body Weight (55999-5) 219.6 [lb_av ] Body Mass Index (40650-0) 32.43 kg/m2 09/06/2025 08:26 PM Temperature (8310-5) 99 [degF] 09/06/2025 05:57 PM Temperature (8310-5) 99.9 [degF] Oxygen Saturation (74893-0) 90 % Respiratory Rate (9279-1) 16 /min Heart Rate (8867-4) 65 /min Blood Pressure Systolic (8480-6) 135 mm[Hg] Blood Pressure Diastolic (8462-4) 67 mm[Hg] 09/06/2025 08:27 PM Oxygen Saturation (24494-0) 97 % Respiratory Rate (9279-1) 20 /min Heart Rate (8867-4) 87 /min Blood Pressure Systolic (8480-6) 132 mm[Hg] Blood Pressure Diastolic (8462-4) 70 mm[Hg] 09/07/2025 08:51 AM Body Weight (92663-9) 221.4 [lb_av ] Body Mass Index (03054-9) 32.69 kg/m2 09/07/2025 08:50 AM Temperature (8310-5) 97.8 [degF] Oxygen Saturation (80055-5) 94 % Respiratory Rate (9279-1) 18 /min Heart Rate (8867-4) 65 /min Blood Pressure Systolic (8480-6) 122 mm[Hg] Blood Pressure Diastolic (8462-4) 61 mm[Hg] 09/07/2025 09:59 PM Temperature (8310-5) 97.2 [degF] Oxygen Saturation (47124-7) 96 % Respiratory Rate (9279-1) 18 /min Heart Rate (8867-4) 78 /min Blood Pressure Systolic (8480-6) 122 mm[Hg] Blood Pressure Diastolic (8462-4) 78 mm[Hg] 09/08/2025 08:07 AM Temperature (8310-5) 97.7 [degF] Oxygen Saturation (41418-3) 92 % Respiratory Rate (9279-1) 18 /min Heart Rate (8867-4) 62 /min Blood Pressure Systolic (8480-6) 128 mm[Hg] Blood Pressure Diastolic (8462-4) 72 mm[Hg] Body Weight (24512-7) 219.2 [lb_av] Body Mass Index (46514-3) 32.37 kg/m2 09/08/2025 09:37 PM Temperature (8310-5) 98 [degF] Oxygen Saturation (25963-6) 95 % Respiratory Rate (9279-1) 16 /min Heart Rate (8867-4) 67 /min Blood Pressure Systolic (8480-6) 122 mm[Hg] Blood Pressure Diastolic (8462-4) 88 mm[Hg] 09/09/2025 12:51 PM Temperature (8310-5) 97.7 [degF] Oxygen Saturation (54798-8) 96 % Respiratory Rate (9279-1) 18 /min Heart Rate (8867-4) 62 /min Blood Pressure Systolic (8480-6) 121 mm[Hg] Blood Pressure Diastolic (8462-4) 62 mm[Hg] 09/09/2025 11:55 AM Body Weight (00702-2) 223.4 [lb_av ] Body Mass Index (28181-0) 32.99 kg/m2 09/09/2025 07:17 PM Body Weight (40182-5) 221.4 [lb_av ] Body Mass Index (64231-5) 32.69 kg/m2 09/09/2025 08:39 PM Temperature (8310-5) 98.6 [degF] Oxygen Saturation (94633-8) 90 % Respiratory Rate (9279-1) 18 /min Heart Rate (8867-4) 63 /min Blood Pressure Systolic (8480-6) 120 mm[Hg] Blood Pressure Diastolic (8462-4) 66 mm[Hg] 09/10/2025 05:47 AM Body Weight (38170-3) 222.4 [lb_av ] Body Mass Index (36012-8) 32.84 kg/m2 09/10/2025 07:25 PM Temperature (8310-5) 97.8 [degF] Oxygen Saturation (71989-2) 96 % Respiratory Rate (9279-1) 18 /min Heart Rate (8867-4) 54 /min Blood Pressure Systolic (8480-6) 107 mm[Hg] Blood Pressure Diastolic (8462-4) 67 mm[Hg] 09/10/2025 06:56 PM Body Weight (95730-7) 223.8 [lb_av ] Body Mass Index (41933-4) 33.05 kg/m2 09/11/2025 09:46 AM Body Weight (33544-8) 220.6 [lb_av ] Body Mass Index (99182-7) 32.57 kg/m2 09/11/2025 09:45 AM Temperature (8310-5) 98.5 [degF] Oxygen Saturation (15604-7) 93 % Respiratory Rate (9279-1) 16 /min Heart Rate (8867-4) 54 /min Blood Pressure Systolic (8480-6) 118 mm[Hg] Blood Pressure Diastolic (8462-4) 60 mm[Hg] 09/11/2025 07:30 PM Temperature (8310-5) 98.8 [degF] Oxygen Saturation (02410-3) 93 % Respiratory Rate (9279-1) 20 /min Heart Rate (8867-4) 63 /min Blood Pressure Systolic (8480-6) 127 mm[Hg] Blood Pressure Diastolic (8462-4) 54 mm[Hg] 09/12/2025 07:32 AM Body Weight (25418-6) 222.7 [lb_av ] Body Mass Index (91644-6) 32.88 kg/m2 09/12/2025 05:11 AM Body Weight (68082-5) 222.4 [lb_av ] Body Mass Index (47707-1) 32.84 kg/m2 09/12/2025 09:03 AM Temperature (8310-5) 98.1 [degF] Oxygen Saturation (96000-2) 94 % Respiratory Rate (9279-1) 20 /min Heart Rate (8867-4) 55 /min Blood Pressure Systolic (8480-6) 126 mm[Hg] Blood Pressure Diastolic (8462-4) 65 mm[Hg] Social History No smoking Hx information available Encounters Type CPT Code Date Location Provider Indication s encounter report 08/13/2025 04:2 4 PM - 09/12/2025 09:58 AM Luis Carpio DO 01 Advance Directives Directive Description Verification Date Supporting Document(s) Other Directive
--- NOTE | 2025-10-31 22:39 | ECG_ITS ---
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 Measurements Intervals [place] Rate: 99 P: 93 TX: 201 QRS: -64 QRSD: 94 T: 85 QT: 334 QTc: 429 Interpretive Statements SINUS RHYTHM LEFT AXIS DEVIATION [QRS AXIS < -30] PATTERN CONSISTENT WITH PULMONARY DISEASE Compared to ECG 06/12/2025 19:35:17 Ventricular premature complex(es) no longer present Electronically Signed On 11-01-2025 18:45:30 GRANITE FABRICATOR by Pancho Wilson M.D. [email or web address] [id number]
--- NOTE | 2025-10-31 22:39 | XRR_ITS ---
PROCEDURE INFORMATION: Exam: XR Chest Exam date and time: 10/31/2025 10:45 PM Age: 85 years old Clinical indication: Shortness of breath; Additional info: Short of breath TECHNIQUE: Imaging protocol: Radiologic exam of the chest. Views: 1 view. COMPARISON: CR XR chest 1V portable [id number] 05/02/2024 10:34 AM FINDINGS: Lungs: Unremarkable. No consolidation. Pleural spaces: Unremarkable. No pleural effusion. No pneumothorax. Heart/Mediastinum: Unremarkable. No cardiomegaly. Bones/joints: Unremarkable. XR/XR chest 1V portable [id number] IMPRESSION: No acute findings.
--- NOTE | 2025-10-31 22:57 | W.ED.SOB ---
HPI - SOB/Dyspnea General: Chief Complaint: Shortness of Breath/Dyspnea Stated Complaint: cant breathe Time Seen by Provider: 10/31/25 22:24 History of Present Illness: HPI Narrative: Patient is a pleasant 85-year-old gentleman that had just left the hospital emergency room, that returns for shortness of breath. He has a history of HTN, DM, HLD, and is on aspirin for primary prevention. Yesterday he took 4 baby aspirins outside of his daily baby aspirin due to pain in lower extremities. His primary care physician is diuresing him, according to patient, and he is on Lasix, and lisinopril/HCTZ. He started having black stools today. He did have a black stool in the ED. His hemoglobin was 10.5 here with his previous one 11.7. He improved with IV fluids x 1 L. His symptoms were gone. Patient was discharged home, and after he discharged home, had shortness of breath. No palpitations, no chest pain. He did not have any more dark, black stools. Associated symptoms: Reports abdominal pain and nausea; Deny chest pain, extremity pain, fever(s) or vomiting Related Data Home Medications ?Medication ?Instructions ?Recorded ?Confirmed acetaminophen 500 mg tablet 500 mg PO Q6H PRN Pain 09/25/20 07/08/25 (Tylenol Extra Strength) cetirizine 10 mg tablet (Zyrtec) 10 mg PO DAILY 09/25/20 07/08/25 fluticasone propionate 50 1 spray intranasal DAILY 09/25/20 07/08/25 mcg/actuation nasal spray,suspension gabapentin 300 mg capsule 600 mg PO TID PRN pain 09/25/20 07/08/25 lisinopril 10 1 tab PO DAILY 09/25/20 07/08/25 mg-hydrochlorothiazide 12.5 mg tablet metformin 500 mg tablet 500 mg PO DAILY 09/25/20 07/08/25 tamsulosin 0.4 mg capsule 0.4 mg PO DAILY 09/25/20 07/08/25 aspirin 81 mg tablet,delayed 81 mg PO DAILY pain 12/22/21 07/08/25 release (Adult Aspirin Regimen) simvastatin 80 mg tablet 40 mg PO DAILY 12/22/21 07/08/25 albuterol sulfate 90 mcg/actuation 1 inh inhalation QID PRN Shortness 05/02/24 07/08/25 aerosol inhaler Of Breath cholecalciferol (vitamin D3) 25 25 mcg PO DAILY 05/02/24 07/08/25 mcg (1,000 unit) tablet fluticasone 100 mcg-salmeterol 50 1 inh inhalation BID 05/02/24 07/08/25 mcg/dose blistr powdr for inhalation (Advair Diskus) methocarbamol 500 mg tablet 500 mg PO TID 05/02/24 07/08/25 methylprednisolone 4 mg tablets in See Rx Instructions .Route .COMPLEX 05/02/24 07/08/25 a dose pack Previous Rx's ?Medication ?Instructions ?Recorded tiotropium bromide 18 mcg capsule 1 cap inhalation DAILY 30 days #60 09/25/20 with inhalation device (Spiriva inhalations with HandiHaler) diabetic shoes w/ custom inserts #1 ea 05/23/24 diabetic shoes with 3 inserts #1 ea 09/17/24 methocarbamol 500 mg tablet 500 mg PO QID #30 tabs 04/20/25 hydrocodone 5 mg-acetaminophen 325 1 tab PO Q6H PRN pain #14 tabs 04/23/25 mg tablet hydrocodone 5 mg-acetaminophen 325 1 tab PO .q 4-6 PRN pain #20 tabs 08/05/25 mg tablet Diabetic Shoes with 3 pairs of #1 ea 10/22/25 inserts pantoprazole 40 mg tablet,delayed 40 mg PO BID 14 days #28 tabs 10/31/25 release Allergies Allergy/AdvReac Type Severity Reaction Status Date / Time hydrocortisone Allergy ADR-Numbnes Verified 08/05/25 12:20 s metoprolol Allergy Unknown Verified 08/05/25 12:20 oxycodone Allergy ADR-Numbnes Verified 08/05/25 12:20 s shrimp Allergy ALGY-Anaphy Verified 08/05/25 12:20 laxis Review of Systems General: Reports: 10 or more systems reviewed and unremarkable except in HPI and below Const: Reports: malaise; Denies: fever(s), chills, body aches or fatigue Eyes: Denies: change in vision or blurry vision ENMT: Denies: throat pain or mouth pain Card: Denies: chest pain Resp: Reports: dyspnea; Denies: non-productive cough GI: Reports: abdominal pain, nausea and melena; Denies: vomiting, coffee ground emesis or dysphagia : Denies: flank pain, difficulty urinating, dysuria, difficulty starting urination, oliguria, urinary incontinence, hematuria or testicular pain Musc: Denies: neck pain, back pain, extremity pain, extremity swelling, joint pain, joint swelling or joint redness Neuro: Denies: headache(s), numbness in extremities or weakness in extremities Psych: Denies: anxiety or depression PFSH ED PFSH: Medical History (Updated 10/31/25 @ 23:43 by SERAFIN Olguin) BPH (benign prostatic hyperplasia) Hyperlipidemia Chronic back pain COPD (chronic obstructive pulmonary disease) Diabetes type 2, controlled HTN (hypertension) DDD (degenerative disc disease) Surgical History H/O removal of cyst x 2 H/O colonoscopy 2019 History of appendectomy Family History Father Cancer Mother Lung disease Denies family history of Anesthesia complication Bleeding disorder Social History Smoking and tobacco/nicotine status: never used tobacco/nicotine Quit status (tobacco/nicotine): has quit using Year quit tobacco: 2020 - 2PPD x 70 Years Alcohol intake: never Substance/Drug Use: never Lives independently: Yes Household members: children Marital status: / service: Yes Current occupational status: retired and disabled Do you think of yourself as: Straight/Heterosexual Current gender identity: Male Physical Exam Const: COMMON NORMALS: no acute distress, average body habitus, patient oriented x3, no limitations, healthy appearing, alert and well nourished GENERAL APPEARANCE: cooperative ORIENTATION/CONSCIOUSNESS: Yes awake, Yes oriented to person, Yes oriented to place and Yes oriented to time HENMT: COMMON NORMALS: normocephalic and atraumatic HEAD & SCALP: normal to inspection, normocephalic and atraumatic FACE & SINUS: normal facial exam Neck/C-Spine: COMMON NORMALS: full ROM CERVICAL SPINE: Yes cervical ROM normal and No Cervical spine tenderness Resp: COMMON NORMALS: normal respiratory effort and clear to auscultation bilaterally AUSCULTATION: clear to auscultation bilaterally Cardio: COMMON NORMALS: regular rate and regular rhythm RATE: regular rate RHYTHM: regular rhythm GI: COMMON NORMALS: Normal to inspection, nondistended, normoactive bowel sounds present, Soft to palpation, No hepatosplenomegaly present and no masses PALPATION: Yes Soft to palpation, Yes Tenderness to palpation present (GI) (mild epigastrum) and Yes No hepatosplenomegaly present : COMMON NORMALS: Yes no CVA tenderness BLADDER/KIDNEY EXAM: Yes no CVA tenderness Back/Pelvis: COMMON NORMALS: no CVA tenderness and thoracic and lumbar spine normal to inspection THORACIC SPINE/UPPER BACK: No thoracic spinal tenderness LUMBAR SPINE/LOWER BACK: Yes normal to inspection, Yes lumbar ROM normal and No paraspinal muscle tenderness PELVIS: Yes buttocks normal SACRUM: no tenderness COCCYX: no tenderness Extremity: COMMON NORMALS: full ROM, capillary refill normal and no calf tenderness GENERAL: Yes normal exam except as noted Neuro: COMMON NORMALS: patient oriented x3, moves all extremities, no focal motor deficits, no sensory deficits noted and deep tendon reflexes 2+ bilaterally SENSORIUM/ORIENTATION: Yes alert, Yes oriented to person, Yes oriented to place and Yes oriented to time SENSORY EXAM: Yes other (normal sensation noted to LEs) MOTOR EXAM: 5/5 motor strength present throughout Skin: COMMON NORMALS: no rashes or lesions noted GENERAL SKIN EXAM: no rashes or lesions noted TRAUMA: no lacerations or abrasions Course Consultations: Consultation #1: [id number]: D/w Dr. Lacey, hospitalist accepted admission. Vital Signs: Vital signs: Vital Signs Temperature 97.7 F 10/31/25 22:19 Pulse Rate 93 10/31/25 23:19 Respiratory Rate 22 H 10/31/25 23:19 Blood Pressure 107/58 10/31/25 23:19 Pulse Oximetry 93 10/31/25 23:19 Oxygen Delivery Me thod Room Air 10/31/25 23:19 MDM - SOB/Dyspnea Medical Decision Making Patient is a 85-year-old gentleman that reports back to the emergency room with lightheadedness, dizziness, and shortness of breath. This occurred after leaving the emergency room and going home. He did not have any more black stools. His hemoglobin dropped from 10.5, to 9.5, however he did receive a total of 1 L IV fluids in the ED. I called the on-call hospitalist, and recommended admission. He has accepted for observation at this time. Patient had PPI earlier today. No further events. X-ray is without any concern. BNP is marginally elevated, no changes on EKG As far as the lactic acidosis, I believe this is reactive. I will not replace with fluid bolus at this time since he does have the tiny pleural effusion, and complaints of shortness of breath, which could be from the IV fluids. Discussed with the hospitalist on-call that has accepted admission. He will allow me to defer this decision making to him. All patient's questions answered to his satisfaction's. Medical Records I reviewed the patient's medical records. Lab Data I reviewed the patient's lab results. 10/31/25 22:53 10/31/25 22:53 Labs/Radiology: Radiology Impressions Chest X-Ray 10/31/25 22:39 IMPRESSION: No acute findings. Laboratory Results WBC 15.67 10^3/uL (3.29-11.43) H 10/31/25 22:53 RBC 3.37 10^6/uL (3.85-5.65) L 10/31/25 22:53 Hgb 9.50 g/dL (11.27-16.99) L 10/31/25 22:53 Hct 30.7 % (37-53) L 10/31/25 22:53 MCV 91.1 fl (82-101) 10/31/25 22:53 MCH 28.2 pg (27-33) 10/31/25 22:53 MCHC 30.9 g/dL (30-55) 10/31/25 22:53 RDW 15.2 % (12.1-15.1) H 10/31/25 22:53 Plt Count 174 10^3/cmm (157-399) 10/31/25 22:53 MPV 14.0 fL (7.4-10.4) H 10/31/25 22:53 Neut % (Auto) 75.8 % 10/31/25 22:53 Lymph % (Auto) 15.5 % 10/31/25 22:53 Braxton % (Auto) 7.1 % 10/31/25 22:53 Eos % (Auto) 0.6 % 10/31/25 22:53 Baso % (Auto) 0.4 % 10/31/25 22:53 Neut # (Auto) 11.89 10^3/uL (1.8-7.7) H 10/31/25 22:53 Lymph # (Auto) 2.4 10^3/uL (0.8-4.8) 10/31/25 22:53 Braxton # (Auto) 1.1 10^3/uL (0.2-0.9) H 10/31/25 22:53 Eos # (Auto) 0.1 10^3/uL (0.0-0.8) 10/31/25 22:53 Baso # (Auto) 0.1 10^3/uL (0.0-0.1) 10/31/25 22:53 Nucleated RBC % (auto) 0 % 10/31/25 22:53 Nucleated RBCs # 0.0 /100WBC 10/31/25 22:53 Sodium 138 mmol/L (136-145) 10/31/25 22:53 Potassium 4.9 mmol/L (3.5-5.1) 10/31/25 22:53 Chloride 101 mmol/L (98-107) 10/31/25 22:53 Carbon Dioxide 21 mmol/L (22-29) L 10/31/25 22:53 Anion Gap 20.9 (5-19) H 10/31/25 22:53 BUN 100 mg/dL (8-23) H* 10/31/25 22:53 Creatinine 1.8 mg/dL (0.7-1.2) H 10/31/25 22:53 GFR Calculation Not Reportable 10/31/25 22:53 Glucose 154 mg/dL (65-115) H 10/31/25 22:53 Calculated Osmolality 320 mOsm/kg (285-295) H 10/31/25 22:53 Lactic Acid 3.9 mmol/L (0.5-2.2) H 10/31/25 22:53 Calcium 9.1 mg/dL (8.5-10.5) 10/31/25 22:53 Total Bilirubin 0.3 mg/dL (0.15-1.2) 10/31/25 22:53 AST 9 U/L (0-40) 10/31/25 22:53 ALT 9 U/L (0-41) 10/31/25 22:53 Alkaline Phosphatase 61 U/L (40-130) 10/31/25 22:53 NT-Pro-B Natriuret Pep 199 pg/mL (0-450) 10/31/25 22:53 Total Protein 5.7 g/dL (6.6-8.7) L 10/31/25 22:53 Albumin 3.6 g/dL (3.5-5.2) 10/31/25 22:53 Globulin 2.1 g/dL (1.3-4.6) 10/31/25 22:53 All radiology interpretation(s) finalized by discharge ED provider radiology interpretation(s): Tiny/small right pleural effusion as compared to previous chest x-ray. 12/2023 in comparison. 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
[2025-10-31 23:16] LABS: Hematocrit 30.7 % (37-53); Hemoglobin 9.50 g/dL (11.27-16.99); Mean Corpuscular HGB Conc 30.9 g/dL (30-55); Mean Corpuscular Hemoglobin 28.2 pg (27-33); Mean Corpuscular Volume 91.1 fl (82-101); Nucleated Red Blood Cells % 0 %; Platelet Count 174 10^3/cmm (157-399); Red Blood Count 3.37 10^6/uL (3.85-5.65); White Blood Count 15.67 10^3/uL (3.29-11.43)
[2025-10-31 23:19] VITALS: BP 107/58; PULSE 93; RESP 22; O2SAT 93
[2025-10-31 23:29] LABS: Lactic Sepsis W/Reflex 3.9 mmol/L (0.5-2.2)
[2025-10-31 23:39] LABS: Alanine Aminotransferase 9 U/L (0-41); Albumin Level 3.6 g/dL (3.5-5.2); Alkaline Phosphatase 61 U/L (40-130); Anion Gap 20.9 (5-19); Aspartate Amino Transferase 9 U/L (0-40); Calcium 9.1 mg/dL (8.5-10.5); Carbon Dioxide 21 mmol/L (22-29); Chloride 101 mmol/L (98-107); Globulin 2.1 g/dL (1.3-4.6); Glucose 154 mg/dL (65-115); NT Pro B Type Natriuretic Pept 199 pg/mL (0-450); Osmolality Calculated 320 mOsm/kg (285-295); Potassium 4.9 mmol/L (3.5-5.1); Sodium 138 mmol/L (136-145); Total Protein 5.7 g/dL (6.6-8.7)
[2025-10-31 23:45] LABS: Blood Urea Nitrogen 100 mg/dL (8-23)
[2025-11-01] VITALS (23 sets, daily range): BP systolic 80–147; BP diastolic 40–68; PULSE 70–88; RESP 15–20; TEMP 36.3–36.9; O2SAT 90–98; BMI 32.1
--- NOTE | 2025-11-01 00:49 | PM.HP ---
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 On 10/31, patient presented to the ED initially with complaints of dark black stool passage. He was provided with 1L of IV fluid then sent home. He returned shortly there after with complaints of shortness of breath. He does tell me that he was using his son's home O2 prior to both presentations to the ED but it was not helpful. He also tells me in the past 2-3 days, he has been taking 2-3 extra baby aspirin per day to help with circulation in the leg. He denies any fevers, chills, nausea, vomiting, or diarrhea. He mentions R>L chronic leg swelling which he tried to manage with prescribed diuretics. No chest pain or palpitations. He tells me he quit smoking yesterday because he was becoming short of breath wtih this. Medications/Allergies Home Medications ?Medication ?Instructions ?Recorded ?Confirmed ?Last Taken ?Type acetaminophen 500 mg tablet 500 mg PO Q6H PRN Pain 09/25/20 07/08/25 Unknown History (Tylenol Extra Strength) cetirizine 10 mg tablet (Zyrtec) 10 mg PO DAILY 09/25/20 07/08/25 05/02/24 History fluticasone propionate 50 1 spray intranasal DAILY 09/25/20 07/08/25 05/02/24 History mcg/actuation nasal spray,suspension gabapentin 300 mg capsule 600 mg PO TID PRN pain 09/25/20 07/08/25 Unknown History lisinopril 10 1 tab PO DAILY 09/25/20 07/08/25 05/02/24 History mg-hydrochlorothiazide 12.5 mg tablet metformin 500 mg tablet 500 mg PO DAILY 09/25/20 07/08/25 05/02/24 History tamsulosin 0.4 mg capsule 0.4 mg PO DAILY 09/25/20 07/08/25 05/02/24 History tiotropium bromide 18 mcg capsule 1 cap inhalation DAILY 30 days #60 09/25/20 07/08/25 05/01/24 Rx with inhalation device (Spiriva inhalations with HandiHaler) aspirin 81 mg tablet,delayed 81 mg PO DAILY pain 12/22/21 07/08/25 05/02/24 History release (Adult Aspirin Regimen) simvastatin 80 mg tablet 40 mg PO DAILY 12/22/21 07/08/25 05/01/24 History albuterol sulfate 90 mcg/actuation 1 inh inhalation QID PRN Shortness 05/02/24 07/08/25 Unknown History aerosol inhaler Of Breath cholecalciferol (vitamin D3) 25 25 mcg PO DAILY 05/02/24 07/08/25 05/02/24 History mcg (1,000 unit) tablet fluticasone 100 mcg-salmeterol 50 1 inh inhalation BID 05/02/24 07/08/25 05/02/24 History mcg/dose blistr powdr for inhalation (Advair Diskus) methocarbamol 500 mg tablet 500 mg PO TID 05/02/24 07/08/25 05/02/24 History methylprednisolone 4 mg tablets in See Rx Instructions .Route .COMPLEX 05/02/24 07/08/25 05/02/24 History a dose pack diabetic shoes w/ custom inserts #1 ea 05/23/24 07/08/25 Unknown Rx diabetic shoes with 3 inserts #1 ea 09/17/24 07/08/25 Unknown Rx methocarbamol 500 mg tablet 500 mg PO QID #30 tabs 04/20/25 07/08/25 Unknown Rx hydrocodone 5 mg-acetaminophen 325 1 tab PO Q6H PRN pain #14 tabs 04/23/25 07/08/25 Unknown Rx mg tablet hydrocodone 5 mg-acetaminophen 325 1 tab PO .q 4-6 PRN pain #20 tabs 08/05/25 Unknown Rx mg tablet Diabetic Shoes with 3 pairs of #1 ea 10/22/25 Unknown Rx inserts pantoprazole 40 mg tablet,delayed 40 mg PO BID 14 days #28 tabs 10/31/25 Unknown Rx release Allergies Allergy/AdvReac Type Severity Reaction Status Date / Time hydrocortisone Allergy ADR-Numbnes Verified 08/05/25 12:20 s metoprolol Allergy Unknown Verified 08/05/25 12:20 oxycodone Allergy ADR-Numbnes Verified 08/05/25 12:20 s shrimp Allergy ALGY-Anaphy Verified 08/05/25 12:20 laxis PFSH Acute PFSH: Medical History (Updated 11/01/25 @ 00:58 by Dominik Lacey MD) BPH (benign prostatic hyperplasia) Hyperlipidemia Chronic back pain COPD (chronic obstructive pulmonary disease) Diabetes type 2, controlled HTN (hypertension) DDD (degenerative disc disease) Surgical History H/O removal of cyst x 2 H/O colonoscopy 2019 History of appendectomy Family History Father Cancer Mother Lung disease Denies family history of Anesthesia complication Bleeding disorder Social History Smoking and tobacco/nicotine status: never used tobacco/nicotine Quit status (tobacco/nicotine): has quit using Year quit tobacco: 2020 - 2PPD x 70 Years Alcohol intake: never Substance/Drug Use: never Lives independently: Yes Household members: children Marital status: / service: Yes Current occupational status: retired and disabled Do you think of yourself as: Straight/Heterosexual Current gender identity: Male Vitals/I&O/Wt Last Vital Signs Temp 97.7 F 10/31/25 22:19 Pulse 93 10/31/25 23:19 Resp 22 H 10/31/25 23:19 BP 107/58 10/31/25 23:19 Pulse Ox 93 10/31/25 23:19 O2 Del Method Room Air 10/31/25 23:19 Weight last 48 hrs Weight 97.182 kg Physical Exam Narrative: General exam no distress Neck is supple Cardiovascular regular rate and rhythm, occasional premature beat Lungs with bilateral expiratory wheezes Abdomen is soft, non-tender. Extremities with 1+ bilateral edema Data 10/31/25 22:53 10/31/25 22:53 A&P Assessment and plan 1. Gastrointestinal hemorrhage with melena: - With a history of the same, NSAID use with ASA, high BUN, report of black stools, and 1.0 drop in hgb in the same day - Will request EGD from surgery in the AM - NPO - PPI BID IV - Hold diuresis 2. Acute exacerbation of COPD with asthma: - Scheduled and PRN Duonebs - 40mg IV methylprednisone q24 hours while NPO - Check Mg level - Check d-dimer - Not suspecting infectious component. Holding antibiotics for now 3. Type 2 diabetes mellitus: - Hold home metformin - Correctional SSI PDMP PDMP Reviewed: Not Reviewed Attestations Medical Necessity Statement*: Patient is anticipated to require less than 2 midnights to manage his COPD exacerbation and evaluate for possible GI bleed Coding Level of Care Code Acute Code for [facility] Diagnoses Gastrointestinal hemorrhage with melena K92.1 GI bleed type/associated pathology: melena Acute exacerbation of COPD with asthma J44.1 Type 2 diabetes mellitus E11.9
[2025-11-01 01:01] LABS: Reflex Lactate Order REFLEX LACTIC ORDERD
[2025-11-01] MEDS: pantoprazole 40 mg SDV IVP ×2 (02:12→12:01)
[2025-11-01] MEDS: methylPREDNISolone sod succ 40 mg/mL INJ IVP (02:12)
[2025-11-01 03:16] LABS: Lactic Acid level (Lactate) 2.1 mmol/L (0.5-2.2)
[2025-11-01 04:39] LABS: Magnesium 2.2 mg/dL (1.7-2.3)
[2025-11-01 05:36] LABS: Hematocrit 23.9 % (37-53); Hemoglobin 7.70 g/dL (11.27-16.99); Mean Corpuscular HGB Conc 32.2 g/dL (30-55); Mean Corpuscular Hemoglobin 28.8 pg (27-33); Mean Corpuscular Volume 89.5 fl (82-101); Nucleated Red Blood Cells % 0 %; Platelet Count 137 10^3/cmm (157-399); Red Blood Count 2.67 10^6/uL (3.85-5.65); White Blood Count 12.63 10^3/uL (3.29-11.43)
--- NOTE | 2025-11-01 08:09 | ANES.PREANE2 ---
Pre-Anesthetic Assessment Height/Weight: Height 5 ft 9 in Weight 218 lb Temp Pulse Resp BP Pulse Ox O2 Del Method 98.1 F 79 17 100/63 92 Room Air 11/01/25 07:42 11/01/25 07:42 11/01/25 07:42 11/01/25 07:42 11/01/25 07:42 11/01/25 03:53 Operation Date: 11/01/25 09:00 Proposed Procedures p EGD WITH POSSIBLE BLEEDING CONTROL(Not Applicable) - Terrence Zamudio MD Last intake: Intake Last Solid Date 10/30/25 Last Solid Time 18:00 Anesthetic Plan ASA status: 4 Anesthesia: MAC Other: Patient presents to the ED with shortness of breath and dark stools History of hypertension on lisinopril?HCTZ DM, on metformin Patient states that he has been having pain in his lower extremities, PCP has been diuresing him with Lasix Patient took extra aspirin for pain Hemoglobin initially 10.5 down to 7.7 today Symptoms improved with fluid resuscitation BNP marginally elevated, no changes on EKG Lactic acidosis noted on labs, BUN 100, CR 1.8 Prior echo 2023 showing EF within normal limits Plan for MAC anesthesia Medications/Allergies Home Medications ?Medication ?Instructions ?Recorded ?Confirmed ?Last Taken ?Type acetaminophen 500 mg tablet 500 mg PO Q6H PRN Pain 09/25/20 07/08/25 Unknown History (Tylenol Extra Strength) cetirizine 10 mg tablet (Zyrtec) 10 mg PO DAILY 09/25/20 07/08/25 05/02/24 History fluticasone propionate 50 1 spray intranasal DAILY 09/25/20 07/08/25 05/02/24 History mcg/actuation nasal spray,suspension gabapentin 300 mg capsule 600 mg PO TID PRN pain 09/25/20 07/08/25 Unknown History lisinopril 10 1 tab PO DAILY 09/25/20 07/08/25 05/02/24 History mg-hydrochlorothiazide 12.5 mg tablet metformin 500 mg tablet 500 mg PO DAILY 09/25/20 07/08/25 05/02/24 History tamsulosin 0.4 mg capsule 0.4 mg PO DAILY 09/25/20 07/08/25 05/02/24 History tiotropium bromide 18 mcg capsule 1 cap inhalation DAILY 30 days #60 09/25/20 07/08/25 05/01/24 Rx with inhalation device (Spiriva inhalations with HandiHaler) aspirin 81 mg tablet,delayed 81 mg PO DAILY pain 12/22/21 07/08/25 05/02/24 History release (Adult Aspirin Regimen) simvastatin 80 mg tablet 40 mg PO DAILY 12/22/21 07/08/25 05/01/24 History albuterol sulfate 90 mcg/actuation 1 inh inhalation QID PRN Shortness 05/02/24 07/08/25 Unknown History aerosol inhaler Of Breath cholecalciferol (vitamin D3) 25 25 mcg PO DAILY 05/02/24 07/08/25 05/02/24 History mcg (1,000 unit) tablet fluticasone 100 mcg-salmeterol 50 1 inh inhalation BID 05/02/24 07/08/25 05/02/24 History mcg/dose blistr powdr for inhalation (Advair Diskus) methocarbamol 500 mg tablet 500 mg PO TID 05/02/24 07/08/25 05/02/24 History methylprednisolone 4 mg tablets in See Rx Instructions .Route .COMPLEX 05/02/24 07/08/25 05/02/24 History a dose pack diabetic shoes w/ custom inserts #1 ea 05/23/24 07/08/25 Unknown Rx diabetic shoes with 3 inserts #1 ea 09/17/24 07/08/25 Unknown Rx methocarbamol 500 mg tablet 500 mg PO QID #30 tabs 04/20/25 07/08/25 Unknown Rx hydrocodone 5 mg-acetaminophen 325 1 tab PO Q6H PRN pain #14 tabs 04/23/25 07/08/25 Unknown Rx mg tablet hydrocodone 5 mg-acetaminophen 325 1 tab PO .q 4-6 PRN pain #20 tabs 08/05/25 Unknown Rx mg tablet Diabetic Shoes with 3 pairs of #1 ea 10/22/25 Unknown Rx inserts pantoprazole 40 mg tablet,delayed 40 mg PO BID 14 days #28 tabs 10/31/25 Unknown Rx release Allergies Allergy/AdvReac Type Severity Reaction Status Date / Time hydrocortisone Allergy ADR-Numbnes Verified 08/05/25 12:20 s metoprolol Allergy Unknown Verified 08/05/25 12:20 oxycodone Allergy ADR-Numbnes Verified 08/05/25 12:20 s shrimp Allergy ALGY-Anaphy Verified 08/05/25 12:20 laxis Current Medications Generic Name Dose Route Start Last Admin Trade Name Amari PRN Reason Stop Dose Admin Sodium Chloride 1,000 mls @ 125 mls/hr 10/31/25 22:45 11/01/25 06:43 Sodium Chloride 0.9% IV 125 mls/hr .Q8H STEFANI Administration Methylprednisolone Sodium Succinate 40 mg 11/01/25 01:43 11/01/25 02:12 Methylprednisolone Sod Succ 40 Mg/Ml Inj IVP 40 mg Q24H STEFANI Administration Pantoprazole Sodium 40 mg 11/01/25 01:43 11/01/25 02:12 Pantoprazole 40 Mg Sdv IVP 40 mg Q12H STEFANI Administration PFSH Anesthesia Medical History (Updated 11/01/25 @ 00:58 by Dominik Lacey MD) BPH (benign prostatic hyperplasia) Hyperlipidemia Chronic back pain COPD (chronic obstructive pulmonary disease) Diabetes type 2, controlled HTN (hypertension) DDD (degenerative disc disease) Surgical History H/O removal of cyst x 2 H/O colonoscopy 2019 History of appendectomy Family History Father Cancer Mother Lung disease Denies family history of Anesthesia complication Bleeding disorder Social History Smoking and tobacco/nicotine status: never used tobacco/nicotine Quit status (tobacco/nicotine): has quit using Year quit tobacco: 2020 - 2PPD x 70 Years Alcohol intake: never Substance/Drug Use: never Lives independently: Yes Household members: children Marital status: / service: Yes Current occupational status: retired and disabled Do you think of yourself as: Straight/Heterosexual Current gender identity: Male Data Anesthesia 11/01/25 04:11 10/31/25 22:53 Short CBC 10/31/25 11/01/25 Range/Units 22:53 04:11 WBC 15.67 H 12.63 H (3.29-11.43) 10^3/uL Hgb 9.50 L 7.70 L (11.27-16.99) g/dL Hct 30.7 L 23.9 L (37-53) % MCV 91.1 89.5 (82-101) fl Plt Count 174 137 L (157-399) 10^3/cmm Neut % (Auto) 75.8 80.0 % Neut # (Auto) 11.89 H 10.12 H (1.8-7.7) 10^3/uL BMP 10/31/25 22:53 Sodium 138 Potassium 4.9 Chloride 101 Carbon Dioxide 21 L BUN 100 H* Creatinine 1.8 H Glucose 154 H Calcium 9.1 Cardiac Enzymes 10/31/25 Range/Units 22:53 NT-Pro-B Natriuret Pep 199 (0-450) pg/mL Liver Function 10/31/25 Range/Units 22:53 Total Bilirubin 0.3 (0.15-1.2) mg/dL AST 9 (0-40) U/L ALT 9 (0-41) U/L Alkaline Phosphatase 61 (40-130) U/L Albumin 3.6 (3.5-5.2) g/dL Coags 10/31/25 22:53 D-Dimer 1.28 H Cardiac Studies: Echocardiogram 02/03/24
--- NOTE | 2025-11-01 08:17 | PC.PHAR ---
[facility] 11/01/25 8am
--- NOTE | 2025-11-01 08:27 | PM.CONSULT ---
Providers/Reason For Consult Consulting Physician/Specialty*: General Surgery Reason for Consult*: Upper GI bleeding Attending Physician: Mireille Chahal NP Primary Care Provider: Yara Phelps MD History of Present Illness History of Present Illness Brandon Villareal is a 85 year old male with history of previous upper GI bleeding who has been admitted for COPD exacerbation and has been noted to have a drop in the hemoglobin and dark stools. Denies abdominal pain no other significant symptoms Review of Systems General: Reports: 10 or more systems reviewed and unremarkable except in HPI and below Medications/Allergies Home Medications ?Medication ?Instructions ?Recorded ?Confirmed ?Last Taken ?Type acetaminophen 500 mg tablet 500 mg PO Q6H PRN Pain 09/25/20 07/08/25 Unknown History (Tylenol Extra Strength) cetirizine 10 mg tablet (Zyrtec) 10 mg PO DAILY 09/25/20 07/08/25 05/02/24 History fluticasone propionate 50 1 spray intranasal DAILY 09/25/20 07/08/25 05/02/24 History mcg/actuation nasal spray,suspension gabapentin 300 mg capsule 600 mg PO TID PRN pain 09/25/20 07/08/25 Unknown History lisinopril 10 1 tab PO DAILY 09/25/20 07/08/25 05/02/24 History mg-hydrochlorothiazide 12.5 mg tablet metformin 500 mg tablet 500 mg PO DAILY 09/25/20 07/08/25 05/02/24 History tamsulosin 0.4 mg capsule 0.4 mg PO DAILY 09/25/20 07/08/25 05/02/24 History tiotropium bromide 18 mcg capsule 1 cap inhalation DAILY 30 days #60 09/25/20 07/08/25 05/01/24 Rx with inhalation device (Spiriva inhalations with HandiHaler) aspirin 81 mg tablet,delayed 81 mg PO DAILY pain 12/22/21 07/08/25 05/02/24 History release (Adult Aspirin Regimen) simvastatin 80 mg tablet 40 mg PO DAILY 12/22/21 07/08/25 05/01/24 History albuterol sulfate 90 mcg/actuation 1 inh inhalation QID PRN Shortness 05/02/24 07/08/25 Unknown History aerosol inhaler Of Breath cholecalciferol (vitamin D3) 25 25 mcg PO DAILY 06/04/2007/08/25 05/02/24 History mcg (1,000 unit) tablet fluticasone 100 mcg-salmeterol 50 1 inh inhalation BID 05/02/24 07/08/25 05/02/24 History mcg/dose blistr powdr for inhalation (Advair Diskus) methocarbamol 500 mg tablet 500 mg PO TID 05/02/24 07/08/25 05/02/24 History methylprednisolone 4 mg tablets in See Rx Instructions .Route .COMPLEX 05/02/24 07/08/25 05/02/24 History a dose pack diabetic shoes w/ custom inserts #1 ea 05/23/24 07/08/25 Unknown Rx diabetic shoes with 3 inserts #1 ea 09/17/24 07/08/25 Unknown Rx methocarbamol 500 mg tablet 500 mg PO QID #30 tabs 04/20/25 07/08/25 Unknown Rx hydrocodone 5 mg-acetaminophen 325 1 tab PO Q6H PRN pain #14 tabs 04/23/25 07/08/25 Unknown Rx mg tablet hydrocodone 5 mg-acetaminophen 325 1 tab PO .q 4-6 PRN pain #20 tabs 08/05/25 Unknown Rx mg tablet Diabetic Shoes with 3 pairs of #1 ea 10/22/25 Unknown Rx inserts pantoprazole 40 mg tablet,delayed 40 mg PO BID 14 days #28 tabs 10/31/25 Unknown Rx release Allergies Allergy/AdvReac Type Severity Reaction Status Date / Time hydrocortisone Allergy ADR-Numbnes Verified 08/05/25 12:20 s metoprolol Allergy Unknown Verified 08/05/25 12:20 oxycodone Allergy ADR-Numbnes Verified 08/05/25 12:20 s shrimp Allergy ALGY-Anaphy Verified 08/05/25 12:20 laxis Current Medications Generic Name Dose Route Start Last Admin Trade Name Freq PRN Reason Stop Dose Admin Sodium Chloride 1,000 mls @ 125 mls/hr 10/31/25 22:45 11/01/25 06:43 Sodium Chloride 0.9% IV 125 mls/hr .Q8H STEFANI Administration Methylprednisolone Sodium Succinate 40 mg 11/01/25 01:43 11/01/25 02:12 Methylprednisolone Sod Succ 40 Mg/Ml Inj IVP 40 mg Q24H STEFANI Administration Pantoprazole Sodium 40 mg 11/01/25 01:43 11/01/25 02:12 Pantoprazole 40 Mg Sdv IVP 40 mg Q12H STEFANI Administration PFSH Acute PFSH: Medical History (Updated 11/01/25 @ 00:58 by Dominik Lacey MD) BPH (benign prostatic hyperplasia) Hyperlipidemia Chronic back pain COPD (chronic obstructive pulmonary disease) Diabetes type 2, controlled HTN (hypertension) DDD (degenerative disc disease) Surgical History H/O removal of cyst x 2 H/O colonoscopy 2019 History of appendectomy Family History Father Cancer Mother Lung disease Denies family history of Anesthesia complication Bleeding disorder Social History Smoking and tobacco/nicotine status: never used tobacco/nicotine Quit status (tobacco/nicotine): has quit using Year quit tobacco: 2020 - 2PPD x 70 Years Alcohol intake: never Substance/Drug Use: never Lives independently: Yes Household members: children Marital status: / service: Yes Current occupational status: retired and disabled Do you think of yourself as: Straight/Heterosexual Current gender identity: Male Vitals/I&O/Wt Last Vital Signs Temp 98.1 F 11/01/25 07:42 Pulse 79 11/01/25 07:42 Resp 17 11/01/25 07:42 BP 100/63 11/01/25 07:42 Pulse Ox 92 11/01/25 07:42 O2 Del Method Room Air 11/01/25 03:53 10/31/25 11/01/25 11/01/25 22:59 06:59 14:59 Intake Total 1562.0 / 1562.0 Output Total 600 / 600 400 / 400 Balance 962.0 / 962.0 -400 / -400 Weight last 48 hrs Weight 218 lb Weight 218 lb Weight 214 lb 4 oz Physical Exam GI: OTHER: Abdominal exam is benign abdomen soft nontender Data 11/01/25 04:11 10/31/25 22:53 A&P Assessment and plan 1. GI bleed: Plan: After complete history physical examination and review of all available clinical data the following is my assessment. I have offered the patient upper endoscopy with possible bleeding control, I have discussed the risk and benefits of the procedure including the risk of perforation, need for additional interventions, injury to soft tissue of the mouth and pharynx. Patient shows understanding agrees to proceed PDMP PDMP Reviewed: Not Reviewed Coding Level of Care Code Acute Code for Chg Fwd Diagnoses GI bleed K92.2
--- NOTE | 2025-11-01 09:03 | PM.MISC ---
Miscellaneous Note Purpose of Documentation: Update on patient care Note: Upper endoscopy was done today, there is evidence of a hiatal hernia active duodenitis and a small duodenal ulcer, the duodenal ulcer had an adherent clot that was washed out and after that no evidence of residual bleeding was noted. No additional intervention was required. Patient should be initiated on twice a day PPI and 4 times a day Carafate liquid while he is in house. Once he transition to the outpatient setting he can have Protonix 40 mg twice daily and Carafate 1 g twice a day. He can follow-up in my office in about 2 to 3 weeks to talk about the results of the biopsies will probably offer a repeat endoscopy in 4 to 6 weeks to ensure healing of the duodenal ulcer
--- NOTE | 2025-11-01 10:07 | PC.NURSE ---
Pt to med-surg via stretcher following EGD. Pt bedside nurse, Raissa, in room. Report given. VSS with BP 99/50, HR 75, and Sao2 95% on RA. Pt assisted to stand and then used urinal per request. groundwater monitoring technician replaced and pt hooked up to vital sign monitor. Pt requesting jello and coffee. Provided by CRIBBING SETTER. Pt sitting up on side of bed. Call light within reach. Pt instructed not to get out of bed without nurse assist.
[2025-11-01 11:12] LABS: Hematocrit 26.7 % (37-53); Hemoglobin 8.10 g/dL (11.27-16.99); Mean Corpuscular HGB Conc 30.3 g/dL (30-55); Mean Corpuscular Hemoglobin 28.4 pg (27-33); Mean Corpuscular Volume 93.7 fl (82-101); Nucleated Red Blood Cells % 0 %; Platelet Count 135 10^3/cmm (157-399); Red Blood Count 2.85 10^6/uL (3.85-5.65); White Blood Count 10.28 10^3/uL (3.29-11.43)
[2025-11-01 11:34] LABS: Alanine Aminotransferase 8 U/L (0-41); Albumin Level 3.3 g/dL (3.5-5.2); Alkaline Phosphatase 54 U/L (40-130); Anion Gap 18.9 (5-19); Aspartate Amino Transferase 9 U/L (0-40); Calcium 8.6 mg/dL (8.5-10.5); Carbon Dioxide 19 mmol/L (22-29); Chloride 105 mmol/L (98-107); Globulin 2.2 g/dL (1.3-4.6); Glucose 216 mg/dL (65-115); Osmolality Calculated 323 mOsm/kg (285-295); Potassium 4.9 mmol/L (3.5-5.1); Sodium 138 mmol/L (136-145); Total Protein 5.5 g/dL (6.6-8.7)
[2025-11-01 11:46] LABS: Blood Urea Nitrogen 98 mg/dL (8-23)
[2025-11-01] MEDS: sucralfate 1 gm/10 mL Oral Liq UDC PO ×3 (12:02→20:39)
--- NOTE | 2025-11-01 13:27 | PC.NURSE ---
Penelope gave the okay to speak with patient daughter Carmelita and give information.
--- NOTE | 2025-11-01 14:56 | P.PN_ITS ---
Documented by User: Cori Fontaine NP 11/01/25 16:12 Subjective 2 Subjective: Patient sitting up on side of the bed on room air no family noted to be at bedside during my evaluation. Patient denies pain at this time. Upper endoscopy completed with Dr. Ferro this am no concern at this morning evidence of a hiatal hernia active duodenitis and a small duodenal ulcer. There was no evidence of residual bleeding. Recommendations to initiate PPI twice daily and Carafate 4 times daily, patient agreed with plan of care. Vitals/I&O/Wt Last Vital Signs Temp 97.3 F L 11/01/25 11:57 Pulse 79 11/01/25 14:00 Resp 20 H 11/01/25 12:00 BP 93/47 11/01/25 11:57 Pulse Ox 95 11/01/25 12:00 O2 Del Method Room Air 11/01/25 12:00 O2 Flow Rate 4 11/01/25 09:10 10/31/25 11/01/25 11/01/25 22:59 06:59 14:59 Intake Total 1562.0 / 1562.0 200 / 200 Output Total 600 / 600 800 / 800 Balance 962.0 / 962.0 -600 / -600 Weight last 48 hrs Weight 98.883 kg Weight 98.883 kg Weight 97.182 kg Physical Exam 2 Narrative: General: A&Ox4 , RA, no apparent distress HEENT: Normo-cephalic, atraumatic, grossly unremarkable exam Cardio: NSR, normal S1-S2 w/o any murmurs, rubs, or gallops and JVD normal Respiratory: Clear breath sounds bilaterally to auscultation w/o any wheezes, rhonchi GI: Abd soft, non-tender, non-distended, normo-active bowel sounds present Neuro: Moves all extremities, no sensory deficits, Normal speech Behavior: Appropriate and cooperative Extremities: Adequate palpable pulses. Edema noted bilaterally 1+, no clubbing, cyanosis. Full ROM Data 11/01/25 11:00 11/01/25 11:00 Other Labs: 10/31: CXR: Reviewed and findings as follows: No acute findings 10/31: Abd XR: Reviewed and findings as follows: No acute findings A&P Assessment and plan 1. Duodenal ulcer: 2. Duodenitis: 3. Hiatal hernia: 4. DEMETRIS (acute kidney injury): 5. Type 2 diabetes mellitus: 6. COPD (chronic obstructive pulmonary disease): Plan: Duodenal Ulcer Duodenitis Hiatal Hernia Denies Hx of GI bleeds 10/31: Abd XR: Reviewed and findings as follows: No acute findings EGD completed this a.m. with Dr. Zamudio results as follows: Hiatal hernia active duodenitis and a small duodenal ulcer. Protonix IVP 40 mg BID, Carafate QID per Dr. Zamudio recommendations Patient to follow-up outpatient with Dr. Zamudio IVF NS at 125ml/hr CBC, CMP, Mag. COPD 10/31: CXR: Reviewed and findings as follows: No acute findings Flu/COVID/RSV negative Currently on room air Scheduled/as needed DuoNebs ordered D/C 40 mg IVP Solu-Medrol D-dimer 1.28 DEMETRIS 11/01: Manager Recruiting 2.0, BUN 98 Hold home medication lisinopril/HCTZ, monitor V/S q4h Avoid nephrotoxic agents, renally dose medications. Continue IVF 125ml/hr CMP daily DM2 Neuropathy Hold home medication metformin 500 mg PO dly while inpatient A1c ordered, pending. Blood glucose monitoring, ACHS Low regimen sliding scale Hypoglycemic protocol Carb consistent diet Continue home medication gabapentin 600 mg PO TID Continue home medication methocarbamol 500 mg PO dly HLD Lipid panel ordered, pending. Continue home medication simvastatin 20 mg PO dly BPH Continue home medication tamsulosin 0.4 mg PO dly CODE STATUS: Full code GI prophylaxis: Protonix 40 mg VTE prophylaxis: SCDs while in bed, PDMP PDMP Reviewed: Not Reviewed Attestations 2 Medical Necessity Statement*: Patient is anticipated to require less than 2 midnights to manage his Hiatal hernia active duodenitis and a small duodenal ulcer, and DEMETRIS. Coding Level of Care Code 24747 Diagnoses Duodenal ulcer K26.9 Duodenitis K29.80 Hiatal hernia K44.9 DEMETRIS (acute kidney injury) N17.9 Type 2 diabetes mellitus E11.9 COPD (chronic obstructive pulmonary disease) J44.9 Documented by User: Mireille Chahal NP 11/01/25 16:20 Subjective 2 Subjective: Patient sitting up on side of the bed on room air no family noted to be at bedside during my evaluation. Patient denies pain at this time. Upper endoscopy completed with Dr. Ferro this am no concern at this morning evidence of a hiatal hernia active duodenitis and a small duodenal ulcer. There was no evidence of residual bleeding. Recommendations to initiate PPI twice daily and Carafate 4 times daily, patient agreed with plan of care. Initiated on liquid diet and will advance as tolerated. Expected discharge tomorrow if stable. Data 11/01/25 11:00 11/01/25 11:00 A&P Assessment and plan 1. Duodenal ulcer: 2. Duodenitis: 3. Hiatal hernia: 4. DEMETRIS (acute kidney injury): 5. Type 2 diabetes mellitus: 6. COPD (chronic obstructive pulmonary disease): PDMP PDMP Reviewed: Not Reviewed Coding Level of Care Code 77035 Diagnoses Duodenal ulcer K26.9 Duodenitis K29.80 Hiatal hernia K44.9 DEMETRIS (acute kidney injury) N17.9 Type 2 diabetes mellitus E11.9 COPD (chronic obstructive pulmonary disease) J44.9
[2025-11-01] MEDS: ATORVASTATIN 20 MG TABLET PO (17:00)
--- NOTE | 2025-11-01 20:21 | ECG_ITS ---
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1940 Requested By: Dominik Padgett Order Number: [id number] Reading MD: ROBIN HUMPHREY Measurements Intervals [place] Rate: 81 P: 263 FL: 155 QRS: 43 QRSD: 102 T: 64 QT: 377 QTc: 439 Interpretive Statements SINUS RHYTHM WITH OCCASIONAL SUPRAVENTRICULAR PREMATURE COMPLEXES LOW QRS VOLTAGE [QRS DEFLECTION < 0.5/1.0 mV IN LIMB/CHEST LEADS] PATTERN CONSISTENT WITH PULMONARY DISEASE SEPTAL MYOCARDIAL INFARCTION , PROBABLY OLD [40+ ms Q WAVE IN V1/V2] Compared to ECG 10/31/2025 22:30:28 Low QRS voltage now present Myocardial infarct finding now present Left-axis deviation no longer present Electronically Signed On 11-02-2025 18:39:24 CUSTOMS COMPLIANCE ANALYST by ROBIN HUMPHREY [email or web address]
--- NOTE | 2025-11-01 23:23 | PC.NURSE ---
PLACHY: pt tele vtach but noticed pt beating on his chest complaining of gas stuck . already given pt his prn meds incl tums, carafate, tylenol for discomfort. will adm his protonix earlier --see emar. pt had EGD today w report + doudenal ulcer and flushed a lot of old blood but no active bleed. pt already had couple of BM since 7pm. MD notified re: GI and chest discomfort. Awaiting for order.
[2025-11-02] VITALS (22 sets, daily range): BP systolic 84–110; BP diastolic 41–73; PULSE 57–90; RESP 15–18; TEMP 36.3–37.1; O2SAT 90–98
[2025-11-02] MEDS: pantoprazole 40 mg SDV IVP ×2 (00:16→13:43)
[2025-11-02 04:20] LABS: Mean Corpuscular HGB Conc 30.9 g/dL (30-55); Mean Corpuscular Hemoglobin 28.2 pg (27-33); Mean Corpuscular Volume 91.2 fl (82-101); Nucleated Red Blood Cells % 0 %; Platelet Count 115 10^3/cmm (157-399); Red Blood Count 2.27 10^6/uL (3.85-5.65); White Blood Count 12.99 10^3/uL (3.29-11.43)
[2025-11-02 04:30] LABS: Hematocrit 20.7 % (37-53)
[2025-11-02 04:32] LABS: Hemoglobin 6.40 g/dL (11.27-16.99)
[2025-11-02 04:45] LABS: Anion Gap 15.0 (5-19); Calcium 8.1 mg/dL (8.5-10.5); Carbon Dioxide 20 mmol/L (22-29); Chloride 110 mmol/L (98-107); Glucose 120 mg/dL (65-115); Osmolality Calculated 321 mOsm/kg (285-295); Potassium 4.0 mmol/L (3.5-5.1); Sodium 141 mmol/L (136-145)
[2025-11-02 05:09] LABS: Blood Urea Nitrogen 90 mg/dL (8-23)
[2025-11-02] MEDS: sucralfate 1 gm/10 mL Oral Liq UDC PO ×4 (06:23→20:52)
--- NOTE | 2025-11-02 09:25 | P.PN_ITS ---
Subjective 2 Subjective: Patient stable overnight although his hemoglobin did drop significantly to 6.4. EGD done yesterday showed evidence of an ulcer in the duodenum but there was no active bleeding at the time biopsies were taken Vitals/I&O/Wt Last Vital Signs Temp 97.5 F L 11/02/25 09:05 Pulse 79 11/02/25 09:05 Resp 18 11/02/25 09:05 BP 91/41 11/02/25 09:05 Pulse Ox 94 11/02/25 09:05 O2 Del Method Room Air 11/02/25 08:18 O2 Flow Rate 4 11/01/25 09:10 11/01/25 11/02/25 11/02/25 22:59 06:59 14:59 Intake Total 1718.333 / 2918.333 240 / 3158.333 1121.5 / 1121.5 Output Total 750 / 1550 200 / 1750 275 / 275 Balance 968.333 / 1368.333 40 / 1408.333 846.5 / 846.5 Weight last 48 hrs Weight 218 lb Weight 218 lb Weight 218 lb Weight 214 lb 4 oz Physical Exam 2 GI: OTHER: Benign abdominal exam abdomen soft and nontender Data 11/02/25 04:10 11/02/25 04:10 A&P Assessment and plan 1. Duodenal ulcer: 2. Duodenitis: 3. GI bleed: Plan: This is a 85-year-old male who presented with upper GI bleeding, during endoscopy yesterday there was no significant evidence of active bleeding and therefore no need for an interventional procedure, this morning we have seen significant downtrend on the hemoglobin, this likely due to manipulation during endoscopy and biopsies that were taken. I agree with blood transfusion to a goal hemoglobin of more than 7 and continuous monitoring, in the case of continues downtrending hemoglobin patient will require repeat endoscopy for the possibility of rebleeding. Patient was informed of this findings and he is agreeable with the plan. At this time there is low level of suspicion for lower GI bleeding as we did find a possible source of bleeding in the upper endoscopy and the possibility of rebleeding after endoscopy in the setting of an ulcer with an adherent clot can be up to 50% will continue to closely monitor PDMP PDMP Reviewed: Not Reviewed Attestations 2 Medical Necessity Statement*: Per medical team Coding Level of Care Code Acute Code for Chg Fwd Diagnoses Duodenal ulcer K26.9 Duodenitis K29.80 GI bleed K92.2
--- NOTE | 2025-11-02 09:40 | PM.PN ---
Subjective Subjective: Patient seen and examined at bedside on hospital rounds this morning.Patient sitting up at bedside stating gas pains through the night and bloody stool, but no other new symptoms or complaints. Patient Hgb 6.40, pending 1 unit of blood this morning. Spoke with who state we will monitor and if Hgb worsens tomorrow he may need to a repeat EGD tomorrow. Vital signs are stable. Will continue to monitor vital signs and labs closely. Vitals/I&O/Wt Last Vital Signs Temp 97.5 F L 11/02/25 09:20 Pulse 65 11/02/25 09:20 Resp 18 11/02/25 09:20 BP 84/48 11/02/25 09:20 Pulse Ox 94 11/02/25 09:20 O2 Del Method Room Air 11/02/25 08:18 O2 Flow Rate 4 11/01/25 09:10 11/01/25 11/02/25 11/02/25 22:59 06:59 14:59 Intake Total 1718.333 / 2918.333 240 / 3158.333 1121.5 / 1121.5 Output Total 750 / 1550 200 / 1750 275 / 275 Balance 968.333 / 1368.333 40 / 1408.333 846.5 / 846.5 Weight last 48 hrs Weight 98.883 kg Weight 98.883 kg Weight 98.883 kg Weight 97.182 kg Physical Exam Narrative: General: A&Ox4 , RA, no apparent distress HEENT: Normo-cephalic, atraumatic, grossly unremarkable exam Cardio: NSR, normal S1-S2 w/o any murmurs, rubs, or gallops and JVD normal Respiratory: Clear breath sounds bilaterally to auscultation w/o any wheezes, rhonchi GI: Abd soft, non-tender, non-distended, normo-active bowel sounds present Neuro: Moves all extremities, no sensory deficits, Normal speech Behavior: Appropriate and cooperative Extremities: Adequate palpable pulses. Edema noted bilaterally 1+, no clubbing, cyanosis. Full ROM Data 11/02/25 04:10 11/02/25 04:10 A&P Assessment and plan 1. Duodenal ulcer: 2. Duodenitis: 3. Hiatal hernia: 4. DEMETRIS (acute kidney injury): 5. Type 2 diabetes mellitus: 6. COPD (chronic obstructive pulmonary disease): Plan: Duodenal Ulcer Duodenitis Upper GI Bleed Hiatal Hernia - Denies Hx of GI bleeds - 10/31: Abd XR: Reviewed and findings as follows: No acute findings - EGD completed 11/01. with Dr. Zamudio results as follows: Hiatal hernia active duodenitis and a small duodenal ulcer. - Protonix IVP 40 mg BID, Carafate QID per Dr. Zamudio recommendations - Patient to follow-up outpatient with Dr. Zamudio - Holding NSAIDS - Hgb 6.40 this morning, pending 1u pRBC's - May need repeat EGD, monitor hgb/hct closely COPD - 10/31: CXR: Reviewed and findings as follows: No acute findings - Flu/COVID/RSV negative - Currently on room air - Scheduled/as needed DuoNebs ordered DEMETRIS - 11/01: Plate Painter Apprentice 2.0, BUN 98, repeat 11/02 creatinine 1.8, BUN 90 - Hold home medication lisinopril/HCTZ, monitor V/S q4h - Avoid nephrotoxic agents, renally dose medications. - Monitor DM2 Neuropathy - Hold home medication metformin 500 mg PO dly while inpatient - A1c ordered, pending. - Blood glucose monitoring, ACHS - Low dose sliding scale - Hypoglycemic protocol - Carb consistent diet - Continue home medication gabapentin 600 mg PO TID - Continue home medication methocarbamol 500 mg PO dly HLD - Continue home medication simvastatin 20 mg PO dly BPH - Continue home medication tamsulosin 0.4 mg PO dly CODE STATUS: Full code GI prophylaxis: Protonix 40 mg VTE prophylaxis: SCDs while in bed PDMP PDMP Reviewed: Not Reviewed Attestations Medical Necessity Statement*: Patient is anticipated to require more than a 2 midnight stay to manage upper GI bleed, with general surgical consultation and management, and management of complex comorbidities. Coding Level of Care Code 14576 Diagnoses Duodenal ulcer K26.9 Duodenitis K29.80 Hiatal hernia K44.9 DEMETRIS (acute kidney injury) N17.9 Type 2 diabetes mellitus E11.9 COPD (chronic obstructive pulmonary disease) J44.9
[2025-11-02 11:28] LABS: Hematocrit 22.8 % (37-53)
--- NOTE | 2025-11-02 12:23 | PC.CHAP ---
Pastoral Care Encounter/Spiritual Assessment Type of Contact [] Declined head baggage porter visit [] Patient/Family/Request visit [] Outpatient visit [] Follow-up visit [] Physician referral [] Code/Alert [x] Routine visit [] Staff referral [] Actively dying [] Patient sleeping [] Family support [] [] Out of room [] Palliative care [] [] Receiving care in room [] Pre-surgical visit [] Trauma [] Long length of stay [] ICU visit [] Other: Relational/Emotional Strength [x] Patient feels connected with others/family/visitors/staff [] Distress [] Loneliness/isolation [] Abandonment Spirituality of Patient [x] Person of [place] [x] Attends [employer] of their [place] [x] Believes in Prayer [x] Reads Bible or Protestant materials [x] There are Spiritual issues to be addressed Cook Helper Meat Interventions [] Prayer [x] Active listening [x] Non-anxious presence [x] Spiritual/emotional support [] Crisis/trauma care [] Spiritual counseling [] Bereavement support [] Provided bereavement packet [] Provided Bible/devotional materials [] Provided toy/stuffed animal, coloring book to patient or family member [] Provided Communion [] Anointing/[place] [] Salvation [] Completed spiritual assessment [] Other: Impact on Illness or Injury [] Angry [] Fearful [x] Anxious [] Often cries [] Exhaustion [] Unable to work [] Unable to attend anabaptism [] Unable to walk/stand [] Unable to read [] Unable to drive [] Unable to eat/drink [] Unable to sleep [] Unable to be with family [] Patient intubated [] Other: Summary Wants to argue realign Time spent with patient 1 hr
[2025-11-02 12:59] LABS: Hemoglobin 7.30 g/dL (11.27-16.99)
[2025-11-02] MEDS: ATORVASTATIN 20 MG TABLET PO (17:37)
[2025-11-02 21:32] LABS: Hemoglobin 9.00 g/dL (11.27-16.99)
[2025-11-03] VITALS (8 sets, daily range): BP systolic 96–114; BP diastolic 41–60; PULSE 58–89; RESP 16–22; TEMP 36.4–36.9; O2SAT 91–97
[2025-11-03 01:43] LABS: Respiratory Syncytial Virus Ce NEGATIVE (Negative); SARS-CoV-2 PCR NEGATIVE (Negative)
[2025-11-03] MEDS: pantoprazole 40 mg SDV IVP ×2 (01:50→12:18)
[2025-11-03 04:08] LABS: Hematocrit 26.0 % (37-53); Hemoglobin 8.40 g/dL (11.27-16.99); Mean Corpuscular HGB Conc 32.3 g/dL (30-55); Mean Corpuscular Hemoglobin 28.7 pg (27-33); Mean Corpuscular Volume 88.7 fl (82-101); Nucleated Red Blood Cells % 0 %; Platelet Count 115 10^3/cmm (157-399); Red Blood Count 2.93 10^6/uL (3.85-5.65); White Blood Count 11.28 10^3/uL (3.29-11.43)
[2025-11-03 04:36] LABS: Magnesium 2.5 mg/dL (1.7-2.3)
[2025-11-03 04:54] LABS: Slide Review Slide Review Perform
[2025-11-03 05:10] LABS: Alanine Aminotransferase 12 U/L (0-41); Albumin Level 3.2 g/dL (3.5-5.2); Alkaline Phosphatase 52 U/L (40-130); Aspartate Amino Transferase 20 U/L (0-40); Blood Urea Nitrogen 69 mg/dL (8-23); Calcium 8.3 mg/dL (8.5-10.5); Carbon Dioxide 20 mmol/L (22-29); Chloride 115 mmol/L (98-107); Globulin 1.7 g/dL (1.3-4.6); Glucose 123 mg/dL (65-115); Osmolality Calculated 321 mOsm/kg (285-295); Sodium 145 mmol/L (136-145); Total Protein 4.9 g/dL (6.6-8.7)
[2025-11-03 05:16] LABS: Anion Gap 14.4 (5-19); Potassium 4.4 mmol/L (3.5-5.1)
[2025-11-03] MEDS: sucralfate 1 gm/10 mL Oral Liq UDC PO ×2 (06:06→12:18)
--- NOTE | 2025-11-03 07:54 | PM.PN ---
Vitals/I&O/Wt Last Vital Signs Temp 98.3 F 11/03/25 07:33 Pulse 69 11/03/25 07:33 Resp 18 11/03/25 07:33 BP 105/57 11/03/25 07:33 Pulse Ox 93 11/03/25 07:33 O2 Del Method Room Air 11/03/25 07:33 O2 Flow Rate 4 11/01/25 09:10 11/02/25 11/03/25 11/03/25 22:59 06:59 14:59 Intake Total 370 / 1961.5 Output Total 450 / 1100 500 / 1600 Balance -80 / 861.5 -500 / 361.5 Weight last 48 hrs Weight 98.883 kg Weight 98.883 kg Data 11/03/25 03:54 11/03/25 03:54 A&P PDMP PDMP Reviewed: Not Reviewed Coding Level of Care Code Acute Code for Ch[facility] Fwd
--- NOTE | 2025-11-03 08:40 | P.PN_ITS ---
Subjective 2 Subjective: 85-year-old male with upper GI bleeding, who had an episode of possible rebleed after endoscopic evaluation. Over the last 24 hours he is doing okay, no further large amount of blood in the stool although he still seeing some black stool. No abdominal pain no nausea and vomiting. Vitals/I&O/Wt Last Vital Signs Temp 98.3 F 11/03/25 07:33 Pulse 89 11/03/25 08:00 Resp 16 11/03/25 08:00 BP 105/57 11/03/25 07:33 Pulse Ox 95 11/03/25 08:00 O2 Del Method Room Air 11/03/25 08:00 O2 Flow Rate 4 11/01/25 09:10 11/02/25 11/03/25 11/03/25 22:59 06:59 14:59 Intake Total 370 / 1961.5 Output Total 450 / 1100 500 / 1600 Balance -80 / 861.5 -500 / 361.5 Weight last 48 hrs Weight 218 lb Weight 218 lb Physical Exam 2 GI: OTHER: Benign abdominal examination abdomen soft nontender nondistended. Data 11/03/25 03:54 11/03/25 03:54 A&P Assessment and plan 1. Upper gastrointestinal hemorrhage: Plan: Over the last 24 hours patient received 2 units of blood his hemoglobin went from a hemoglobin of 6.3 to 9.3 this morning which is adequate response after 2 units of blood. There is no significant hemodynamic changes concerning for active bleeding as well as no large volume of hematemesis or melena. At this point no additional endoscopic evaluation is needed as patient is stable. I have discussed with the patient I have informed him that he might still see some dark tarry stool for the next 48 to 72 hours while all the blood clears from his system but after that he should stop seeing dark-colored stools. I also giving him warning signs regarding need for return to the hospital including the increased abdominal pain hematemesis or any other changes in the bowel movements. He will require a 1 week follow-up with primary care to repeat labs to ensure that the hemoglobin is stable. He can follow-up in 2 weeks with general surgery to discuss repeat endoscopy in the future for evaluation of healing of duodenal ulcer. Patient has had this problem in the past and at that point he required evaluation by GI, in the case of patient presenting with rebleeding we will likely recommend evaluation at a higher level of care for GI availability as well as IR intervention. I have also Explained to the patient that he needs to stay completely away from any kind of NSAID and avoid blood thinners and should continue on twice a day PPI and 4 times a day Carafate for the next 4 weeks PDMP PDMP Reviewed: Not Reviewed Attestations 2 Medical Necessity Statement*: Per medical team Coding Level of Care Code Acute [facility] Diagnoses Upper gastrointestinal hemorrhage K92.2
--- NOTE | 2025-11-03 09:17 | PM.DCS ---
Discharge Providers Date of Admission: 11/01/25 00:38 Date of Discharge: November 03, 2025 Attending Provider at Admission: Dominik Lacey MD Attending Provider at Discharge: Mireille Chahal NP Primary Care Provider: Yara Phelps MD Diagnoses at Discharge Discharge Diagnosis 1. 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 On 10/31, patient presented to the ED initially with complaints of dark black stool passage. He was provided with 1L of IV fluid then sent home. He returned shortly there after with complaints of shortness of breath. He does tell me that he was using his son's home O2 prior to both presentations to the ED but it was not helpful. He also tells me in the past 2-3 days, he has been taking 2-3 extra baby aspirin per day to help with circulation in the leg. He denies any fevers, chills, nausea, vomiting, or diarrhea. He mentions R>L chronic leg swelling which he tried to manage with prescribed diuretics. No chest pain or palpitations. He tells me he quit smoking yesterday because he was becoming short of breath wtih this. Hospital Course Hospital Course Duodenal Ulcer Duodenitis Upper GI Bleed Hiatal Hernia - Denies Hx of GI bleeds - 10/31: Abd XR: Reviewed and findings as follows: No acute findings - EGD completed 11/01. with Dr. Zamudio results as follows: Hiatal hernia active duodenitis and a small duodenal ulcer. - Protonix IVP 40 mg BID, Carafate QID per Dr. Zamudio recommendations - Patient to follow-up outpatient with Dr. Zamudio - Holding NSAIDS - Treated with 2u pRBC's COPD - 10/31: CXR: Reviewed and findings as follows: No acute findings - Flu/COVID/RSV negative - Currently on room air - Continue home medications as prescribed DEMETRIS - 11/01: Workforce Development Assistant 2.0, BUN 98, repeat 11/02 creatinine 1.8, BUN 90 At baseline Cr 1.5 on discharge - Hold home medications in setting of hypotension - Avoid nephrotoxic agents, renally dose medications. - Monitor DM2 Neuropathy - Hold home medication metformin 500 mg PO dly while inpatient, resume on discharge - A1c ordered, pending. - Blood glucose monitoring, ACHS - Low dose sliding scale - Hypoglycemic protocol - Carb consistent diet - Continue home medication gabapentin 600 mg PO TID - Continue home medication methocarbamol 500 mg PO dly HLD - Continue home medication simvastatin 20 mg PO dly BPH - Continue home medication tamsulosin 0.4 mg PO dly Discharge: Patient discharges in stable condition with stable hemoglobin 8.40. Discharge instructions per for patient to continue PPI 2 times daily, Carafate 4 times daily, and watch for signs or symptoms of blood loss, monitor hypotension and to return to the ER for new or worsening symptoms. Patient will have outpatient follow-up with general surgeon this week and will see his primary care provider tomorrow. Patient is instructed to continue holding NSAIDs or any type of anticoagulation. All questions and concerns addressed to the patient at bedside. Of note: Spoke with patient's [id number] over the phone and gave very specific discharge diet instructions for patient to remain on and asidic free and spice free diet until he follows up with general surgeon . Physical Exam Narrative: General: A&Ox4 , RA, no apparent distress HEENT: Normo-cephalic, atraumatic, grossly unremarkable exam Cardio: NSR, normal S1-S2 w/o any murmurs, rubs, or gallops and JVD normal Respiratory: Clear breath sounds bilaterally to auscultation w/o any wheezes, rhonchi GI: Abd soft, non-tender, non-distended, normo-active bowel sounds present Neuro: Moves all extremities, no sensory deficits, Normal speech Behavior: Appropriate and cooperative Extremities: Adequate palpable pulses. Edema noted bilaterally 1+, no clubbing, cyanosis. Full ROM Discharge Data Studies Completed and Pending Completed Studies During Hospitalization Category Date Time Status XR chest 1V portable [id number] Stat Exams 10/31/25 22:39 Completed Pending at discharge Category Date Time Status Pathology: Surgical [PTH] Routine Pth 11/01/25 09:02 Received Radiology Impressions Chest X-Ray 10/31/25 22:39 IMPRESSION: No acute findings. Laboratory Results WBC 11.28 10^3/uL (3.29-11.43) 11/03/25 03:54 RBC 2.93 10^6/uL (3.85-5.65) L 11/03/25 03:54 Hgb 8.40 g/dL (11.27-16.99) L 11/03/25 03:54 Hct 26.0 % (37-53) L 11/03/25 03:54 MCV 88.7 fl (82-101) 11/03/25 03:54 MCH 28.7 pg (27-33) 11/03/25 03:54 MCHC 32.3 g/dL (30-55) 11/03/25 03:54 RDW 16.5 % (12.1-15.1) H 11/03/25 03:54 Plt Count 115 10^3/cmm (157-399) L 11/03/25 03:54 MPV 13.8 fL (7.4-10.4) H 11/03/25 03:54 Neut % (Auto) 71.5 % 11/03/25 03:54 Lymph % (Auto) 18.1 % 11/03/25 03:54 [place] % (Auto) 6.5 % 11/03/25 03:54 Eos % (Auto) 3.0 % 11/03/25 03:54 Baso % (Auto) 0.5 % 11/03/25 03:54 Neut # (Auto) 8.06 10^3/uL (1.8-7.7) H 11/03/25 03:54 Lymph # (Auto) 2.0 10^3/uL (0.8-4.8) 11/03/25 03:54 [place] # (Auto) 0.7 10^3/uL (0.2-0.9) 11/03/25 03:54 Eos # (Auto) 0.3 10^3/uL (0.0-0.8) 11/03/25 03:54 Baso # (Auto) 0.1 10^3/uL (0.0-0.1) 11/03/25 03:54 Nucleated RBC % (auto) 0 % 11/03/25 03:54 Nucleated RBCs # 0.0 /100WBC 11/03/25 03:54 D-Dimer 1.28 ug/mLFEU (0-0.59) H 10/31/25 22:53 Sodium 145 mmol/L (136-145) 11/03/25 03:54 Potassium 4.4 mmol/L (3.5-5.1) 11/03/25 03:54 Chloride 115 mmol/L (98-107) H 11/03/25 03:54 Carbon Dioxide 20 mmol/L (22-29) L 11/03/25 03:54 Anion Gap 14.4 (5-19) 11/03/25 03:54 BUN 69 mg/dL (8-23) H 11/03/25 03:54 Creatinine 1.5 mg/dL (0.7-1.2) H 11/03/25 03:54 GFR Calculation Not Reportable 11/03/25 03:54 Glucose 123 mg/dL (65-115) H 11/03/25 03:54 POC Glucose 145 mg/dL (70-110) H 11/03/25 06:24 Calculated Osmolality 321 mOsm/kg (285-295) H 11/03/25 03:54 Lactic Acid 3.9 mmol/L (0.5-2.2) H 10/31/25 22:53 Lactic Acid (Sepsis) 2.1 mmol/L (0.5-2.2) 11/01/25 02:50 Calcium 8.3 mg/dL (8.5-10.5) L 11/03/25 03:54 Magnesium 2.5 mg/dL (1.7-2.3) H 11/03/25 03:54 Total Bilirubin 1.0 mg/dL (0.15-1.2) 11/03/25 03:54 AST 20 U/L (0-40) 11/03/25 03:54 ALT 12 U/L (0-41) 11/03/25 03:54 Alkaline Phosphatase 52 U/L (40-130) 11/03/25 03:54 NT-Pro-B Natriuret Pep 199 pg/mL (0-450) 10/31/25 22:53 Total Protein 4.9 g/dL (6.6-8.7) L 11/03/25 03:54 Albumin 3.2 g/dL (3.5-5.2) L 11/03/25 03:54 Globulin 1.7 g/dL (1.3-4.6) 11/03/25 03:54 Influenza A (PCR) Negative (Negative) 11/03/25 01:00 Influenza Type B (PCR) Negative (Negative) 11/03/25 01:00 RSV (PCR) Negative (Negative) 11/03/25 01:00 SARS-CoV-2 (PCR) Negative (Negative) 11/03/25 01:00 Blood Type A Positive 11/02/25 05:13 Rho(D) Type Rh positive 11/02/25 05:13 Antibody Screen Negative 11/02/25 05:13 Crossmatch See Detail 11/02/25 05:13 Vitals Last Vital Signs Temp 98.3 F 11/03/25 07:33 Pulse 89 11/03/25 08:00 Resp 16 11/03/25 08:00 BP 105/57 11/03/25 07:33 Pulse Ox 95 11/03/25 08:00 O2 Del Method Room Air 11/03/25 08:00 O2 Flow Rate 4 11/01/25 09:10 Discharge Plan Discharge Patient Disposition: Home Health Service Condition: Stable Prescriptions: New sucralfate 100 mg/mL Suspension 1 g PO AC&BEDTIME 30 Days Qty: 1000 0RF Continued gabapentin 300 mg capsule 600 mg PO TID PRN (Reason: pain) tamsulosin 0.4 mg capsule 0.4 mg PO DAILY acetaminophen [Tylenol Extra Strength] 500 mg tablet 1,000 mg PO TID PRN (Reason: Pain) (DME) diabetic shoes with 3 inserts See Rx Instructions .Route .MEDSUPPLY Qty: 1 0RF Rx Instructions: As directed to the anika elster (DME) diabetic shoes w/ custom inserts See Rx Instructions .Route .MEDSUPPLY Qty: 1 0RF Rx Instructions: As directed by the anika lester [id number] (DME) Diabetic Shoes with 3 pairs of inserts See Rx Instructions .ROUTE .MEDSUPPLY Qty: 1 0RF Rx Instructions: As directed by the anika lester- [place] PATIENT fexofenadine 180 mg tablet 180 mg PO QAM fluticasone propion-salmeterol [Advair Diskus] 250-50 mcg/dose Blister With Device 1 inh INHALATION BID mineral oil-hydrophil petrolat Ointment 1 applic TOPICAL DAILY allopurinol 100 mg tablet 100 mg PO DAILY bisacodyl 10 mg Suppository 10 mg WI QAM PRN (Reason: Constipation) simvastatin 20 mg Tablet 20 mg PO QPM clotrimazole 1 % Solution 1 applic TOPICAL TID montelukast 10 mg tablet 10 mg PO QPM nicotine 7 mg/24 hr Patch 24 Hour 1 patch TRANSDERMAL Q24H Jardiance 25 mg Tablet 12.5 mg PO DAILY pantoprazole 40 mg tablet,delayed release (DR/EC) 40 mg PO BID 30 Days Qty: 60 0RF albuterol sulfate 90 mcg/actuation Hfa Aerosol Inhaler 1 inh INHALATION QID PRN (Reason: Shortness Of Breath) cholecalciferol (vitamin D3) 25 mcg (1,000 unit) Tablet 25 mcg PO DAILY Held metformin 500 mg tablet 500 mg PO DAILY Hold Instructions: Resume on 11/11/25. Review of this medication with your primary care provider before resuming aspirin [Adult Aspirin Regimen] 81 mg tablet,delayed release (DR/EC) 81 mg PO DAILY Hold Instructions: Resume on 11/11/25. Hold until instructed by primary care provider to resume methocarbamol 500 mg tablet 500 mg PO QID Qty: 30 0RF Hold Instructions: Resume on 11/11/25. Reviewed this with your primary care provider before resuming furosemide 40 mg tablet 40 mg PO BID PRN (Reason: fluid retention) Hold Instructions: Resume on 11/04/25. Hold in the setting of hypotension indomethacin 25 mg Capsule 25 mg PO TID PRN (Reason: gout) Hold Instructions: Resume on 11/11/25. Only resume after reviewing this with your primary care provider. Rx Instructions: administer with food or milk sacubitril-valsartan [Entresto] 24-26 mg Tablet 1 tab PO BID Hold Instructions: Resume on 11/11/25. Please keep blood pressure log, hold this medication in the setting of hypotension, resume under the direction of your primary care provider Discontinued fluticasone propionate 50 mcg/actuation spray,suspension 1 spray INTRANASAL DAILY Rx Instructions: administer into each nostril hydrocodone-acetaminophen 5-325 mg tablet 1 tab PO .q 4-6 PRN (Reason: pain) Qty: 20 0RF lidocaine 5 % Adhesive Patch,Medicated 1 patch TOPICAL DAILY Rx Instructions: leave on most painful area for up to 12 hrs azelastine 137 mcg (0.1 %) spray,non-aerosol 1 spray INTRANASAL BID ciprofloxacin-dexamethasone [Ciprodex] 0.3-0.1 % Drops,Suspension 4 drp OTIC (EAR) BID naloxone [Narcan] 4 mg/actuation [place],Non-Aerosol 4 mg INTRANASAL Q3M PRN (Reason: overdose) Rx Instructions: spray 1 dose into ONE nostril; alternate nostrils w each dose until help arrives Discharge Order = DC NOW: Discharge Order (Routine); Ordered 11/03/25 Ordered By: Mireille Chahal Referrals: [facility] ([facility]) [Outside] Terrence Zamudio MD [Physician, General Surgery] - 7-10 days Yara Phelps MD [Primary Care Provider, [facility]] - 1-3 days Discharge Diet: As Directed and Clear Liquid Discharge Activity: Resume usual activity Patient Instructions: Sucralfate (By mouth), COPD (Chronic Obstructive Pulmonary Disease) (DC), Duodenitis (DC), COPD Stoplight, GI Post Discharge Instructions w/ Anesthesia, Opioid Safety, Patient Portal & Gael Instructions Discharge Attestations Time Spent in Discharge Care*: greater than 30 min Quality Metrics Clinical Quality Measures [ No reported AMI, CVA or VTE this stay] Coding Level of Care Code 32112 Diagnoses Upper gastrointestinal hemorrhage K92.2
== END 2025-11-03 13:50 | disposition home health service (06) ==
LOC: ER 23:42 → MEDSURG 11-01 00:38
PROVIDERS: Surgery; Admitting Provider Family Medicine; Emergency Provider Physician Assistant; PCP Family Medicine; Visit Provider Registered Nurse
PROC: 0DJ08ZZ Inspection of Upper Intestinal Tract, Via Natural or Artificial Opening Endoscopic (ICD-10-PCS; principal; 2025-11-01 09:00)
DX: K26.3 Acute duodenal ulcer without hemorrhage or perforation (principal); K44.9 Diaphragmatic hernia without obstruction or gangrene; K29.80 Duodenitis without bleeding; K29.70 Gastritis, unspecified, without bleeding; J44.9 Chronic obstructive pulmonary disease, unspecified; E11.9 Type 2 diabetes mellitus without complications; Z79.82 Long term (current) use of aspirin; Z79.84 Long term (current) use of oral hypoglycemic drugs; N17.9 Acute kidney failure, unspecified; E78.5 Hyperlipidemia, unspecified; I10 Essential (primary) hypertension; Z80.9 Family history of malignant neoplasm, unspecified; Z87.891 Personal history of nicotine dependence
CPT/HCPCS: 36415; 36416; 36430; 43239; 51798; 71045; 80048; 80053; 82962; 83605; 83735; 83880; 85014; 85018; 85025; 85378; 86850; 86900; 86920; 87637; 88305; 93005; 94640; 96361; 96372; 96374; 96375; 99285; G0378; J1815; J2371; J2470; J2704; J2919; J7030; J7040; J7611; J7626; J9999; P9016; P9040

== ENCOUNTER → 2025-11-12 07:36 | Outpatient (BNVA) | payer OTHER, SELFPAY | PROVIDERS: PCP Family Medicine; Visit Provider Surgery | DX: Z51.89 Encounter for other specified aftercare (principal) | CPT/HCPCS: 99214 ==